=== PATIENT | male | born 1960 | race Caucasian/White ===

== ENCOUNTER 2023-08-13 12:46 | Outpatient (OUT) | payer MEDICARE, MEDICAID, SELFPAY ==
--- NOTE | 2023-08-13 12:59 | VEIN_ITS ---
Patient Name: MAJOR JACINTO MR#: [id number] : 1960 Exam Date: 08/13/2023 Ordering Doctor: DR. YANET ACKERMAN D.O. RADIOLOGY REPORT PROCEDURE: VC EXT VENOUS REFLUX FELIPE LMTD COMPARISON: None. INDICATIONS: Bilateral Leg Cramps R25.2 TECHNIQUE: Duplex imaging of the lower extremity to assess the deep and superficial venous system for the presence of deep or superficial venous incompetence and to document the location and severity of disease. The study includes evaluation of the great saphenous vein (GSV), anterior accessory saphenous vein (AASV) and small saphenous vein (SSV). Patient scanned in reverse Trendelenburg and standing. FINDINGS: RIGHT LOWER EXTREMITY: Saphenofemoral Junction Reflux: Yes 6.5mm 0.5 sec GSV: Diam (mm) Reflux/ Time (sec) Proximal Thigh 8.0 Yes 0.6 Mid Thigh 3.9 No Distal Thigh 4.6 Yes 0.4 Prox Calf 3.3 Yes 0.2 Mid Calf 2.6 Yes 0.1 Saphenopopliteal Junction Reflux: 4.2mm Yes 0.6 SSV: Proximal Calf 4.9 Yes 0.4 Mid Calf 3.7 Yes 0.2 AASV: Proximal Thigh 2.6 Yes 0.2 Mid Thigh 2.2 Yes 0.2 Distal Thigh Thrombi: No acute or chronic thrombus at this time. Compressibility: Normal. Flow: Minimal deep venous reflux. Preforator: Mid medial lower leg 2.1 mm without reflux. Prox medial lower leg 2.7 mm with 0.4s reflux. Tech Note: Incompetent varicose vein mid lateral lower leg measures 2.3 mm with 0.5s reflux. LEFT LOWER EXTREMITY: Saphenofemoral Junction Reflux: Yes 6.8 mm 0.3 sec GSV: Diam (mm) Reflux/Time (sec) Proximal Thigh 5.5 Yes 0.8 Mid Thigh 4.0 Yes 0.2 Distal Thigh 3.6 No Prox Calf 2.2 Yes 0.1 Mid Calf 2.2 Yes 0.2 Saphenopopliteal Junction Relux: 3.5 mm Yes 0.2 SSV: Proximal Calf 3.2 Yes 0.1 Mid Calf 2.1 No AASV: Not present Thrombi: No acute or chronic thrombus. Compressibility: Normal. Flow: Minimal deep venous reflux. Citrix Administrator: None. Tech Note: Incompetent varicose vein proximal medial lower leg measures 2.3 mm with 0.4s reflux. CONCLUSION: 1. Minimal venous insufficiency bilateral great saphenous veins with no dilatation or significant saphenofemoral or saphenopopliteal junction reflux 2. No significant varicose veins Dictated by: Darien Frias MD on 08/13/2023 at 14:08 Approved by: Darien Frias MD on 08/13/2023 at 14:10
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
== END 2023-08-13 12:47 | disposition home or self-care (01) ==
PROVIDERS: PCP Family Medicine; Visit Provider Family Medicine
DX: M79.605 Pain in left leg (principal); M79.604 Pain in right leg
CPT/HCPCS: 93970; G0463

== ENCOUNTER 2025-07-18 03:41 | Emergency (ER) | payer MEDICARE, MEDICAID, SELFPAY ==
--- OUTSIDE RECORDS SUMMARY | 2024-04-12 08:15 | XMS_ITS ---
Author Organization [facility] vices Address [address] [place], [place] [id number] Care Team Providers Care Dryer And Washer Mechanic Name Role Phone Yadira Jose Primary Care Provider [phone] Karie Bland [phone] REASON FOR VISIT 6 mo HTN Social History Sex Assigned At : Social History Observation Description Sex Assigned At Male Encounters Encounter Location Date Provider Diagnosis Main [address] [place], [place] [id number] 04/12/2024 Karie Doan Plan Of Treatment Next Appt Details Provider Name:Yadira Jose, 07/18/2025 01:30:00 PM, [address] [place], [place], [id number], Progress Notes * Sunil JACINTO LDOB:1960 (64 yo M)Acc No.[id number]:04/12/2024 Medical Note Patient: Sunil Garner Yuriy :?Karie Doan, DODOB:1960???Age:63 Y ???Sex:MaleDate:04/12/2024hone:[phone]:[address], [place], [place]Iij:Yadirabob Millanl Subjective: * Chief Complaints: * 6 mo HTN * Electronic signature of Karie Doan , DO on 07/18/2025 at 04:30 AM ESTSign off status: Pending * Provider: Nestor Doan, DO Date: 0 04/12/2024 Generated for Printing/Faxing/eTransmitting on:?07/18/2025 04:30 AM EST
--- OUTSIDE RECORDS SUMMARY | 2024-04-13 09:00 | XMS_ITS ---
Author Organization [facility] vices Address [address] [place], [place] [id number] Care Team Providers Care Wet Press Tender Name Role Phone Yadira Jose Primary Care Provider [phone] Katiuska Alvarez Unavailable [phone] REASON FOR VISIT HTN, DM Social History Sex Assigned At : Social History Observation Description Sex Assigned At Male Encounters Encounter Location Date Provider Diagnosis Main [address] [place], [place] [id number] 04/13/2024 Katiuska Lagunas Plan Of Treatment Next Appt Details Provider Name:Yadira Jose, 07/18/2025 01:30:00 PM, [address] [place], [place], [id number], Progress Notes * Sunil JACINTO LDOB:1960 (64 yo M)Acc No.[id number]:04/13/2024 Medical Note Patient: Yenny granados Sunil Yan :?Katiuska LagunasDOB:1960???Age:63 Y???Sex:Male Date:04/13/2024hone:[phone]:[address], [place], [place]Oea:Yadirabob Jose Subjective: * Chief Complaints: * H TN, DM Billing Information: * Procedure Codes: * Electronic signature of CATHY Boswell on 07/18/2025 at 04:30 AM ESTSign off status: Pending * Provider: Dee Lagunas Date: 0 04/13/2024 Generated for Printing/Faxing/eTransmitting on:?07/18/2025 04:30 AM EST
--- OUTSIDE RECORDS SUMMARY | 2024-04-13 09:30 | XMS_ITS ---
Author Organization [facility] vices Address [address] [place], [place] [id number] Care Team Providers Care Lead Nuclear Medicine Technologist Name Role Phone Yadira Jose Primary Care Provider [phone] Roddy De La Torre [phone] REASON FOR VISIT 6 month f/u HTN Social History Sex Assigned At : Social History Observation Description Sex Assigned At Male Encounters Encounter Location Date Provider Diagnosis Main [address] [place], [place] [id number] 04/13/2024 Roddy Kelley Plan Of Treatment Next Appt Details Provider Name:Yadira Jose, 07/18/2025 01:30:00 PM, [address] [place], [place], [id number], Progress Notes * Sunil JACINTO LDOB:1960 (64 yo M)Acc No.[id number]:04/13/2024 Medical Note Patient: Sunil Garner Yuriy :?JENNA Patel-CDOB:1960???Age:63 Y???Sex: MaleDate:4Phone:[phone]:[address], [place], [place]Ile:Yadira Jose Subjective: * Chief Complaints: * 6 month f/u HTN Billing Information: * Procedure Codes: * Electronic signature of JENNA Patel on 07/18/2025 at 04:30 AM ESTSign off status: Pending * Provider: Bautista Kelley PA-C Date: 0 04/13/2024 Generated for Printing/Faxing/eTransmitting on:?07/18/2025 04:30 AM EST
--- OUTSIDE RECORDS SUMMARY | 2024-06-11 03:45 | XMS_ITS ---
Author Organization [facility] vices Address [address] [place], [place] [phone] Care Team Providers Care Manhole Builder Name Role Phone DamonYadira Primary Care Provider Allergies Allergen (clinical drug ingredient) Drug/Non Drug Allergy documented on EMR Reaction Allergy Type Onset Date Status TalacenUnknownDrug AllergyActivePenicillinUnknownDrug AllergyActive REASON FOR VISIT f/u HTN & Back pain Medications Medication SIG (Take, Route, Frequency, Duration) Notes Start Date End Date Status Lisinopril 2.5 MG Tablet 1 tablet Orally Once a day; Duration: 90 days 08/18/2023Not-Taking/PRNBicalutamide 50 MG Tablet1 tablet Orally Once a day Not-Taking/PRNApple Cider Vinegar 600 MG Capsuleas directed Orally3 capsule once dailyNot-Taking/PRNTadalafil 10 MG Tablet1 tablet as needed Orally Once a day Not-Taking/PRNTurmeric 400 MG Capsuleas directed Orally2 chews once daily Not-Taking/PRNMens Multivitamin - Tabletas directed OrallyActiveAbiraterone Acetate 500 MG Tablet2 tablets Orally Once a dayActivemetFORMIN HCl 1000 MG Tablet1 tablet with a meal Oral two times a day; Duration: 90 days06/04/2021 ActiveEmpagliflozin 10 MG Tablet1 tablet Orally Once a day; Duration: 30 days 05/19/2024ctivepredniSONE 5 MG Tablet1 tablet Orally twice dailyno end date ActiveTylenol 325 MG Tablet1 tablet as needed Orally every 4 hrsActiveLidocaine 5 % Patch1 patch remove after 12 hours Externally Once a day; Duration: 30 days 10/23/2024Active Social History Sex Assigned At : Social History Observation Description Sex Assigned At Male Encounters Encounter Location Date Provider Diagnosis Main [address] [place], [place] [id number] 06/11/2024 Yadira Jose Plan Of Treatment Next Appt Details Provider Name:Yadira Jose, 07/18/2025 01:30:00 PM, [address] [facility] [place], [id number], History and Physical Notes * Examination CategorySub-CategoryDetailNotesCategory NotesCQM ExceptionsCurrently taking Aspirin:Aspirin Use:: No Progress Notes * Sunil JACINTO LDOB:1960 (64 yo M)Acc No.[id number]:06/11/2024 Medical Note Patient: Sunil Garner :?Yadira Jose, MDDOB:1960???Age:63 Y???Sex: MaleDate:06/11/2024hone:[phone]:[address], [place] Subjective: * Chief Complaints: * f /u HTN & Back pain * Medical History: Prostate Cancer Stage 4 bone cancer Bladder cancer DM HTN? * Surgical History: SURGICAL: Right knee arthroscopy, ProblemStatus: Active, 2007-06-17? prostate surgery ? Surgical History verified.? * Hospitalization/Major Diagno stic Procedure: [facility] 01[facility]? [facility]? Hospitalization Verified.? * Family History: F ather: unknown. M other: alive. P aternal Grand Father: unknown. P aternal Grand Mother: unknown. M aternal Grand Father: . M aternal Grand Mother: . B rother: alive. S ister: alive. 1 brother(s) , 2 sister(s) . . F amily History Verified.. * Medications: T akingLidocaine 5 % Patch 1 patch remove after 12 hours Externally Once a day Tylenol 325 MG Tablet 1 tablet as needed Orally every 4 hrs Abiraterone Acetate 500 MG Tablet 2 tablets Orally Once a day Mens Multivitamin - Tablet as directed Orally predniSONE 5 MG Tablet 1 tablet Orally twice daily , Notes to Pharmacist: no end dateEmpagliflozin 10 MG Tablet 1 tablet Orally Once a day metFORMIN HCl 1000 MG Tablet 1 tablet with a meal Oral two times a day Taking Lidocaine 5 % Patch 1 patch remove after 12 hours Externally Once a day Taking Tylenol 325 MG Tablet 1 tablet as needed Orally every 4 hrs Taking Abiraterone Acetate 500 MG Tablet 2 tablets Orally Once a day Taking Mens Multivitamin - Tablet as directed Orally Taking predniSONE 5 MG Tablet 1 tablet Orally twice daily , Notes to Pharmacist: no end dateTaking Empagliflozin 10 MG Tablet 1 tablet Orally Once a day Taking metFORMIN HCl 1000 MG Tablet 1 tablet with a meal Oral two times a day Not-Taking/PRNTurmeric 400 MG Capsule as directed Orally , Notes to Pharmacist: 2 chews once dailyTadalafil 10 MG Tablet 1 tablet as needed Orally Once a day Apple Cider Vinegar 600 MG Capsule as directed Orally , Notes to Pharmacist: 3 capsule once dailyBicalutamide 50 MG Tablet 1 tablet Orally Once a day Lisinopril 2.5 MG Tablet 1 tablet Orally Once a day Not-Taking/PRN Turmeric 400 MG Capsule as directed Orally , Notes to Pharmacist: 2 chews once dailyNot-Taking/PRN Tadalafil 10 MG Tablet 1 tablet as needed Orally Once a day Not-Taking/PRN Apple Cider Vinegar 600 MG Capsule as directed Orally , Notes to Pharmacist: 3 capsule once dailyNot-Taking/PRN Bicalutamide 50 MG Tablet 1 tablet Orally Once a day Not-Taking/PRN Lisinopril 2.5 MG Tablet 1 tablet Orally Once a day * Allergies: T alacen: AllergyPenicillin: AllergyyesAllergies Verified. Objective: * Examination: ???CQM Exceptions: ?Currently taking Aspirin:? Aspirin Use:?No??? Billing Information: * Procedure Codes: * Electronic signature of Yadira Jose MD on 07/18/2025 at 04:29 AM ESTSign off status: Pending * Provider: Gary Jose MD Date: 08/11/2023 Generated for Printing/Faxing/eTransmitting on:?07/18/2025 04:29 AM EST
--- OUTSIDE RECORDS SUMMARY | 2024-06-16 10:00 | XMS_ITS ---
Author Organization [facility] vices Address [address] [place], [place] [id number] Care Team Providers Care Head Silverman Name Role Phone DamonYadira covington Primary Care Provider [phone] Allergies Allergen (clinical drug ingredient) Drug/Non Drug Allergy documented on EMR Reaction Allergy Type Onset Date Status TalacenUnknownDrug AllergyActivePenicillinUnknownDrug AllergyActive REASON FOR VISIT 4wk f/u DM Medications Medication SIG (Take, Route, Frequency, Duration) Notes Start Date End Date Status Bicalutamide 50 MG Tablet 1 tablet Orally Once a day Not-Taking/PRNApple Cider Vinegar 600 MG Capsuleas directed Orally3 capsule once dailyNot-Taking/PRNTadalafil 10 MG Tablet1 tablet as needed Orally Once a day Not-Taking/PRNTurmeric 400 MG Capsuleas directed Orally2 chews once daily Not-Taking/PRNLisinopril 2.5 MG Tablet1 tablet Orally Once a day; Duration: 90 days08/18/2023Not-Taking/PRNEmpagliflozin 10 MG Tablet1 tablet Orally Once a day; Duration: 30 days05/19/2024ctivepredniSONE 5 MG Tablet1 tablet Orally twice dailyno end dateActivemetFORMIN HCl 1000 MG Tablet1 tablet with a meal Oral two times a day; Duration: 90 days06/04/2021ctiveMens Multivitamin - Tabletas directed OrallyActiveAbiraterone Acetate 500 MG Tablet2 tablets Orally Once a dayActiveTylenol 325 MG Tablet1 tablet as needed Orally every 4 hrsActive Lidocaine 5 % Patch1 patch remove after 12 hours Externally Once a day; Duration: 30 days05/19/2024ctive Social History Sex Assigned At : Social History Observation Description Sex Assigned At Male Encounters Encounter Location Date Provider Diagnosis Main [address] [place], [place] [id number] 06/16/2024 Yadira Jose Plan Of Treatment Next Appt Details Provider Name:Yadira Jose, 07/18/2025 01:30:00 PM, [address] [facility] [place], [phone], History and Physical Notes * Examination CategorySub-CategoryDetailNotesCategory NotesCQM ExceptionsCurrently taking Aspirin:Aspirin Use:: No Progress Notes * Sunil JACINTO LDOB:1960 (64 yo M)Acc No.[id number]:06/16/2024 Medical Note Patient: Sunil Garner :?Yadira Jose, MDDOB:1960???Age:63 Y???Sex: MaleDate:06/16/2024hone:[phone]:[address], [place] Subjective: * Chief Complaints: * 4 wk f/u DM * Medical History: Prostate Cancer Stage 4 bone cancer Bladder cancer DM HTN? * Surgical History: SURGICAL: Right knee arthroscopy, ProblemStatus: Active, 2007-06-17? prostate surgery ? Surgical History verified.? * Hospitalization/Major Diagno stic Procedure: [facility]? [facility]? see above ? Hospitalization Verified.? * Family History: F ather: [...] Pending * Provider: Gary Jose MD Date: 08/16/2023 Generated for Printing/Faxing/eTransmitting on:?07/18/2025 04:29 AM EST
--- OUTSIDE RECORDS SUMMARY | 2025-06-28 22:26 | XMS_ITS | Encounter Summary ---
Author Organization [facility] tem Address [id number] [address] [place] [address] Care Team Providers Care Assistant Coach Name Role Phone Yadira Jose MD Primary Care Provider [phone] Reason for Referral * Consultation (Routine) - Pending ReviewSpecialtyDiagnoses / ProceduresReferred By ContactReferred To ContactWound Care Diagnoses Wound of left groin, initial encounter Amy Lentz APRN-GALI [address] [place] [address] Phone: tel: fax: [facility] [address] [place] [address] Phone: tel: fax: Referral IDStatusReasonStart DateExpiration DateVisits RequestedVisits [id number] Review Specialty Services Required / * Misc (Routine) - AuthorizedSpecialtyDiagnoses / ProceduresReferred By Contact Referred To Contact Procedures Wound care (specify) Amy Lentz APRN-CNP [address] [place] [address] Phone: tel: fax: Referral IDStatusReasonStart DateExpiration DateVisits RequestedVisits [id number]/4/202512/4/202611 * Misc (Routine) - AuthorizedSpecialtyDiagnoses / ProceduresReferred By Contact Referred To Contact Procedures Remove dressing (specify when) Amy Lentz APRN-GALI [address] [place] [address] Phone: tel: fax: Referral IDStatusReasonStart DateExpiration DateVisits RequestedVisits [id number]/4/202512/4/202611 Reason for Visit * Auth/CertSpecialtyDiagnoses / ProceduresReferred By ContactReferred To Contact Diagnoses 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) Cherelle Cervantes APRN-GALI [address] [place] [address] Phone: tel: fax: Referral IDStatusReasonStart DateExpiration DateVisits RequestedVisits [id number] Encounter Details DateTypeDepartmentCare Team (Latest Contact Info)Qzeuqdofxpl31/02/2025 10:26 PM EST - 07/06/2025 6:22 PM ESTHospital Encounter [facility] Acute [address] [place] [id number] Corbin Singleton MD [address] [place] [id number] Jerel Allen MD [address] [place] [address] Wound of left groin, initial encounter (Primary Dx); 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) Discharge Disposition: Home Health Social History Tobacco UseTypesPacks/DayYears UsedDateSmoking Tobacco: FormerCigarsSmokeless Tobacco: Never Comments:Quit 6 years ago 20 17 Alcohol UseStandard Drinks/WeekCommentsNo0 (1 standard drink = 0.6 oz pure alcohol)Social Connection and Isolation PanelAnswerDate RecordedIn a typical week, how many times do you talk on the phone with family, friends, or neighbors?More than three times a week06/16/2024How often do you get together with friends or relatives?More than three times a week06/16/2024How often do you attend sikh or religion services?More than 4 times per year06/16/2024o you belong to any clubs or organizations such as sikh groups, unions, fraternal or athletic groups, or school groups?Yes06/16/2024How often do you attend meetings of the clubs or organizations you belong to?More than 4 times per year06/16/2024 Are you , , , , never , or living with a partner?Mexckkt5506/16/2024Overall Financial Resource Strain (CARDIA)AnswerDate RecordedHow hard is it for you to pay for the very basics like food, housing, medical care, and heating?Not hard at all06/16/2024HQ-2AnswerDate RecordedTotal Mjnej74208/30/2024[facility] [place] [facility] - Occupational Stress QuestionnaireAnswerDate RecordedDo you feel stress - tense, restless, nervous, or anxious, or unable to sleep at night because yourmind is troubled all the time - these days?To some ooiake3206/16/2024Exercise Vital SignAnswerDate Recorded On average, how many days per week do you engage in moderate to strenuous exercise (like a brisk walk)?0 days06/16/2024On average, how many minutes do you engage in exercise at this level?0 min06/16/2024UDIT-CAnswerDate RecordedQ1: How often do you have a drink containing alcohol?Never06/29/2025Q2: How many drinks containing alcohol do you have on a typical day when you are drinking? Patient does not drink06/29/2025Q3: How often do you have six or more drinks on one occasion?Never06/29/2025PRAPARE - TransportationAnswerDate RecordedIn the past 12 months, has lack of transportation kept you from medical appointments or from getting medications?No06/29/2025In the past 12 months, has lack of transportation kept you from meetings, work, or from getting things needed for daily living?No06/29/2025HC UtilitiesAnswerDate RecordedIn the past 12 months has the [employer], gas, oil, or water [employer] threatened to shut off services in your home?No06/29/2025Housing InstabilityAnswerDate RecordedAre you worried or concerned that in the next two months you may not have stable housing that you own, rent or stay in as a part of a household?No06/29/2025hildcareAnswerDate RecordedDo problems getting child protection specialist 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 work or study?No06/16/2024EmploymentAnswerDate RecordedDo you need help finding a local career center and/or a training program?No06/16/2024Hunger ScreeningAnswerDate RecordedWithin the past 12 months we worried whether our food would run out before we got money to buy more.Never True06/29/2025Within the past 12 months the food we bought just didn't last and we didn't have money to get more.Never True06/29/2025Purpose - LifeAnswerDate RecordedI have a purpose and direction in my life.Strongly Agree06/16/2024Sex and Gender InformationValueDate RecordedSex Assigned at BirthNot on fileLegal PqqQvqk4203/02/2015 11:37 AM EDTGender Identity Not on fileSexual OrientationNot on filedocumented as of this encounter Last Filed Vital Signs Vital SignReadingTime TakenCommentsBlood Ejtrnfjr064/7107/06/2025 3:00 PM EST Axgyt239507/06/2025 3:00 PM NFYNsorykrlsrv25.7 ??C (98.1 ??F)07/06/2025 3:00 PM ESTRespiratory Klhd061309/06/2024 3:00 PM ESTOxygen Dpxhebhbyh03%07/06/2025 3:00 PM ESTInhaled Oxygen Concentration--Ljivbj39.5 kg (203 lb 14.8 oz)07/06/2025 3:40 AM BCRTzjkjx020.8 cm (5' 10 )06/28/2025 10:31 PM ESTBody Mass Index29.26 06/28/2025 10:31 PM ESTdocumented in this encounter Functional Status * GaitQuestionAnswerDate of AssessmentAuthorAssistive DeviceRolling walker 07/04/2025 9:00 AM Denise Schroeder A, OT/L * HEENTQuestionAnswerDate of AssessmentAuthorHEENT (WDL)X109/06/2024 8:00 AM Estrella Woo CNATeethMissing teeth07/06/2025 8:00 AM Estrella Nevarez CNA * IP Hunger/Food Insecurity ScreeningQuestionAnswerDate of AssessmentAuthor Hunger Screening Complete?Yes06/29/2025 8:33 AM Baylee Valadez RNPt. Eligible for Food / KezllleFf04/03/2025 8:33 AM Baylee Valadez RNIf Eligible: Received Food BoxNot Offered to Tkshkxn1906/29/2025 8:33 AM Baylee Valadez RN * Food InsecurityQuestionAnswerDate of AssessmentAuthorWithin the past 12 months the food we bought just didn't last and we didn't have money to get more.Never True06/29/2025 10:03 AM Nolvia Escalona RNWithin the past 12 months we worried whether our food would run out before we got money to buy more.Never True06/29/2025 10:03 AM Nolvia Escalona RN * ActivityQuestionAnswerDate of AssessmentAuthorActivity PerformedResting in bed 07/06/2025 8:00 AM Estrella Nevarez CNAActivity ResponseTolerated well 07/06/2025 8:00 AM Estrella Nevarez CNARange of MotionActive;All extremities 07/06/2025 8:00 AM Estrella Nevarez CNAToileting AssistanceAmbulate to tcsufpcj62/10/2025 8:00 AM Estrella Nevarez CNATransport Method Wheelchair;Vaktxnsgn64/10/2025 8:00 AM Estrella Nevarez CNABed PositionSelf gfuwskhno52/10/2025 8:00 AM Estrella Nevarez CNA * Deterioration IndexQuestionAnswerDate of AssessmentAuthorDeterioration Index (30-60 mod; 60+ high)26.39109/06/2024 6:15 PM Renato Connolly * Post Discharge Follow Up QuestionsQuestionAnswerDate of AssessmentAuthor Reviewed and Updated if needed.Uyducajx91/10/2025 5:41 PM Estrella Nevarez CNA * Housing InstabilityQuestionAnswerDate of AssessmentAuthorAre you worried or concerned that in the next two months you may not have stable housing that you own, rent or stay in as a part of a household?No06/29/2025 10:03 AM Nolvia Ceballos RN * Pneumonia Vaccine Screen ages 19 to 64QuestionAnswerDate of AssessmentAuthor Are any of the following pneumococcal vaccine contraindications present? Current chemotherapy or radiation treatment or less than 2 weeks prior to inpatient wzlnuwcwsifhfic60/03/2025 10:05 AM Nolvia Escalona RN Pneumococcal Vaccine Decision:STOP - No Pneumococcal vaccine is indicated 06/29/2025 10:05 AM Nolvia Escalona RN * PACU InterventionsQuestionAnswerDate of AssessmentAuthorComfort/Environmental InterventionsWarming dfdzsno7007/03/2025 1:45 PM Jean-Pierre Bonds RN * Richrad Coma ScaleQuestionAnswerDate of AssessmentAuthorEye Lsqganq322/10/2025 8:00 AM Estrella Nevarez CNABest Motor Yvithbvt764/10/2025 8:00 AM Estrella Nevarez CNABest Verbal Pgidiwmt264/10/2025 8:00 AM Estrella Nevarez CNA * Vital SignsQuestionAnswerDate of VwtalhyeirPhqsmlZP133/7107/06/2025 3:00 PM Mara Dior CNATemp98.112 3:00 PM Mara Dior, CNATemp kzbBsnl6607/06/2025 3:00 PM Mara Dior CNAPulse8207/06/2025 3:00 PM Mara Mcguire, NHSYbjh7888/10/2025 3:00 PM Mara Dior MCULoK351 07/06/2025 3:00 PM Mara Dior CNAO2 Flow Rate (L/min) 3:56 AM Ernestine Guillory CNAO2 DeviceNone (Room air)07/06/2025 3:00 PM Mara Dior CNAHeart Rate SourcePulse Ox07/06/2025 3:00 PM Mara Dior CNA BP LocationRight arm07/06/2025 3:00 PM Mara Dior CNABP Method Iwxxqmzyy90/10/2025 3:00 PM Mara Dior CNAMAP (mmHg)8807/06/2025 3:00 PM Mara Dior CNAIdarlene this an Orthostatic BP?No07/06/2025 3:00 PM Mara Mcguire CNAOrthostatic VbtcispxOdov45/10/2025 3:00 PM Mara Dior CNAPatient JdxsxiidEgqbles77/10/2025 3:00 PM Mara Dior CNA * Oxygen TherapyQuestionAnswerDate of AssessmentAuthorPulse Oximetry Type Zpcveadnov49/07/2025 1:23 PM Jessica Marcano, WARHEAD MAINTENANCE SPECIALIST-BATCHING OPERATOR * Height and WeightQuestionAnswerDate of SsedoadupwUgkhnpSudbub3296/02/2025 10:31 PM Isaac Kim RNWeight3262.8107/06/2025 3:40 AM Ernestine Guillory CNABEMynor (kcal)02550108/29/2024 10:31 PM Isaac Kim RNHeight MfqvnrHygfjx20/02/2025 10:31 PM Isaac Kim RNBSA (Calculated - sq m) 2.0906/28/2025 10:31 PM Isaac Kim RNBMI (Calculated)27.9108/29/2024 10:31 PM Isaac Kim RNWeight in (lb) to have BMI = 17441.9108/29/2024 10:31 PM Isaac Kim RN * Localized Breath SoundsQuestionAnswerDate of AssessmentAuthorR Upper Posterior Clear07/02/2025 10:15 AM ESTOdibe, A'CericaR Mid MpbwgfsvAsxpl85/06/2025 10:15 AM ESTOdibe, A'CericaR Mid RlcybnxsiTjkgo31/06/2025 10:15 AM ESTOdibe, A'CericaR VwrujexMlijj31/06/2025 10:15 AM ESTOdibe, A'CericaR Lower Anterior Clear07/02/2025 10:15 AM ESTOdibe, A'CericaR Basilar (R Lower Posterior Base) Clear07/02/2025 10:15 AM ESTOdibe, A'CericaL Upper AnteriorDiminished 07/02/2025 10:15 AM ESTOdibe, A'CericaL Upper KbnvguykiPcnsyfidfs81/06/2025 10:15 AM ESTOdibe, A'CericaL FnzbngaIohmbuamxe08/06/2025 10:15 AM ESTOdibe, A'CericaL Lower QyovulfxGwgaf77/06/2025 10:15 AM ESTOdibe, A'CericaL Basilar (L Lower Posterior Base)Clear07/02/2025 10:15 AM ESTOdibe, A'Cerica * CardiacQuestionAnswerDate of AssessmentAuthorCardiac (WDL)X109/03/2024 1:45 PM Jean-Pierre Bonds RN * Pacemaker/ICDQuestionAnswerDate of AssessmentAuthorCardiac RhythmNormal sinus ykmxmc7007/06/2025 8:00 AM Estrella Nevarez CNATelemetry/Cardiac MonitorYes 07/06/2025 8:00 AM Estrella Nevarez CNA * GastrointestinalQuestionAnswerDate of AssessmentAuthorPassing FlatusYes 07/03/2025 7:30 PM Nataly Aguilar RNRUQ Bowel EbwdlgGzrivh34/10/2025 8:00 AM Estrella Nevarez, CNARLQ Bowel RgqnueSzklni42/10/2025 8:00 AM Estrella Nevarez, CNALUQ Bowel UvemtvPwkzul29/10/2025 8:00 AM Estrella Nevarez, CNALLQ Bowel KhkujlVjqtmd80/10/2025 8:00 AM Estrella Nevarez, BELEMAGastrointestinal (WDL)WDL109/06/2024 8:00 AM Estrella Nevarez CNAGI WihtscljLnfb68/10/2025 8:00 AM Estrella Nevarez CNA * EdemaQuestionAnswerDate of AssessmentAuthorRLE Edema+ 8:00 AM Estrella Woo CNALLE Edema+ 8:00 AM Estrella Nevarez CNA * RUE Peripheral Vascular AssessmentQuestionAnswerDate of AssessmentAuthorR Radial Pulse+ 8:00 AM Estrella Nevarez CNA * LUE Peripheral Vascular AssessmentQuestionAnswerDate of AssessmentAuthorL Radial Pulse+ 8:00 AM Estrella Nevarez CNA * RLE Peripheral Vascular AssessmentQuestionAnswerDate of AssessmentAuthorR Posterior Tibial Pulse+ 8:00 AM Estrella Nevarez CNAR Dorsalis Pedis/Pedal Pulse+ 8:00 PM Alen Calix RN * LLE Peripheral Vascular AssessmentQuestionAnswerDate of AssessmentAuthorL Posterior Tibial Pulse+ 8:00 AM Estrella Nevarez CNAL Dorsalis Pedis/Pedal Pulse+ 8:00 AM Estrella Nevarez CNA * Musculoskeletal DetailsQuestionAnswerDate of AssessmentAuthorLower BackLimited oqdjxopc78/07/2025 5:46 PM Arely Dietz, DARY * MusculoskeletalQuestionAnswerDate of AssessmentAuthorRUEFull movement 07/06/2025 8:00 AM Estrella Nevarez CNARLELimited movement;Weakness 07/06/2025 8:00 AM Estrella Nevarez CNALUEFull fvuwbcki40/10/2025 8:00 AM Estrella Nevarez CNALLELimited movement;Nuepzzrp79/10/2025 8:00 AM Estrella Nevarez CNAMusculoskeletal (WDL)X109/06/2024 8:00 AM Estrella Nevarez CNA * Anus/RectumQuestionAnswerDate of AssessmentAuthorAnus/Rectum (WDL)WDL 07/06/2025 8:00 AM Estrella Nevarez CNA * PsychosocialQuestionAnswerDate of AssessmentAuthorPatient Behaviors/Mood Calm;Bwegvdxmwlj83/10/2025 8:00 AM Estrella Nevarez CNAFamily/Visitor BehaviorsCalm;Cooperative;Phduqgdord33/10/2025 8:00 AM Estrella Nevarez CNA Needs JezmuwbldGavvwykm98/10/2025 8:00 AM Estrella Nevarez CNAPsychosocial (WDL)WDL109/06/2024 8:00 AM Estrella Nevarez CNAPerson/Family Visitation Significant other07/06/2025 8:00 AM Estrella Nevarez CNAAbility to Express FeelingsAble to vzeirrq3107/06/2025 8:00 AM Estrella Nevarez CNAAbility to Express NeedsAble to qmrrqan4907/06/2025 8:00 AM Estrella Nevarez CNAAbility to Express ThoughtsAble to wxdcumm0607/06/2025 8:00 AM Estrella Nevarez CNA Time of VisitationRooming In07/06/2025 8:00 AM Estrella Nevarez CNAAbility to Understand JxoymyBnoqacefmup57/10/2025 8:00 AM Estrella Nevarez CNA * IntakeQuestionAnswerDate of AssessmentAuthorPercent Meals Eaten (%)100 07/06/2025 5:00 PM Estrella Nevarez CNA * Ximena Fall RiskQuestionAnswerDate of AssessmentAuthorHistory of Falling0 07/06/2025 8:00 AM Estrella Nevarez CNASecondary Brvvevohk6599/10/2025 8:00 AM Estrella Nevarez CNAAmbulatory Wpuj029109/06/2024 8:00 AM Estrella Nevarez CNAIntravenous Therapy/Heparin/Saline Upow935209/06/2024 8:00 AM Estrella Woo, BELEMAGait/Yzelrpipkpes7720/10/2025 8:00 AM Estrella Nevarez, BELEMAMental Yzgprz216/10/2025 8:00 AM Estrella Nevarez CNAScore6007/06/2025 8:00 AM Estrella Nevarez CNA * Tee ScaleQuestionAnswerDate of AssessmentAuthorSensory Perceptions4 07/06/2025 8:00 AM Estrella Nevarez CNAMoisture 8:00 AM Estrella Nevarez, YTZLsxihdmq893/10/2025 8:00 AM Estrella Nevarez CNAMobility3 07/06/2025 8:00 AM Estrella Nevarez CNANutrition 8:00 AM Estrella Woo CNAFriction and Wvrud584 8:00 AM Estrella Nevarez CNA * Pain Intervention(s)AnswerDate of AssessmentAuthorMedication (See MAR) 07/05/2025 11:24 PM Alen Calix RN * Level of ConsciousnessAnswerDate of GmpyumhchwVejxhaObppa44/10/2025 4:00 AM Alen Calix RN * Tee Scale ScoreAnswerDate of QijfjshfruOyneml2716/10/2025 8:00 AM Estrella Nevarez CNA * RespiratoryQuestionAnswerDate of AssessmentAuthorBilateral Breath Sounds Clear;Ufigmmedsq40/10/2025 8:00 AM Estrella Nevarez CNAR Breath SoundsClear 07/06/2025 8:00 AM Estrella Nevarez CNAL Breath BwimjxCcweigijxf63/10/2025 8:00 AM Estrella Nevarez CNARespiratory OgxfrdfVfizogi39/10/2025 8:00 AM Estrella Woo CNAChest AssessmentChest expansion gkyjfyppasm39/10/2025 8:00 AM Estrella Nevarez CNACoughNone109/06/2024 8:00 AM Estrella Nevarez CNA Respiratory (WDL)X109/06/2024 8:00 AM Estrella Nevarez CNACyanosisNone 07/06/2025 8:00 AM Estrella Nevarez CNA * HygieneQuestionAnswerDate of AssessmentAuthorCHG (Chlorhexidine Gluconate) PihjhrwYtwqgazkw74/10/2025 3:57 AM Ernestine Guillory CNA * Height and WeightQuestionAnswerDate of AssessmentAuthorWeight MethodStanding scale07/05/2025 3:00 AM Ernestine Guillory CNA * Patient InformationQuestionAnswerDate of AssessmentAuthorPrimary CaregiverSelf 06/29/2025 8:33 AM Baylee Valadez RNAccompanied by/Relationshipspouse Laina 06/29/2025 8:33 AM Baylee Valadez RNSupport SystemSpouse/Significant Other 06/29/2025 8:33 AM Baylee Valadez RNInikrys Pre-Hospitalization Assessment Completed?Mrwnqlthj83/03/2025 8:33 AM Baylee Valadez RN * Activities of Daily LivingQuestionAnswerDate of AssessmentAuthorFunctional StatusModerate rssjzwfoyf33/03/2025 8:32 AM Baylee Valadez RNAmbulation Moderate tctthyvbbg10/03/2025 8:32 AM Baylee Valadez RNBehaviorOriented 06/29/2025 8:32 AM Byalee Valadez RNDressingNeeds pnnebwovgz87/03/2025 8:32 AM Baylee Valadez RNKHKyuvtmkqZfcroildiez01/03/2025 8:32 AM Baylee Valadez RNFMIBxkfpqdOufpawgbqye98/03/2025 8:32 AM Baylee Valadez RNBathingNeeds sovakgdxms08/03/2025 8:32 AM Baylee Valadez RNToiletingNeeds assistance 06/29/2025 8:32 AM Baylee Valadez RN * Services RequestedQuestionAnswerDate of AssessmentAuthorDoes the patient need discharge transportation arranged?No06/29/2025 8:33 AM Baylee Valadez RN Discharge DispositionHome with home health kotzqtyv18/03/2025 8:33 AM Baylee Lorenzo RNFacility/Service HkcbHpuesks30/03/2025 8:33 AM Baylee Valadez RNFacility/Service Fax rhonsr522-488-576244/03/2025 8:33 AM Baylee Valadez RNPatient expects to be discharged to:home w/HC06/29/2025 8:33 AM Baylee Lorenzo RNDC Planning Complete Discharge BrrttsgsmbVvj13/03/2025 8:33 AM Baylee Valadez RNPatient DeclinedActive with Nwudqpyi63/03/2025 8:33 AM Baylee Valadez RNFacility/Service Phone Bjhgil155-045-095790/03/2025 8:33 AM Baylee Valadez RNDoes the patient wish to have family/friend/caregiver involved in their discharge planning?No, the patient does not wish to have family/friend/caregiver involved in their discharge exvnhxzi65/03/2025 8:33 AM Baylee Valadez RNList ProvidedPatient /03/2025 8:33 AM Baylee Valadez RNPatient choice offeredPatient ndbjspzu28/03/2025 8:33 AM Baylee Valadez RN * Advance Directives (For Healthcare)QuestionAnswerDate of AssessmentAuthorPre- existing Do Not Resuscitate DNR OiuwmjmnhGn78/03/2025 10:06 AM Noliva Escalona RN * Discharge PlanningQuestionAnswerDate of AssessmentAuthorSupport Systems Spouse/significant other;Family xidsvmw4306/29/2025 10:09 AM Nolvia Escalona RN * Nutrition ScreenQuestionAnswerDate of AssessmentAuthorRecent Unplanned Weight Loss 10 lbs. or NdqyVg2406/29/2025 10:06 AM Nolvia Escalona RNIntake Less Than 50% of Normal Over Last 2 QwqsjDp6806/29/2025 10:06 AM Nolvia Escalona RNPressure Ulcer or Non-Healing WoundUnable to Ewhxvh7906/29/2025 10:06 AM Nolvia Escalona RNTPN or Tube Feed Immediately Prior to AdmissionNo 06/29/2025 10:06 AM Nolvia Escalona, YARY or Lactating and on a Non-OB UnitN/A108/30/2024 10:06 AM Nolvia Escalona RN * Values/BeliefsQuestionAnswerDate of AssessmentAuthorCultural Requests During Hospitalizationpatient yydirm1106/29/2025 10:08 AM Nolvia Escalona RN Spiritual Requests During Hospitalizationpatient dubtpw6406/29/2025 10:08 AM Nolvia Ceballos RN * GenitourinaryQuestionAnswerDate of AssessmentAuthorGenitourinary (WDL)WDL 07/06/2025 8:00 AM Estrella Nevarez CNA * NeurologicalQuestionAnswerDate of AssessmentAuthorOrientation LevelOriented X4 07/06/2025 4:00 PM Estrella Nevarez CNACognitionFollows commands;Appropriate /10/2025 4:00 PM Estrella Nevarez CNASpeechClear109/06/2024 4:00 PM Estrella Nevarez CNALUE Motor ResponseResponds to /10/2025 8:00 AM Estrella Nevarez CNALUE SensationFull njhagqebn96/10/2025 8:00 AM Estrella Woo CNALLE Motor ResponseResponds to bqklzlya73/10/2025 8:00 AM Estrella Nevarez CNALLE SensationNumbness;Tingling;Abzotgge28/10/2025 8:00 AM Estrella Nevarez CNARUE Motor ResponseResponds to yhwdfbii77/10/2025 8:00 AM Estrella Nevarez CNARUE SensationFull bivnqhjfy80/10/2025 8:00 AM Estrella Woo CNARLE Motor ResponseResponds to /10/2025 8:00 AM Estrella Nevarez CNARLE SensationNumbness;Tingling;Rmeiqgbm16/10/2025 8:00 AM Estrella Nevarez CNANeuro (WDL)X109/06/2024 8:00 AM Estrella Nevarez CNA SwallowAble to swallow solids and liquids without rclrzluvtu77/10/2025 4:00 PM Estrella Nevarez CNARLE Motor StrengthCan overcome yoesinnjkv36/10/2025 8:00 AM Estrella Nevarez CNALLE Motor StrengthCan overcome jnfyctapxp22/10/2025 8:00 AM Estrella Nevarez CNALevel of ZznwehxvwtorkHddyx92/10/2025 8:00 AM Estrella Nevarez CNARUE Motor StrengthOvercomes gdsqmdj8707/06/2025 8:00 AM Estrella Nevarez CNALUE Motor StrengthOvercomes kjdyumn3207/06/2025 8:00 AM Estrella Nevarez CNABalanceGait bmgpqkos87/10/2025 8:00 AM Estrella Nevarez CNAPupil XqrqwcdmyoTu56/10/2025 8:00 AM Estrella Nevarez CNAR Foot LwjwtvbpjwieLwlasnrt62/10/2025 8:00 AM Estrella Nevarez CNAL Foot GtqoftasjqdgMxnkxdmu07/10/2025 8:00 AM Estrella Nevarez CNAR Foot Plantar QlrdsrtGjulmqtz07/10/2025 8:00 AM Estrella Nevarez CNAL Foot Plantar Flexion Qnglzjnh62/10/2025 8:00 AM Estrella Nevarez CNATongue DeviationNone 07/06/2025 8:00 AM Estrella Nevarez CNANeuro RrhduvrpSbry56/10/2025 8:00 AM Estrella Nevarez CNARelieved byRelaxation techniques (Comment)07/06/2025 8:00 AM Estrella Nevarez CNAMotor Function/Sensation Assessment Sensation;Dorsiflexion;Plantar flexion;Motor response;Motor vvmaieft98/10/2025 8:00 AM Estrella Nevarez CNAFacial NgcustabCbphdkxhfly09/10/2025 8:00 AM Estrella Woo CNA * Abuse Indicator ScreeningQuestionAnswerDate of AssessmentAuthorSafe in HomeYes 06/29/2025 10:08 AM Nolvia Escalona RNDo you feel safe in your relationship(s)?Yes06/29/2025 10:08 AM Nolvia Escalona RNAre you in immediate danger?No06/29/2025 10:08 AM Nolvia Escalona RN * Richard Coma Scale ScoreAnswerDate of CbgwmqvcsqIxgaid4523/10/2025 8:00 AM Estrella Woo CNA * Prior FunctionQuestionAnswerDate of AssessmentAuthorLives WithSpouse;Son 07/04/2025 9:00 AM Denise Schroeder, OT/LReceives Help FromFamily;Home prfpii1007/04/2025 9:00 AM Denise Schroeder, OT/L * ADL / IADLQuestionAnswerDate of AssessmentAuthorBathing/Showering Assistance Min hrcbdf4207/04/2025 9:00 AM Denise Schroeder, OT/LOtheruse of RW for mobility, assist to reach to foot level for ADL tasks, pt reports incontinence at times - unaware of wet brief, total to change with pt /08/2025 9:00 AM Denise Schroeder, OT/LToilet/Commode AssistanceTotal assist 07/04/2025 9:00 AM ESTFerDenise rosario A, OT/LUE Dressing AssistanceSetup 07/04/2025 9:00 AM ESTFerEdward rosarioia A, OT/LLE Dressing AssistanceMod assist 07/04/2025 9:00 AM ESTFerEdward rosarioia A, OT/LEating AssistanceIndependent 07/04/2025 9:00 AM ESTFerEdward rosarioia A, OT/LGrooming AssistanceSetup 07/04/2025 9:00 AM ESTFertig, Denise A, OT/L * PlanQuestionAnswerDate of AssessmentAuthorPatient Response to Treatment Tolerated evaluation without adverse gqfaulqh99/08/2025 9:00 AM Denise Schroeder A, OT/L * Safe EnvironmentQuestionAnswerDate of AssessmentAuthorHourly RoundingYes 07/06/2025 8:00 AM Estrella Nevarez CNAArm Bands OnID;Allergies;Fall 07/06/2025 8:00 AM Estrella Nevarez CNACamaren Sesay Within RaypfMfb11/10/2025 8:00 AM Estrella Nevarez CNAOverbed Table Within TrzvmHtm73/10/2025 8:00 AM Estrella Nevarez CNABed In Lowest DhbiipxwSmh09/10/2025 8:00 AM Estrella Nevarez CNABed Wheels ImtsgqLor10/10/2025 8:00 AM Estrella Nevarez CNASikang Rails/Bed Safety 8:00 AM Estrella Nevarez CNANonSkid Footwear Patient in bed;Off07/06/2025 8:00 AM Estrella Nevarez CNABed/Chair Alarm On No (Comment)07/06/2025 8:00 AM Estrella Nevarez CNA * Hygiene and AssistanceQuestionAnswerDate of AssessmentAuthorHygieneLinen dysmjtg2307/05/2025 7:13 PM Jeanne Young CNA * PrecautionsQuestionAnswerDate of PmckizavrkLqbqaaBlvtnfkuaozHxqd61/10/2025 8:00 AM Estrella Nevarez CNA * Continuous Passive MotionQuestionAnswerDate of OybzilwupmFqafnwEJKWe39/04/2025 8:00 PM Isaac Kim RN * Safety Equipment at BedsideQuestionAnswerDate of AssessmentAuthorSafety Equipment at BedsideOxygen setup07/06/2025 8:00 AM Estrella Nevarez CNA * Patient AssessmentQuestionAnswerDate of AssessmentAuthorMood/AffectAppropriate for lqfdqcmhzjavx75/08/2025 9:00 AM Denise Schroeder, OT/LTherapy Problem ListDecreased ADL status;Decreased balance;Decreased endurance;Decreased high- level ADLs;Decreased mobility;Decreased safe judgement during ADL;Decreased self-care trans;Decreased UE ptcebofr48/08/2025 9:00 AM Denise Schroeder, OT/LRehab UmkuujrhzQwea48/08/2025 9:00 AM Denise Schroeder, OT/L * Psychosocial ConsultsQuestionAnswerDate of AssessmentAuthorSpiritual Care Consult MvlhgiTn64/03/2025 10:08 AM Nolvia Escalona RNSocial Services Consult HtbbhaUg92/03/2025 10:08 AM Nolvia Escalona RN * Therapy ConsultsQuestionAnswerDate of AssessmentAuthorPT Evaluation Needed1 06/29/2025 10:06 AM Nolvia Escalona RNOT Evaluation Usvdtu598 10:06 AM Nolvia Escalona RNSLP Evaluation Yzmzkv061/03/2025 10:06 AM Nolvia Ceballos RN * Assistive DevicesQuestionAnswerDate of AssessmentAuthorAssistive Devices Cane;Walker;Wheelchair;Zfoolcb0506/29/2025 8:32 AM Baylee Valadez RNHome EquipmentCane;Walker;Wheelchair;Bedside commode;Hospital bed06/29/2025 8:32 AM Baylee Valadez RN * Provider CommunicationQuestionAnswerDate of AssessmentAuthorProvider RoleOther (Comment)07/03/2025 6:20 PM Arely Dietz RNProvider NameDr. John 07/03/2025 6:20 PM Arely Dietz RNMethod of HyrkqhjtnmtjyIyze22/07/2025 6:20 PM Arely Dietz RNResponseSee ulqmwk5807/03/2025 6:20 PM Arely Dietz RN * Harm Risk AssessmentQuestionAnswerDate of AssessmentAuthorAre you having thoughts of homicide or causing harm to others?No06/29/2025 10:10 AM Nolvia Ceballos RN * Blood HistoryQuestionAnswerDate of AssessmentAuthorHave you had a blood transfusion?Yes06/29/2025 10:03 AM Nolvia Escalona RNHave you ever had a blood transfusion reaction?No06/29/2025 10:03 AM Nolvia Escalona RNWould you accept a blood transfusion in a life-threatening situation?Yes06/29/2025 10:03 AM Nolvia Escalona RN * Medium/High Fall Risk Interventions (score = 25 and higher)AnswerDate of AssessmentAuthorAdaptive devices within reach;Adequate lighting/nightlight;Area clear of hazards;Assess personal needs before sleep;Assist with ambulation;Bed alarm;Bed/low position;Bed or chair locked;Call light within reach07/06/2025 8:00 AM Estrella Nevarez CNA * VTE Nursing InterventionsQuestionAnswerDate of AssessmentAuthorVTE Prophylaxis VdikqvWfimtjgakr48/10/2025 8:00 AM Estrella Nevarez CNATypmynor of [facility] ProphylaxisIntermittent pneumatic cuffs (IPC/EPC)06/29/2025 10:43 AM Jazmin Styles RNIntermittent Pneumatic Cuff (IPC/EPC)Off06/30/2025 8:00 PM Isaac Kim RN * HeadacheQuestionAnswerDate of AssessmentAuthorComplaint of HeadacheNo 07/05/2025 8:00 PM Alen Calix RN * Patient Belongings ReturnedQuestionAnswerDate of AssessmentAuthorPatient belongings returned?Yes07/06/2025 5:41 PM Estrella Nevarez CNABelongings returned from security/ safe?None to lfmess3407/06/2025 5:41 PM Estrella Nevarez CNAPatient medications returnedNone to zwiiqs1107/06/2025 5:41 PM Estrella Woo CNA * Family/Wig Comber Notified of AdmissionQuestionAnswerDate of Assessment AuthorName of Person Notified/or to be Notified of Admissionwife at bedside 06/29/2025 10:05 AM Nolvia Escalona RN * Patient Valuables to Safe/Secure LocationQuestionAnswerDate of Assessment AuthorPatient Valuables to Safe/Secure TctbqrllIz11/03/2025 10:06 AM Nolvia Ceballos RN * Medical Advance DirectiveQuestionAnswerDate of AssessmentAuthorDo you have a Medical Advance Directive?No06/29/2025 10:06 AM Nolvia Escalona RN Medical Advance Directive InformationPatient would not like information 06/29/2025 10:06 AM Nolvia Escalona RN * Behavioral Health Advance DirectiveQuestionAnswerDate of AssessmentAuthorDo you have a Behavioral Health Advance Directive?Not lggervwjra70/03/2025 10:06 AM Nolvia Escalona RN * Readmission RiskQuestionAnswerDate of AssessmentAuthorRisk of Unplanned Readmission (30+ danger)23. 6:22 PM Mohsen, Clinc * Adult Sepsis RiskQuestionAnswerDate of AssessmentAuthorSIRS Criteria0 07/06/2025 6:02 PM Mohsen ClincRiwesley of Sepsis v.20. 6:02 PM Mohsen, Clinc * Skin Breakdown PreventionQuestionAnswerDate of AssessmentAuthorRepositioned Turns self07/06/2025 8:00 AM Estrella Nevarez CNAPreventative Dressing Type Foam/Ywzfhxny11/05/2025 9:03 AM ESTAllen, Kamala, RNDressing Location Coccyx/Pphbrk9107/01/2025 9:03 AM Kamala Costa RNDressing StatusApplied 07/01/2025 9:03 AM Kamala Costa RN * VisitQuestionAnswerDate of AssessmentAuthorOT Type of VisitEvaluation 07/04/2025 9:00 AM Denise Schroeder, OT/LReason For Medical Deferral Activity rekyghaucam11/07/2025 7:19 AM Erika Lindsey, PTPT Type of Visit Medical dmqtnpre99/07/2025 7:19 AM Erika Lindsey, PTRN CommunicationYes 07/04/2025 9:00 AM Denise Schroeder, OT/LMedical Record ReviewedYes 07/04/2025 9:00 AM Denise Schroeder, OT/L * Influenza Vaccine Screen - April Through SeptemberQuestionAnswerDate of AssessmentAuthorInfluenza Vaccine Contraindications/RefusedPatient or agent declines/refuses xkcqqll0206/29/2025 10:05 AM Nolvia Escalona RNHave you had an influenza vaccine this season?No06/29/2025 10:05 AM Nolvia Escalona RN * RN: Observer/Environment EvaluationQuestionAnswerDate of AssessmentAuthor ObserverNot /10/2025 8:00 AM Estrella Nevarez CNA * AUDIT-C ScoreAnswerDate of XfmfbbiypvAdvpjz757/03/2025 10:03 AM Nolvia Escalona RN * Intimate Partner ViolenceQuestionAnswerDate of AssessmentAuthorWithin the last year, have you been humiliated or emotionally abused in other ways by your partner or ex-partner?No06/29/2025 10:03 AM Nolvia Escalona RNWithin the last year, have you been afraid of your partner or ex-partner?No06/29/2025 10:03 AM Nolvia Escalona RNWithin the last year, have you been raped or forced to have any kind of sexual activity by your partner or ex-partner?No 06/29/2025 10:03 AM Nolvia Escalona RNWithin the last year, have you been kicked, hit, slapped, or otherwise physically hurt by your partner or ex-partner?No06/29/2025 10:03 AM Nolvia Escalona RN * Alcohol UseQuestionAnswerDate of AssessmentAuthorQ1: How often do you have a drink containing alcohol?Never06/29/2025 10:03 AM Nolvia Escalona RNQ2: How many drinks containing alcohol do you have on a typical day when you are drinking?Patient does not drink06/29/2025 10:03 AM Nolvia Escalona RNQ3: How often do you have six or more drinks on one occasion?Never06/29/2025 10:03 AM Nolvia Escalona RN * Pain AssessmentQuestionAnswerDate of AssessmentAuthorPain Location Back;Yhjozxve01/08/2025 7:28 PM Alen Calix RNPain Orientation Right;Mid07/04/2025 7:28 PM Alen Calix RNPain Radiating Towardsn/a 07/04/2025 7:28 PM Alen Calix RNPain WzmkdzmctfsRlgbri34/08/2025 7:28 PM Alen Calix RNPain DurationConstant/ywhakgahgw28/08/2025 7:28 PM Alen Calix RNPatient's Stated Acceptable Pain LevelNo pain 07/04/2025 7:28 PM Alen Calix RNResponse to InterventionsPain hfvokibqx50/10/2025 5:04 AM Alen Calix RNSelf Entered Pain Score10 07/01/2025 9:47 PM Alen Calix RNPain Assessment0-10109/06/2024 5:04 AM Alen Calix RNPain Grmos86009/06/2024 5:04 AM Alen Calix RNFACES Pain Rating Muoen49709/03/2024 8:58 AM Arely Dietz RN * NutritionQuestionAnswerDate of AssessmentAuthorCurrent Diet TypeRegular 07/06/2025 8:00 AM Estrella Nevarez CNAAppetiteGood07/06/2025 8:00 AM Estrella Woo CNARoom ServiceAppropriate for room lrayqsl4807/06/2025 8:00 AM Estrella Nevarez CNANPO for:Gsqfxkrnj02/07/2025 8:00 AM Arely Dietz RN * Respiratory InterventionsQuestionAnswerDate of AssessmentAuthorRespiratory InterventionsCough and deep ffghpma13/10/2025 8:00 AM Estrella Nevarez CNA * Cough and Deep BreatheQuestionAnswerDate of AssessmentAuthorCough and Deep QqrmdijGpp32/10/2025 8:00 AM Estrella Nevarez CNA * Patient Belongings at Bedside / StretcherQuestionAnswerDate of Assessment AuthorClothingPants;Shirt;Footwear;Jacket/Coat;Underpants;Socks108/30/2024 10:06 AM Nolvia Escalona RNBelongings at BedsideClothing;Electronic hkgyisg0506/29/2025 10:06 AM Nolvia Escalona RNPatient ElectronicsCell phone06/29/2025 10:06 AM Nolvia Escalona RN * Patient Belongings Sent HomeQuestionAnswerDate of AssessmentAuthorAll Belongings Sent SufvRl9206/29/2025 10:06 AM Nolvia Escalona RNBelongings Sent HixcOelp62/03/2025 10:06 AM Nolvia Escalona RN * IntegumentaryQuestionAnswerDate of AssessmentAuthorSkin IntegrityOther (Comment);Ybiixajk22/09/2025 8:00 PM Alen Calix RNSkin ColorPale 07/05/2025 8:00 PM Alen Calix RNSkin TempWarm;Dry07/05/2025 8:00 PM Alen Calix RNCosignI Reviewed & Agree With The Skin and Wound Thuiwpmafc19/02/2025 10:42 PM ESTBaldwin, Rita, RNExcoriation LocationGroin 07/05/2025 8:00 PM Alen Calix RNExcoriation OrientationLeft 07/05/2025 8:00 PM Alen Calix, RNSwelling TkbmhgzhZhwc22/09/2025 8:00 PM Alen Calix RNSwelling GjyvszwisdhAoxbdpzms90/09/2025 8:00 PM Alen Calix RNIntegumentary (WDL)X109/06/2024 8:00 AM Estrella Nevarez CNA * Patient MedicationsQuestionAnswerDate of AssessmentAuthorMedications brought by patient?No06/29/2025 10:06 AM Nolvia Escalona RN * Follow Up Phone CallQuestionAnswerDate of AssessmentAuthorDischarge Phone Call StatusAppropriate for phone call07/06/2025 5:41 PM Estrella Nevarez CNA * Confusion Assessment Method (CAM)QuestionAnswerDate of AssessmentAuthorAcute JxjjbIy8007/05/2025 8:00 PM Alen Calix RN * Feature 3: Altered Level of ConsciousnessAnswerDate of AssessmentAuthor Ohxzgagq57/09/2025 8:00 PM Alen Calix RN * Sedation ScalesQuestionAnswerDate of AssessmentAuthorRichmond Agitation Sedation Scale (RASS) 8:00 PM Alen Calix RN * Fall Risk ScaleQuestionAnswerDate of AssessmentAuthorFall Risk ScaleMorse Fall Risk Scale07/06/2025 8:00 AM Estrella Nevarez CNA * Urine Output/AssessmentQuestionAnswerDate of RnclrikyfzHnflopJulfl180 07/06/2025 5:00 PM Estrella Nevarez CNAUrine ColorYellow/straw07/06/2025 5:00 PM Estrella Nevarez CNAUrine HlyphqkmrfCfgun87/10/2025 10:00 AM Estrella Woo CNAUrine ZflfZilelqnbpr93/10/2025 10:00 AM Estrella Nevarez CNAUrinary GqgcwfajeqgkGdd08/06/2025 8:30 AM Michael Jarvis * Stool Output/AssessmentQuestionAnswerDate of AssessmentAuthorLast Cqkz97651 07/06/2025 4:00 PM Mara Dior CNAStool EnfacJprfz99/10/2025 4:00 PM Mara Dior CNAStool PolnoqWkyldu00/10/2025 4:00 PM Mara Dior CNA * Alcohol/Subtance Abuse AssessmentQuestionAnswerDate of AssessmentAuthor Alcohol/Substance AssessmentNo - Patient Sxcazm4206/29/2025 8:32 AM Baylee Valadez RN * Patient/Caregiver GoalsQuestionAnswerDate of AssessmentAuthorHome with Home Care (Check ALL that Apply)Other06/29/2025 8:33 AM Baylee Valadez RN Patient/Caregiver GoalsHome with Home Care06/29/2025 8:33 AM Baylee Valadez RN * Community Provider ReferralQuestionAnswerDate of AssessmentAuthorCommunity Provider CubhmacoRyph52/03/2025 8:33 AM Baylee Valadez RN * Readmission EvaluationQuestionAnswerDate of AssessmentAuthorIs this admission a 30-day eqwynracfhpEg60/03/2025 8:33 AM Baylee Valadez RN * [place] Suicide BehaviorQuestionAnswerDate of AssessmentAuthor6. Have you ever done anything, started to do anything, or prepared to do anything to end your life?No06/29/2025 10:10 AM Nolvia Escalona RN * Suicidal Ideation (Last Month)QuestionAnswerDate of AssessmentAuthor1. In the last month have you wished you were or wished you could go to sleep and not wake up?No06/29/2025 10:10 AM Nolvia Escalona RN2. In the last month have you actually had any thoughts of killing yourself?No06/29/2025 10:10 AM Nolvia Escalona RNAble to assess?Yes06/29/2025 10:10 AM Nolvia Escalona RN * ADL AssessmentQuestionAnswerDate of AssessmentAuthorLevel of Hygiene AssistancePatient fclxqgbuwox51/10/2025 8:00 AM Estrella Nevarez CNALevel of Feeding AssistanceAble to feed self07/06/2025 8:00 AM Estrella Nevarez CNA * Vitals TimerQuestionAnswerDate of AssessmentAuthorRestart Vitals TimerYes 07/06/2025 3:00 PM Mara Dior CNA * Over the last 2 weeks, how often have you been bothered by any of the following problems?QuestionAnswerDate of AssessmentAuthorTrouble falling or staying asleep, or sleeping too jome875 10:03 AM Nolvia Escalona RNFeeling tired or having little amtvek446 10:03 AM Nolvia Escalona, YARYoor appetite or nlfggnhmau988/03/2025 10:03 AM Nolvia Escalona RNFeeling bad about yourself - or that you are a failure or have let yourself or your family tjph513 10:03 AM Nolvia Escalona RN Trouble concentrating on things, such as reading the newspaper or watching vmhelzwisy201/03/2025 10:03 AM Nolvia Escalona RNMoving or speaking so slowly that other people could have noticed. Or the opposite - being so fidget y or restless that you have been moving around a lot more than usual1 06/29/2025 10:03 AM Nolvia Escalona RNThoughts that you would be better off , or of hurting yourself in some xrv009 10:03 AM Nolvia Escalona RNIf you checked off any problems, how difficult have these problems made it for you to do your work,take care of things at home, or get along with other people?Somewhat yleonmhou38/03/2025 10:03 AM Nolvia Escalona RN Little interest or pleasure in doing ecijle454 10:03 AM ESTCallahan, Nolvia, RNFeeling down, depressed, or /03/2025 10:03 AM Nolvia Ceballos RNTotal Wgezc37508/30/2024 10:03 AM Nolvia Escalona RN * CardiovascularQuestionAnswerDate of AssessmentAuthorCardiovascular (WDL)WDL 07/06/2025 8:00 AM Estrella Nevarez CNACardiac LzlhtefzzfMnnyiic83/10/2025 8:00 AM Estrella Nevarez CNABedside RpzkkqwqvtSjrmjpavm31/10/2025 8:00 AM Estrella Nevarez, BELEMAMonitoring ZbrpfpwwowvkzIptcblcrro27/10/2025 8:00 AM Estrella Woo CNAMonitoring AlarmsAudible;Alarms Set and Fempdic4007/06/2025 8:00 AM Estrella Nevarez CNACapillary RefillLess than/equal to 3 seconds (All extremities)07/06/2025 8:00 AM Estrella Nevarez CNAPulsesR dorsalis pedis/pedal;L dorsalis pedis/pedal;R radial;L radial;R posterior tibial;L posterior fozmph0807/06/2025 8:00 AM Estrella Nevarez CNAHearmike SoundsS1, S2 07/06/2025 8:00 AM Estrella Nevarez CNAEdemaLeft lower extremity;Right lower wiisyrvcf16/10/2025 8:00 AM Estrella Nevarez CNAJugular Venous Distention (JVD)None07/06/2025 8:00 AM Estrella Nevarez CNACardiac SymptomsNone 07/06/2025 8:00 AM Estrella Nevarez CNA * Discharge PlanningQuestionAnswerDate of AssessmentAuthorLiving Arrangements Spouse/significant other;Private Ksptspbfb62/03/2025 8:33 AM Baylee Valadez RNAssistanguillermo NeededADL'06/29/2025 8:33 AM Baylee Valadez RNType of ResidencePrivate residence;House06/29/2025 8:33 AM Baylee Valadez RNHome Care XjikuglsLue64/03/2025 8:33 AM Baylee Valadez RNType of Home Care ServicesNurse visit06/29/2025 8:33 AM Baylee Valadez RNCommunity Agencies Currently UtilizedEstablished Home care06/29/2025 8:33 AM Baylee Valadez RN * TB ScreeningQuestionAnswerDate of AssessmentAuthorPatient has prolonged cough? No06/29/2025 10:05 AM Nolvia Escalona RNPatient has bloody cough?No 06/29/2025 10:05 AM Nolvia Escalona RNPatient has fever?No06/29/2025 10:05 AM Nolvia Escalona RNPatient has night sweats?No06/29/2025 10:05 AM Nolvia Escalona RNPatient has weight loss?No06/29/2025 10:05 AM Nolvia Ceballos RNPatient has positive PPD?No06/29/2025 10:05 AM Nolvia Ceballos RN * Critical ResultsQuestionAnswerDate of AssessmentAuthorProvider Kat Gudino Ediplnm1107/01/2025 5:45 AM sIaac Kim RNCritical Results Comment Critical MRI zvzzun7207/01/2025 5:45 AM Isaac Kim RNMethod of IgtamfsjnfaiyNkek84/05/2025 5:45 AM Isaac Kim RN * Reason for CommunicationQuestionAnswerDate of AssessmentAuthorReason for YzrrinadqkzdhAwuvvxi73/09/2025 6:00 PM Estrella Nevarez CNA * Change in Patient ConditionQuestionAnswerDate of AssessmentAuthorChange in Patient Condition Commentsone episode of incontinence while sleeping. neuro exam unchaged, see orders for neuro checks.07/03/2025 6:20 PM Arely Dietz RN * [place] Suicide Risk LevelAnswerDate of AssessmentAuthorNot at Suicide Risk 06/29/2025 10:10 AM Nolvia Escalona RN * ADL/Functional/CognitiveQuestionAnswerDate of AssessmentAuthorPatient's Vision Adequate to Safely Complete Daily RmcrfmtxgqTyh75/03/2025 10:06 AM Nolvia Ceballos RNPatient's Judgement Adequate to Safely Complete Daily YndwcypqquOpn42/03/2025 10:06 AM Nolvia Escalona RNPatient's Memory Adequate to Safely Complete Daily TiumgqcjqaDze00/03/2025 10:06 AM Nolvia Ceballos RNPatient Able to Express Needs/MvecfkqAca23/03/2025 10:06 AM Nolvia Escalona RNIn/Out BedNeeds skrvydosjs67/03/2025 10:06 AM Nolvia Ceballos RNWalks in HomeNeeds ipwqsspzll12/03/2025 10:06 AM Nolvia Ceballos RNWeakness of TifkFhbu55/03/2025 10:06 AM Nolvia Escalona RNWeakness of Arms/XocofWqkg56/03/2025 10:06 AM Nolvia Escalona RNHearing - Right UljTjasfpybpu39/03/2025 10:06 AM Nolvia Escalona RN Hearing - Left FjjWbwloxdegx12/03/2025 10:06 AM Nolvia Escalona RNWhich is your dominant hand?Right06/29/2025 10:06 AM Nolvia Escalona RNAre you deaf or do you have serious difficulty hearing?No - 10:06 AM Nolvia Ceballos RNAre you blind or do you have serious difficulty seeing, even when wearing glasses?No - 10:06 AM Nolvia Escalona RN Because of a physical, mental, or emotional condition, do you have serious difficulty concentrating, remembering, or making decisions? (5 years old or older)No - 10:06 AM Nolvia Escalona RNDo you have serious difficulty walking or climbing stairs? (5 years old or older)Yes - 10:06 AM Nolvia Escalona RNDo you have difficulty dressing or bathing? (5 years old or older)Yes - 10:06 AM Nolvia Escalona RN Because of a physical, mental, or emotional condition, do you have difficulty doing errands alone such as visiting a doctor???s office or shopping? (15 years old or older)No - 10:06 AM Nolvia Escalona RNVision MlxsnwvLc22/03/2025 10:06 AM Nolvia Escalona RNSpeech DeficitNo 06/29/2025 10:06 AM Nolvia Escalona RN * Observed BehaviorAnswerDate of LcidnkmexgNsxfttRrsoyc80/09/2025 12:[address] RN * StressorsQuestionAnswerDate of AssessmentAuthorType of stressorHealth issues 06/29/2025 8:33 AM Baylee Valadez RNExplain issuesprostate cancer 06/29/2025 8:33 AM Baylee Valadez RN * Income InformationQuestionAnswerDate of AssessmentAuthorIncome Information Qwdhfqmcdg47/03/2025 8:33 AM Baylee Valadez RN * HandoffQuestionAnswerDate of AssessmentAuthorHandoff Report:Given to Next Shift RN07/05/2025 6:00 PM Estrella Nevarez CNAPerson Handoff Given To / Received FromANGYL RN07/05/2025 6:00 PM Estrella Nevarez CNAHandoff Comments:SBAR109/01/2024 6:55 PM Kamala Costa RN * Discharge Recommendations for Safe Patient TransitionQuestionAnswerDate of AssessmentAuthorOT Therapy JijqswhgsrhyjjbJdeg27/08/2025 9:00 AM Denise Schroeder, OT/LOT Discharge Disposition WfvmocnpymrhquZhtu92/08/2025 9:00 AM Denise Schroeder, OT/LOT Home RecommendationsIntermittent caregiver support for:07/04/2025 9:00 AM Denise Schroeder A, OT/L * ActivityQuestionAnswerDate of AssessmentAuthorActivity PerformedResting in bed 07/06/2025 8:00 AM Estrella Nevarez, BELEMAActivity ResponseTolerated well 07/06/2025 8:00 AM Estrella Nevarez, BELEMARange of MotionActive;All extremities 07/06/2025 8:00 AM Estrella Nevarez, BELEMAToileting AssistanceAmbulate to bdeytmap96/10/2025 8:00 AM Estrella Nevarez, BELEMATransport Method Wheelchair;Kqjuaifbq81/10/2025 8:00 AM Estrella Nevarez CNABed PositionSelf ivnaxvbvi23/10/2025 8:00 AM Estrella Nevarez CNA * Vital SignsQuestionAnswerDate of QxikoxriuzWppdmkSX936/7107/06/2025 3:00 PM Mara Dior CNATemp98. 3:00 PM Mara Dior CNATemp voqKtfk1607/06/2025 3:00 PM Mara Dior CNAPulse8207/06/2025 3:00 PM Mara Mcguire CNAResp16109/06/2024 3:00 PM Mara Dior CNASpO294 07/06/2025 3:00 PM Mara Dior CNAHeart Rate SourcePulse Ox07/06/2025 3:00 PM Mara Dior CNABP LocationRight arm07/06/2025 3:00 PM Mara Dior CNABP DfwnhmVscxobjnk49/10/2025 3:00 PM Mara Dior CNAMAP (mmHg)8807/06/2025 3:00 PM Mara Dior CNAIdarlene this an Orthostatic BP?No 07/06/2025 3:00 PM Mara Dior CNAOrthostatic DrobhjqhPkxk57/10/2025 3:00 PM Mara Dior CNAPatient QbxxvedwNemtvoh35/10/2025 3:00 PM Mara Mcguire CNA * Height and WeightQuestionAnswerDate of RhqyhimaejEjttncRvywpx9726/02/2025 10:31 PM Isaac Kim RNWeight3262.8107/06/2025 3:40 AM Ernestine Guillory CNABEE (kcal)83297308/29/2024 10:31 PM Isaac Kim RNHeight AdarlxGaaqtm22/02/2025 10:31 PM Isaac Kim RNBSA (Calculated - sq m) 2.0906/28/2025 10:31 PM Isaac Kim RNBMI (Calculated)27.9108/29/2024 10:31 PM Isaac Kim RNWeight in (lb) to have BMI = 79654.9108/29/2024 10:31 PM Isaac Kim RN * Height and WeightQuestionAnswerDate of AssessmentAuthorWeight MethodStanding scale07/05/2025 3:00 AM Ernestine Guillory CNA * Hearing / Speech / VisionQuestionAnswerDate of AssessmentAuthorHearingWFL 07/04/2025 9:00 AM Denise Schroeder, OT/LSpeechDelayed responses 07/04/2025 9:00 AM Denise Schroeder, OT/L * Activities of Daily LivingQuestionAnswerDate of AssessmentAuthorFunctional StatusModerate zgwpkhrffe17/03/2025 8:32 AM Baylee Valadez, RNAmbulation Moderate rpjivennhw53/03/2025 8:32 AM Baylee Valadez RNBehaviorOriented 06/29/2025 8:32 AM Baylee Valadez RNDressingNeeds xqjhlyvyvf02/03/2025 8:32 AM Baylee Valadez RNKHOymmlyptOqvjzhnmpng27/03/2025 8:32 AM Baylee Valadez, ANGkqinpbPzxzlsbhgla78/03/2025 8:32 AM Baylee Valadez RNBathingNeeds hszcxdtbpe95/03/2025 8:32 AM Baylee Valadez RNToiletingNeeds assistance 06/29/2025 8:32 AM Baylee Valadez RN * ADL / IADLQuestionAnswerDate of AssessmentAuthorBathing/Showering Assistance Min jjsyid9307/04/2025 9:00 AM YUNIELFerDenise rosario A, OT/LOtheruse of RW for mobility, assist to reach to foot level for ADL tasks, pt reports incontinence at times - unaware of wet brief, total to change with pt mxxwpnxy82/08/2025 9:00 AM Denise Schroeder A, OT/LToilet/Commode AssistanceTotal assist 07/04/2025 9:00 AM ESTFerEdward rosarioia A, OT/LUE Dressing AssistanceSetup 07/04/2025 9:00 AM ESTFerKatie rosarioricia A, OT/LLE Dressing AssistanceMod assist 07/04/2025 9:00 AM Edward Schroederia A, OT/LEating AssistanceIndependent 07/04/2025 9:00 AM ESTFerKatie rosarioricia A, OT/LGrooming AssistanceSetup 07/04/2025 9:00 AM Edward Schroederia A, OT/L * Activity ToleranceQuestionAnswerDate of AssessmentAuthorOthertolerated activity well07/04/2025 9:00 AM Edward Schroederia A, OT/LEnduranceTolerates <30 minutes activity WITHOUT vital sign uxynoai7007/04/2025 9:00 AM Denise Schroeder A, OT/L * Safe EnvironmentQuestionAnswerDate of AssessmentAuthorCall Sesay Within Reach Yes07/06/2025 8:00 AM Estrella Nevarez CNABed In Lowest PositionYes 07/06/2025 8:00 AM Estrella Nevarez CNABed Wheels CscpoaHmh27/10/2025 8:00 AM Estrella Nevarez CNA * Therapy ConsultsQuestionAnswerDate of AssessmentAuthorPT Evaluation Needed1 06/29/2025 10:06 AM Nolvia Escalona RNOT Evaluation Efakkf454 10:06 AM Nolvia Escalona RNSLP Evaluation Etgblv200/03/2025 10:06 AM Nolvia Ceballos RN * Assistive DevicesQuestionAnswerDate of AssessmentAuthorAssistive Devices Cane;Walker;Wheelchair;Rnnrvot5906/29/2025 8:32 AM Baylee Valadez RNHome EquipmentCane;Walker;Wheelchair;Bedside commode;Hospital bed06/29/2025 8:32 AM Baylee Valadez RN * Skin Breakdown PreventionQuestionAnswerDate of AssessmentAuthorRepositioned Turns self07/06/2025 8:00 AM Estrella Nevarez CNA * VisitQuestionAnswerDate of AssessmentAuthorOT Type of VisitEvaluation 07/04/2025 9:00 AM Denise Schroeder, OT/LReason For Medical Deferral Activity weuuoykbiex61/07/2025 7:19 AM Erika Lindsey PTPT Type of Visit Medical /07/2025 7:19 AM Erika Lindsey, PTRN CommunicationYes 07/04/2025 9:00 AM Denise Schroeder, OT/LMedical Record ReviewedYes 07/04/2025 9:00 AM Denise Schroeder, OT/L * ADL/Functional/CognitiveQuestionAnswerDate of AssessmentAuthorPatient's Vision Adequate to Safely Complete Daily IdeooukfghTwb75/03/2025 10:06 AM Nolvia Ceballos RNPatient's Judgement Adequate to Safely Complete Daily OzcmplcblaHgv53/03/2025 10:06 AM Nolvia Escalona RNPatient's Memory Adequate to Safely Complete Daily IbthhekpejErd46/03/2025 10:06 AM Nolvia Ceballos RNPatient Able to Express Needs/GgxicblWug60/03/2025 10:06 AM Nolvia Escalona RNIn/Out BedNeeds hcotkyiwrc91/03/2025 10:06 AM Nolvia Ceballos RNWalks in HomeNeeds qpyuvlutto18/03/2025 10:06 AM Nolvia Ceballos RNWeakness of AkfvLpxg32/03/2025 10:06 AM Nolvia Escalona RNWeakness of Arms/LrbejPshv77/03/2025 10:06 AM Nolvia Escalona RNHearing - Right AfgBqslhjygzt66/03/2025 10:06 AM Nolvia Escalona RN Hearing - Left JznAjzxbyqxei63/03/2025 10:06 AM Nolvia Escalona RNWhich is your dominant hand?Right06/29/2025 10:06 AM Nolvia Escalona RNAre you deaf or do you have serious difficulty hearing?No - 10:06 AM Nolvia Ceballos RNAre you blind or do you have serious difficulty seeing, even when wearing glasses?No - 10:06 AM Nolvia Escalona RN Because of a physical, mental, or emotional condition, do you have serious difficulty concentrating, remembering, or making decisions? (5 years old or older)No - 10:06 AM Nolvia Escalona RNDo you have serious difficulty walking or climbing stairs? (5 years old or older)Yes - 10:06 AM Nolvia Escalona RNDo you have difficulty dressing or bathing? (5 years old or older)Yes - 10:06 AM Nolvia Escalona RN Because of a physical, mental, or emotional condition, do you have difficulty doing errands alone such as visiting a doctor???s office or shopping? (15 years old or older)No - 10:06 AM Nolvia Escalona RNVision HsfwicnGp50/03/2025 10:06 AM Nolvia Escalona RNSpeech DeficitNo 06/29/2025 10:06 AM Nolvia Escalona RN documented as of this encounter Mental Status * HEENTQuestionAnswerEnt DateAuthorHEENT (WDL)X109/06/2024 8:00 AM Estrella Nevarez CNATeethMissing teeth07/06/2025 8:00 AM Estrella Nevarez CNA * ActivityQuestionAnswerEntry DateAuthorTransport MethodWheelchair;Stretcher 07/06/2025 8:00 AM Estrella Nevarez CNA * Richard Coma ScaleQuestionAnswerEntry DateAuthorEye Ajscbpy461/10/2025 8:00 AM Estrella Nevarez, BELEMABest Motor Mmvhbbmj175/10/2025 8:00 AM Estrella Nevarez, BELEMABest Verbal Cfniwync102/10/2025 8:00 AM Estrella Nevarez CNA * Vital SignsQuestionAnswerEntry KdpjDtquokTP347/7107/06/2025 3:00 PM Mara Dior CNATemp98. 3:00 PM Mara Dior CNATemp srcOral 07/06/2025 3:00 PM Mara Dior CNAPulse8207/06/2025 3:00 PM Mara Dior CNAResp16109/06/2024 3:00 PM Mara Dior CNASpO29407/06/2025 3:00 PM Mara Dior CNAO2 Flow Rate (L/min) 3:56 AM Ernestine Casanova CNAO2 DeviceNone (Room air)07/06/2025 3:00 PM Mara Dior CNAHeart Rate SourcePulse Ox07/06/2025 3:00 PM Mara Dior CNA BP LocationRight arm07/06/2025 3:00 PM Mara Dior CNABP Method Krijeyezk30/10/2025 3:00 PM Mara Dior CNAMAP (mmHg)8807/06/2025 3:00 PM Mara Dior CNAIs this an Orthostatic BP?No07/06/2025 3:00 PM EST Mara Almaguer, BELEMAOrthostatic FtzgtfskUyux90/10/2025 3:00 PM Mara Dior CNAPatient KklfwkzfKfutyvs13/10/2025 3:00 PM Mara Doir CNA * Oxygen TherapyQuestionAnswerEntry DateAuthorPulse Oximetry TypeContinuous 07/03/2025 1:23 PM Jessica Marcano APRN-KB * Localized Breath SoundsQuestionAnswerEntry DateAuthorR Upper PosteriorClear 07/02/2025 10:15 AM ESTOdibe, A'CericaR Mid MtqqvldvLisxv24/06/2025 10:15 AM ESTOdibe, A'CericaR Mid PtzhfofxuPeaib55/06/2025 10:15 AM ESTOdibe, A'CericaR VesykpaUwxkg61/06/2025 10:15 AM ESTOdibe, A'CericaR Lower AnteriorClear 07/02/2025 10:15 AM ESTOdibe, A'CericaR Basilar (R Lower Posterior Base)Clear 07/02/2025 10:15 AM ESTOdibe, A'CericaL Upper EajkjcvcUtufwpqyxs72/06/2025 10:15 AM ESTOdibe, A'CericaL Upper CyzzoaotvIagwhwiguf25/06/2025 10:15 AM EST Odibe, A'CericaL YvuebynYwwiogtdxe89/06/2025 10:15 AM ESTOdibe, A'CericaL Lower CkgkyoqfKrecw55/06/2025 10:15 AM ESTOdibe, A'CericaL Basilar (L Lower Posterior Base)Clear07/02/2025 10:15 AM ESTOdibe, A'Cerica * CardiacQuestionAnswerEntry DateAuthorCardiac (WDL)X109/03/2024 1:45 PM EST Jean-Pierre Ho RN * Pacemaker/ICDQuestionAnswerEntry DateAuthorCardiac RhythmNormal sinus rhythm 07/06/2025 8:00 AM Estrella Nevarez CNATelemetry/Cardiac MonitorYes 07/06/2025 8:00 AM Estrella Nevarez CNA * GastrointestinalQuestionAnswerEntry DateAuthorPassing LndfvkKsx41/07/2025 7:30 PM YUNIELMarceloroxana Nataly, RNRUQ Bowel OqtunwTsrscz86/10/2025 8:00 AM Estrella Nevarez, BELEMARLQ Bowel MzdcgxAfojcc96/10/2025 8:00 AM Estrella Nevarez, BELEMALUQ Bowel TfgrlnHlmmew32/10/2025 8:00 AM Estrella Nevarez, BELEMALLQ Bowel Sounds Hbdbmj5307/06/2025 8:00 AM Estrella Nevarez CNAGastrointestinal (WDL)WDL 07/06/2025 8:00 AM Estrella Nevarez CNAGI NmrbdmzcNuzq37/10/2025 8:00 AM Estrella Woo CNA * EdemaQuestionAnswerEntry DateAuthorRLE Edema+ 8:00 AM Estrella Nevarez CNALLE Edema+ 8:00 AM Estrella Nevarez CNA * RUE Peripheral Vascular AssessmentQuestionAnswerEntry DateAuthorR Radial Pulse + 8:00 AM Estrella Nevarez CNA * LUE Peripheral Vascular AssessmentQuestionAnswerEntry DateAuthorL Radial Pulse + 8:00 AM Estrella Nevarez CNA * RLE Peripheral Vascular AssessmentQuestionAnswerEntry DateAuthorR Posterior Tibial Pulse+ 8:00 AM Estrella Nevarez CNAR Dorsalis Pedis/Pedal Pulse+ 8:00 PM Alen Calix RN * LLE Peripheral Vascular AssessmentQuestionAnswerEntry DateAuthorL Posterior Tibial Pulse+ 8:00 AM Estrella Nevarez CNAL Dorsalis Pedis/Pedal Pulse+ 8:00 AM Estrella Nevarez CNA * Musculoskeletal DetailsQuestionAnswerEntry DateAuthorLower BackLimited buzusvdw81/07/2025 5:46 PM Arely Dietz RN * MusculoskeletalQuestionAnswerEntry DateAuthorRUEFull rdbacmko10/10/2025 8:00 AM Estrella Nevarez CNARLELimited movement;Woleduxl29/10/2025 8:00 AM Estrella Woo CNALUEFull /10/2025 8:00 AM Estrella Nevarez CNA LLELimited movement;Jzjmgnos35/10/2025 8:00 AM Estrella Nevarez CNA Musculoskeletal (WDL)X109/06/2024 8:00 AM Estrella Nevarez CNA * Anus/RectumQuestionAnswerEntry DateAuthorAnus/Rectum (WDL)WDL109/06/2024 8:00 AM Estrella Nevarez CNA * PsychosocialQuestionAnswerEntry DateAuthorPatient Behaviors/Mood Calm;Wloyepmosqs24/10/2025 8:00 AM Estrella Nevarez CNAFamily/Visitor BehaviorsCalm;Cooperative;Vkwkmbadkv49/10/2025 8:00 AM Estrella Nevarez CNA Needs YzpetmnmoTblskpsv83/10/2025 8:00 AM Estrella Nevarze CNAPsychosocial (WDL)WDL109/06/2024 8:00 AM Estrella Nevarez CNAPerson/Family Visitation Significant other07/06/2025 8:00 AM Estrella Nevarez CNAAbility to Express FeelingsAble to uonnwsh7007/06/2025 8:00 AM Estrella Nevarez CNAAbility to Express NeedsAble to owjvuuh9107/06/2025 8:00 AM Estrella Nevarez CNAAbility to Express ThoughtsAble to gsezikn9307/06/2025 8:00 AM Estrella Nevarez CNA Time of VisitationRooming In07/06/2025 8:00 AM Estrella Nevarez CNAAbility to Understand DvujnzFugwlvrrtll47/10/2025 8:00 AM Estrella Nevarez CNA * Tee ScaleQuestionAnswerEntry DateAuthorSensory Xgmlhfemqov890/10/2025 8:00 AM Estrella Nevarez, KMXRaavtvnk032/10/2025 8:00 AM Estrella Nevarez CNA Ypoiywhy384/10/2025 8:00 AM Estrella Nevarez, TKOOwatyhdj389/10/2025 8:00 AM Estrella Nevarez, GCVXvplfzsqn017/10/2025 8:00 AM Estrella Nevarez CNA Friction and Kmvwx92509/06/2024 8:00 AM Estrella Nevarez CNA * Pain Intervention(s)AnswerEntry DateAuthorMedication (See MAR)07/05/2025 11:24 PM Alen Calix RN * Level of ConsciousnessAnswerEntry PkehHkxdaoHzadg89/10/2025 4:[address] RN * Tee Scale ScoreAnswerEntry CrfrMwtddr4756/10/2025 8:00 AM Estrella Nevarez CNA * RespiratoryQuestionAnswerEntry DateAuthorBilateral Breath Sounds Clear;Fepeqlvpvm56/10/2025 8:00 AM Estrella Nevarez CNAR Breath SoundsClear 07/06/2025 8:00 AM Estrella Nevarez CNAL Breath HklyynGuhprhrjlf10/10/2025 8:00 AM Estrella Nevarez CNARespiratory CosxcyxKxvpkml78/10/2025 8:00 AM Estrella Woo CNAChest AssessmentChest expansion xehiadrryms05/10/2025 8:00 AM Estrella Nevarez CNACoughNone109/06/2024 8:00 AM Estrella Nevarez CNA Respiratory (WDL)X109/06/2024 8:00 AM Estrella Nevarez CNACyanosisNone 07/06/2025 8:00 AM Estrella Nevarez CNA * GenitourinaryQuestionAnswerEntry DateAuthorGenitourinary (WDL)WDL109/06/2024 8:00 AM Estrella Nevarez CNA * NeurologicalQuestionAnswerEntry DateAuthorOrientation LevelOriented X4 07/06/2025 4:00 PM Estrella Nevarez CNACognitionFollows commands;Appropriate /10/2025 4:00 PM Estrella Nevarez CNASpeechClear109/06/2024 4:00 PM Estrella Nevarez CNALUE Motor ResponseResponds to ksjnzqyy25/10/2025 8:00 AM Estrella Nevarez CNALUE SensationFull scyloeqvg04/10/2025 8:00 AM Estrella Woo CNALLE Motor ResponseResponds to ffkofrga17/10/2025 8:00 AM Estrella Nevarez CNALLE SensationNumbness;Tingling;Higzztef99/10/2025 8:00 AM Estrella Nevarez CNARUE Motor ResponseResponds to sbgiixrh97/10/2025 8:00 AM Estrella Nevarez CNARUE SensationFull znkoxpeyu34/10/2025 8:00 AM Estrella Woo CNARCHHAYA Motor ResponseResponds to ymsjohtf39/10/2025 8:00 AM Estrella Nevarez CNARLE SensationNumbness;Tingling;Mbukeukm06/10/2025 8:00 AM Estrella Nevarez CNANeuro (WDL)X109/06/2024 8:00 AM Estrella Nevarez CNA SwallowAble to swallow solids and liquids without alarcgcdog30/10/2025 4:00 PM Estrella Nevarez CNARLE Motor StrengthCan overcome fwodnotwcw57/10/2025 8:00 AM Estrella Nevaerz CNALLE Motor StrengthCan overcome resistance 07/06/2025 8:00 AM Estrella Nevarez CNALevel of AmemzpdkohmlpQvifq49/10/2025 8:00 AM Estrella Nevarez CNARUE Motor StrengthOvercomes qqlliua4607/06/2025 8:00 AM Estrella Nevarez CNALUE Motor StrengthOvercomes tpcyclk2507/06/2025 8:00 AM Shawn Nevareza, BELEMABalanceGait /10/2025 8:00 AM Estrella Nevarez, BELEMAPupil JzdtoxdjasLf58/10/2025 8:00 AM Shawn Nevareza, CNAR Foot CtowrpwzbdrzCouwvgez99/10/2025 8:00 AM Shawn Nevareza, CNAL Foot XctxtltiteiuBebuevdj66/10/2025 8:00 AM Shawn Nevareza, CNAR Foot Plantar KgbkrssUpdqwayf86/10/2025 8:00 AM ESTOnurwdayna, Estrella, CNAL Foot Plantar Flexion Otulzlzc80/10/2025 8:00 AM Estrella Nevarez, CNATongue DeviationNone 07/06/2025 8:00 AM Shawn Nevareza, CNANeuro NtfaaaeiLhtu97/10/2025 8:00 AM Estrella Nevarez CNARelieved byRelaxation techniques (Comment)07/06/2025 8:00 AM Estrella Nevarez CNAMotor Function/Sensation Assessment Sensation;Dorsiflexion;Plantar flexion;Motor response;Motor weovihpw56/10/2025 8:00 AM Estrella Nevarez CNAFacial NnpxnansAguykaiznvy79/10/2025 8:00 AM Estrella Woo CNA * Richard Coma Scale ScoreAnswerEntry ThttYbrdtr5843/10/2025 8:00 AM Estrella Nevarez CNA * Provider CommunicationQuestionAnswerEntry DateAuthorProvider RoleOther (Comment)07/03/2025 6:20 PM Arely Dietz RNProvider NameDr. John 07/03/2025 6:20 PM Arely Dietz RNMethod of UzqdqqynuezjrWumb09/07/2025 6:20 PM Arely Dietz RNResponseSee rjggyu6107/03/2025 6:20 PM Arely Dietz RN * HeadacheQuestionAnswerEntry DateAuthorComplaint of LmccbspxKg47/09/2025 8:00 PM Alen Calix RN * RN: Observer/Environment EvaluationQuestionAnswerEntry DateAuthorObserverNot tgfvyrwow64/10/2025 8:00 AM Estrella Nevarez CNA * Pain AssessmentQuestionAnswerEntry DateAuthorPain LocationBack;Buttocks 07/04/2025 7:28 PM ESTEugene Diggsyl, RNPain OrientationRight;Mid 07/04/2025 7:28 PM ESTQuisenEugene warneryl, RNPain Radiating Towardsn/a 07/04/2025 7:28 PM ESTQuisenberry, Eugeneyl, RNPain DxsoddfmjndNcrrfc13/08/2025 7:28 PM ESTQuisenberry, Eugeneyl, RNPain DurationConstant/nrmpctcawb40/08/2025 7:28 PM ESTAlen Diggs, RNPatient's Stated Acceptable Pain LevelNo pain 07/04/2025 7:28 PM Alen Calix RNResponse to InterventionsPain asrcwlpad60/10/2025 5:04 AM Alen Calix RNSelf Entered Pain Score10 07/01/2025 9:47 PM ESTEugene Diggsyl, RNPain Assessment0-10109/06/2024 5:04 AM Alen Calix RNPain Jbrkh07509/06/2024 5:04 AM Alen Calix, RNFACES Pain Rating Ddbrj39109/03/2024 8:58 AM Arely Dietz RN * Respiratory InterventionsQuestionAnswerEntry DateAuthorRespiratory InterventionsCough and deep ywcdwcq82/10/2025 8:00 AM Estrella Nevarez CNA * Cough and Deep BreatheQuestionAnswerEntry DateAuthorCough and Deep BreatheYes 07/06/2025 8:00 AM Estrella Nevarez CNA * IntegumentaryQuestionAnswerEntry DateAuthorSkin IntegrityOther (Comment);Wfucptdn19/09/2025 8:00 PM Alen Calix RNSkin ColorPale 07/05/2025 8:00 PM Alen Calix RNSkin TempWarm;Dry07/05/2025 8:00 PM Alen Calix, DARYCosignI Reviewed & Agree With The Skin and Wound Ekqofxcvvz26/02/2025 10:42 PM Rita Espinal, RNExcoriation LocationGroin 07/05/2025 8:00 PM Alen Calix, RNExcoriation OrientationLeft 07/05/2025 8:00 PM Alen Calix, RNSwelling BeavuwrwYjmy01/09/2025 8:00 PM Alen Calix, RNSwelling OhaochimadfMwabemhuh98/09/2025 8:00 PM Alen Calix, RNIntegumentary (WDL)X109/06/2024 8:00 AM Estrella Nevarez CNA * Confusion Assessment Method (CAM)QuestionAnswerEntry DateAuthorAcute OnsetNo 07/05/2025 8:00 PM Alen Calix RN * Feature 3: Altered Level of ConsciousnessAnswerEntry DateAuthorNegative 07/05/2025 8:00 PM Alen Calix RN * Sedation ScalesQuestionAnswerEntry DateAuthorRichmond Agitation Sedation Scale (RASS) 8:00 PM Alen Calix RN * Urine Output/AssessmentQuestionAnswerEntry YfrdViareuXkssv36166/10/2025 5:00 PM Estrella Nevarez CNAUrine ColorYellow/straw07/06/2025 5:00 PM Estrella Nevarez CNAUrine SkgpmiddxkHbuna83/10/2025 10:00 AM Estrella Nevarez CNA Urine JvgzIqbnzqmlta67/10/2025 10:00 AM Estrella Nevarez CNAUrinary ZosboebrecheBkf48/06/2025 8:30 AM Michael Jarvis * Stool Output/AssessmentQuestionAnswerEntry DateAuthorLast Okkf25230 07/06/2025 4:00 PM Mara Dior CNAStool QoqpuKzneb91/10/2025 4:00 PM Mara Dior CNAStool IalcemSvdwrj20/10/2025 4:00 PM Mara Dior CNA * Modified AldreteQuestionAnswerEntry DkuoHxmcrfCmnpvdmg895/07/2025 1:45 PM Jean-Pierre Dubon, CBMucktofhgqk864/07/2025 1:45 PM Cammie Jean-Pierre, RN Qncwitqvqdb098/07/2025 1:45 PM Cammie Jean-Pierre, NASoxnqtxxjlnsp833/07/2025 1:45 PM Jean-Pierre Bonds, RNOxygen Rimdgokqvl484/07/2025 1:45 PM YUNIELVicJean-Pierre RNModified Paulo Ehnqu8023/07/2025 1:45 PM Jean-Pierre Bonds RN * CardiovascularQuestionAnswerEntry DateAuthorCardiac RegularityRegular 07/06/2025 8:00 AM Estrella Nevarez CNABedside KanuxvyyjzSzxlwompc82/10/2025 8:00 AM Estrella Nevarez CNAMonitoring YybvynkxmmtssGxfllnbons07/10/2025 8:00 AM Estrella Nevarez CNAMonitoring AlarmsAudible;Alarms Set and Checked 07/06/2025 8:00 AM Estrella Nevarez CNACapillary RefillLess than/equal to 3 seconds (All extremities)07/06/2025 8:00 AM Estrella Nevarez CNAPulsesR dorsalis pedis/pedal;L dorsalis pedis/pedal;R radial;L radial;R posterior tibial;L posterior tqqdrb3907/06/2025 8:00 AM Estrella Nevarez CNAHearmike Sounds S1, S207/06/2025 8:00 AM Estrella Nevarez CNAEdemaLeft lower extremity;Right lower qarorhbeq38/10/2025 8:00 AM Estrella Nevarez CNAJugular Venous Distention (JVD)None07/06/2025 8:00 AM Estrella Nevarez CNACardiac Symptoms None07/06/2025 8:00 AM Estrella Nevarez CNA * Observed BehaviorAnswerEntry AsptMnfhbbKqrgmy36/09/2025 12:[address] RN * StressorsQuestionAnswerEntry DateAuthorType of stressorHealth qtnurg1106/29/2025 8:33 AM Baylee Valadez RNExplain issuesprostate godmhe3806/29/2025 8:33 AM Baylee Valadez RN * Discharge Recommendations for Safe Patient TransitionQuestionAnswerEntry Date AuthorOT Therapy IogswjnnaqnnnguJqxo72/08/2025 9:00 AM ESTFertig, Denise A, OT/LOT Discharge Disposition EnvcjzzgtqzlzfVjmo45/08/2025 9:00 AM ESTFertig, Denise A, OT/LOT Home RecommendationsIntermittent caregiver support for: 07/04/2025 9:00 AM Denise Schroeder A, OT/L documented in this encounter Discharge Summaries * Jerel Allen MD - 07/06/2025 4:00 PM EST Images from the original note were not included. [facility] [address] [place] [id number] Hospital Medicine Discharge Summary Patient: Sunil Best Date of : 1960 Room: A635/ Encounter date: 07/06/2025 Hospital Day: 9 DATE OF ADMISSION: 06/28/2025 DATE OF DISCHARGE:07/06/2025 DISCHARGE DIAGNOSES Principal Problem: Prostate cancer metastatic to bone ([facility]) Active Problems: Type 2 diabetes mellitus without complication, without long-term current use of insulin ([facility]) Essential hypertension Spinal cord compression due to neoplasm ([facility]) Wound of left groin [facility] Neuro[facility] Oncology Wound care PCP: YADIRA JOSE MD PROCEDURES T12 laminectomy HOSPITAL COURSE SUMMARY Sunil Best is a 64-year-old male with metastatic prostate cancer, extensive osseous metastases, and a history of spinal cord compression who underwent T12 laminectomy and spinal stabilization in early June 2025, resulting in improved pain and ambulation without new neurological deficits. He experienced mild anemia, persistent hyperglycemia, mild hyponatremia, and lower extremity edema, withstable renal function and ongoing management of diabetes, hypertension, BPH, and urinary retention.He developed a left groin wound with drainage, managed with silver alginate dressings, later described as a small, actively bleeding ulcer with 100% granulation tissue and no infection, treated with OTC antibiotic ointment and dry dressing, was also sent on bactrim. Spinal cord compression due to neoplasm Prostate cancer with mets to bone, numerous osseous mets Neurosurgery ok for dc Oncology signed off 07/03-laminectomy for excision of intraspinal neoplasm, thoracic: T12 07/06-Drain removed Left groin wound Wound Care following Continues to have drainage Currently on silver alginate Previously on Rocephin while inpatient Will DC on PO Bactrim x5 day Sepsis suspected, no-not clinically evident at this time. Discharge Day Progress Note 07/06/2025 No overnight events and remains hemodynamically stable. Review of Systems Constitutional: Negative for chills and fever. HENT: Negative for ear pain and sore throat. Eyes: Negative for pain and visual disturbance. Respiratory: Negative for cough and shortness of breath. Cardiovascular: Positive for leg swelling (chronic). Negative for chest pain and palpitations. Gastrointestinal: Negative for abdominal pain and vomiting. Genitourinary: Positive for frequency. Negative for hematuria. Musculoskeletal: Positive for arthralgias, back pain and gait problem. Skin: Positive for wound. Negative for color change and rash. Neurological: Positive for weakness. Negative for seizures and syncope. All other systems reviewed and are negative. BP 125/71 Pulse 82 Temp 36.7 ??C (98.1 ??F) (Oral) Resp 16 Ht 177.8 cm (5' 10 ) Wt 92.5 kg (203 lb 14.8 oz) SpO2 94% BMI 29.26 kg/m?? No intake or output data in the 24 hours ending 07/14/25 0823 Physical Exam Constitutional: General: He is not in acute distress. Appearance: Normal appearance. He is well-developed. HENT: Head: Normocephalic. Right Ear: External ear normal. Left Ear: External ear normal. Nose: Nose normal. Eyes: Conjunctiva/sclera: Conjunctivae normal. Pupils: Pupils are equal, round, and reactive to light. Cardiovascular: Rate and Rhythm: Normal rate and regular rhythm. Heart sounds: Normal heart sounds. No murmur heard. Pulmonary: Effort: Pulmonary effort is normal. Breath sounds: Normal breath sounds. No wheezing. Abdominal: General: Bowel sounds are normal. Palpations: Abdomen is soft. There is no mass. Tenderness: There is no abdominal tenderness. Musculoskeletal: General: No tenderness. Normal range of motion. Cervical back: Normal range of motion. Right lower leg: Edema present. Left lower leg: Edema present. Lymphadenopathy: Cervical: No cervical adenopathy. Skin: General: Skin is warm and dry. Findings: Wound present. No rash. Comments: Left groin opening Neurological: Mental Status: He is alert and oriented to person, place, and time. Cranial Nerves: No cranial nerve deficit. Motor: Weakness present. Coordination: Coordination normal. Psychiatric: Behavior: Behavior normal. Code Status: Prior Labs No results found for this or any previous visit (from the past 48 hours). Radiology Fluoroscopy guidance spine puncture operative Result Date: 07/03/2025 Narrative: FL FLUORO GUIDANCE SPINAL PUNCTURE OPERATIVE: 07/03/2025 12:51 PM Clinical: Back pain. Laminectomy. Reference air kerma: 1.05 mGY. IMPRESSION: * Fluoroscopic guidance provided to clinical service for spinal level localization for surgery. * See separate clinical report for procedural details. Finalized by Denys Holt MD on 07/03/2025 1:04 PM MR pelvis without contrast Result Date: 07/02/2025 Narrative: MR PELVIS WO CONT HISTORY: bone mets. Osseous metastatic disease, progressive back pain.TECHNIQUE: Multiplanar [including lieutenant ballistics] multisequence MR of the pelvis was performed prior withoutintravenous contrast. COMPARISON: None. IMPRESSION: Delay in interpretation for technical reasons. Extensive osseous metastatic disease, subtle asymmetric edema within the right sacral ala with suggestion of pathologic fracture/impending pathologic fracture [series 10 image #13, annotated]. No acute transcortical fracture. Areas of muscular edema, notable asymmetric involvement left greater than right gluteus medius and gluteus elfego, asymmetric edema involving left adductor musculature. Subst antial extraosseous soft tissue extension about left greater than right pubic bones [some of which may account for asymmetric left adductor muscular edema due to origin disruption]. Bilateral intertrochanteric and subtrochanteric femurs are involved. Small bilateral hip effusions. TURP.. Grossly unremarkable. Renal soft tissues, scrotum. Finalized by Reynaldo Flores MD on 07/02/2025 3:17 PM MR lumbar spine without contrast Result Date: 07/02/2025 Narrative: LUMBAR SPINE MRI WITHOUT CONTRAST History: Back pain, progressive. Metastatic disease assessment. Comparison: 01/17/2025. Technique: Multiplanar multisequence MR imaging of the lumbar spinewas performed without contrast. Findings: Delay in interpretation due to technical reasons. Preserved lumbar vertebral body heights. No substantial listhesis. Extensive osseous metastatic disease, overall extent of osseous involvement is grossly similar to prior. However, there is progressive extraosseous soft tissue dorsal to L5 vertebral body as well as effacing sacral cistern [notable progressive anterior epidural tumor at the S1 and S2 levels [0.8 cm in thickness, in December 2024 this measured approximately 0.3 cm in thickness. Similarly there is progressive extraosseous soft tissue about the right L1 pedicle with progressive effacement of the right L1-2 neural foramina [series 8 image #5]. Subtle nondisplaced pathologic fracture/impending pathologic fracture right sacral ala [series 6 image #10-11], asymmetric subareolar edema right sacral ala [as reported on separate pelvic MRI]. Multilevel degenerative changes which are not significantly changed since prior. Sequelae prior posterior decompression at the L1 level with evolving changes, irregular T2 hyperintense collection throughout this region is similar to prior, possible pseudomeningocele versus seroma. Impression: 1. 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 Moderate to severe thecal sac stenosis at the S1-S2 level. 2. Subtle pathologic nondisplaced pathologic fracture versus impending pathologic fracture right sacral ala. Finalized by Reynaldo Flores MD on 07/02/2025 3:13 PM MR thoracic spine without contrast Result Date: 07/01/2025 Narrative: MR THORACIC SPINE WO CONT HISTORY: pain/mets. TECHNIQUE: Multiplanar multisequence MR ofthe thoracic spine was performed prior to and following the uncomplicated administration of ProHance intravenous contrast. COMPARISON: 01/17/2025 thoracic spine MRI, 06/28/[address] FINDINGS: Diffuse osseous metastatic disease with numerous sclerotic lesions, given extensive involvement, comparison with prior us challenging. No interval pathologic fracture or substantial thoracic vertebral body height loss seen. Progressive posterior epidural tumor at the T9 level, 1.1 x 0.7 cm, previously 2 to 3 mm in thickness. Additional right lateral epidural tumor at the T8 level [series 21 image #3-4], ESCC grade. Partially visualized epidural tumor at the T12-L1 level, status post posteriordecompression, despite this there is ESCC grade 3 tumor at the T12-L1 disc space [series 21 image #20], subtle suggestion of cord signal change, annotated. Informed thecal sac narrowing related to epidural lipomatosis. Small left pleural effusion. No significant findings. Spinal soft tissues elsewhere. IMPRESSION: 1. Diffuse osseous metastatic disease, given extensive involvement comparison with prior is somewhat challenging, no interval pathologic fracture seen. Partially visualized apparent disease progression at the L1 level, severe thecal sac stenosis at T12-L1 with ESCC grade 3 tumor. Rec ommend lumbar spine MRI. 2. Additional progressive posterior epidural tumor at the T9 level, mild to moderate thecal sac stenosis at this level. 3. Superimposed uniform thecal sac stenosis throughoutthe thoracic spine related to epidural lipomatosis. THIS REPORT CONTAINS A SIGNIFICANT RESULT AND/OR RECOMMENDATION, WHICH REQUIRES THE ATTENTION OF THE LICENSED CAREGIVER RESPONSIBLE FOR THIS PATIENT. THEREFORE, I SPECIFICALLY DESIGNATED THIS REPORT TO BE TELEPHONED BY THE RADIOLOGY DEPARTMENT. FINDINGS WERE INSTRUCTED TO BE CALLED TO THE CLINICAL SERVICE ON 07/01/2025 5:09 AM Finalized by Reynaldo Flores MD on 07/01/2025 5:[address] lumbar spine without contrast Result Date: 06/28/2025 Narrative: CLINICAL INFORMATION: Questionable bony Mets with cord compression TECHNIQUE: CT LUMBAR SPINE WO CONT CT images of the lumbar spine were obtained. Images reformatted in the sagittal and coronal planes. Widespread osseous metastasis is noted. Although mixed sclerotic and lytic, this is predominantly sclerotic. Endplates intact without acute compression. There is diffuse facet arthropathy. Disc bulge is present at multiple levels likely most significant at L4-5. Soft tissue encroachment noted at the T12-L1 level to the right of midline which likely produces severe canal stenosis. Incidental gallstone appreciated. No obvious acute fracture. Rib osseous sclerosis also noted. IMPRESSION: Widespread osseous metastasis, predominantly sclerotic. Although central canal and neural foramina not well evaluated with this exam. There is abnormal soft tissue within the right T12-L1 level likely producing severe canal stenosis and right neural foraminal encroachment. All CT scans at this facility use dose modulation, iterative reconstruction, and/or weight based dosing when appropriate to reduce radiation dose to as low as reasonably achievable. Finalized by Girish Bhatt MD on 06/28/2025 6:54 PM IR exchange nephrostomy tube and nephrostogram left Result Date: 06/20/2025 Narrative: CLINICAL INDICATION: Routine exchange of left-sided nephrostomy tube. Left ureteral obstruction. COMPARISON: 05/14/2025 TECHNIQUE: Procedure performed by Interventional Radiologist Trenton Eugene Fluoroscopic time: 1.7 minutes Reference Air Kerma: 17.9mGy Number of fluoroscopic images: 6 Medication: 15 mL Omnipaque 300. 500 mg Cipro EBL: None CONSENT: The reason for the procedure was discussed with the patient. The procedure, expectations, risks, benefits, options and alternatives were discussed. All of the patient?s questions were answered. The patient understands that the results cannot be guaranteed. The procedure is indicated and the risks are acceptable. Consent was obtained. PROCEDURE: 1. Fluoroscopic guided exchange of left-sided nephrostomy tube. 2. Fluoroscopic guided antegrade nephrostogram. Details of procedure: Patient placed in the prone position on the fluoroscopy table. The existing left nephrostomy tube was prepped and draped in usual sterile fashion. 1%lidocaine without epinephrine was used as a local anesthetic. A hand-injection of contrast through the existing tube was performed for nephrostogram. The hub of the catheter was cut and an 035 Amplatz wire was advanced through the existing catheter into the left renal collecting system. The existing catheter was removed. A new 10.2 Peruvian Reyes-Holder drain was advanced over the wire into position. The inner dilator and wire were removed and the pigtail was formed and locked. 2-0 Prolene suture was used to secure the drain. The drain was connected to gravity bag drainage. A sterile just wasapplied. The patient tolerated the procedure well and there are no immediate complications. FINDINGS: 1. Existing left nephrostomy tube had been retracted into a peripheral lower pole calyx. 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 2. Successful fluoroscopic guided exchange of left-sided nephrostomy tube. A new 10.2 Peruvian Reyes-Holder pigtail drain was placed. The pigtail was formed and locked within the left renal pelvis. Drain connected to gravity bag drainage. IMPRESSION: Successful fluoroscopic guided exchange of left-sided percutaneous nephrostomy tube. Finalized by Avelino Paz MD on 06/20/2025 11:45 PM DISCHARGE INSTRUCTION Disposition: Home with homecare Condition: Stable Activity: activity as tolerated Diet: No diet orders on file Follow up: YADIRA JOSE MD within 7-14 days. Wound care, NS, oncology 1-2 weeks Referrals and Follow-ups to Schedule [facility] [place], [place] Left groin wound Remove dressing (specify when) Wound care (specify) cleanse wound and juwan wound skin with mild soap and water, rinse, pat dry. : After cleansing, apply silver alginate to wound, cover with foam dressing, change every other day Location: left groin Labs/Imaging/Pathology: Discharge Medications: Medication List START taking these medications Instructions Last Dose Given Next Dose Due pregabalin 25 mg capsule Commonly known as: LYRICA Take 1 capsule (25 mg total) by mouth in the morning and 1 capsule (25 mg total) before bedtime. Doall this for 30 days. CONTINUE taking these medications Instructions Last Dose Given Next Dose Due magnesium hydroxide 400 mg/5 mL suspension Commonly known as: magnesium hydroxide Take 5 mL by mouth daily as needed (as needed for constipation). magnesium oxide 400 mg tablet Commonly known as: MAGOX Take 1 tablet (400 mg total) by mouth in the morning and 1 tablet (400 mg total) before bedtime. metFORMIN 1000 MG (OSM) 24 hr tablet Commonly known as: FORTAMET Take 1 tablet (1,000 mg total) by mouth in the morning and 1 tablet (1,000 mg total) in the evening. Take with meals. Indications: type 2 diabetes mellitus. morphine 15 mg 12 hr tablet Commonly known as: MS CONTIN Take 1 tablet (15 mg total) by mouth in the morning and 1 tablet (15 mg total) before bedtime. Max Daily Amount: 30 mg. oxyCODONE-acetaminophen 10-325 mg per tablet Commonly known as: PERCOCET Take 1 tablet by mouth every 4 (four) hours as needed for pain. Max Daily Amount: 6 tablets polyethylene glycol 17 gram/dose powder Commonly known as: GLYCOLAX Take 17 g by mouth in the morning and 17 g before bedtime. sennosides-docusate sodium 8.6-50 mg Commonly known as: SENNA WITH DOCUSATE SODIUM Take 2 tablets by mouth in the morning and 2 tablets before bedtime. tamsulosin 0.4 mg capsule Commonly known as: FLOMAX Take 1 capsule (0.4 mg total) by mouth nightly. STOP taking these medications JARDIANCE 25 mg tablet tablet Generic drug: empagliflozin oxyCODONE 20 mg 12 hr tablet Commonly known as: OxyCONTIN prochlorperazine 10 mg tablet Commonly known as: COMPAZINE ASK your doctor about these medications Instructions Last Dose Given Next Dose Due sulfamethoxazole-trimethoprim 800-160 mg per tablet Commonly known as: BACTRIM DS Ask about: Should I take this medication? Take 1 tablet by mouth in the morning and 1 tablet before bedtime. Do all this for 5 days. Where to Get Your Medications These medications were sent to [facility] [id number] [facility] [address] [facility] [address] [place] [id number] pregabalin 25 mg capsule sulfamethoxazole-trimethoprim 800-160 mg per tablet >30 minutes were spent on discharging this patient. ALYSSIA Olivares 07/14/2025 8:23 AM Camilaedicdejuan Agosto [facility] Internal Medicine 7AM-7PM & 7PM-7AM: EpicChat or page through On-Call Finder. ALYSSIA Olivares 07/13/25 5575 Physician Attestation I, Jerel Allen MD, personally performed a face to face diagnostic evaluation on this patient. I have reviewed the note authored by the advance practice provider including history, review of systems,physical examination,medical decision making and agree with the assessment and plan as written. I have seen and evaluated the patient, I have repeated the israel portions of the physical exam and concur with the DELLA findings. I have reviewed all laboratory findings and imaging reports/films. I agree with the plan as noted. documented in this encounter Discharge Instructions * Discharge Instructions* Joanna Razo PA-C - 07/06/2025 3:17 PM EST Neurosurgery Discharge Instructions Special Medication Instructions: No Aspirin, Anti-Inflammatories, Anti-Platelet agents or other blood thinning medications for 7 days from date of surgery No alcohol Pain Medication You will likely be prescribed narcotic pain medication to help with your pain after your surgery. Narcotics are addictive drugs and their use will be restricted. These will be prescribed for a short term period. Do not drive or operate other potentially dangerous machinery, power tools, or household implements, while taking narcotic medication. Please be aware all medication refill requests must be called to our office during the week. No medications will be refilled after hours or on the weekends. Narcotic medications for pain and other controlled substances require a physician authorization and signature which can take 2-3 days to obtain. Do not wait until you are out of your medication to request a refill. Continue stool softeners while taking narcotic pain medication. Add laxatives as needed *If you are prescribed narcotics at discharge, you will also likely be prescribed a medication called Narcan too, to be used in case of accidental narcotic overdose. To combat the Opioid epidemic, Itis a requirement and best practice too prescribe Narcan when prescribing narcotics. It is recommended to fill this medication; however you may choose to not fill this prescription if desired and you accept the risks. Do not take the Narcan unless there is concern for overdose. Activities: No lifting greater than 5-10 lbs for 14 days No driving for 7 days or while taking pain medication May shower, no tub baths or swimming for 14 days from date of surgery Avoid bending, twisting and strenuous activity Take short frequent walks during the day Stairs as tolerated, take your time Notify Doctor if you notice: Increased pain Redness, swelling, bleeding or drainage from incision Temperature 101 degrees or above Numbness, tingling or decreased strength different than before your surgery or new since your surgery. In case of emergency, call 911 immediately! If 911 is not available, call your local emergency medical system for help Wound Care: Change dressing daily for 2 days following surgery, then leave open to air Do not apply creams or ointments to your incision Shower daily with old dressing in place to protect incision Change dressing after your shower It is recommended to apply an ice pack to your incision to help with pain. Do this 15-20 minutes at a time, 5-6 times daily. Avoid using any heat to the incision site Call [facility] Neurosurgery with any questions, . documented in this encounter Medications at Time of Discharge MedicationSigDispense QuantityRefillsLast FilledStart DateEnd Date magnesium hydroxide 400 mg/5 mL suspension Take 5 mL by mouth daily as needed (as needed for constipation). 473 mL magnesium oxide (MAGOX) 400 mg tablet Take 1 tablet (400 mg total) by mouth in the morning and 1 tablet (400 mg total) before bedtime. 60 tablet 05/18/2025 metFORMIN (FORTAMET) 1000 MG (OSM) 24 hr tablet Indications:type 2 diabetes mellitusTake 1 tablet (1,000 mg total) by mouth in the morning and 1 tablet (1,000 mg total) in the evening. Take with meals. Indications: type 2 diabetes mellitus. morphine (MS CONTIN) 15 mg 12 hr tablet Take 1 tablet (15 mg total) by mouth in the morning and 1 tablet (15 mg total) before bedtime. Max Daily Amount: 30 mg. oxyCODONE-acetaminophen (PERCOCET) 10-325 mg per tablet Indications:Pain of metastatic malignancy,Pain from bone metastases (CMS-HCC), Cancer associated painTake 1 tablet by mouth every 4 (four) hours as needed for pain. Max Daily Amount: 6 tablets 180 tablet 06/27/2025 polyethylene glycol (GLYCOLAX) 17 gram/dose powder Take 17 g by mouth in the morning and 17 g before bedtime. 1700 g pregabalin (LYRICA) 25 mg capsule Indications: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)Take 1 capsule (25 mg total) by mouth in the morning and 1 capsule (25 mg total) before bedtime. Do all this for 30 days. 60 capsule 501/03/2026 sennosides-docusate sodium (SENNA WITH DOCUSATE SODIUM) 8.6-50 mg Take 2 tablets by mouth in the morning and 2 tablets before bedtime. 360 tablet tamsulosin (FLOMAX) 0.4 mg capsule Take 1 capsule (0.4 mg total) by mouth nightly. 90 capsule sulfamethoxazole-trimethoprim (BACTRIM DS) 800-160 mg per tablet Take 1 tablet by mouth in the morning and 1 tablet before bedtime. Do all this for 5 days. 10 tablet 512/documented as of this encounter Progress Notes * Joanna Razo PA-C - 07/06/2025 6:22 AM EST Images from the original note were not included. [facility] [address] [place] [address], [address] [place] [address] * NEUROSURGERY DAILY PROGRESS NOTE DATE:07/06/2025 PATIENT'S NAME: Sunil Best PATIENT'S PATIENT'S : 1960 PROCEDURE POD #3 (1) laminectomy for excision of intraspinal neoplasm, extradural, thoracic: T12 EVENTS LAST 24 HOURS / SUBJECTIVE No acute events overnight. Reports some muscular pain, however pain is controlled with current regimen. Pain well controlled with oral pain medications PHYSICAL EXAM Temp: [36.5 ??C (97.7 ??F)-36.8 ??C (98.3 ??F)] 36.8 ??C (98.2 ??F) Pulse: [72-90] 90 Resp: [16] 16 BP: (98-113)/(42-65) 113/59 SpO2: [94 %-99 %] 98 % O2 Device: None (Room air) O2 Flow Rate (L/min): [0 L/min] 0 L/min Drain output: 60ml yesterday, 0 ml overnight- drain removed without difficulty No acute distress Awake and Alert Respirations even and unlabored Abdomen soft and nontender Regular heart rate and rhythm PERRL BUE/BLE strength and sensation intact Incision: Dressing CDI LABORATORY DATA Results from last 7 days Lab Units 07/05/254 07/05/25 1715 07/05/25 1132 07/05/25 1128 07/05/25 0728 07/05/25 0537 07/04/25 0745 07/04/25 0537 07/03/25 0845 07/03/25 0318 07/02/25 0820 07/02/25 0358 07/01/25 0916 07/01/25 0541 SODIUM mmol/L -- -- -- -- -- 137 -- 138 -- 134 -- 135 -- 134 POTASSIUM mmol/L -- -- -- -- -- 4.2 -- 4.4 -- 3.9 -- 4.6 -- 4.4 CREATININE mg/dL -- -- -- -- -- 0.80 -- 0.86 -- 0.83 -- 1.11 -- 1.02 BEDSIDE GLUCOSE mg/dL 248* 160* 206* -- 223* -- < > -- < > -- < > -- < > -- GLUCOSE mg/dL -- -- -- -- -- 160* -- 207* -- 128* -- 138* -- 127* CALCIUM mg/dL -- -- -- -- -- 8.9 -- 9.6 -- 9.2 -- 9.3 -- 9.1 WBC 10^9/L -- -- -- -- -- 9.2 -- 9.2 -- 7.3 -- 9.0 -- 8.9 HEMATOCRIT % -- -- -- 25.9* -- 23.8* -- 28.0* -- 24.7* -- 25.0* -- 25.8* HEMOGLOBIN g/dL -- -- -- 8.7* -- 7.8* -- 9.3* -- 8.2* -- 8.3* -- 8.6* PLATELETS 10^9/L -- -- -- -- -- 289 -- 379 -- 266 -- 264 -- 282 < > = values in this interval not displayed. IMAGING No new spinal imaging ASSESSMENT 64 y.o. male s/p T12 laminectomy Prostate cancer with mets to the spine PLAN - Surgical drain removed- discussed with Dr. Spain - SCD's and heparin for DVT prophylaxis - Encourage mobility - Encourage IS - Pain control - Continue current regimen, Palliative care on board and managing - Continue bowel regimen - PT/OT recommending discharge to home - Medical management per Primary medical team - DC Planning - stable from a NS standpoint. Instructions discussed with patient and follow up in place. NS to sign off. Please call if further questions arise. Joanna Razo PA-C Neurosurgery [facility] WeOwe Chat preferred Patient Touch 07/06/25 6:23 AM To find out which DELLA is on for the day please go to ON-Call Finder in WeOwe or ScanNano and use log in Accruent and search for PTH Neurosurgery Joanna Razo PA-C 07/06/25 1540 * Jerel Allen MD - 07/05/2025 12:00 PM EST Images from the original note were not included. [facility] INTERNAL MEDICINE [facility] - GEN 6 ACUTE [address] [id number] Hospital Medicine Progress Note Patient: Sunil Best Date of : 1960 Room: [place] [address] PCP: YADIRA JOSE MD Admission date: 06/28/2025 10:26 PM Encounter date: 07/05/25 Hospital Day: 8 SUBJECTIVE Sitting up in recliner Had episode of incontinence yesterday at bedside stated he was very lethargic and in a deep sleep He has not had any issues with his nephrostomy tubes, no pain, he has been flushing them, feels as though he has been urinating more than normal and having decreased output in his nephrostomy tube Urine culture remains pending Review of Systems Constitutional: Negative for chills and fever. HENT: Negative for ear pain and sore throat. Eyes: Negative for pain and visual disturbance. Respiratory: Negative for cough and shortness of breath. Cardiovascular: Positive for leg swelling. Negative for chest pain and palpitations. Gastrointestinal: Negative for abdominal pain and vomiting. Genitourinary: Positive for frequency. Negative for hematuria. Musculoskeletal: Positive for arthralgias, back pain and gait problem. Skin: Positive for wound. Negative for color change and rash. Neurological: Positive for weakness. Negative for seizures and syncope. All other systems reviewed and are negative. OBJECTIVE BP 108/55 Pulse 72 Temp 36.5 ??C (97.7 ??F) (Oral) Resp 16 Ht 177.8 cm (5' 10 ) Wt 88.8 kg (195 lb 12.3 oz) SpO2 99% BMI 28.09 kg/m?? Temp: [36.5 ??C (97.7 ??F)-36.8 ??C (98.3 ??F)] 36.5 ??C (97.7 ??F) Pulse: [72-78] 72 Resp: [16] 16 BP: (106-133)/(55-70) 108/55 SpO2: [94 %-99 %] 99 % O2 Device: None (Room air) O2 Flow Rate (L/min): [0 L/min] 0 L/min Intake/Output Summary (Last 24 hours) at 07/05/20251951 Last data filed at 07/05/2025 1416 Gross per 24 hour Intake 480 ml Output 1210 ml Net -730 ml Physical Exam Constitutional: General: He is not in acute distress. Appearance: Normal appearance. He is well-developed. HENT: Head: Normocephalic. Right Ear: External ear normal. Left Ear: External ear normal. Nose: Nose normal. Eyes: Conjunctiva/sclera: Conjunctivae normal. Pupils: Pupils are equal, round, and reactive to light. Cardiovascular: Rate and Rhythm: Normal rate and regular rhythm. Heart sounds: Normal heart sounds. No murmur heard. Pulmonary: Effort: Pulmonary effort is normal. Breath sounds: Normal breath sounds. No wheezing. Abdominal: General: Bowel sounds are normal. Palpations: Abdomen is soft. There is no mass. Tenderness: There is no abdominal tenderness. Musculoskeletal: General: Tenderness present. Normal range of motion. Cervical back: Normal range of motion. Right lower leg: Edema present. Left lower leg: Edema present. Lymphadenopathy: Cervical: No cervical adenopathy. Skin: General: Skin is warm and dry. Findings: No rash. Neurological: Mental Status: He is alert and oriented to person, place, and time. Cranial Nerves: No cranial nerve deficit. Motor: Weakness present. Coordination: Coordination normal. Psychiatric: Behavior: Behavior normal. Medications Scheduled: acetaminophen, 650 mg, oral, Q6H IANI cefTRIAXone (ROCEPHIN) IV, 1,000 mg, intravenous, Q24H heparin (porcine), 5,000 Units, subcutaneous, Q8H IAIN insulin lispro, 2-10 Units, subcutaneous, With meals and nightly magnesium oxide, 400 mg, oral, BID oxyCODONE, 30 mg, oral, Q12H polyethylene glycol, 17 g, oral, BID pregabalin, 25 mg, oral, BID sennosides-docusate sodium, 2 tablet, oral, BID sodium chloride, 3 mL, intravenous, Q12H IAIN tamsulosin, 0.4 mg, oral, Nightly Infusions: dextrose 5 % in water, 100 mL/hr As Needed: alum-mag hydroxide-simeth dextrose dextrose 5 % in water dextrose 50 % in water (D50W) diazePAM gadoteridoL glucagon (human recombinant) HYDROmorphone hydrOXYzine magnesium sulfate magnesium sulfate midodrine ondansetron oxyCODONE potassium chloride OR potassium chloride OR potassium chloride IV (Adult) prochlorperazine sennosides-docusate sodium sodium chloride sodium chloride Allergies: Pentazocine-acetaminophen and Penicillins Code Status: Full Code Labs Recent Results (from the past 24 hours) Bedside Glucose *Place/Obtain serum glucose if >500 per glucometer. Collection Time: 07/04/25 9:14 PM Result Value Ref Range Bedside Glucose (POC) 186 (H) 65 - 99 mg/dL Urinalysis Collection Time: 07/05/25 4:10 AM Specimen: Urine Result Value Ref Range COLOR Colorless (A) Yellow TURBIDITY Clear Clear SPECIFIC GRAVITY 1.010 1.003 - 1.035 NITRITE Negative Negative PH,URINE 6.5 5.0 - 8.5 LEUKOCYTE ESTERASE Large (A) Negative PROTEIN Trace (A) Negative KETONES (URINE) Negative Negative UROBILINOGEN <1.1 eu/dL <1.1 eu/dL BILIRUBIN (URINE) Negative Negative BLOOD/HGB Trace (A) Negative MUCOUS Present (A) None R.B.CELLS 2 0 - 5 W.B.CELLS 33 (H) 0 - 5 GLUCOSE (URINE) >1000 mg/dL (A) Negative Er Extra Urine Collection Time: 07/05/25 4:10 AM Specimen: Urine Result Value Ref Range Extra Tube Auto Resulted Comprehensive metabolic panel Collection Time: 07/05/25 5:37 AM Result Value Ref Range SODIUM 137 134 - 146 mmol/L POTASSIUM 4.2 3.5 - 5.0 mmol/L CHLORIDE 98 98 - 109 mmol/L CARBON DIOXIDE 29 22 - 32 mmol/L ANION GAP 10 5 - 15 mmol/L BLOOD UREA NITROGEN 25 5 - 27 mg/dL CREATININE 0.80 0.60 - 1.30 mg/dL GLUCOSE 160 (H) 65 - 99 mg/dL CALCIUM 8.9 8.5 - 10.5 mg/dL TOTAL PROTEIN 6.2 6.0 - 8.0 g/dL ALBUMIN 3.1 (L) 3.2 - 5.3 g/dL ALKALINE PHOSPHATASE 245 (H) 39 - 130 U/L AST 37 <=41 U/L ALT 8 <=40 U/L BILIRUBIN,TOTAL 0.2 (L) 0.3 - 1.2 mg/dL EGFR Non-Race Dependent >90 >=60 ml/min/1.73sq.m Magnesium Collection Time: 07/05/25 5:37 AM Result Value Ref Range MAGNESIUM 2.0 1.8 - 2.6 mg/dL CBC auto differential Collection Time: 07/05/25 5:37 AM Result Value Ref Range WBC 9.2 4 - 11 10^9/L RBC Count 2.47 (L) 4.1 - 5.7 10^12/L Hemoglobin 7.8 (L) 13 - 17 g/dL Hematocrit 23.8 (L) 39 - 50 % MCV 96 80 - 100 fL MCH 31.4 27 - 34 pg MCHC 32.6 32 - 36 g/dL RDW 18.6 (H) 11.5 - 15 % Platelet Count 289 150 - 450 10^9/L MPV 6.9 (L) 7 - 12 fL Neutrophils % 79.6 % Lymphocytes % 13.0 % Monocytes % 5.8 % Eosinophils % 0.5 % Basophils % 1.1 % Neutrophils Absolute (A) 7.3 (H) 1.5 - 6.6 10^9/L Lymphocytes Absolute 1.2 1.0 - 3.5 10^9/L Monocytes Absolute 0.5 0.0 - 0.9 10^9/L Eosinophils Absolute 0.1 0.0 - 0.4 10^9/L Basophils Absolute 0.1 0.0 - 0.2 10^9/L Polychromasia 1+ Dacryocytes 1+ Differential Type AUTOMATED DIFFERENTIAL Bedside Glucose *Place/Obtain serum glucose if >500 per glucometer. Collection Time: 07/05/25 7:28 AM Result Value Ref Range Bedside Glucose (POC) 223 (H) 65 - 99 mg/dL Hemoglobin and hematocrit, blood Collection Time: 07/05/25 11:28 AM Result Value Ref Range Hemoglobin 8.7 (L) 13 - 17 g/dL Hematocrit 25.9 (L) 39 - 50 % Bedside Glucose *Place/Obtain serum glucose if >500 per glucometer. Collection Time: 07/05/25 11:32 AM Result Value Ref Range Bedside Glucose (POC) 206 (H) 65 - 99 mg/dL Bedside Glucose *Place/Obtain serum glucose if >500 per glucometer. Collection Time: 07/05/25 5:15 PM Result Value Ref Range Bedside Glucose (POC) 160 (H) 65 - 99 mg/dL Radiology No results found. HOSPITAL PROBLEM LIST Principal Problem: Prostate cancer metastatic to bone ([facility]-HCC) Active Problems: Type 2 diabetes mellitus without complication, without long-term current use of insulin ([facility]) Essential hypertension Spinal cord compression due to neoplasm ([facility]) Wound of left groin ASSESSMENT & PLAN Spinal cord compression due to neoplasm Prostate cancer with mets to bone, numerous osseous mets Neurosurgery following Oncology signed off 07/03-laminectomy for excision of intraspinal neoplasm, thoracic: T12 Drain remains Type 2 diabetes with hemoglobin A1c 5.5 ISS Normally on Jardiance, metformin-held Benign prostatic hyperplasia with urinary retention Hydronephrosis with renal and ureteral calculus obstruction Nephrostomy tube exchanged 06/20/2025 Follows with urology C/u burning with urination UA with leukocytes, Rocephin started culture pending Recent course of Levaquin Remains on Flomax Left groin wound Wound Care following Continues to have drainage Currently on silver alginate On Rocephin for concern of UTI, may also benefit this wound also Will likely DC on PO atb VTE chemoprophylaxis: heparin DC planning: Home, when cleared by NS - ALYSSIA Olivares 07/05/25 7:52 PM [facility] 7AM-7PM & 7PM-7AM: EpicChat or page through On-Call Finder. ALYSSIA Olivares 07/05/251956 Physician Attestation I, Jerel Allen MD, personally performed a face to face diagnostic evaluation on this patient. I have reviewed the note authored by the advance practice provider including history, review of systems,physical examination,medical decision making and agree with the assessment and plan as written. I have seen and evaluated the patient, I have repeated the israel portions of the physical exam and concur with the DELLA findings. I have reviewed all laboratory findings and imaging reports/films. I agree with the plan as noted. Sunil Best, a 64-year-old male, was diagnosed with metastatic prostate cancer in 2022, with progression to widespread bone metastases and spinal cord compression, including severe canal stenosis and epidural tumor at T9 and T12-L1 [5], [4]. He underwent T12 laminectomy and spinal stabilization inearly June 2025, resulting in improved pain and no new neurological deficits; ambulation was achieved postoperatively [4], [1]. His comorbidities included type 2 DM (A1c 5.5%), HTN, anemia, BPH with urinary retention, hydronephrosis, and a left groin wound [5], [3]. Labs showed persistent anemia, mild hyponatremia, and hyperglycemia; renal function remained stable [1], [2]. He received multimodal pain management, insulin, tamsulosin, heparin, and antibiotics for UTI and wound infection [5],[3], [2]. Discharge planning was ongoing, with stable vital signs and no acute distress [1], [3]. * ALYSSIA Lobo - 07/05/2025 10:26 AM EST Images from the original note were not included. Wound Care Service Line - Progress Note Date of Admission: 06/28/2025 10:26 PM Patient: Sunil Best a 64 y.o. male Subjective: Follow up on wound(s) located on the left groin. The wound(s) were last assessed by wound care team on 06/30. Significant findings or changes in regards to wounds/wound care since last assessment -no. Current daily wound care includes: Alginate and foam dressing. Diabetic Blood Sugar: Lab Results Component Value Date HGBA1C 5.5 06/29/2025 HGBA1C 8.2 (H) 06/16/2024 Review of Systems Constitutional: Negative for fever. Respiratory: Negative for shortness of breath. Cardiovascular: Negative for chest pain. Gastrointestinal: Negative for abdominal pain. Genitourinary: Negative for difficulty urinating. Musculoskeletal: Positive for arthralgias, back pain and gait problem. Skin: Positive for wound. Neurological: Positive for weakness. Psychiatric/Behavioral: Negative for confusion. Patient Active Problem List Diagnosis Complicated UTI (urinary tract infection) Acute urinary retention Primary hydronephrosis Gross hematuria Prostate cancer metastatic to bone ([facility]) Bladder stone Hydronephrosis with renal and ureteral calculous obstruction Ureteral stone Bone lesion Urolithiasis Erectile dysfunction due to diseases classified elsewhere Benign prostatic hyperplasia with urinary retention Urologic disorders Pain of metastatic malignancy Intractable back pain Type 2 diabetes mellitus without complication, without long-term current use of insulin ([facility]) Essential hypertension Weakness Acute cystitis without hematuria Former smoker Spinal cord compression due to neoplasm ([facility]) Chemotherapy-induced thrombocytopenia Urinary tract infection with hematuria, site unspecified Hypomagnesemia Dysuria Wound of left groin Objective/Wound Focused Physical Assessment: Vitals: 07/05/25 1140 BP: 108/55 Pulse: 72 Resp: 16 Temp: 36.5 ??C (97.7 ??F) SpO2: 99% BMI: Estimated body mass index is 28.09 kg/m?? as calculated from the following: Height as of this encounter: 177.8 cm (5' 10 ). Weight as of this encounter: 88.8 kg (195 lb 12.3 oz). Pain: Physical Exam General: sitting up in chair, lying in his bed, Alert, NAD HEENT: EOM and conjunctiva wnl Lungs: pulmonary effort non labored . CV: Regular rate and rythym Abdomen: soft : brief on Extremities: CRAIG x4 spontaneously, warm to touch, SILT, motor function grossly intact. Skin: intact other than wounds mentioned below. Vascular Exam Vascular Assessment: R Posterior Tibial Pulse: Weak R Dorsalis Pedis/Pedal Pulse: Moderate L Posterior Tibial Pulse: Weak L Dorsalis Pedis/Pedal Pulse: Moderate Patient was offered a medical rn plastic surgery, and all sensitive body parts/areas of the examination wereperformed with Amy Lentz CNP present. Wounds cleansed, assessed and redressed during today's encounter. Patient tolerated well with out discomfort. Wound Re assessment: Location: left groin Type of Wound/Aetiology: acute non pressure wound, Present on admission. Measurement: 1.8cm x 1.2cm x 0.1cm Undermining: none Tunneling: none Severity: fat-layer exposed Drainage/Exudate/Odor: scant serous/yellow, no odor Wound bed: pale pink/granulation, small amount of slough easily cleaned off Wound Edges: attached Periwound: intact Healing Status: Wound measuring smaller with measurable improvement Recent imaging: Fluoroscopy guidance spine puncture operative Result Date: 07/03/2025 FL FLUORO GUIDANCE SPINAL PUNCTURE OPERATIVE: 07/03/2025 12:51 PM Clinical: Back pain. Laminectomy. Reference air kerma: 1.05 mGY. IMPRESSION: * Fluoroscopic guidance provided to clinical service for spinal level localization for surgery. * See separate clinical report for procedural details. Finalized by Denys Holt MD on 07/03/2025 1:04 PM MR pelvis without contrast Result Date: 07/02/2025 MR PELVIS WO CONT HISTORY: bone mets. Osseous metastatic disease, progressive back pain. TECHNIQUE:Multiplanar [including lieutenant ballistics] multisequence MR of the pelvis was performed prior without intravenous contrast. COMPARISON: None. IMPRESSION: Delay in interpretation for technical reasons. Extensive osseous metastatic disease, subtle asymmetric edema within the right sacral ala with suggestion of pathologic fracture/impending pathologic fracture [series 10 image #13, annotated]. No acute transcortical fracture. Areas of muscular edema, notable asymmetric involvement left greater than right gluteus medius and gluteus elfego, asymmetric edema involving left adductor musculature. Substantial extraosseous soft tissue extension about left greater than right pubic bones [some of which may accountfor asymmetric left adductor muscular edema due to origin disruption]. Bilateral intertrochanteric and subtrochanteric femurs are involved. Small bilateral hip effusions. TURP.. Grossly unremarkable. Renal soft tissues, scrotum. Finalized by Reynaldo Flores MD on 07/02/2025 3:17 PM MR lumbar spine without contrast Result Date: 07/02/2025 LUMBAR SPINE MRI WITHOUT CONTRAST History: Back pain, progressive. Metastatic disease assessment. Comparison: 01/17/2025. Technique: Multiplanar multisequence MR imaging of the lumbar spine was performed without contrast. Findings: Delay in interpretation due to technical reasons. Preserved lumbar vertebral body heights. No substantial listhesis. Extensive osseous metastatic disease, overall extent of osseous involvement is grossly similar to prior. However, there is progressive extraosseous soft tissue dorsal to L5 vertebral body as well as effacing sacral cistern [notable progressive anterior epidural tumor at the S1 and S2 levels [0.8 cm in thickness, in December 2024 this measured approximately 0.3 cm in thickness. Similarly there is progressive extraosseous soft tissue about the right L1 pedicle with progressive effacement of the right L1-2 neural foramina [series 8 image #5]. Subtle nondisplaced pathologic fracture/impending pathologic fracture right sacral ala [series 6 image #[id number]], asymmetric subareolar edema right sacral ala [as reported on separate pelvic MRI]. Multilevel degenerative changes which are not significantly changed since prior. Sequelae prior posterior decompression at the L1 level with evolving changes, irregular T2 hyperintense collection throughout this region is similar to prior, possible pseudomeningocele versus seroma. Impression: 1. 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 Moderate to severe thecal sac stenosis at the S1-S2 level. 2. Subtle pathologic nondisplaced pathologic fracture versus impending pathologic fracture right sacral ala. Finalized by Reynaldo Flores MD on 07/02/2025 3:13 PM Laboratory Results Results from last 7 days Lab Units 07/05/25 1128 07/05/2537 07/04/25 0537 07/03/258 07/02/258 07/01/25 0541 WBC 10^9/L -- 9.2 9.2 7.3 9.0 8.9 HEMOGLOBIN g/dL 8.7* 7.8* 9.3* 8.2* 8.3* 8.6* HEMATOCRIT % 25.9* 23.8* 28.0* 24.7* 25.0* 25.8* PLATELETS 10^9/L -- 289 379 266 264 282 Results from last 7 days Lab Units 07/05/25 1132 07/05/25 0728 07/05/2537 07/04/25 2114 07/04/25 1720 07/04/2545 07/04/2537 07/03/2545 07/03/2531707/02/2520 07/02/2535707/01/2516 07/01/25 0541 POTASSIUM mmol/L -- -- 4.2 -- -- -- 4.4 -- 3.9 -- 4.6 -- 4.4 CO2 mmol/L -- -- 29 -- -- -- 29 -- 32 -- 31 -- 32 BUN mg/dL -- -- 25 -- -- -- 23 -- 17 -- 22 -- 21 CREATININE mg/dL -- -- 0.80 -- -- -- 0.86 -- 0.83 -- 1.11 -- 1.02 BEDSIDE GLUCOSE mg/dL 206* 223* -- 186* 187* < > -- < > -- < > -- < > -- GLUCOSE mg/dL -- -- 160* -- -- -- 207* -- 128* -- 138* -- 127* < > = values in this interval not displayed. Lab Results Component Value Date ALBUMIN 3.1 (L) 07/05/2025 Pathology/Cytology Results Procedure Component Value Units Date/Time Surgical Pathology [[id number]] Collected: 07/03/25 1240 Specimen: Tissue from Back Updated: 07/04/25 07 Microbiology Results Procedure Component Value Units Date/Time Urine Culture Urine, Clean Catch Midstream [[id number]] Collected: 12/09/25 0410 Specimen: Urine, Clean Catch Midstream Updated: 07/05/25426 The following portions of the patient's history were reviewed and updated as appropriate: allergies, current medications, past family history, past medical history, past social history, past surgicalhistory, problem list, and medication reconciliation was completed including current medication andpost discharge medication. Medications: acetaminophen, 650 mg, oral, Q6H IAIN cefTRIAXone (ROCEPHIN) IV, 1,000 mg, intravenous, Q24H heparin (porcine), 5,000 Units, subcutaneous, Q8H IAIN insulin lispro, 2-10 Units, subcutaneous, With meals and nightly magnesium oxide, 400 mg, oral, BID oxyCODONE, 30 mg, oral, Q12H polyethylene glycol, 17 g, oral, BID pregabalin, 25 mg, oral, BID sennosides-docusate sodium, 2 tablet, oral, BID sodium chloride, 3 mL, intravenous, Q12H IAIN tamsulosin, 0.4 mg, oral, Nightly dextrose 5 % in water, 100 mL/hr ASSESSMENT/PLAN/EDUCATION: Principal Problem: Prostate cancer metastatic to bone ([facility]) Active Problems: Type 2 diabetes mellitus without complication, without long-term current use of insulin ([facility]) Essential hypertension Spinal cord compression due to neoplasm ([facility]) Wound of left groin The wound(s) were cleansed, measured and redressed during today's wound reassessment. Wound care orders are in place for bedside nurses to complete daily skin assessment and routine wound care/dressing changes as ordered. Patient/family and staff present at time of reassessment were instructed in wound care provided to wounds present as well as any updates or changes in wound care plan/orders as noted below. Wound Plan: - Dressing: Continue current wound care and offloading orders, without any changes to orders as noted below: - Left groin wound: Cleanse. After cleansing apply silver alginate (cut to fit) to open wound bed, cover with small silicone bordered foam dressing. Repeat every other day on even days and prn. - Offloading/Skin care/Edema management: Continue offloading with preventative orders in place. - continue specialty pressure redistribution bed - turn and reposition minimally every 2 hours - pad and protect bony prominences - moisturize dry skin, do not massage vigorously - elevate bilateral lower extremity/ies and float heel(s) on pillows or offloading boots Studies/Testing: as above Medical Management: per primary service Follow up: Provider: Wound care provider team will continue to monitor closely for wound healing and to avoid any complications or infection in relation to wounds during this admission. Total time spent was 25 minutes: Preparing to see the patient (e.g., review of tests) Obtaining and/or reviewing separately obtained history Performing a medically appropriate examination and/or evaluation Counseling and educating the patient/family/caregiver Ordering medications, tests, or procedures Referring and communicating with other health multi care technician (not separately reported) Documenting clinical information in the electronic or other health record Independently interpreting results (not separately reported) and communicating results to the patient/family/caregiver Care coordination (not separately reported) ALYSSIA Lobo 07/05/25 12:20 PM [facility] [place] Wound Care Service Line M-F 8a-3p Secure Chat preferred for fastest response time Needs outside these hours please contact the attending physician, Thank you! ALYSSIA Lobo 07/05/25 1227 * ALYSSIA Cuadra - 07/05/2025 6:21 AM EST Images from the original note were not included. [facility] [address] [place] [address], [place] [address] * NEUROSURGERY DAILY PROGRESS NOTE DATE:07/05/2025 PATIENT'S NAME: Sunil Best PATIENT'S PATIENT'S : 1960 PROCEDURE POD #2 (1) laminectomy for excision of intraspinal neoplasm, extradural, thoracic: T12 EVENTS LAST 24 HOURS / SUBJECTIVE No acute events overnight Pain well controlled with oral pain medications [facility] had episode of enuresis last night PHYSICAL EXAM Temp: [36.3 ??C (97.4 ??F)-36.6 ??C (97.9 ??F)] 36.6 ??C (97.9 ??F) Pulse: [75-81] 78 Resp: [16-17] 16 BP: (94-135)/(68-78) 133/70 SpO2: [97 %-100 %] 99 % O2 Device: None (Room air) O2 Flow Rate (L/min): [0 L/min] 0 L/min Drain output: 30 x 12 hours, 110 ml x 24 hours No acute distress Awake and Alert Respirations even and unlabored Abdomen soft and nontender Regular heart rate and rhythm PERRL Neurological Exam Mental Status Awake, alert and oriented to person, place and time. Speech is normal. Language is fluent with no aphasia. Attention and concentration are normal. Cranial Nerves CN II: Visual acuity is normal. Visual marshall full to confrontation. CN III, IV, : Extraocular movements intact bilaterally. Normal lids and orbits bilaterally. Pupils equal round and reactive to light bilaterally. CN V: Facial sensation is normal. CN VII: Full and symmetric facial movement. CN VIII: Hearing is normal. CN IX, X: Palate elevates symmetrically. Normal gag reflex. CN XI: Shoulder shrug strength is normal. CN XII: Tongue midline without atrophy or fasciculations. Motor Normal muscle bulk throughout. No fasciculations present. Normal muscle tone. Strength is 5/5 throughout all four extremities. Sensory Light touch is normal in upper and lower extremities. Incision: Dressing [facility]I LABORATORY DATA Results from last 7 days Lab Units 07/04/25 2114 07/04/25 1720 07/04/25 1153 07/04/25 0745 07/04/25 0537 07/03/25 0845 07/03/25 0318 07/02/25 0820 07/02/25 0358 07/01/25 0916 07/01/25 0541 06/30/25 0837 06/30/25 0551 SODIUM mmol/L -- -- -- -- 138 -- 134 -- 135 -- 134 -- 137 POTASSIUM mmol/L -- -- -- -- 4.4 -- 3.9 -- 4.6 -- 4.4 -- 4.2 CREATININE mg/dL -- -- -- -- 0.86 -- 0.83 -- 1.11 -- 1.02 -- 0.66 BEDSIDE GLUCOSE mg/dL 186* 187* 321* 227* -- < > -- < > -- < > -- < > -- GLUCOSE mg/dL -- -- -- -- 207* -- 128* -- 138* -- 127* -- 122* CALCIUM mg/dL -- -- -- -- 9.6 -- 9.2 -- 9.3 -- 9.1 -- 8.7 WBC 10^9/L -- -- -- -- 9.2 -- 7.3 -- 9.0 -- 8.9 -- 8.0 HEMATOCRIT % -- -- -- -- 28.0* -- 24.7* -- 25.0* -- 25.8* -- 26.1* HEMOGLOBIN g/dL -- -- -- -- 9.3* -- 8.2* -- 8.3* -- 8.6* -- 8.7* PLATELETS 10^9/L -- -- -- -- 379 -- 266 -- 264 -- 282 -- 289 < > = values in this interval not displayed. IMAGING No new spinal imaging ASSESSMENT 64 y.o. male s/p T12 laminectomy Prostate cancer with mets to the spine PLAN - Keep surgical drain.off suction. Continue to document output Q6 hours. - SCD's and heparin for DVT prophylaxis - Encourage mobility - Encourage IS - Pain control - Continue current regimen. Plan to utilize PO and limit IV narcotics, Palliative care on board - Continue bowel regimen - PT/OT recommend discharge to home - Medical management per Primary medical team - Palliative Care managing pain - DC Planning - pending decreased drain output ALYSSIA Cuadra Neurosurgery [facility] We[employer] Chat preferred 07/05/25 6:21 AM To find out which DELLA is on for the day please go to ON-Call Finder in WeOwe or ScanNano and use log in Accruent and search for P[facility] Neurosurgery ALYSSIA Cuadra 07/05/25 1135 * Jerel Allen MD - 07/04/2025 12:00 PM EST Images from the original note were not included. [facility] - GEN 6 ACUTE 2 N [facility] [id number] Hospital Medicine Progress Note Patient: Sunil Best Date of : 1960 Room: [facility]/ PCP: YADIRA JOSE MD Admission date: 06/28/2025 10:26 PM Encounter date: 07/04/25 Hospital Day: 7 SUBJECTIVE Comfortable C/o burning with urination, does get frequent urinary tract infection, UA, culture ordered Review of Systems Constitutional: Negative for chills and fever. HENT: Negative for ear pain and sore throat. Eyes: Negative for pain and visual disturbance. Respiratory: Negative for cough and shortness of breath. Cardiovascular: Positive for leg swelling. Negative for chest pain and palpitations. Gastrointestinal: Negative for abdominal pain and vomiting. Genitourinary: Positive for dysuria. Negative for hematuria. Musculoskeletal: Positive for arthralgias, back pain and gait problem. Skin: Negative for color change and rash. Neurological: Positive for weakness. Negative for seizures and syncope. All other systems reviewed and are negative. OBJECTIVE BP 135/68 Pulse 75 Temp 36.6 ??C (97.9 ??F) (Oral) Resp 16 Ht 177.8 cm (5' 10 ) Wt 88.8 kg (195 lb 12.3 oz) SpO2 100% BMI 28.09 kg/m?? Temp: [36.3 ??C (97.4 ??F)-36.8 ??C (98.3 ??F)] 36.6 ??C (97.9 ??F) Pulse: [65-81] 75 Resp: [16-20] 16 BP: (94-135)/(56-78) 135/68 SpO2: [97 %-100 %] 100 % O2 Device: None (Room air) O2 Flow Rate (L/min): [0 L/min] 0 L/min Intake/Output Summary (Last 24 hours) at 07/04/20252035 Last data filed at 07/04/20251935 Gross per 24 hour Intake 380 ml Output 1575 ml Net -1195 ml Physical Exam Constitutional: General: He is not in acute distress. Appearance: Normal appearance. He is well-developed. HENT: Head: Normocephalic. Right Ear: External ear normal. Left Ear: External ear normal. Nose: Nose normal. Eyes: Conjunctiva/sclera: Conjunctivae normal. Pupils: Pupils are equal, round, and reactive to light. Cardiovascular: Rate and Rhythm: Normal rate and regular rhythm. Heart sounds: Normal heart sounds. No murmur heard. Pulmonary: Effort: Pulmonary effort is normal. Breath sounds: Normal breath sounds. No wheezing. Abdominal: General: Bowel sounds are normal. Palpations: Abdomen is soft. There is no mass. Tenderness: There is no abdominal tenderness. Musculoskeletal: General: Tenderness present. Normal range of motion. Cervical back: Normal range of motion. Right lower leg: Edema present. Left lower leg: Edema present. Lymphadenopathy: Cervical: No cervical adenopathy. Skin: General: Skin is warm and dry. Findings: No rash. Neurological: Mental Status: He is alert and oriented to person, place, and time. Cranial Nerves: No cranial nerve deficit. Motor: Weakness present. Coordination: Coordination normal. Psychiatric: Behavior: Behavior normal. Medications Scheduled: acetaminophen, 650 mg, oral, Q6H IAIN heparin (porcine), 5,000 Units, subcutaneous, Q8H IAIN insulin lispro, 2-10 Units, subcutaneous, With meals and nightly magnesium oxide, 400 mg, oral, BID oxyCODONE, 30 mg, oral, Q12H polyethylene glycol, 17 g, oral, BID pregabalin, 25 mg, oral, BID sennosides-docusate sodium, 2 tablet, oral, BID sodium chloride, 3 mL, intravenous, Q12H IAIN tamsulosin, 0.4 mg, oral, Nightly Infusions: dextrose 5 % in water, 100 mL/hr As Needed: alum-mag hydroxide-simeth dextrose dextrose 5 % in water dextrose 50 % in water (D50W) diazePAM gadoteridoL glucagon (human recombinant) HYDROmorphone hydrOXYzine magnesium sulfate magnesium sulfate midodrine ondansetron oxyCODONE potassium chloride OR potassium chloride OR potassium chloride IV (Adult) prochlorperazine sennosides-docusate sodium sodium chloride sodium chloride Allergies: Pentazocine-acetaminophen and Penicillins Code Status: Full Code Labs Recent Results (from the past 24 hours) Bedside Glucose *Place/Obtain serum glucose if >500 per glucometer. Collection Time: 07/03/25 9:06 PM Result Value Ref Range Bedside Glucose (POC) 249 (H) 65 - 99 mg/dL Comprehensive metabolic panel Collection Time: 07/04/25 5:37 AM Result Value Ref Range SODIUM 138 134 - 146 mmol/L POTASSIUM 4.4 3.5 - 5.0 mmol/L CHLORIDE 97 (L) 98 - 109 mmol/L CARBON DIOXIDE 29 22 - 32 mmol/L ANION GAP 12 5 - 15 mmol/L BLOOD UREA NITROGEN 23 5 - 27 mg/dL CREATININE 0.86 0.60 - 1.30 mg/dL GLUCOSE 207 (H) 65 - 99 mg/dL CALCIUM 9.6 8.5 - 10.5 mg/dL TOTAL PROTEIN 7.5 6.0 - 8.0 g/dL ALBUMIN 3.5 3.2 - 5.3 g/dL ALKALINE PHOSPHATASE 236 (H) 39 - 130 U/L AST 22 <=41 U/L ALT 13 <=40 U/L BILIRUBIN,TOTAL 0.4 0.3 - 1.2 mg/dL EGFR Non-Race Dependent >90 >=60 ml/min/1.73sq.m Magnesium Collection Time: 07/04/25 5:37 AM Result Value Ref Range MAGNESIUM 2.1 1.8 - 2.6 mg/dL CBC auto differential Collection Time: 07/04/25 5:37 AM Result Value Ref Range WBC 9.2 4 - 11 10^9/L RBC Count 2.91 (L) 4.1 - 5.7 10^12/L Hemoglobin 9.3 (L) 13 - 17 g/dL Hematocrit 28.0 (L) 39 - 50 % MCV 96 80 - 100 fL MCH 31.8 27 - 34 pg MCHC 33.0 32 - 36 g/dL RDW 18.5 (H) 11.5 - 15 % Platelet Count 379 150 - 450 10^9/L MPV 6.6 (L) 7 - 12 fL Neutrophils % 91.2 % Lymphocytes % 6.4 % Monocytes % 1.8 % Eosinophils % 0.0 % Basophils % 0.6 % Neutrophils Absolute (A) 8.4 (H) 1.5 - 6.6 10^9/L Lymphocytes Absolute 0.6 (L) 1.0 - 3.5 10^9/L Monocytes Absolute 0.2 0.0 - 0.9 10^9/L Eosinophils Absolute 0.0 0.0 - 0.4 10^9/L Basophils Absolute 0.1 0.0 - 0.2 10^9/L Differential Type AUTOMATED DIFFERENTIAL Bedside Glucose *Place/Obtain serum glucose if >500 per glucometer. Collection Time: 07/04/25 7:45 AM Result Value Ref Range Bedside Glucose (POC) 227 (H) 65 - 99 mg/dL Bedside Glucose *Place/Obtain serum glucose if >500 per glucometer. Collection Time: 07/04/25 11:53 AM Result Value Ref Range Bedside Glucose (POC) 321 (H) 65 - 99 mg/dL Bedside Glucose *Place/Obtain serum glucose if >500 per glucometer. Collection Time: 07/04/25 5:20 PM Result Value Ref Range Bedside Glucose (POC) 187 (H) 65 - 99 mg/dL Radiology No results found. HOSPITAL PROBLEM LIST Principal Problem: Prostate cancer metastatic to bone ([facility]) Active Problems: Type 2 diabetes mellitus without complication, without long-term current use of insulin ([facility]) Essential hypertension Spinal cord compression due to neoplasm ([facility]) Wound of left groin ASSESSMENT & PLAN Spinal cord compression due to neoplasm Prostate cancer with mets to bone, numerous osseous mets Neurosurgery following Oncology signed off 07/03-laminectomy for excision of intraspinal neoplasm, thoracic: T12 Drain remains Type 2 diabetes with hemoglobin A1c 5.5 ISS Normally on Jardiance, metformin Benign prostatic hyperplasia with urinary retention Hydronephrosis with renal and ureteral calculus obstruction Nephrostomy tube exchanged 06/20/2025 Follows with urology C/u burning with urination Check UA/culture Recent course of Levaquin Remains on Flomax VTE chemoprophylaxis: heparin DC planning: Home, when cleared by NS - ALYSSIA Olivares 07/04/25 8:38 PM [facility] 7AM-7PM & 7PM-7AM: EpicChat or page through On-Call Finder. ALYSSIA Olivares 07/04/252044 Physician Attestation I, Jerel Allen MD, personally performed a face to face diagnostic evaluation on this patient. I have reviewed the note authored by the advance practice provider including history, review of systems,physical examination,medical decision making and agree with the assessment and plan as written. I have seen and evaluated the patient, I have repeated the israel portions of the physical exam and concur with the DELLA findings. I have reviewed all laboratory findings and imaging reports/films. I agree with the plan as noted. Sunil Best is a 64-year-old male with metastatic prostate cancer, initially diagnosed in 2022, with progression despite Zytiga and Docetaxel, and recent PSA increase in June 2025 [3]. He had widespread osseous metastases, spinal cord compression, and intractable back pain, with imaging showing severe canal stenosis and epidural tumor progression at T9 and T12-L1 [3], [4], [5], [2], [1]. Comorbidities included type 2 DM (A1c 5.5%), HTN, anemia, and a left groin wound [3], [4], [2]. He underwent T12 laminectomy and spinal stabilization in early June 2025, with improved pain and no newneurological deficits post-op [2], [1]. Labs showed stable anemia, mild hyponatremia, and persistent hyperglycemia [3], [4], [5], [2], [1]. He remained on multimodal pain control, insulin, tamsulosin, and DVT prophylaxis, with discharge planning underway [2], [1]. * ALYSSIA Ireland - 07/04/2025 8:30 AM EST Images from the original note were not included. [facility] [address] [place] [address], [address] [place] [address] * NEUROSURGERY DAILY PROGRESS NOTE DATE:07/04/2025 PATIENT'S NAME: Sunil Best PATIENT'S PATIENT'S : 1960 PROCEDURE Procedures Performed: POD#1: (1) laminectomy for excision of intraspinal neoplasm, extradural, thoracic: T12 Estimated Blood Loss: 5 ml EVENTS LAST 24 HOURS / SUBJECTIVE No acute events overnight, pt has ambulated in the foster post op. He states the post op surgical pain is tolerable. No change to pre op BLE numbness/tingling PHYSICAL EXAM Temp: [36 ??C (96.8 ??F)-36.8 ??C (98.3 ??F)] 36.6 ??C (97.8 ??F) Pulse: [65-112] 81 Resp: [13-21] 17 BP: (94-151)/(53-91) 94/78 SpO2: [98 %-100 %] 98 % O2 Device: None (Room air) O2 Flow Rate (L/min): [0 L/min-6 L/min] 0 L/min Physical Exam Constitutional: General: He is not in acute distress. Appearance: Normal appearance. He is not ill-appearing. HENT: Head: Normocephalic. Eyes: Extraocular Movements: Extraocular movements intact. Pupils: Pupils are equal, round, and reactive to light. Cardiovascular: Rate and Rhythm: Normal rate. Pulses: Normal pulses. Pulmonary: Effort: Pulmonary effort is normal. No respiratory distress. Abdominal: Palpations: Abdomen is soft. Tenderness: There is no abdominal tenderness. Musculoskeletal: Cervical back: Normal range of motion. Neurological: Mental Status: He is alert and oriented to person, place, and time. Sensory: No sensory deficit. Motor: No weakness. Comments: BLE strength 4+/5- mild generalized weakness No clonus Psychiatric: Mood and Affect: Mood normal. Aquacel dressing CDI; No drainage noted Surgical drain: 30 mL in 12 hours/80 mL in 24 hours; Bloody LABORATORY DATA Results from last 7 days Lab Units 07/04/25 0745 07/04/25 0537 07/03/25 2106 07/03/25 1714 07/03/25 0845 07/03/25 0318 07/02/25 0820 07/02/25 0358 07/01/25 0916 07/01/25 0541 06/30/25 0837 06/30/25 0551 SODIUM mmol/L -- 138 -- -- -- 134 -- 135 -- 134 -- 137 POTASSIUM mmol/L -- 4.4 -- -- -- 3.9 -- 4.6 -- 4.4 -- 4.2 CREATININE mg/dL -- 0.86 -- -- -- 0.83 -- 1.11 -- 1.02 -- 0.66 BEDSIDE GLUCOSE mg/dL 227* -- 249* 318* 126* -- < > -- < > -- < > -- GLUCOSE mg/dL -- 207* -- -- -- 128* -- 138* -- 127* -- 122* CALCIUM mg/dL -- 9.6 -- -- -- 9.2 -- 9.3 -- 9.1 -- 8.7 WBC 10^9/L -- 9.2 -- -- -- 7.3 -- 9.0 -- 8.9 -- 8.0 HEMATOCRIT % -- 28.0* -- -- -- 24.7* -- 25.0* -- 25.8* -- 26.1* HEMOGLOBIN g/dL -- 9.3* -- -- -- 8.2* -- 8.3* -- 8.6* -- 8.7* PLATELETS 10^9/L -- 379 -- -- -- 266 -- 264 -- 282 -- 289 < > = values in this interval not displayed. IMAGING MR THORACIC SPINE WO CONT HISTORY: pain/mets. TECHNIQUE: Multiplanar multisequence MR of the thoracic spine was performed prior to and following the uncomplicated administration of ProHance intravenous contrast. COMPARISON: 01/17/2025 thoracic spine MRI, 06/28/[address] FINDINGS: Diffuse osseous metastatic disease with numerous sclerotic lesions, given extensive involvement, comparison with prior us challenging. No interval pathologic fracture or substantial thoracic vertebral body height loss seen. Progressive posterior epidural tumor at the T9 level, 1.1 x 0.7 cm, previously 2 to 3 mm in thickness. Additional right lateral epidural tumor at the T8 level [series 21 image #3-4], ESCC grade. Partially visualized epidural tumor at the T12-L1 level, status post posterior decompression, despite this there is ESCC grade 3 tumor at the T12-L1 disc space [series 21 image #20], subtle suggestion of cord signal change, annotated. Informed thecal sac narrowing related to epidural lipomatosis. Small left pleural effusion. No significant findings. Spinal soft tissues elsewhere. IMPRESSION: 1. Diffuse osseous metastatic disease, given extensive involvement comparison with prior is somewhat challenging, no interval pathologic fracture seen. Partially visualized apparent disease progression at the L1 level, severe thecal sac stenosis at T12-L1 with ESCC grade 3 tumor. Recommend lumbar spine MRI. 2. Additional progressive posterior epidural tumor at the T9 level, mild to moderate thecal sac stenosis at this level. 3. Superimposed uniform thecal sac stenosis throughout the thoracic spine related to epidural lipomatosis. ASSESSMENT & PLAN Back pain with concern for additional spinal metastases s/p L1 decompression Surgical drain: Maintain and document output Ok for chemical DVT ppx today (sub-q heparin ordered) Activity as tolerated Multimodal pain regimen; Palliative following. Long acting medications on board Neuro Checks q4 hours Hx of metastatic prostate cancer Medical Decision Making: Moderate This patient was discussed with attending surgeon Dr. Spain and he is in agreement with the assessment and plan. Adelina Juarez [facility] Contact via patient touch 07/04/25 9:29 AM To find out which DELLA is on for the day please go to ScanNano and use log in Accruent and search for [facility] Neurosurgery (DELLA and Phone Number is listed) ALYSSIA Ireland 07/04/25 0944 * Corbin Singleton MD - 07/03/2025 4:00 PM EST Images from the original note were not included. [facility] INTERNAL [facility]IC[facility] - GEN 6 ACUTE [address] [id number] Hospital Medicine Progress Note Patient: Sunil Best Date of : 1960 Room: [place] [address] PCP: YADIRA JOSE MD Admission date: 06/28/2025 10:26 PM Encounter date: 07/03/25 Hospital Day: 6 SUBJECTIVE Resting on the side of the bed. Pt laying on side, states that pain is a 3/10. Pt states the pain is better post Lami, and pain is well controlled at this time. Review of Systems Constitutional: Negative for chills, fatigue and fever. HENT: Negative for congestion, rhinorrhea, sinus pressure, sinus pain, sneezing and trouble swallowing. Eyes: Negative for discharge and itching. Respiratory: Negative for cough, chest tightness, shortness of breath and wheezing. Cardiovascular: Negative for chest pain, palpitations and leg swelling. Gastrointestinal: Negative for abdominal distention, abdominal pain, constipation, diarrhea, nauseaand vomiting. Endocrine: Negative for cold intolerance and heat intolerance. Genitourinary: Negative for dysuria, flank pain, frequency, hematuria and urgency. Musculoskeletal: Positive for arthralgias, gait problem and myalgias. Skin: Negative for rash and wound. Allergic/Immunologic: Negative for environmental allergies and food allergies. Neurological: Negative for dizziness, weakness, light-headedness and headaches. Hematological: Negative for adenopathy. Does not bruise/bleed easily. Psychiatric/Behavioral: Negative for behavioral problems, dysphoric mood, sleep disturbance and suicidal ideas. The patient is not nervous/anxious. OBJECTIVE BP 140/53 Pulse 103 Temp 36.2 ??C (97.2 ??F) (Skin) Resp 21 Ht 177.8 cm (5' 10 ) Wt 94.9 kg (209 lb 3.5 oz) SpO2 98% BMI 30.02 kg/m?? Temp: [36 ??C (96.8 ??F)-36.8 ??C (98.3 ??F)] 36.2 ??C (97.2 ??F) Pulse: [88-112] 103 Resp: [13-21] 21 BP: (91-151)/(50-91) 140/53 SpO2: [98 %-100 %] 98 % O2 Device: None (Room air) O2 Flow Rate (L/min): [0 L/min-6 L/min] 6 L/min Intake/Output Summary (Last 24 hours) at 07/03/2025 1620 Last data filed at 07/03/2025 1323 Gross per 24 hour Intake 1355 ml Output 210 ml Net 1145 ml Physical Exam Constitutional: General: He is not in acute distress. Appearance: He is well-developed. Cardiovascular: Rate and Rhythm: Normal rate and regular rhythm. Heart sounds: Normal heart sounds. No murmur heard. Pulmonary: Effort: Pulmonary effort is normal. Breath sounds: Normal breath sounds. No wheezing. Abdominal: General: Bowel sounds are normal. Palpations: Abdomen is soft. There is no mass. Tenderness: There is no abdominal tenderness. Comments: L flank nephrostomy Musculoskeletal: General: Normal range of motion. Right lower leg: Edema present. Left lower leg: Edema present. Comments: Lumbar incision dressed, with drain Skin: General: Skin is warm and dry. Coloration: Skin is pale. Findings: No rash. Neurological: Mental Status: He is alert. Cranial Nerves: No cranial nerve deficit. Coordination: Coordination normal. Psychiatric: Behavior: Behavior normal. Medications Scheduled: acetaminophen, 650 mg, oral, Q6H IAIN insulin lispro, 2-10 Units, subcutaneous, With meals and nightly magnesium oxide, 400 mg, oral, BID oxyCODONE, 30 mg, oral, Q12H polyethylene glycol, 17 g, oral, BID pregabalin, 25 mg, oral, BID sennosides-docusate sodium, 2 tablet, oral, BID sodium chloride, 3 mL, intravenous, Q12H IAIN tamsulosin, 0.4 mg, oral, Nightly Infusions: dextrose 5 % in water, 100 mL/hr As Needed: alum-mag hydroxide-simeth dextrose dextrose 5 % in water dextrose 50 % in water (D50W) diazePAM gadoteridoL glucagon (human recombinant) HYDROmorphone hydrOXYzine magnesium sulfate magnesium sulfate midodrine ondansetron oxyCODONE potassium chloride OR potassium chloride OR potassium chloride IV (Adult) prochlorperazine sennosides-docusate sodium sodium chloride sodium chloride Allergies: Pentazocine-acetaminophen and Penicillins Code Status: Full Code Labs Recent Results (from the past 24 hours) Bedside Glucose *Place/Obtain serum glucose if >500 per glucometer. Collection Time: 07/02/25 9:34 PM Result Value Ref Range Bedside Glucose (POC) 156 (H) 65 - 99 mg/dL Comprehensive metabolic panel Collection Time: 07/03/25 3:18 AM Result Value Ref Range SODIUM 134 134 - 146 mmol/L POTASSIUM 3.9 3.5 - 5.0 mmol/L CHLORIDE 94 (L) 98 - 109 mmol/L CARBON DIOXIDE 32 22 - 32 mmol/L ANION GAP 8 5 - 15 mmol/L BLOOD UREA NITROGEN 17 5 - 27 mg/dL CREATININE 0.83 0.60 - 1.30 mg/dL GLUCOSE 128 (H) 65 - 99 mg/dL CALCIUM 9.2 8.5 - 10.5 mg/dL TOTAL PROTEIN 6.4 6.0 - 8.0 g/dL ALBUMIN 3.1 (L) 3.2 - 5.3 g/dL ALKALINE PHOSPHATASE 218 (H) 39 - 130 U/L AST 30 <=41 U/L ALT 14 <=40 U/L BILIRUBIN,TOTAL 0.4 0.3 - 1.2 mg/dL EGFR Non-Race Dependent >90 >=60 ml/min/1.73sq.m Magnesium Collection Time: 07/03/25 3:18 AM Result Value Ref Range MAGNESIUM 2.0 1.8 - 2.6 mg/dL CBC auto differential Collection Time: 07/03/25 3:18 AM Result Value Ref Range WBC 7.3 4 - 11 10^9/L RBC Count 2.58 (L) 4.1 - 5.7 10^12/L Hemoglobin 8.2 (L) 13 - 17 g/dL Hematocrit 24.7 (L) 39 - 50 % MCV 96 80 - 100 fL MCH 31.9 27 - 34 pg MCHC 33.2 32 - 36 g/dL RDW 18.7 (H) 11.5 - 15 % Platelet Count 266 150 - 450 10^9/L MPV 6.8 (L) 7 - 12 fL Neutrophils % 75 % Lymphocytes % 10 % Monocytes % 13 % Eosinophils % 1 % Atypical Lymphs % 1 % Neutrophils Absolute (M) 5.5 1.5 - 6.6 10^9/L Lymphocytes Absolute 0.8 (L) 1.0 - 3.5 10^9/L Monocytes Absolute 0.9 0.0 - 0.9 10^9/L Eosinophils Absolute 0.1 0.0 - 0.4 10^9/L Polychromasia 1+ Differential Type MANUAL DIFFERENTIAL Bedside Glucose *Place/Obtain serum glucose if >500 per glucometer. Collection Time: 07/03/25 8:45 AM Result Value Ref Range Bedside Glucose (POC) 126 (H) 65 - 99 mg/dL Radiology Fluoroscopy guidance spine puncture operative Result Date: 07/03/2025 FL FLUORO GUIDANCE SPINAL PUNCTURE OPERATIVE: 07/03/2025 12:51 PM Clinical: Back pain. Laminectomy. Reference air kerma: 1.05 mGY. IMPRESSION: * Fluoroscopic guidance provided to clinical service for spinal level localization for surgery. * See separate clinical report for procedural details. Finalized by Denys Holt MD on 07/03/2025 1:04 PM HOSPITAL PROBLEM LIST Principal Problem: 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) Active Problems: Type 2 diabetes mellitus without complication, without long-term current use of insulin (CMS-HCC) Essential hypertension 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) Wound of left groin ASSESSMENT & PLAN Spinal cord compression due to neoplasm Prostate cancer with mets to bone, numerous osseous mets, actively undergoing chemotherapy Neurosurgery and oncology following. Went for lumbar MRI revealing disease progression at L1, severe thecal sac stenosis at T12-L1 with tumor, progression of epidural tumor at T9 with mild/mod thecalsac stenosis. MRI pelvis: extensive osseous metastatic disease, asymmetric edema within the right sacral. T12 Lami completed with BRUNO drain placement earlier today. Surgical pathology sent to the lab. Hypertension BP stable. Diabetes mellitus type 2, A1c 5.5% Adequate glucose, continue ISS PRN. Anemia of chronic disease Labs all near his baseline range. Will continue to monitor. VTE chemoprophylaxis: heparin held. DC planning: Home, possibly tomorrow depending on drain output and PT/OT eval. Tiarra Crowe 07/03/2025 4:20 PM [facility] Internal Medicine 7AM-7PM & 7PM-7AM: EpicChat or page through On-Call Finder. Aranza Wang, [employer] 07/03/25 9175 I have reviewed the above note authored by the Advance Practice Provider (DELLA) including history, review of systems, physical examination, medical decision making and agree with the assessment & plan. I have personally performed a face to face diagnostic evaluation on this patient. I have reviewed all laboratory findings and imaging reports/films. I have independently evaluated the patient and repeated israel portions of the physical exam. I agree with the DELLA plan as above, unless otherwise noted. Corbin Singleton MD * ALYSSIA Beebe - 07/02/2025 4:57 PM EST Images from the original note were not included. [facility] [address] [place] [address], [address] [place] [address] * NEUROSURGERY DAILY PROGRESS NOTE DATE:07/02/2025 PATIENT'S NAME: Sunil Best PATIENT'S PATIENT'S : 1960 PROCEDURE None this admission EVENTS LAST 24 HOURS / SUBJECTIVE Patient sitting up in bed eating lunch- pain medications helping modestly He denies any numbness/tingling in his extremities, saddle paresthesias, or loss of bowel or bladder control PHYSICAL EXAM Temp: [36.5 ??C (97.7 ??F)-36.8 ??C (98.3 ??F)] 36.5 ??C (97.7 ??F) Pulse: [91-120] 91 Resp: [12-22] 22 BP: (96-133)/(55-71) 106/64 SpO2: [93 %-98 %] 96 % O2 Device: None (Room air) O2 Flow Rate (L/min): [0 L/min] 0 L/min Physical Exam Constitutional: General: He is not in acute distress. Appearance: Normal appearance. He is not ill-appearing. HENT: Head: Normocephalic. Eyes: Extraocular Movements: Extraocular movements intact. Pupils: Pupils are equal, round, and reactive to light. Cardiovascular: Rate and Rhythm: Normal rate. Pulses: Normal pulses. Pulmonary: Effort: Pulmonary effort is normal. No respiratory distress. Abdominal: Palpations: Abdomen is soft. Tenderness: There is no abdominal tenderness. Musculoskeletal: Cervical back: Normal range of motion. Neurological: Mental Status: He is alert and oriented to person, place, and time. Sensory: No sensory deficit. Motor: No weakness. Comments: BLE strength 4+/5- mild generalized weakness No clonus Psychiatric: Mood and Affect: Mood normal. LABORATORY DATA Results from last 7 days Lab Units 07/02/25 1544 07/02/25 1114 07/02/25 0820 07/02/25 0358 07/01/25 2118 07/01/25 0916 07/01/25 0541 06/30/25 0837 06/30/25 0551 06/29/25 0813 06/29/25 0541 06/28/25 2339 06/27/25 1407 SODIUM mmol/L -- -- -- 135 -- -- 134 -- 137 -- 136 -- 132* POTASSIUM mmol/L -- -- -- 4.6 -- -- 4.4 -- 4.2 -- 4.7 -- 3.4* CREATININE mg/dL -- -- -- 1.11 -- -- 1.02 -- 0.66 -- 0.70 -- 0.90 BEDSIDE GLUCOSE mg/dL 147* 213* 138* -- 235* < > -- < > -- < > -- < > -- GLUCOSE mg/dL -- -- -- 138* -- -- 127* -- 122* -- 183* -- 203* CALCIUM mg/dL -- -- -- 9.3 -- -- 9.1 -- 8.7 -- 8.9 -- 8.8 WBC 10^9/L -- -- -- 9.0 -- -- 8.9 -- 8.0 -- 9.1 -- 10.5 HEMATOCRIT % -- -- -- 25.0* -- -- 25.8* -- 26.1* -- 27.6* -- 27.8* HEMOGLOBIN g/dL -- -- -- 8.3* -- -- 8.6* -- 8.7* -- 9.3* -- 9.5* PLATELETS 10^9/L -- -- -- 264 -- -- 282 -- 289 -- 281 -- 300 < > = values in this interval not displayed. IMAGING MR THORACIC SPINE WO CONT HISTORY: pain/mets. TECHNIQUE: Multiplanar multisequence MR of the thoracic spine was performed prior to and following the uncomplicated administration of ProHance intravenous contrast. COMPARISON: 01/17/2025 thoracic spine MRI, 06/28/[address] FINDINGS: Diffuse osseous metastatic disease with numerous sclerotic lesions, given extensive involvement, comparison with prior us challenging. No interval pathologic fracture or substantial thoracic vertebral body height loss seen. Progressive posterior epidural tumor at the T9 level, 1.1 x 0.7 cm, previously 2 to 3 mm in thickness. Additional right lateral epidural tumor at the T8 level [series 21 image #3-4], ESCC grade. Partially visualized epidural tumor at the T12-L1 level, status post posterior decompression, despite this there is ESCC grade 3 tumor at the T12-L1 disc space [series 21 image #20], subtle suggestion of cord signal change, annotated. Informed thecal sac narrowing related to epidural lipomatosis. Small left pleural effusion. No significant findings. Spinal soft tissues elsewhere. IMPRESSION: 1. Diffuse osseous metastatic disease, given extensive involvement comparison with prior is somewhat challenging, no interval pathologic fracture seen. Partially visualized apparent disease progression at the L1 level, severe thecal sac stenosis at T12-L1 with ESCC grade 3 tumor. Recommend lumbar spine MRI. 2. Additional progressive posterior epidural tumor at the T9 level, mild to moderate thecal sac stenosis at this level. 3. Superimposed uniform thecal sac stenosis throughout the thoracic spine related to epidural lipomatosis. ASSESSMENT & PLAN Back pain with concern for additional spinal metastases s/p L1 decompression 05/2024 Hx of metastatic prostate cancer MRI thoracic spine independently reviewed with Dr. Spain. Plan for T12 laminectomy tomorrow with Dr. Spain. Consent is signed and on the chart. He was only able to complete his lumbar MRI without contrast today. This should be sufficient. NPO midnight SCD's for DVT ppx. Hold chemical ppx. No blood thinners . Medical Decision Making: Moderate This patient was discussed with attending surgeon Dr. Spain and he is in agreement with the assessment and plan. ADDENDUM: Patient will go for T12 laminectomy on Friday with Dr. Spain. Will obtain consent tomorrow. MUST GET AT MINIMUM LUMBAR MRI COMPLETED [facility] Please contact via goTennaChat first then can utilize Patient touch/VoceraEdge if needed 07/02/25 4:57 PM To find out which DELLA is on for the day please go to ScanNano and use log in Accruent and search for [facility] Neurosurgery (DELLA and Phone Number is listed) ALYSSIA Beebe 07/02/25 1707 * Corbin Singleton MD - 07/02/2025 10:30 AM EST Images from the original note were not included. [facility] INTERNAL MEDICINE [facility] - GEN 6 ACUTE [address] [id number] [facility] Medicine Progress Note Patient: Sunil Best Date of : 1960 Room: [place] [address] PCP: YADIRA JOSE MD Admission date: 06/28/2025 10:26 PM Encounter date: 07/02/25 Hospital Day: 5 SUBJECTIVE Resting on the side of the bed. Still having significant pain. Needs to undergo lumbar MRI and pelvis this afternoon. Planning for T12 laminectomy tomorrow. Review of Systems Constitutional: Negative for chills, fatigue and fever. HENT: Negative for congestion, rhinorrhea, sinus pressure, sinus pain, sneezing and trouble swallowing. Eyes: Negative for discharge and itching. Respiratory: Negative for cough, chest tightness, shortness of breath and wheezing. Cardiovascular: Negative for chest pain, palpitations and leg swelling. Gastrointestinal: Negative for abdominal distention, abdominal pain, constipation, diarrhea, nauseaand vomiting. Endocrine: Negative for cold intolerance and heat intolerance. Genitourinary: Negative for dysuria, flank pain, frequency, hematuria and urgency. Musculoskeletal: Positive for arthralgias, gait problem and myalgias. Skin: Negative for rash and wound. Allergic/Immunologic: Negative for environmental allergies and food allergies. Neurological: Negative for dizziness, weakness, light-headedness and headaches. Hematological: Negative for adenopathy. Does not bruise/bleed easily. Psychiatric/Behavioral: Negative for behavioral problems, dysphoric mood, sleep disturbance and suicidal ideas. The patient is not nervous/anxious. OBJECTIVE BP 133/71 Pulse 105 Temp 36.8 ??C (98.2 ??F) (Oral) Resp 12 Ht 177.8 cm (5' 10 ) Wt 88.7 kg (195 lb 8.8 oz) SpO2 98% BMI 28.06 kg/m?? Temp: [36.8 ??C (98.2 ??F)-36.9 ??C (98.4 ??F)] 36.8 ??C (98.2 ??F) Pulse: [77-120] 105 Resp: [12-19] 12 BP: (80-133)/(50-71) 133/71 SpO2: [80 %-100 %] 98 % O2 Device: None (Room air) O2 Flow Rate (L/min): [0 L/min-2 L/min] 0 L/min Intake/Output Summary (Last 24 hours) at 07/02/2025 0838 Last data filed at 07/02/2025 0403 Gross per 24 hour Intake -- Output 450 ml Net -450 ml Physical Exam Constitutional: General: He is not in acute distress. Appearance: He is well-developed. Cardiovascular: Rate and Rhythm: Normal rate and regular rhythm. Heart sounds: Normal heart sounds. No murmur heard. Pulmonary: Effort: Pulmonary effort is normal. Breath sounds: Normal breath sounds. No wheezing. Abdominal: General: Bowel sounds are normal. Palpations: Abdomen is soft. There is no mass. Tenderness: There is no abdominal tenderness. Comments: L flank nephrostomy Musculoskeletal: General: Normal range of motion. Right lower leg: Edema present. Left lower leg: Edema present. Skin: General: Skin is warm and dry. Coloration: Skin is pale. Findings: No rash. Neurological: Mental Status: He is alert. Cranial Nerves: No cranial nerve deficit. Coordination: Coordination normal. Psychiatric: Behavior: Behavior normal. Medications Scheduled: acetaminophen, 650 mg, oral, Q6H IAIN heparin (porcine), 5,000 Units, subcutaneous, Q8H IAIN insulin lispro, 2-10 Units, subcutaneous, With meals and nightly magnesium oxide, 400 mg, oral, BID oxyCODONE, 30 mg, oral, Q12H polyethylene glycol, 17 g, oral, BID pregabalin, 25 mg, oral, BID sennosides-docusate sodium, 2 tablet, oral, BID sodium chloride, 3 mL, intravenous, Q12H IAIN tamsulosin, 0.4 mg, oral, Nightly Infusions: dextrose 5 % in water, 100 mL/hr As Needed: alum-mag hydroxide-simeth dextrose dextrose 5 % in water dextrose 50 % in water (D50W) glucagon (human recombinant) HYDROmorphone hydrOXYzine magnesium sulfate magnesium sulfate midodrine ondansetron oxyCODONE potassium chloride OR potassium chloride OR potassium chloride IV (Adult) prochlorperazine sennosides-docusate sodium sodium chloride Allergies: Pentazocine-acetaminophen and Penicillins Code Status: Full Code Labs Recent Results (from the past 24 hours) Bedside Glucose *Place/Obtain serum glucose if >500 per glucometer. Collection Time: 07/01/25 9:16 AM Result Value Ref Range Bedside Glucose (POC) 118 (H) 65 - 99 mg/dL Bedside Glucose *Place/Obtain serum glucose if >500 per glucometer. Collection Time: 07/01/25 11:48 AM Result Value Ref Range Bedside Glucose (POC) 158 (H) 65 - 99 mg/dL Magnesium Collection Time: 07/01/25 3:56 PM Result Value Ref Range MAGNESIUM 2.3 1.8 - 2.6 mg/dL Bedside Glucose *Place/Obtain serum glucose if >500 per glucometer. Collection Time: 07/01/25 5:15 PM Result Value Ref Range Bedside Glucose (POC) 177 (H) 65 - 99 mg/dL Bedside Glucose *Place/Obtain serum glucose if >500 per glucometer. Collection Time: 07/01/25 9:18 PM Result Value Ref Range Bedside Glucose (POC) 235 (H) 65 - 99 mg/dL Comprehensive metabolic panel Collection Time: 07/02/25 3:58 AM Result Value Ref Range SODIUM 135 134 - 146 mmol/L POTASSIUM 4.6 3.5 - 5.0 mmol/L CHLORIDE 97 (L) 98 - 109 mmol/L CARBON DIOXIDE 31 22 - 32 mmol/L ANION GAP 7 5 - 15 mmol/L BLOOD UREA NITROGEN 22 5 - 27 mg/dL CREATININE 1.11 0.60 - 1.30 mg/dL GLUCOSE 138 (H) 65 - 99 mg/dL CALCIUM 9.3 8.5 - 10.5 mg/dL TOTAL PROTEIN 6.4 6.0 - 8.0 g/dL ALBUMIN 3.2 3.2 - 5.3 g/dL ALKALINE PHOSPHATASE 229 (H) 39 - 130 U/L AST 33 <=41 U/L ALT 12 <=40 U/L BILIRUBIN,TOTAL 0.4 0.3 - 1.2 mg/dL EGFR Non-Race Dependent 75 >=60 ml/min/1.73sq.m Magnesium Collection Time: 07/02/25 3:58 AM Result Value Ref Range MAGNESIUM 2.3 1.8 - 2.6 mg/dL CBC auto differential Collection Time: 07/02/25 3:58 AM Result Value Ref Range WBC 9.0 4 - 11 10^9/L RBC Count 2.61 (L) 4.1 - 5.7 10^12/L Hemoglobin 8.3 (L) 13 - 17 g/dL Hematocrit 25.0 (L) 39 - 50 % MCV 96 80 - 100 fL MCH 32.0 27 - 34 pg MCHC 33.3 32 - 36 g/dL RDW 18.8 (H) 11.5 - 15 % Platelet Count 264 150 - 450 10^9/L MPV 6.8 (L) 7 - 12 fL Myelocyte % 1 % Bands % 2 % Neutrophils % 80 % Lymphocytes % 12 % Monocytes % 3 % Eosinophils % 2 % nRBC 1 Neutrophils Absolute (M) 7.3 (H) 1.5 - 6.6 10^9/L Lymphocytes Absolute 1.1 1.0 - 3.5 10^9/L Monocytes Absolute 0.3 0.0 - 0.9 10^9/L Eosinophils Absolute 0.2 0.0 - 0.4 10^9/L Polychromasia 1+ Differential Type MANUAL DIFFERENTIAL Bedside Glucose *Place/Obtain serum glucose if >500 per glucometer. Collection Time: 07/02/25 8:20 AM Result Value Ref Range Bedside Glucose (POC) 138 (H) 65 - 99 mg/dL Radiology No results found. HOSPITAL PROBLEM LIST Principal Problem: Prostate cancer metastatic to bone ([facility]) Active Problems: Type 2 diabetes mellitus without complication, without long-term current use of insulin ([facility]) Essential hypertension 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) Wound of left groin ASSESSMENT & PLAN Spinal cord compression due to neoplasm Prostate cancer with mets to bone, numerous osseous mets, actively undergoing chemotherapy Neurosurgery and oncology following. Went for lumbar MRI revealing disease progression at L1, severe thecal sac stenosis at T12-L1 with tumor, progression of epidural tumor at T9 with mild/mod thecalsac stenosis. MRI lumbar and pelvis unable to be completed due to pain. Repeating attempt today with use of Valium and Dilaudid, planning for T12 laminectomy tomorrow. Hypertension BP has been soft, but stable. Diabetes mellitus type 2, A1c 5.5% Adequate glucose, continue ISS PRN. Anemia of chronic disease Labs all near his baseline range. Will continue to monitor. VTE chemoprophylaxis: heparin SQ., will time last dose for this evening DC planning: Home, timing TBD. ALYSSIA BORWN 07/02/2025 8:38 AM [facility] 7AM-7PM & 7PM-7AM: EpicChat or page through On-Call Finder. ALYSSIA Brown 07/02/25 7229 I have reviewed the above note authored by the Advance Practice Provider (DELLA) including history, review of systems, physical examination, medical decision making and agree with the assessment & plan. I have personally performed a face to face diagnostic evaluation on this patient. I have reviewed all laboratory findings and imaging reports/films. I have independently evaluated the patient and repeated israel portions of the physical exam. I agree with the DELLA plan as above, unless otherwise noted. Corbin Singleton MD * Chase Borrego MD - 07/02/2025 8:41 AM EST Images from the original note were not included. [facility] Shreyas Barajas M.D. Casandra Serrano M.D. Darien Barcenas M.D. Chase Borrego M.D. Patricia Avery, WARHEAD MAINTENANCE SPECIALIST-GALI Rachna Jayant, WARHEAD MAINTENANCE SPECIALIST-MANAGER PACKAGE Rita Kelley, WARHEAD MAINTENANCE SPECIALIST-MANAGER PACKAGE Darlene Mcgowan, WARHEAD MAINTENANCE SPECIALIST-MANAGER PACKAGE Kenney Jasmine M.D. Bigg Hair M.D. Og Erwin M.D. Cheryl Car M.D. Betty Soliz, WARHEAD MAINTENANCE SPECIALIST-MANAGER PACKAGE Su Cedenoall, WARHEAD MAINTENANCE SPECIALIST-MANAGER PACKAGE Jeanne Vickie, WARHEAD MAINTENANCE SPECIALIST-MANAGER PACKAGE Viky Alonzo, WARHEAD MAINTENANCE SPECIALIST-[facility] PROGRESS NOTE 07/02/25 Subjective: Interval History: Sunil Best was seen, resting in bed. His is at the bedside. They discussed plan for surgery tomorrow with the neurosurgery team, T12 laminectomy. He is also awaiting additional lumbar MRI. We discussed that he would follow up with Dr. Jasmine in [place] after discharge. They verbalized understanding. Recent history: taken from consult 06/29/25 The patient is a 64 y.o. male who is known to our service and follows for his history of metastaticprostate cancer with widespread osseous lesions, diagnosed 2022, has progressed on Zytiga and Docetaxel. Most recently, disease progression 12/2024 throughout thoracic and lumbar spine with epidural invasion. Patient was started on combined carboplatin and Jevtana with plan to then follow with Jevta na alone. The patient is s/p C5 06/01. The patient presented with cc of back pain, sent from our office for MR spine and for neurosurgicalevaluation. Pt reports he was supposed to have an MRI Friday (06/24), but could not have it becausehe was not able to lay on his back with his legs straight due to the pain in his hips. CT lumbar 06/28 noting widespread osseous metastasis, predominantly sclerotic, abnormal soft tissue within the right T12-L1 level likely producing severe canal stenosis and right neural foraminal encroachment. On examination, the patient continues to report mid/ lower back pain, bilateral hip pain that has been ongoing since beginning of April. He denies gait abnormalities. Discussed that we would recommend completing MRI spine with premedications in order to evaluate disease status. The patient is agreeable to this. Oncology History 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) 02/04/2023 Initial Diagnosis 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) 07/05/2024 - 08/19/2024 Radiation Radiation Treatments Active No active radiation treatments to show. Historical Plans TL Spine 3Fld Most recent treatment: Dose planned: 300 (fraction 10 on 07/22/2024) Total: Dose planned: 3,000 (10 fractions) Elapsed Days: 14 Reference Points Rx TL Spines Most recent treatment: Dose given: 300 (on 07/22/2024) Total: Dose given: 3,000 Elapsed Days: 14 Objective Physical Examination: Vitals: BP 133/71 Pulse 105 Temp 36.8 ??C (98.2 ??F) (Oral) Resp 12 Ht 177.8 cm (5' 10 ) Wt 88.7 kg (195 lb 8.8 oz) SpO2 98% BMI 28.06 kg/m?? Physical Exam Constitutional: General: He is not in acute distress. Appearance: Normal appearance. He is normal weight. He is not ill-appearing. HENT: Head: Normocephalic and atraumatic. Nose: Nose normal. Mouth/Throat: Mouth: Mucous membranes are moist. Eyes: Pupils: Pupils are equal, round, and reactive to light. Cardiovascular: Rate and Rhythm: Normal rate and regular rhythm. Pulses: Normal pulses. Heart sounds: Normal heart sounds. No murmur heard. No friction rub. No gallop. Pulmonary: Effort: Pulmonary effort is normal. No respiratory distress. Breath sounds: Normal breath sounds. Abdominal: General: Abdomen is flat. Bowel sounds are normal. There is no distension. Palpations: Abdomen is soft. There is no mass. Tenderness: There is no abdominal tenderness. Musculoskeletal: General: No swelling. Normal range of motion. Cervical back: Normal range of motion and neck supple. Skin: General: Skin is warm and dry. Capillary Refill: Capillary refill takes less than 2 seconds. Coloration: Skin is not jaundiced. Findings: No rash. Neurological: General: No focal deficit present. Mental Status: He is alert and oriented to person, place, and time. Motor: No weakness. Psychiatric: Mood and Affect: Mood normal. Behavior: Behavior normal. Thought Content: Thought content normal. Judgment: Judgment normal. Lines, Drains, Airways: PIV, nephrostomy tubes, left Recent Labs Recent Results (from the past 24 hours) Bedside Glucose *Place/Obtain serum glucose if >500 per glucometer. Collection Time: 07/01/25 9:16 AM Result Value Ref Range Bedside Glucose (POC) 118 (H) 65 - 99 mg/dL Bedside Glucose *Place/Obtain serum glucose if >500 per glucometer. Collection Time: 07/01/25 11:48 AM Result Value Ref Range Bedside Glucose (POC) 158 (H) 65 - 99 mg/dL Magnesium Collection Time: 07/01/25 3:56 PM Result Value Ref Range MAGNESIUM 2.3 1.8 - 2.6 mg/dL Bedside Glucose *Place/Obtain serum glucose if >500 per glucometer. Collection Time: 07/01/25 5:15 PM Result Value Ref Range Bedside Glucose (POC) 177 (H) 65 - 99 mg/dL Bedside Glucose *Place/Obtain serum glucose if >500 per glucometer. Collection Time: 07/01/25 9:18 PM Result Value Ref Range Bedside Glucose (POC) 235 (H) 65 - 99 mg/dL Comprehensive metabolic panel Collection Time: 07/02/25 3:58 AM Result Value Ref Range SODIUM 135 134 - 146 mmol/L POTASSIUM 4.6 3.5 - 5.0 mmol/L CHLORIDE 97 (L) 98 - 109 mmol/L CARBON DIOXIDE 31 22 - 32 mmol/L ANION GAP 7 5 - 15 mmol/L BLOOD UREA NITROGEN 22 5 - 27 mg/dL CREATININE 1.11 0.60 - 1.30 mg/dL GLUCOSE 138 (H) 65 - 99 mg/dL CALCIUM 9.3 8.5 - 10.5 mg/dL TOTAL PROTEIN 6.4 6.0 - 8.0 g/dL ALBUMIN 3.2 3.2 - 5.3 g/dL ALKALINE PHOSPHATASE 229 (H) 39 - 130 U/L AST 33 <=41 U/L ALT 12 <=40 U/L BILIRUBIN,TOTAL 0.4 0.3 - 1.2 mg/dL EGFR Non-Race Dependent 75 >=60 ml/min/1.73sq.m Magnesium Collection Time: 07/02/25 3:58 AM Result Value Ref Range MAGNESIUM 2.3 1.8 - 2.6 mg/dL CBC auto differential Collection Time: 07/02/25 3:58 AM Result Value Ref Range WBC 9.0 4 - 11 10^9/L RBC Count 2.61 (L) 4.1 - 5.7 10^12/L Hemoglobin 8.3 (L) 13 - 17 g/dL Hematocrit 25.0 (L) 39 - 50 % MCV 96 80 - 100 fL MCH 32.0 27 - 34 pg MCHC 33.3 32 - 36 g/dL RDW 18.8 (H) 11.5 - 15 % Platelet Count 264 150 - 450 10^9/L MPV 6.8 (L) 7 - 12 fL Myelocyte % 1 % Bands % 2 % Neutrophils % 80 % Lymphocytes % 12 % Monocytes % 3 % Eosinophils % 2 % nRBC 1 Neutrophils Absolute (M) 7.3 (H) 1.5 - 6.6 10^9/L Lymphocytes Absolute 1.1 1.0 - 3.5 10^9/L Monocytes Absolute 0.3 0.0 - 0.9 10^9/L Eosinophils Absolute 0.2 0.0 - 0.4 10^9/L Polychromasia 1+ Differential Type MANUAL DIFFERENTIAL Bedside Glucose *Place/Obtain serum glucose if >500 per glucometer. Collection Time: 07/02/25 8:20 AM Result Value Ref Range Bedside Glucose (POC) 138 (H) 65 - 99 mg/dL Inpatient scheduled medications: Current Facility-Administered Medications: acetaminophen (TYLENOL) tablet 650 mg, 650 mg, oral, Q6H IAIN, Uyen Richmond MD, 650 mg at 07/02/25 0423 alum-mag hydroxide-simeth (MAALOX) 200-200-20 mg/5 mL suspension 30 mL, 30 mL, oral, PCHSP, Cherelle Cervantes APRN-GALI dextrose (GLUTOSE) 40 % gel 15 g, 15 g, oral, PRNCherelle APRN-GALI dextrose 5 % (D5W) infusion, 100 mL/hr, intravenous, Continuous PRNCherelle APRN-GALI dextrose 50 % in water (D50W) 50% solution 25 mL, 25 mL, intravenous, PRNCherelle APRN-MANAGER PACKAGE glucagon HCL injection 1 mg, 1 mg, intramuscular, PRNCherelle APRN-MANAGER PACKAGE heparin (porcine) injection 5,000 Units, 5,000 Units, subcutaneous, Q8H [facility], Aranza Wang APRN-MANAGER PACKAGE, 5,000 Units at 07/02/25 0423 HYDROmorphone (PF) (DILAUDID) injection 1 mg, 1 mg, intravenous, Q3H PRN, Uyen Richmond MD, 1 mg at 07/01/25 215 hydrOXYzine (ATARAX) tablet 50 mg, 50 mg, oral, TID PRN, Jared Stone APRN- MANAGER PACKAGE, 50 mg at 07/01/250020 insulin lispro (HumaLOG) injection 2-10 Units, 2-10 Units, subcutaneous, With meals and nightly, Aranza Wang APRN-MANAGER PACKAGE, 4 Units at 07/01/25 2219 magnesium oxide (MAGOX) tablet 400 mg, 400 mg, oral, BID, FARZAD Olivares CNP, 400 mg at 07/01/25 2353 magnesium sulfate IVPB 2000 mg/50 mL in iso-osmotic water (40 mg/mL premix), 2,000 mg, intravenous,PRN, Cherelle Cervantes APRN-GALI, Stopped at 07/01/25 1114 magnesium sulfate IVPB 4000 mg/100 mL in iso-osmotic water (40 mg/mL premix), 4,000 mg, intravenous, PRN, ALYSSIA Olivares midodrine (PROAMATINE) tablet 5 mg, 5 mg, oral, TID PRN, ALYSSIA Olivares ondansetron (PF) (ZOFRAN) injection 4 mg, 4 mg, intravenous, Q4H PRN, ALYSSIA Olivares oxyCODONE (OxyCONTIN) 12 hr tablet 30 mg, 30 mg, oral, Q12H, Uyen Richmond MD, 30 mg at 07/01/25 235 oxyCODONE (ROXICODONE) immediate release tablet 20 mg, 20 mg, oral, Q3H PRN, Uyen Richmond MD, 20mg at 07/02/25 0423 polyethylene glycol (GLYCOLAX) packet 17 g, 17 g, oral, BID, ALYSSIA Olivares, 17 g at 07/01/25 235 potassium chloride (K-TAB,KLOR-CON) CR tablet 30-50 mEq, 30-50 mEq, oral, PRN OR potassium chloride (KAYCIEL) 20 mEq/15 mL solution 30-50 mEq, 30-50 mEq, oral, PRN OR potassium chloride IVPB 10 mEq/100 mL in water (0.1 mEq/mL premix), 10 mEq, intravenous, PRN, Cherelle Cervantes, WARHEAD MAINTENANCE SPECIALIST-MANAGER PACKAGE pregabalin (LYRICA) capsule 25 mg, 25 mg, oral, BID, Uyen Richmond MD, 25 mg at 07/01/252352 prochlorperazine (COMPAZINE) tablet 10 mg, 10 mg, oral, Q6H PRN, Cherelle Helen, WARHEAD MAINTENANCE SPECIALIST-MANAGER PACKAGE sennosides-docusate sodium (SENOKOT-S) 8.6-50 mg 1 tablet, 1 tablet, oral, Q12H PRN, Cherelle Helen,WARHEAD MAINTENANCE SPECIALIST-MANAGER PACKAGE sennosides-docusate sodium (SENOKOT-S) 8.6-50 mg 2 tablet, 2 tablet, oral, BID, Cherelledejuan Cervantes, WARHEAD MAINTENANCE SPECIALIST-MANAGER PACKAGE, 2 tablet at 07/01/252352 sodium chloride 0.9 % flush 3 mL, 3 mL, intravenous, PRN, Cherelle Mercadoden, WARHEAD MAINTENANCE SPECIALIST-MANAGER PACKAGE sodium chloride 0.9 % flush 3 mL, 3 mL, intravenous, Q12H IAIN, Cherelle Helen, WARHEAD MAINTENANCE SPECIALIST-MANAGER PACKAGE, 3 mL at 07/01/252129 tamsulosin (FLOMAX) 24 hr capsule 0.4 mg, 0.4 mg, oral, Nightly, Cherelle Cervantes, WARHEAD MAINTENANCE SPECIALIST-MANAGER PACKAGE, 0.4 mg at109/01/242352 Diagnosis Problem list: Patient Active Problem List Diagnosis Complicated UTI (urinary tract infection) Acute urinary retention Primary hydronephrosis Gross hematuria 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) Bladder stone Hydronephrosis with renal and ureteral calculous obstruction Ureteral stone Bone lesion Urolithiasis Erectile dysfunction due to diseases classified elsewhere Benign prostatic hyperplasia with urinary retention Urologic disorders Pain of metastatic malignancy Intractable back pain Type 2 diabetes mellitus without complication, without long-term current use of insulin (CMS-HCC) Essential hypertension Weakness Acute cystitis without hematuria Former smoker 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) Chemotherapy-induced thrombocytopenia Urinary tract infection with hematuria, site unspecified Hypomagnesemia Dysuria Wound of left groin Assessment/Plan Impression: # Metastatic prostate cancer with widespread osseous lesions with epidural invasion, diagnosed 2022, has progressed on Zytiga and Docetaxel - Dr. Mitali - PSA on diagnosis 50. PSA 03/2025 after 2 rounds of tx 7.62. PSA 06/2025 up to 12. - Most recently, disease progression 12/2024 throughout thoracic and lumbar spine with epidural invasion. - Patient was started on combined carboplatin and Jevtana with plan to then follow with Jevtana alone. The patient is s/p C5 06/01. # Back pain, known extensive bony metastasis in spine and pelvis - Status post laminectomy 05/2024 - S/p 10 fractions RT 06/2024 - CT lumbar 06/28 noting widespread osseous metastasis, predominantly sclerotic, abnormal soft tissue within the right T12-L1 level likely producing severe canal stenosis and right neural foraminal encroachment. - MR lumbar/ thoracic pending - MR right and left hip pending Plan: - The patient presented with cc of back pain and bilateral hip pain, sent from our office for MR spine and neurosurgical evaluation. - The patient with known metastatic prostate cancer with widespread osseous lesions. After 2 cyclesof chemotherapy, PSA dropped to 7.62 03/2025. Unfortunately, most recent PSA 06/2025 12.49, suspicious for disease progression. -hold treatment as an inpatient - Neurosurgery reviewed MRI thoracic spine, there is a plan for T12 laminectomy tomorrow, patient needs to repeat MRI lumbar spine which could not be completed secondary to pain. Primary team is assisting as well as palliative care with pain control. Defer to Neurosurgery for further surgical plans - Palliative medicine following - Oncology will sign off at this time, we will arrange outpatient follow up with Dr. Jasmine in [place]. Please call if there are additional questions or concerns during his admission Code Status: Full Code Further medical management of comorbid conditions per primary team and consulting services, appreciate assistance The patient was seen and examined and all plans and orders were agreed upon with the physician on service today, Dr. Elmo Avery APRN [facility] [address] [place] [address] Day time contact: goTenna Chat is my preferred mode of contact. For after hours (evening, weekends, holidays) Hematology Oncology needs, please call the meteorologist liaison service [phone]. Please ask for the MD meteorologist liaison. July 02, 2025, 8:41 AM Please note that portions of this note were generated using voice recognition Serveron dictation software. Although every effort was made to ensure the accuracy of this automated wound care center consultant, some errors in wound care center consultant may have occurred. ALYSSIA Short 07/02/25 1429 ALYSSIA Short 07/02/25 1911 I, Chase Borrego MD, personally performed the face to face diagnostic evaluation on this patient. Myfindings are as follows: 64 y.o. male Metastatic prostate cancer. CT scan reported as Widespread osseous metastasis, predominantly sclerotic. Although central canal and neural foramina not well evaluated with this exam. There is abnormal soft tissue within the right T12-L1 level likely producing severe canal stenosis and right neural foraminal encroachment. Neurosurgery on board. Plan of laminectomy tomorrow. MRI lumbar pending Normocytic anemia. PSA relatively increased. No plan of chemo while inpatient. Supportive management Palliative care on board for pain management. Discussed with patient and family and RN. Further management per primary team and other consultants. Thank you. Chase Borrego MD FACP Hematology/Oncology. Please note that portions of this note were generated using voice recognition Serveron dictation software. Although every effort was made to ensure the accuracy of this automated wound care center consultant, some errors in wound care center consultant may have occurred. * Mara Cain MD - 07/01/2025 5:32 PM EST Images from the original note were not included. Palliative Care Progress Note: Advance Directives: @ADVDIR@ Patient is a 64 y.o. male seen in follow up today for assessment of pain. SUBJECTIVE: Reports pain poorly controlled. Was unable to lay flat for MRI OBJECTIVE FINDINGS: Vitals: 07/01/25 1716 BP: 96/66 Pulse: 120 Resp: 15 Temp: SpO2: 94% Physical exam: Lying comfortable at time of my visit but also lightly sedated from prn medications.Responds appropriately. Oxygenation 99% Scheduled Medications: acetaminophen, 650 mg, oral, Q6H IAIN heparin (porcine), 5,000 Units, subcutaneous, Q8H IAIN insulin lispro, 2-10 Units, subcutaneous, With meals and nightly magnesium oxide, 400 mg, oral, BID oxyCODONE, 30 mg, oral, Q12H polyethylene glycol, 17 g, oral, BID pregabalin, 25 mg, oral, BID sennosides-docusate sodium, 2 tablet, oral, BID sodium chloride, 3 mL, intravenous, Q12H IAIN tamsulosin, 0.4 mg, oral, Nightly Infusion Medications: dextrose 5 % in water, 100 mL/hr PRN Medications: alum-mag hydroxide-simeth dextrose dextrose 5 % in water dextrose 50 % in water (D50W) glucagon (human recombinant) HYDROmorphone hydrOXYzine magnesium sulfate magnesium sulfate midodrine ondansetron oxyCODONE potassium chloride OR potassium chloride OR potassium chloride IV (Adult) prochlorperazine sennosides-docusate sodium sodium chloride ASSESSMENT/PLAN Metastatic prostate cancer Neoplasm-related pain. Poorly controlled today Encounter for palliative care. No medication recommended today. Note possible surgical interventionover the weekend. Please do not hesitate to call us with any questions. sugar grinder practitioner: [phone] * Zurdo Rivas, NEGRITA-MANAGER PACKAGE - 07/01/2025 12:33 PM EST Images from the original note were not included. [facility] [address] [place] [address], [address] [place] [address] * NEUROSURGERY DAILY PROGRESS NOTE DATE:07/01/2025 PATIENT'S NAME: Sunil Best PATIENT'S PATIENT'S : 1960 PROCEDURE None this admission EVENTS LAST 24 HOURS / SUBJECTIVE Patient sitting up in bed eating lunch- pain medications helping modestly He was unable to complete his lumbar and sacral MRIs yesterday 2/2 pain- will need to attempt to scan again with PRN pain medications on board prior to He denies any numbness/tingling in his extremities, saddle paresthesias, or loss of bowel or bladder control PHYSICAL EXAM Temp: [36.8 ??C (98.2 ??F)-36.9 ??C (98.4 ??F)] 36.9 ??C (98.4 ??F) Pulse: [77-135] 100 Resp: [16-19] 19 BP: (80-121)/(50-61) 105/59 SpO2: [80 %-100 %] 96 % O2 Device: None (Room air) O2 Flow Rate (L/min): [0 L/min-2 L/min] 2 L/min Physical Exam Constitutional: General: He is not in acute distress. Appearance: Normal appearance. He is not ill-appearing. HENT: Head: Normocephalic. Eyes: Extraocular Movements: Extraocular movements intact. Pupils: Pupils are equal, round, and reactive to light. Cardiovascular: Rate and Rhythm: Normal rate. Pulses: Normal pulses. Pulmonary: Effort: Pulmonary effort is normal. No respiratory distress. Abdominal: Palpations: Abdomen is soft. Tenderness: There is no abdominal tenderness. Musculoskeletal: Cervical back: Normal range of motion. Neurological: Mental Status: He is alert and oriented to person, place, and time. Sensory: No sensory deficit. Motor: No weakness. Comments: BLE strength 4+/5- mild generalized weakness No clonus Psychiatric: Mood and Affect: Mood normal. LABORATORY DATA Results from last 7 days Lab Units 07/01/25 1148 07/01/25 0916 07/01/25 0541 06/30/25 2103 06/30/25 1622 06/30/25 0837 06/30/25 0551 06/29/25 0813 06/29/25 0541 06/28/25 2339 06/27/25 1407 SODIUM mmol/L -- -- 134 -- -- -- 137 -- 136 -- 132* POTASSIUM mmol/L -- -- 4.4 -- -- -- 4.2 -- 4.7 -- 3.4* CREATININE mg/dL -- -- 1.02 -- -- -- 0.66 -- 0.70 -- 0.90 BEDSIDE GLUCOSE mg/dL 158* 118* -- 195* 144* < > -- < > -- < > -- GLUCOSE mg/dL -- -- 127* -- -- -- 122* -- 183* -- 203* CALCIUM mg/dL -- -- 9.1 -- -- -- 8.7 -- 8.9 -- 8.8 WBC 10^9/L -- -- 8.9 -- -- -- 8.0 -- 9.1 -- 10.5 HEMATOCRIT % -- -- 25.8* -- -- -- 26.1* -- 27.6* -- 27.8* HEMOGLOBIN g/dL -- -- 8.6* -- -- -- 8.7* -- 9.3* -- 9.5* PLATELETS 10^9/L -- -- 282 -- -- -- 289 -- 281 -- 300 < > = values in this interval not displayed. IMAGING MR THORACIC SPINE WO CONT HISTORY: pain/mets. TECHNIQUE: Multiplanar multisequence MR of the thoracic spine was performed prior to and following the uncomplicated administration of ProHance intravenous contrast. COMPARISON: 01/17/2025 thoracic spine MRI, 06/28/[address] FINDINGS: Diffuse osseous metastatic disease with numerous sclerotic lesions, given extensive involvement, comparison with prior us challenging. No interval pathologic fracture or substantial thoracic vertebral body height loss seen. Progressive posterior epidural tumor at the T9 level, 1.1 x 0.7 cm, previously 2 to 3 mm in thickness. Additional right lateral epidural tumor at the T8 level [series 21 image #3-4], ESCC grade. Partially visualized epidural tumor at the T12-L1 level, status post posterior decompression, despite this there is ESCC grade 3 tumor at the T12-L1 disc space [series 21 image #20], subtle suggestion of cord signal change, annotated. Informed thecal sac narrowing related to epidural lipomatosis. Small left pleural effusion. No significant findings. Spinal soft tissues elsewhere. IMPRESSION: 1. Diffuse osseous metastatic disease, given extensive involvement comparison with prior is somewhat challenging, no interval pathologic fracture seen. Partially visualized apparent disease progression at the L1 level, severe thecal sac stenosis at T12-L1 with ESCC grade 3 tumor. Recommend lumbar spine MRI. 2. Additional progressive posterior epidural tumor at the T9 level, mild to moderate thecal sac stenosis at this level. 3. Superimposed uniform thecal sac stenosis throughout the thoracic spine related to epidural lipomatosis. ASSESSMENT & PLAN Back pain with concern for additional spinal metastases s/p L1 decompression 05/2024 Hx of metastatic prostate cancer MRI thoracic spine independently reviewed with Dr. Spain. Patient may benefit from a T12 laminectomy- could be done this , final timing TBD. Patient is agreeable to surgical intervention. He was unable to complete his lumbar and sacral MRIs yesterday 2/2 pain- will need to attempt to scan again with PRN pain medications on board. Discussed with patient and primary RN. Okay for diet and activity from a NS standpoint SCD's for DVT ppx. Okay for chemical ppx. No blood thinners . Medical Decision Making: Moderate This patient was discussed with attending surgeon Dr. Spain and he is in agreement with the assessment and plan. ADDENDUM: Patient will go for T12 laminectomy on Friday with Dr. Spain. Will obtain consent tomorrow. MUST GET AT MINIMUM LUMBAR MRI COMPLETED PRIOR TO FRIDAY DEMETRA Pope- [facility] Please contact via [employer] first then can utilize Patient touch/VoceraEdge if needed 07/01/25 12:48 PM To find out which DELLA is on for the day please go to [employer] and use log in [employer] and search for [facility] (DELLA and Phone Number is listed) ALYSSIA Beebe 07/01/25 1250 ALYSSIA Beebe 07/01/25 1537 * Corbin Singleton MD - 07/01/2025 8:04 AM EST Images from the original note were not included. [facility] INTERNAL MEDICINE [facility] - GEN 6 ACUTE [address] [id number] [facility] Medicine Progress Note Patient: Sunil Best Date of : 1960 Room: [facility]/ PCP: YADIRA JOSE MD Admission date: 06/28/2025 10:26 PM Encounter date: 07/01/25 Hospital Day: 4 SUBJECTIVE Attempted MRI, unable to complete due to pain. No new concerns aside from pain today. Review of Systems Constitutional: Negative for chills, fatigue and fever. HENT: Negative for congestion, rhinorrhea, sinus pressure, sinus pain, sneezing and trouble swallowing. Eyes: Negative for discharge and itching. Respiratory: Negative for cough, chest tightness, shortness of breath and wheezing. Cardiovascular: Negative for chest pain, palpitations and leg swelling. Gastrointestinal: Negative for abdominal distention, abdominal pain, constipation, diarrhea, nauseaand vomiting. Endocrine: Negative for cold intolerance and heat intolerance. Genitourinary: Negative for dysuria, flank pain, frequency, hematuria and urgency. Musculoskeletal: Positive for arthralgias, gait problem and myalgias. Skin: Negative for rash and wound. Allergic/Immunologic: Negative for environmental allergies and food allergies. Neurological: Negative for dizziness, weakness, light-headedness and headaches. Hematological: Negative for adenopathy. Does not bruise/bleed easily. Psychiatric/Behavioral: Negative for behavioral problems, dysphoric mood, sleep disturbance and suicidal ideas. The patient is not nervous/anxious. OBJECTIVE BP 121/61 Pulse 111 Temp 36.8 ??C (98.2 ??F) (Oral) Resp 16 Ht 177.8 cm (5' 10 ) Wt 88 kg(194 lb 0.1 oz) SpO2 96% BMI 27.84 kg/m?? Temp: [36.8 ??C (98.2 ??F)] 36.8 ??C (98.2 ??F) Pulse: [111] 111 Resp: [16] 16 BP: (121-126)/(61-82) 121/61 SpO2: [96 %] 96 % O2 Device: None (Room air) O2 Flow Rate (L/min): [0 L/min] 0 L/min Intake/Output Summary (Last 24 hours) at 07/01/2025 0804 Last data filed at 07/01/2025 0000 Gross per 24 hour Intake -- Output 950 ml Net -950 ml Physical Exam Constitutional: General: He is not in acute distress. Appearance: He is well-developed. Cardiovascular: Rate and Rhythm: Normal rate and regular rhythm. Heart sounds: Normal heart sounds. No murmur heard. Pulmonary: Effort: Pulmonary effort is normal. Breath sounds: Normal breath sounds. No wheezing. Abdominal: General: Bowel sounds are normal. Palpations: Abdomen is soft. There is no mass. Tenderness: There is no abdominal tenderness. Comments: L flank nephrostomy Musculoskeletal: General: Normal range of motion. Right lower leg: Edema present. Left lower leg: Edema present. Skin: General: Skin is warm and dry. Coloration: Skin is pale. Findings: No rash. Neurological: Mental Status: He is alert. Cranial Nerves: No cranial nerve deficit. Coordination: Coordination normal. Psychiatric: Behavior: Behavior normal. Medications Scheduled: acetaminophen, 650 mg, oral, Q6H IAIN heparin (porcine), 5,000 Units, subcutaneous, Q8H IAIN insulin lispro, 2-10 Units, subcutaneous, With meals and nightly magnesium oxide, 400 mg, oral, BID oxyCODONE, 30 mg, oral, Q12H polyethylene glycol, 17 g, oral, BID pregabalin, 25 mg, oral, BID sennosides-docusate sodium, 2 tablet, oral, BID sodium chloride, 3 mL, intravenous, Q12H IAIN tamsulosin, 0.4 mg, oral, Nightly Infusions: dextrose 5 % in water, 100 mL/hr As Needed: alum-mag hydroxide-simeth dextrose dextrose 5 % in water dextrose 50 % in water (D50W) glucagon (human recombinant) HYDROmorphone hydrOXYzine magnesium sulfate magnesium sulfate midodrine ondansetron oxyCODONE potassium chloride OR potassium chloride OR potassium chloride IV (Adult) prochlorperazine sennosides-docusate sodium sodium chloride Allergies: Pentazocine-acetaminophen and Penicillins Code Status: Full Code Labs Recent Results (from the past 24 hours) Bedside Glucose *Place/Obtain serum glucose if >500 per glucometer. Collection Time: 06/30/25 8:37 AM Result Value Ref Range Bedside Glucose (POC) 122 (H) 65 - 99 mg/dL Bedside Glucose *Place/Obtain serum glucose if >500 per glucometer. Collection Time: 06/30/25 11:30 AM Result Value Ref Range Bedside Glucose (POC) 146 (H) 65 - 99 mg/dL Bedside Glucose *Place/Obtain serum glucose if >500 per glucometer. Collection Time: 06/30/25 4:22 PM Result Value Ref Range Bedside Glucose (POC) 144 (H) 65 - 99 mg/dL Bedside Glucose *Place/Obtain serum glucose if >500 per glucometer. Collection Time: 06/30/25 9:03 PM Result Value Ref Range Bedside Glucose (POC) 195 (H) 65 - 99 mg/dL Comprehensive metabolic panel Collection Time: 07/01/25 5:41 AM Result Value Ref Range SODIUM 134 134 - 146 mmol/L POTASSIUM 4.4 3.5 - 5.0 mmol/L CHLORIDE 95 (L) 98 - 109 mmol/L CARBON DIOXIDE 32 22 - 32 mmol/L ANION GAP 7 5 - 15 mmol/L BLOOD UREA NITROGEN 21 5 - 27 mg/dL CREATININE 1.02 0.60 - 1.30 mg/dL GLUCOSE 127 (H) 65 - 99 mg/dL CALCIUM 9.1 8.5 - 10.5 mg/dL TOTAL PROTEIN 6.2 6.0 - 8.0 g/dL ALBUMIN 3.2 3.2 - 5.3 g/dL ALKALINE PHOSPHATASE 172 (H) 39 - 130 U/L AST 25 <=41 U/L ALT 15 <=40 U/L BILIRUBIN,TOTAL 0.4 0.3 - 1.2 mg/dL EGFR Non-Race Dependent 83 >=60 ml/min/1.73sq.m Magnesium Collection Time: 07/01/25 5:41 AM Result Value Ref Range MAGNESIUM 1.9 1.8 - 2.6 mg/dL CBC auto differential Collection Time: 07/01/25 5:41 AM Result Value Ref Range WBC 8.9 4 - 11 10^9/L RBC Count 2.68 (L) 4.1 - 5.7 10^12/L Hemoglobin 8.6 (L) 13 - 17 g/dL Hematocrit 25.8 (L) 39 - 50 % MCV 96 80 - 100 fL MCH 32.0 27 - 34 pg MCHC 33.4 32 - 36 g/dL RDW 18.7 (H) 11.5 - 15 % Platelet Count 282 150 - 450 10^9/L MPV 6.4 (L) 7 - 12 fL Bands % 2 % Neutrophils % 68 % Lymphocytes % 16 % Monocytes % 11 % Eosinophils % 3 % Neutrophils Absolute (M) 6.2 1.5 - 6.6 10^9/L Lymphocytes Absolute 1.4 1.0 - 3.5 10^9/L Monocytes Absolute 1.0 (H) 0.0 - 0.9 10^9/L Eosinophils Absolute 0.3 0.0 - 0.4 10^9/L RBC Fragments 1+ Dacryocytes 1+ Differential Type MANUAL DIFFERENTIAL Radiology MR thoracic spine without contrast Result Date: 07/01/2025 MR THORACIC SPINE WO CONT HISTORY: pain/mets. TECHNIQUE: Multiplanar multisequence MR of the thoracic spine was performed prior to and following the uncomplicated administration of ProHance intravenous contrast. COMPARISON: 01/17/2025 thoracic spine MRI, 06/28/[address] FINDINGS: Diffuse o sseous metastatic disease with numerous sclerotic lesions, given extensive involvement, comparison with prior us challenging. No interval pathologic fracture or substantial thoracic vertebral body height loss seen. Progressive posterior epidural tumor at the T9 level, 1.1 x 0.7 cm, previously 2 to 3 mm in thickness. Additional right lateral epidural tumor at the T8 level [series 21 image #3-4], ESCC grade. Partially visualized epidural tumor at the T12-L1 level, status post posterior decompression, despite this there is ESCC grade 3 tumor at the T12-L1 disc space [series 21 image #20], subtlesuggestion of cord signal change, annotated. Informed thecal sac narrowing related to epidural lipomatosis. Small left pleural effusion. No significant findings. Spinal soft tissues elsewhere. IMPRESSION: 1. Diffuse osseous metastatic disease, given extensive involvement comparison with prior is somewhat challenging, no interval pathologic fracture seen. Partially visualized apparent disease progression at the L1 level, severe thecal sac stenosis at T12-L1 with ESCC grade 3 tumor. Recommend lumbar spine MRI. 2. Additional progressive posterior epidural tumor at the T9 level, mild to moderate thecal sac stenosis at this level. 3. Superimposed uniform thecal sac stenosis throughout the thoracic spine related to epidural lipomatosis. THIS REPORT CONTAINS A SIGNIFICANT RESULT AND/OR RECOMMENDATION, WHICH REQUIRES THE ATTENTION OF THE LICENSED CAREGIVER RESPONSIBLE FOR THIS PATIENT. THEREFORE, I SPECIFICALLY DESIGNATED THIS REPORT TO BE TELEPHONED BY THE RADIOLOGY DEPARTMENT. FINDINGS WEREINSTRUCTED TO BE CALLED TO THE CLINICAL SERVICE ON 07/01/2025 5:09 AM Finalizedby Reynaldo Flores MD on 07/01/2025 5:09 AM HOSPITAL PROBLEM LIST Principal Problem: 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) Active Problems: Type 2 diabetes mellitus without complication, without long-term current use of insulin (CMS-HCC) Essential hypertension 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) Wound of left groin ASSESSMENT & PLAN Spinal cord compression due to neoplasm Prostate cancer with mets to bone, numerous osseous mets, actively undergoing chemotherapy Neurosurgery and oncology following. Went for lumbar MRI revealing disease progression at L1, severe thecal sac stenosis at T12-L1 with tumor, progression of epidural tumor at T9 with mild/mod thecalsac stenosis. MRI lumbar and pelvis unable to be completed due to pain. Await repeat MRI attempt, await NS plans. Palliative assisting with pain control. Hypertension BP has been soft, but stable. Diabetes mellitus type 2, A1c 5.5% Adequate glucose, continue ISS PRN. Anemia of chronic disease Labs all near his baseline range. Will continue to monitor. VTE chemoprophylaxis: heparin SQ. DC planning: Home, timing TBD. ALYSSIA BROWN 07/01/2025 8:04 AM [facility] Internal Medicine 7AM-7PM & 7PM-7AM: EpicChat or page through On-Call Finder. ALYSSIA Brown 07/01/25 1617 I have reviewed the above note authored by the Advance Practice Provider (DELLA) including history, review of systems, physical examination, medical decision making and agree with the assessment & plan. I have personally performed a face to face diagnostic evaluation on this patient. I have reviewed all laboratory findings and imaging reports/films. I have independently evaluated the patient and repeated israel portions of the physical exam. I agree with the DELLA plan as above, unless otherwise noted. Corbin Singleton MD * Mara Cain MD - 06/30/2025 3:47 PM EST Images from the original note were not included. Palliative Care Progress Note: Advance Directives: @ADVDIR@ Patient is a 64 y.o. male seen in follow up today for assessment of pain/ SUBJECTIVE: Pain improved today. Presently rates pian 4/10. Does not have any abdominal discomfort and last stool was 2 days ago. OBJECTIVE FINDINGS: Vitals: 06/30/25 1144 BP: 126/82 Pulse: Resp: Temp: SpO2: Physical exam: Lying in bed. Appears comfortable. No grimacing. Alert, conversant. Scheduled Medications: acetaminophen, 650 mg, oral, Q6H IAIN heparin (porcine), 5,000 Units, subcutaneous, Q8H IAIN insulin lispro, 2-10 Units, subcutaneous, With meals and nightly magnesium oxide, 400 mg, oral, BID oxyCODONE, 30 mg, oral, Q12H polyethylene glycol, 17 g, oral, BID pregabalin, 25 mg, oral, BID sennosides-docusate sodium, 2 tablet, oral, BID sodium chloride, 3 mL, intravenous, Q12H IAIN tamsulosin, 0.4 mg, oral, Nightly Infusion Medications: dextrose 5 % in water, 100 mL/hr PRN Medications: alum-mag hydroxide-simeth dextrose dextrose 5 % in water dextrose 50 % in water (D50W) glucagon (human recombinant) HYDROmorphone hydrOXYzine magnesium sulfate magnesium sulfate midodrine ondansetron oxyCODONE potassium chloride OR potassium chloride OR potassium chloride IV (Adult) prochlorperazine sennosides-docusate sodium sodium chloride ASSESSMENT/PLAN Metastatic prostate cancer Neoplasm-related pain. Improved Encounter for palliative care. GOC discussed yesterday. Full code aligns with his wishes. is surrogate. No medication changes needed today. Will evaluate tomorrow and adjust meds as needed. Please do not hesitate to call us with any questions. sugar grinder practitioner: [phone] * Corbin Singleton MD - 06/30/2025 8:21 AM EST Images from the original note were not included. [facility] INTERNAL MEDICINE [facility] - GEN 6 ACUTE [address] [facility] [id number] Hospital Medicine Progress Note Patient: Sunil Best Date of : 1960 Room: [place] [address] PCP: YADIRA JOSE MD Admission date: 06/28/2025 10:26 PM Encounter date: 06/30/25 Hospital Day: 3 SUBJECTIVE Resting in recliner, pain is present but tolerable at this time. at bedside. No new concerns today aside from pain. Requesting that his carb control diet be changed to regular. Review of Systems Constitutional: Negative for chills, fatigue and fever. HENT: Negative for congestion, rhinorrhea, sinus pressure, sinus pain, sneezing and trouble swallowing. Eyes: Negative for discharge and itching. Respiratory: Negative for cough, chest tightness, shortness of breath and wheezing. Cardiovascular: Negative for chest pain, palpitations and leg swelling. Gastrointestinal: Negative for abdominal distention, abdominal pain, constipation, diarrhea, nauseaand vomiting. Endocrine: Negative for cold intolerance and heat intolerance. Genitourinary: Negative for dysuria, flank pain, frequency, hematuria and urgency. Musculoskeletal: Positive for arthralgias, gait problem and myalgias. Skin: Negative for rash and wound. Allergic/Immunologic: Negative for environmental allergies and food allergies. Neurological: Negative for dizziness, weakness, light-headedness and headaches. Hematological: Negative for adenopathy. Does not bruise/bleed easily. Psychiatric/Behavioral: Negative for behavioral problems, dysphoric mood, sleep disturbance and suicidal ideas. The patient is not nervous/anxious. OBJECTIVE BP 90/58 Pulse 69 Temp 36.7 ??C (98 ??F) (Oral) Resp 16 Ht 177.8 cm (5' 10 ) Wt 88 kg (194 lb 0.1 oz) SpO2 95% BMI 27.84 kg/m?? Temp: [36.1 ??C (97 ??F)-36.7 ??C (98 ??F)] 36.7 ??C (98 ??F) Pulse: [67-78] 69 Resp: [16] 16 BP: (90-101)/(51-60) 90/58 SpO2: [95 %-99 %] 95 % O2 Device: None (Room air) O2 Flow Rate (L/min): [0 L/min] 0 L/min Intake/Output Summary (Last 24 hours) at 06/30/2025 0822 Last data filed at 06/30/2025 0600 Gross per 24 hour Intake -- Output 1350 ml Net -1350 ml Physical Exam Constitutional: General: He is not in acute distress. Appearance: He is well-developed. Cardiovascular: Rate and Rhythm: Normal rate and regular rhythm. Heart sounds: Normal heart sounds. No murmur heard. Pulmonary: Effort: Pulmonary effort is normal. Breath sounds: Normal breath sounds. No wheezing. Abdominal: General: Bowel sounds are normal. Palpations: Abdomen is soft. There is no mass. Tenderness: There is no abdominal tenderness. Comments: L flank nephrostomy Musculoskeletal: General: Normal range of motion. Right lower leg: Edema present. Left lower leg: Edema present. Skin: General: Skin is warm and dry. Coloration: Skin is pale. Findings: No rash. Neurological: Mental Status: He is alert. Cranial Nerves: No cranial nerve deficit. Coordination: Coordination normal. Psychiatric: Behavior: Behavior normal. Medications Scheduled: acetaminophen, 650 mg, oral, Q6H IAIN heparin (porcine), 5,000 Units, subcutaneous, Q8H IAIN insulin lispro, 2-10 Units, subcutaneous, With meals and nightly magnesium oxide, 400 mg, oral, BID oxyCODONE, 30 mg, oral, Q12H polyethylene glycol, 17 g, oral, BID pregabalin, 25 mg, oral, BID sennosides-docusate sodium, 2 tablet, oral, BID sodium chloride, 3 mL, intravenous, Q12H IAIN tamsulosin, 0.4 mg, oral, Nightly Infusions: dextrose 5 % in water, 100 mL/hr As Needed: alum-mag hydroxide-simeth dextrose dextrose 5 % in water dextrose 50 % in water (D50W) glucagon (human recombinant) HYDROmorphone hydrOXYzine magnesium sulfate magnesium sulfate midodrine ondansetron oxyCODONE potassium chloride OR potassium chloride OR potassium chloride IV (Adult) prochlorperazine sennosides-docusate sodium sodium chloride Allergies: Pentazocine-acetaminophen and Penicillins Code Status: Full Code Labs Recent Results (from the past 24 hours) Bedside Glucose *Place/Obtain serum glucose if >500 per glucometer. Collection Time: 06/29/25 11:19 AM Result Value Ref Range Bedside Glucose (POC) 177 (H) 65 - 99 mg/dL Bedside Glucose *Place/Obtain serum glucose if >500 per glucometer. Collection Time: 06/29/25 4:25 PM Result Value Ref Range Bedside Glucose (POC) 176 (H) 65 - 99 mg/dL Bedside Glucose *Place/Obtain serum glucose if >500 per glucometer. Collection Time: 06/29/25 8:54 PM Result Value Ref Range Bedside Glucose (POC) 147 (H) 65 - 99 mg/dL Comprehensive metabolic panel Collection Time: 06/30/25 5:51 AM Result Value Ref Range SODIUM 137 134 - 146 mmol/L POTASSIUM 4.2 3.5 - 5.0 mmol/L CHLORIDE 97 (L) 98 - 109 mmol/L CARBON DIOXIDE 29 22 - 32 mmol/L ANION GAP 11 5 - 15 mmol/L BLOOD UREA NITROGEN 24 5 - 27 mg/dL CREATININE 0.66 0.60 - 1.30 mg/dL GLUCOSE 122 (H) 65 - 99 mg/dL CALCIUM 8.7 8.5 - 10.5 mg/dL TOTAL PROTEIN 6.5 6.0 - 8.0 g/dL ALBUMIN 3.3 3.2 - 5.3 g/dL ALKALINE PHOSPHATASE 167 (H) 39 - 130 U/L AST 28 <=41 U/L ALT 20 <=40 U/L BILIRUBIN,TOTAL 0.3 0.3 - 1.2 mg/dL EGFR Non-Race Dependent >90 >=60 ml/min/1.73sq.m Magnesium Collection Time: 06/30/25 5:51 AM Result Value Ref Range MAGNESIUM 1.9 1.8 - 2.6 mg/dL CBC auto differential Collection Time: 06/30/25 5:51 AM Result Value Ref Range WBC 8.0 4 - 11 10^9/L RBC Count 2.73 (L) 4.1 - 5.7 10^12/L Hemoglobin 8.7 (L) 13 - 17 g/dL Hematocrit 26.1 (L) 39 - 50 % MCV 96 80 - 100 fL MCH 31.8 27 - 34 pg MCHC 33.3 32 - 36 g/dL RDW 18.6 (H) 11.5 - 15 % Platelet Count 289 150 - 450 10^9/L MPV 7.0 7 - 12 fL Neutrophils % 74 % Lymphocytes % 22 % Monocytes % 4 % Neutrophils Absolute (M) 5.9 1.5 - 6.6 10^9/L Lymphocytes Absolute 1.8 1.0 - 3.5 10^9/L Monocytes Absolute 0.3 0.0 - 0.9 10^9/L Polychromasia 1+ Differential Type MANUAL DIFFERENTIAL Radiology No results found. HOSPITAL PROBLEM LIST Principal Problem: 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) Active Problems: Type 2 diabetes mellitus without complication, without long-term current use of insulin ([facility]-HCC) Essential hypertension Spinal cord compression due to neoplasm ([facility]-HCC) ASSESSMENT & PLAN Spinal cord compression due to neoplasm Prostate cancer with mets to bone, numerous osseous mets, actively undergoing chemotherapy Neurosurgery and oncology following. Awaiting plan pending MRI results, has not yet gone for scans.Palliative medicine following for further pain management, meds adjusted. Hypertension BP has been soft, but stable, likely due to pain control medications. Diabetes mellitus type 2, A1c 5.5% Adequate glucose, continue ISS PRN. Anemia of chronic disease Labs all near his baseline range. Will continue to monitor. VTE chemoprophylaxis: heparin SQ. DC planning: Home, timing TBD. ALYSSIA BROWN 06/30/2025 8:22 AM [facility] Internal Medicine 7AM-7PM & 7PM-7AM: EpicChat or page through On-Call Finder. ALYSSIA Brown 06/30/25 2483 I have reviewed the above note authored by the Advance Practice Provider (DELLA) including history, review of systems, physical examination, medical decision making and agree with the assessment & plan. I have personally performed a face to face diagnostic evaluation on this patient. I have reviewed all laboratory findings and imaging reports/films. I have independently evaluated the patient and repeated israel portions of the physical exam. I agree with the DELLA plan as above, unless otherwise noted. Corbin Singleton MD documented in this encounter H&P Notes * Corbin Singleton MD - 06/29/2025 2:00 PM EST Images from the original note were not included. [facility] INTERNAL MEDICINE [facility] GEN ACUTE [address] [id number] [facility] Medicine History & Physical Patient: Sunil Best Date of : 1960 Room: [place] [address] PCP: YADIRA JOSE MD Admission date: 06/28/2025 10:26 PM Encounter date: 06/29/25 Hospital Day: 2 SUBJECTIVE Sunil Best is a 64 y.o. male who has a [facility] prostate cancer mets to the spine, diabetes mellitus type 2, GERD, umbilical hernia. The patient was sent to [place] ED by Dr. Jasmine (oncologist) on 06/28 due to severe, escalating pain in his hips and buttocks. Pt had a prior L1 decompression tumor excision with dr. Castañeda. CT lumbar in the ER revealed osseous metastases and abnormal soft tissue within the right T12-L1 likely producing severe canal stenosis. The ER connected with neurosurgery who recommended transfer to [facility] for further neurosurgical evaluation. Pt was examined. He reports mid to lower back pain radiating to his hip. He states that he was supposed to receive Chemotherapy yesterday but due to his pain, oncology recommended he go to the ED [facility] spine. Patient states he was supposed to have an MRI done on 06/24 but was unable to lay on hisback with his legs straight due to his pain in his hips. He states the pain medication will help torelieve pain temporarily but he is most comfortable lying on his left side. Allergies: Pentazocine-acetaminophen and Penicillins Prior to Admission medications Medication Sig Start Date End Date Taking? Authorizing Provider JARDIANCE 25 mg tablet tablet Take 1 tablet (25 mg total) by mouth in the morning. 04/25/25 Yes Not In System Ref Prov magnesium oxide (MAGOX) 400 mg tablet Take 1 tablet (400 mg total) by mouth in the morning and 1 tablet (400 mg total) before bedtime. 05/18/25 Yes ALYSSIA Olivares metFORMIN (FORTAMET) 1000 MG (OSM) 24 hr tablet Take 1 tablet (1,000 mg total) by mouth in the morning and 1 tablet (1,000 mg total) in the evening. Take with meals. Indications: type 2 diabetes mellitus. Yes Not In System Ref Prov morphine (MS CONTIN) 15 mg 12 hr tablet Take 1 tablet (15 mg total) by mouth in the morning and 1 tablet (15 mg total) before bedtime. Max Daily Amount: 30 mg. Yes Not In System Ref Prov oxyCODONE-acetaminophen (PERCOCET) 10-325 mg per tablet Take 1 tablet by mouth every 4 (four) hoursas needed for pain. Max Daily Amount: 6 tablets 06/27/25 Yes ALYSSIA Phan polyethylene glycol (GLYCOLAX) 17 gram/dose powder Take 17 g by mouth in the morning and 17 g before bedtime. 06/27/25 Yes ALYSSIA Phan sennosides-docusate sodium (SENNA WITH DOCUSATE SODIUM) 8.6-50 mg Take 2 tablets by mouth in the morning and 2 tablets before bedtime. 06/27/25 Yes ALYSSIA Phan tamsulosin (FLOMAX) 0.4 mg capsule Take 1 capsule (0.4 mg total) by mouth nightly. 06/07/25 Yes Aristides Frost Jr., MD magnesium hydroxide 400 mg/5 mL suspension Take 5 mL by mouth daily as needed (as needed for constipation). 06/27/25 ALYSSIA Phan oxyCODONE (OxyCONTIN) 20 mg 12 hr tablet Take 1 tablet (20 mg total) by mouth every 12 (twelve) hours. Max Daily Amount: 40 mg Patient not taking: Reported on 06/29/2025 06/27/25 Su A Brian, [employer]IST[employer]MANAGER [employer] prochlorperazine (COMPAZINE) 10 mg tablet Take 1 tablet by mouth every 6 hours as needed for mild nausea or vomiting. Patient not taking: Reported on 06/29/2025 02/09/25 Kenney Jasmine MD Past Medical History: Patient has a past medical history of Arthritis, Benign prostatic hyperplasia, Benign prostatic hyperplasia with urinary retention (04/2023), Cancer ([facility]), Cholelithiasis, Dental disease, Diabetes mellitus type 2, controlled ([facility]), Difficult intravenous access, GERD (gastroesophageal refluxdisease), Hydronephrosis with renal and ureteral calculous obstruction (02/12/2023), Intractable back pain (06/17/2024), Left inguinal hernia, Peptic ulceration, Ulcer, Umbilical hernia, and Urinary tract infection. Past Surgical History: Patient has a past surgical history that includes Leg Surgery (Left Circumferential, 1987); Cystoscopy (N/A, 03/26/2023); Cystoscopy (N/A, 03/26/2023); Nephrostogram (Left, 03/26/2023); Transurethralresection of prostate (N/A, 06/04/2023); Transurethral resection of prostate (N/A, 06/04/2023); and Lumbar laminectomy (N/A, 06/17/2024). Family History: Patient's family history includes Heart disease in his mother; Hydrocephalus in his sister. Social History: Patient reports that he has quit smoking. His smoking use included cigars. He has never used smokeless tobacco. He reports that he does not drink alcohol and does not use drugs. Review of Systems Constitutional: Negative for activity change, appetite change, chills, fatigue, fever and unexpected weight change. HENT: Negative for congestion, sore throat, trouble swallowing and voice change. Eyes: Negative for visual disturbance. Respiratory: Negative for cough, shortness of breath and wheezing. Cardiovascular: Negative for chest pain, palpitations and + leg swelling. Gastrointestinal: Negative for abdominal pain, constipation, diarrhea, nausea and vomiting. Genitourinary: Negative for difficulty urinating, dysuria, enuresis, frequency and hematuria. Musculoskeletal: + for arthralgia (Right Hip and lower back) , negative joint swelling and myalgias. Skin: Negative for color change, rash and wound. Neurological: Negative for dizziness, speech difficulty, weakness, numbness and headaches. Hematological: Does not bruise/bleed easily. . OBJECTIVE BP 101/60 Pulse 73 Temp 36.6 ??C (97.8 ??F) (Axillary) Resp 16 Ht 177.8 cm (5' 10 ) Wt 88.1 kg (194 lb 3.6 oz) SpO2 98% BMI 27.87 kg/m?? Temp: [36.1 ??C (97 ??F)-36.7 ??C (98.1 ??F)] 36.6 ??C (97.8 ??F) Pulse: [67-94] 73 Resp: [14-18] 16 BP: (96-110)/(51-77) 101/60 SpO2: [96 %-100 %] 98 % O2 Device: None (Room air) O2 Flow Rate (L/min): [0 L/min] 0 L/min Intake/Output Summary (Last 24 hours) at 06/29/2025 1738 Last data filed at 06/29/2025 1628 Gross per 24 hour Intake -- Output 1325 ml Net -1325 ml Physical Exam Constitutional: General: Not in acute distress. Appearance: Normal appearance and is well-developed. HENT: Head: Normocephalic and atraumatic. Cardiovascular: Rate and Rhythm: Normal rate and regular rhythm. Pulses: Radial pulses are 2+ on the right side and 2+ on the left side. Heart sounds: Normal heart sounds, S1 normal and S2 normal. No murmur heard. No friction rub. No gallop. Pulmonary: Effort: Pulmonary effort is normal. Breath sounds: Normal breath sounds. No decreased breath sounds, wheezing, rhonchi or rales. Abdominal: General: Bowel sounds are normal. Palpations: Abdomen is soft. Tenderness: There is no abdominal tenderness. Musculoskeletal: Right lower leg: Trace Edema Left lower leg: Trace Edema . Skin: General: Skin is warm and dry,pallor Neurological: General: No focal deficit present. Mental Status: Alert and oriented to person, place, and time. Medications Scheduled: acetaminophen, 650 mg, oral, Q6H IAIN insulin lispro, 2-10 Units, subcutaneous, TID with meals insulin lispro, 2-8 Units, subcutaneous, Nightly magnesium oxide, 400 mg, oral, BID oxyCODONE, 30 mg, oral, Q12H polyethylene glycol, 17 g, oral, BID pregabalin, 25 mg, oral, BID sennosides-docusate sodium, 2 tablet, oral, BID sodium chloride, 3 mL, intravenous, Q12H IAIN tamsulosin, 0.4 mg, oral, Nightly Infusions: dextrose 5 % in water, 100 mL/hr As Needed: alum-mag hydroxide-simeth dextrose dextrose 5 % in water dextrose 50 % in water (D50W) glucagon (human recombinant) HYDROmorphone magnesium sulfate magnesium sulfate midodrine ondansetron oxyCODONE potassium chloride OR potassium chloride OR potassium chloride IV (Adult) prochlorperazine sennosides-docusate sodium sodium chloride Allergies: Pentazocine-acetaminophen and Penicillins Labs Recent Results (from the past 24 hours) Bedside Glucose *Place/Obtain serum glucose if >500 per glucometer. Collection Time: 06/28/25 11:39 PM Result Value Ref Range Bedside Glucose (POC) 247 (H) 65 - 99 mg/dL Comprehensive metabolic panel Collection Time: 06/29/25 5:41 AM Result Value Ref Range SODIUM 136 134 - 146 mmol/L POTASSIUM 4.7 3.5 - 5.0 mmol/L CHLORIDE 96 (L) 98 - 109 mmol/L CARBON DIOXIDE 28 22 - 32 mmol/L ANION GAP 12 5 - 15 mmol/L BLOOD UREA NITROGEN 21 5 - 27 mg/dL CREATININE 0.70 0.60 - 1.30 mg/dL GLUCOSE 183 (H) 65 - 99 mg/dL CALCIUM 8.9 8.5 - 10.5 mg/dL TOTAL PROTEIN 6.9 6.0 - 8.0 g/dL ALBUMIN 3.5 3.2 - 5.3 g/dL ALKALINE PHOSPHATASE 187 (H) 39 - 130 U/L AST 28 <=41 U/L ALT 23 <=40 U/L BILIRUBIN,TOTAL 0.3 0.3 - 1.2 mg/dL EGFR Non-Race Dependent >90 >=60 ml/min/1.73sq.m Magnesium Collection Time: 06/29/25 5:41 AM Result Value Ref Range MAGNESIUM 1.8 1.8 - 2.6 mg/dL CBC auto differential Collection Time: 06/29/25 5:41 AM Result Value Ref Range WBC 9.1 4 - 11 10^9/L RBC Count 2.87 (L) 4.1 - 5.7 10^12/L Hemoglobin 9.3 (L) 13 - 17 g/dL Hematocrit 27.6 (L) 39 - 50 % MCV 96 80 - 100 fL MCH 32.4 27 - 34 pg MCHC 33.8 32 - 36 g/dL RDW 18.4 (H) 11.5 - 15 % Platelet Count 281 150 - 450 10^9/L MPV 6.8 (L) 7 - 12 fL Neutrophils % 86 % Lymphocytes % 10 % Monocytes % 4 % Neutrophils Absolute (M) 7.8 (H) 1.5 - 6.6 10^9/L Lymphocytes Absolute 0.9 (L) 1.0 - 3.5 10^9/L Monocytes Absolute 0.4 0.0 - 0.9 10^9/L Polychromasia 1+ Differential Type MANUAL DIFFERENTIAL Bedside Glucose *Place/Obtain serum glucose if >500 per glucometer. Collection Time: 06/29/25 8:13 AM Result Value Ref Range Bedside Glucose (POC) 226 (H) 65 - 99 mg/dL Bedside Glucose *Place/Obtain serum glucose if >500 per glucometer. Collection Time: 06/29/25 11:19 AM Result Value Ref Range Bedside Glucose (POC) 177 (H) 65 - 99 mg/dL Bedside Glucose *Place/Obtain serum glucose if >500 per glucometer. Collection Time: 06/29/25 4:25 PM Result Value Ref Range Bedside Glucose (POC) 176 (H) 65 - 99 mg/dL Radiology CT lumbar spine without contrast Result Date: 06/28/2025 Narrative: CLINICAL INFORMATION: Questionable bony Mets with cord compression TECHNIQUE: CT LUMBAR SPINE WO CONT CT images of the lumbar spine were obtained. Images reformatted in the sagittal and coronal planes. Widespread osseous metastasis is noted. Although mixed sclerotic and lytic, this is predominantly sclerotic. Endplates intact without acute compression. There is diffuse facet arthropathy. Disc bulge is present at multiple levels likely most significant at L4-5. Soft tissue encroachment noted at the T12-L1 level to the right of midline which likely produces severe canal stenosis. Incidental gallstone appreciated. No obvious acute fracture. Rib osseous sclerosis also noted. IMPRESSION: Widespread osseous metastasis, predominantly sclerotic. Although central canal and neural foramina not well evaluated with this exam. There is abnormal soft tissue within the right T12-L1 level likely producing severe canal stenosis and right neural foraminal encroachment. All CT scans at this facility use dose modulation, iterative reconstruction, and/or weight based dosing when appropriate to reduce radiation dose to as low as reasonably achievable. Finalized by Girish Bhatt MD on 06/28/2025 6:54 PM IR exchange nephrostomy tube and nephrostogram left Result Date: 06/20/2025 Narrative: CLINICAL INDICATION: Routine exchange of left-sided nephrostomy tube. Left ureteral obstruction. COMPARISON: 05/14/2025 TECHNIQUE: Procedure performed by Interventional Radiologist Trenton Eugene Fluoroscopic time: 1.7 minutes Reference Air Kerma: 17.9mGy Number of fluoroscopic images: 6 Medication: 15 mL Omnipaque 300. 500 mg Cipro EBL: None CONSENT: The reason for the procedure was discussed with the patient. The procedure, expectations, risks, benefits, options and alternatives were discussed. All of the patient?s questions were answered. The patient understands that the results cannot be guaranteed. The procedure is indicated and the risks are acceptable. Consent was obtained. PROCEDURE: 1. Fluoroscopic guided exchange of left-sided nephrostomy tube. 2. Fluoroscopic guided antegrade nephrostogram. Details of procedure: Patient placed in the prone position on the fluoroscopy table. The existing left nephrostomy tube was prepped and draped in usual sterile fashion. 1%lidocaine without epinephrine was used as a local anesthetic. A hand-injection of contrast through the existing tube was performed for nephrostogram. The hub of the catheter was cut and an 035 Amplatz wire was advanced through the existing catheter into the left renal collecting system. The existing catheter was removed. A new 10.2 [place]uv[place] Reyes-Holder drain was advanced over the wire into position. The inner dilator and wire were removed and the pigtail was formed and locked. 2-0 Prolene suture was used to secure the drain. The drain was connected to gravity bag drainage. A sterile just wasapplied. The patient tolerated the procedure well and there are no immediate complications. FINDINGS: 1. Existing left nephrostomy tube had been retracted into a peripheral lower pole calyx. 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 2. Successful fluoroscopic guided exchange of left-sided nephrostomy tube. A new 10.2 [place] Reyes-Holder pigtail drain was placed. The pigtail was formed and locked within the left renal pelvis. Drain connected to gravity bag drainage. IMPRESSION: Successful fluoroscopic guided exchange of left-sided percutaneous nephrostomy tube. Finalized by Avelino Paz MD on 06/20/2025 11:45 PM HOSPITAL PROBLEM LIST Principal Problem: 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) Active Problems: Acute urinary retention Type 2 diabetes mellitus without complication, without long-term current use of insulin (CMS-HCC) Essential hypertension 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) ASSESSMENT & PLAN Spinal cord compression due to neoplasm Prostate cancer with mets to bone, numerous osseous mets, actively undergoing chemotherapy Neurosurgery and oncology following. Awaiting plan pending MRI Thoracic/ lumbar/ sacrum results. Palliative medicine following for further pain management. Hypertension Normotensive/soft Bps. Diabetes mellitus type 2, most recent A1c 8.2% Glucose has been adequate, maintained with ISS PRN. Recheck A1c. Anemia of chronic disease Labs all near his baseline range. Will continue to monitor. Sepsis suspected, no-not clinically evident at this time. Chart reviewed. Admission orders placed. Home medications reconciled. VTE chemoprophylaxis: heparin sub q GI prophylaxis: not indicated. PT/OT to evaluate and treat. DC planning: TBD per clinical course . Medically Ready for Discharge: Anticipated in 2-4 Days Tiarra Crowe 06/29/2025 5:38 PM [facility] Internal Medicine 7AM-7PM & 7PM-7AM: EpicChat or page through On[employer]. Aranza Wang, [employer]IST[employer] 06/29/25 190 I have reviewed the above note authored by the Advance Practice Provider (DELLA) including history, review of systems, physical examination, medical decision making and agree with the assessment & plan. I have personally performed a face to face diagnostic evaluation on this patient. I have reviewed all laboratory findings and imaging reports/films. I have independently evaluated the patient and repeated israel portions of the physical exam. I agree with the DELLA plan as above, unless otherwise noted. Corbin Singleton MD documented in this encounter Consult Notes * ALYSSIA Salgado - 06/30/2025 9:41 AM ESTAssociated Order(s): CONSULT WOUND CARE SERVICES Images from the original note were not included. Wound Care Service Line - Consult Note Patient: Sunil Best Date of Admission: 06/28/2025 10:26 PM Reason for Consult: left groin wound PCP: YADIRA JOSE MD Admission Chief Complaint: severe escalating pain in his hips and buttocks. History of Present Illness: Sunil Best is a 64 y.o. male who presented with severe escalating pain in his hips and buttocks. He has a history of prostate cancer with mets to the hips and spine and is s/p L1 decompression and tumor excision. Plans were to initiate chemotherapy yesterday but due tothe pain he was instructed to go to the ED for further evaluation. Lumbar CT scan was completed andhe was evaluated by Neurosurgery on admission. Past Medical History in relation to wound and wound healing includes cancer, diabetes. Wound Care consulted for acute left groin wound. The patient states he had a cyst in that area thatburst. He was cleaning the wound with alcohol prior to admission and was unable to dress the wound due to the location. He states that last night when he was showering he noticed that the wound was bleeding. He denies pain to the wound site. Tobacco Use: Medium Risk (06/29/2025) Patient History Smoking Tobacco Use: Former Smokeless Tobacco Use: Never Passive Exposure: Not on file PMH: Past Medical History: Diagnosis Date Arthritis Benign prostatic hyperplasia Benign prostatic hyperplasia with urinary retention 04/2023 Cancer ([facility]) prostate, uterer , bladder, bone Cholelithiasis Dental disease no teeth Diabetes mellitus type 2, controlled ([facility]) Difficult intravenous access GERD (gastroesophageal reflux disease) Hydronephrosis with renal and ureteral calculous obstruction 02/12/2023 Intractable back pain 06/17/2024 Left inguinal hernia Peptic ulceration 2002 Ulcer Umbilical hernia Urinary tract infection PSH: Past Surgical History: Procedure Laterality Date CYSTOSCOPY N/A 03/26/2023 Performed by Aristides Frost Jr., MD at [facility] CYSTOSCOPY BIPOLAR TRANSURETHRAL RESECTION PROSTATE N/A 06/04/2023 Performed by Aristides Frost Jr., MD at [facility] CYSTOSCOPY LITHOCLAST N/A 03/26/2023 Performed by Aristides Frost Jr., MD at [facility] LAMINECTOMY LUMBAR SINGLE LEVEL L1 N/A 06/17/2024 Performed by David Castañeda MD at [facility] CYSTOSCOPY RESECTION PROSTATE N/A 06/04/2023 Performed by Aristides Frost Jr., MD at [facility] LEG SURGERY Left Circumferential 1987 2nd surgery in 1996 NEPHROSTOGRAM ANTEGRADE Left 03/26/2023 Performed by Aristides Frost Jr., MD at [facility] Allergies: Allergies Allergen Reactions Pentazocine-Acetaminophen Other Reaction(s): Visual Hallucinations Penicillins Rash Home Meds: Medications Prior to Admission Medication Sig Dispense Refill Last Dose/Taking JARDIANCE 25 mg tablet tablet Take 1 tablet (25 mg total) by mouth in the morning. 06/28/2025 magnesium oxide (MAGOX) 400 mg tablet Take 1 tablet (400 mg total) by mouth in the morning and 1 tablet (400 mg total) before bedtime. 60 tablet 0 06/28/2025 metFORMIN (FORTAMET) 1000 MG (OSM) 24 hr tablet Take 1 tablet (1,000 mg total) by mouth in the morning and 1 tablet (1,000 mg total) in the evening. Take with meals. Indications: type 2 diabetes mellitus. 06/28/2025 morphine (MS CONTIN) 15 mg 12 hr tablet Take 1 tablet (15 mg total) by mouth in the morning and 1 tablet (15 mg total) before bedtime. Max Daily Amount: 30 mg. 06/28/2025 oxyCODONE-acetaminophen (PERCOCET) 10-325 mg per tablet Take 1 tablet by mouth every 4 (four) hoursas needed for pain. Max Daily Amount: 6 tablets 180 tablet 0 06/28/2025 polyethylene glycol (GLYCOLAX) 17 gram/dose powder Take 17 g by mouth in the morning and 17 g before bedtime. 1700 g 6 06/28/2025 sennosides-docusate sodium (SENNA WITH DOCUSATE SODIUM) 8.6-50 mg Take 2 tablets by mouth in the morning and 2 tablets before bedtime. 360 tablet 3 06/28/2025 tamsulosin (FLOMAX) 0.4 mg capsule Take 1 capsule (0.4 mg total) by mouth nightly. 90 capsule 3 06/27/2025 magnesium hydroxide 400 mg/5 mL suspension Take 5 mL by mouth daily as needed (as needed for constipation). 473 mL 3 oxyCODONE (OxyCONTIN) 20 mg 12 hr tablet Take 1 tablet (20 mg total) by mouth every 12 (twelve) hours. Max Daily Amount: 40 mg (Patient not taking: Reported on 06/29/2025) 60 tablet 0 Unknown prochlorperazine (COMPAZINE) 10 mg tablet Take 1 tablet by mouth every 6 hours as needed for mild nausea or vomiting. (Patient not taking: Reported on 06/29/2025) 60 tablet 2 Unknown Social History: Social History Socioeconomic History Marital status: Spouse name: Not on file Number of children: Not on file Years of education: Not on file Highest education level: Not on file Occupational History Not on file Tobacco Use Smoking status: Former Types: Cigars Smokeless tobacco: Never Tobacco comments: Quit 6 years ago 2017 Vaping Use Vaping status: Never Used Substance and Sexual Activity Alcohol use: No Drug use: Never Sexual activity: Not Currently Other Topics Concern Not on file Social History Narrative Lives with . Social Drivers of Health Financial Resource Strain: Low Risk (06/16/2024) Overall Financial Resource Strain (CARDIA) Difficulty of Paying Living Expenses: Not hard at all Food Insecurity: No Food Insecurity (06/29/2025) Hunger Screening Food Insecurity - Worry: Never True Food Insecurity - Inability: Never True Recent Concern: Food Insecurity - Food Insecurity Present (05/16/2025) Hunger Screening Food Insecurity - Worry: Sometimes True Food Insecurity - Inability: Sometimes True Transportation Needs: No Transportation Needs (06/29/2025) PRAPARE - Transportation Lack of Transportation (Medical): No Lack of Transportation (Non-Medical): No Physical Activity: Inactive (06/16/2024) Exercise Vital Sign Days of Exercise per Week: 0 days Minutes of Exercise per Session: 0 min Stress: Stress Concern Present (06/16/2024) [place] [employer] - Occupational Stress Questionnaire Feeling of Stress : To some extent Social Connections: Socially Integrated (06/16/2024) Social Connection and Isolation Panel Frequency of Communication with Friends and Family: More than three times a week Frequency of Social Gatherings with Friends and Family: More than three times a week Attends Baptism Services: More than 4 times per year Active Member of Clubs or Organizations: Yes Attends Club or Organization Meetings: More than 4 times per year Marital Status: Interpersonal Safety: Not At Risk (06/29/2025) Humiliation, Afraid, Rape, and Kick questionnaire Fear of Current or Ex-Partner: No Emotionally Abused: No Physically Abused: No Sexually Abused: No Housing Instability: Low Risk (06/29/2025) Housing Instability Housing Instability: No Family History: Family History Problem Relation Age of Onset Heart disease Mother Hydrocephalus Sister Anesthesia problems Neg Hx Bleeding Disorder Neg Hx Clotting disorder Neg Hx Prostate cancer Neg Hx Colon cancer Neg Hx Diabetes Neg Hx Stroke Neg Hx I have personally reviewed past medical history including surgeries, social history, and family history. I have also reviewed allergies and home medications. They are documented in this note to theirdetail, and if there are none noted, they will further indicate no pertinent history. Review of Systems Review of Systems Constitutional: Negative for chills and fever. Respiratory: Negative for shortness of breath. Cardiovascular: Negative for chest pain. Gastrointestinal: Negative for abdominal pain. Genitourinary: Negative for difficulty urinating. Musculoskeletal: Positive for arthralgias, back pain and gait problem. Skin: Positive for wound. Neurological: Positive for weakness. Psychiatric/Behavioral: Negative for confusion. Physical Exam Vital Signs: BP 90/58 Pulse 69 Temp 36.7 ??C (98 ??F) (Oral) Resp 16 Ht 177.8 cm (5' 10 ) Wt 88 kg (194 lb 0.1 oz) SpO2 95% BMI 27.84 kg/m?? Physical Exam Constitutional: General: He is not in acute distress. HENT: Head: Normocephalic and atraumatic. Pulmonary: Effort: Pulmonary effort is normal. Abdominal: Palpations: Abdomen is soft. Musculoskeletal: General: Tenderness (back and hips) present. Skin: General: Skin is warm and dry. Neurological: Mental Status: He is alert and oriented to person, place, and time. Psychiatric: Behavior: Behavior normal. Patient agreed to physical examination/assessment. Wound Assessment: Location: left and groin Type of Wound/Aetiology: acute non pressure wound Present on admission. Measurement: 2.5cmx1.2cmx0.2cm Undermining: none Tunneling: none Severity: fat-layer exposed Drainage/Exudate/Odor: scant serosanguineous no odor Wound bed: granulation Wound Edges: attached Periwound: intact New wound encounter. Labs Reviewed: Results from last 7 days Lab Units 06/30/25 0551 06/29/25 0541 06/27/25 1407 WBC 10^9/L 8.0 9.1 10.5 HEMOGLOBIN g/dL 8.7* 9.3* 9.5* HEMATOCRIT % 26.1* 27.6* 27.8* PLATELETS 10^9/L 289 281 300 Results from last 7 days Lab Units 06/30/25 0837 06/30/25 0551 06/29/25 2054 06/29/25 1625 06/29/25 1119 06/29/25 0813 06/29/25 0541 06/28/25 2339 06/27/25 1407 POTASSIUM mmol/L -- 4.2 -- -- -- -- 4.7 -- 3.4* CO2 mmol/L -- 29 -- -- -- -- 28 -- 23 BUN mg/dL -- 24 -- -- -- -- 21 -- 15 CREATININE mg/dL -- 0.66 -- -- -- -- 0.70 -- 0.90 BEDSIDE GLUCOSE mg/dL 122* -- 147* 176* 177* < > -- < > -- GLUCOSE mg/dL -- 122* -- -- -- -- 183* -- 203* < > = values in this interval not displayed. Pathology/Cytology Results No results found for the last 168 hours. Microbiology Results No results found for the last 168 hours. Studies/Imaging Reviewed: CT lumbar spine without contrast Result Date: 06/28/2025 CLINICAL INFORMATION: Questionable bony Mets with cord compression TECHNIQUE: CT LUMBAR SPINE WO CONT CT images of the lumbar spine were obtained. Images reformatted in the sagittal and coronal planes. Widespread osseous metastasis is noted. Although mixed sclerotic and lytic, this is predominantlysclerotic. Endplates intact without acute compression. There is diffuse facet arthropathy. Disc bulge is present at multiple levels likely most significant at L4-5. Soft tissue encroachment noted at the T12-L1 level to the right of midline which likely produces severe canal stenosis. Incidental gallstone appreciated. No obvious acute fracture. Rib osseous sclerosis also noted. IMPRESSION: Widespread osseous metastasis, predominantly sclerotic. Although central canal and neural foramina not wellevaluated with this exam. There is abnormal soft tissue within the right T12-L1 level likely producing severe canal stenosis and right neural foraminal encroachment. All CT scans at this facility usedose modulation, iterative reconstruction, and/or weight based dosing when appropriate to reduce radiation dose to as low as reasonably achievable. Finalized by Girish Bhatt MD on 06/28/2025 6:54 PM No results found for this or any previous visit from the past 1080 days. No results found for this or any previous visit from the past 1080 days. Assessment: Principal Problem: Prostate cancer metastatic to bone ([facility]) Active Problems: Type 2 diabetes mellitus without complication, without long-term current use of insulin (CMS-HCC) Essential hypertension 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) Wound of left groin Wound Plan Wounds were cleansed, measured, and dressed with appropriate dressings at time of visit Dressing: cleanse wound and juwan wound skin with mild soap and water, rinse, pat dry. : After cleansing, apply silver alginate to wound, cover with foam dressing, change every other day Offloading/Skin Care/Edema Management: - continue specialty pressure redistribution bed - turn and reposition minimally every 2 hours - pad and protect bony prominences - moisturize dry skin, do not massage vigorously - elevate bilateral lower extremity/ies and float heel(s) on pillows or offloading boots Antibiotics: n/a Studies/Testing: as above Medical Management: per primary service Wound care will continue to follow while inpatient. Follow up: Referral placed for the outpatient wound care clinic at [place] within 1-2 weeks of discharge. Total time spent was 35-44 minutes: Preparing to see the patient (e.g., review of tests) Obtaining and/or reviewing separately obtained history Performing a medically appropriate examination and/or evaluation Counseling and educating the patient/family/caregiver Ordering medications, tests, or procedures Referring and communicating with other health multi care technician (not separately reported) Documenting clinical information in the electronic or other health record Independently interpreting results (not separately reported) and communicating results to the patient/family/caregiver Care coordination (not separately reported) Thank you for allowing us to participate in the care of this patient. Please feel free to call us with any questions or concerns. ALYSSIA SALGADO 06/30/25 [facility] Pager #[phone] Fri-Fri 8a-4:00p [phone] ALYSSIA Salgado 06/30/25 [id number] * Uyen Richmond MD - 06/29/2025 3:18 PM ESTAssociated Order(s): IP CONSULT TO PALLIATIVE MEDICINE Images from the original note were not included. SINCE PALLIATIVE CARE CONSULTATION Date of Service: 06/29/2025 Patient Name: Sunil Best : 1960 Reason for Consultation: Pain CC: Prostate cancer metastatic to bone Subjective SUBJECTIVE HPI: 64 y.o. male with prostate cancer metastatic to bone currently on chemo presented to the ED for pain in lower back and hips, sent by oncologist for concern for cord compression. Transferred for [place] for evaluation for neurosurgery. Latest chemo treatment held due to planned MRI being cancelled. Patient was unable to complete MRI 06/24 due to extreme pain while trying to lay flat, despite home MS Contin and Percocet 5-325 which caused constipation. 06/27 Oncology [employer] INSPECTOR substituted with Oxycontin ER BID and Percocet 10-325 every 4 hours prn along with bowel regimen. Patient was amenable to out patient palliative care clinic but notes that he is currently unable to attend due to inability to sit in car for long periods of time. Past Medical History: Diagnosis Date Arthritis Benign prostatic hyperplasia Benign prostatic hyperplasia with urinary retention 04/2023 Cancer ([facility]) prostate, uterer , bladder, bone Cholelithiasis Dental disease no teeth Diabetes mellitus type 2, controlled ([facility]) Difficult intravenous access GERD (gastroesophageal reflux disease) Hydronephrosis with renal and ureteral calculous obstruction 02/12/2023 Intractable back pain 06/17/2024 Left inguinal hernia Peptic ulceration 2002 Ulcer Umbilical hernia Urinary tract infection Past Surgical History: Procedure Laterality Date CYSTOSCOPY N/A 03/26/2023 Performed by Aristides Frost Jr., MD at [facility] CYSTOSCOPY BIPOLAR TRANSURETHRAL RESECTION PROSTATE N/A 06/04/2023 Performed by Aristides Frost Jr., MD at [facility] CYSTOSCOPY LITHOCLAST N/A 03/26/2023 Performed by Aristides Frost Jr., MD at [facility] LAMINECTOMY LUMBAR SINGLE LEVEL L1 N/A 06/17/2024 Performed by David Castañeda MD at [facility] CYSTOSCOPY RESECTION PROSTATE N/A 06/04/2023 Performed by Aristides Frost Jr., MD at [facility] LEG SURGERY Left Circumferential 1987 2nd surgery in 1996 NEPHROSTOGRAM ANTEGRADE Left 03/26/2023 Performed by Aristides Frost Jr., MD at [facility] Allergies: Pentazocine-acetaminophen and Penicillins Family History Problem Relation Age of Onset Heart disease Mother Hydrocephalus Sister Anesthesia problems Neg Hx Bleeding Disorder Neg Hx Clotting disorder Neg Hx Prostate cancer Neg Hx Colon cancer Neg Hx Diabetes Neg Hx Stroke Neg Hx Social History Tobacco Use Smoking status: Former Types: Cigars Smokeless tobacco: Never Tobacco comments: Quit 6 years ago 2017 Vaping Use Vaping status: Never Used Substance Use Topics Alcohol use: No Drug use: Never Objective OBJECTIVE BP 101/51 Pulse 67 Temp 36.1 ??C (97 ??F) (Axillary) Resp 16 Ht 177.8 cm (5' 10 ) Wt 88.1kg (194 lb 3.6 oz) SpO2 99% BMI 27.87 kg/m?? Intake/Output Summary (Last 24 hours) at 06/29/2025 1518 Last data filed at 06/29/2025 1225 Gross per 24 hour Intake -- Output 1075 ml Net -1075 ml EXAM: Sitting in bed, angled due to pain. Unable to turn body towards door, moving arms and head. Tearful. present in room. PALLIATIVE CARE DISCUSSION Patient stated that his pain has been around a 4/10, however notes that pain rises towards the end of his 4 hour intervals of medication. He notes that pain can rise to a 9-10/10 when he turns, and is sitting in a turned, crouched position. He is tearful when describing episodes of pain. He was informed of the medication changes and Dilaudid order, and to no longer wait until nursing staff arrives with his pain medication, instead to ask for pain medications every 3 hours or when pain begins again. He explained that his earlier constipation had resolved and he had a bowel movement of normal consistency yesterday. Patient denied recent nausea, vomiting or GI distress. ASSESSMENT Metastatic prostate cancer with bone involvement Encounter for Palliative Care Code Status: Full Next of Kin: Laina Best () ACP forms: None Prognosis: Understanding of illness: Good Values and Goals: Manage pain to evaluate for next steps Pain assessment: 4/10 shooting to 9-10/10 after movement Non-Pain symptom Assessment: Denies constipation, nausea, vomiting Last bowel movement: 06/28, normal consistency PLAN 1. Increase oxycodone to 30 mg every 12 hours 2. Discontinue percocet 10-325 mg 3. Start Roxicodone 20 mg every 3 hours prn 4. Start Lyrica 25 mg twice daily 5. Increase Dilaudid to 1 mg IV every 3 hours PRN Thank you for the opportunity to participate in the care of this patient. The palliative care team will continue to follow. Please contact us if we can be of additional assistance [phone]. In preparation for, or response to, today's visit I Reviewed today's CBC/BMP, Reviewed recent progress notes, Reviewed consult notes, and Discussed and coordinated care with nursing Attestation: I, UYEN RICHMOND MD, was physically present with the participating medical student. I personally verified the medical student's documentation in the medical record and performed a physical exam andmedical decision making for the patient. I made appropriate changes or clarifications to the note. [id number] * Chase Borrego MD - 06/29/2025 8:10 AM ESTAssociated Order(s): CONSULT MEDICAL ONCOLOGY - HEMATOLOGY & ONCOLOGY [facility] Shreyas Barajas M.D. Casandra Serrano M.D. Darien Barcenas M.D. Chase Borrego M.D. Patricia Avery, [employer] MAINTENANCE SPECIALIST-[facility] Rachna Saba, WARHEAD MAINTENANCE SPECIALIST-[employer] Darlene Mcgowan, WARHEAD MAINTENANCE SPECIALIST-[employer] Viky Alonzo, [employer]ARHEAD MAINTENANCE SPECIALIST-[employer] Kenney Jasmine M.D. Bigg Hair M.D. Og Erwin M.D. Cheryl Car M.D. Betty Soliz, [employer]ARHEAD MAINTENANCE SPECIALIST-[employer] Su Torres, WARHEAD MAINTENANCE SPECIALIST-[employer] Jeanne Johnston, [employer]ARHEAD MAINTENANCE SPECIALIST-[employer] Rita Kelley, WARHEAD MAINTENANCE SPECIALIST-[facility] Reason for consult: metastatic disease History of present illness: The patient is a 64 y.o. male who is known to our service and follows for his history of metastaticprostate cancer with widespread osseous lesions, diagnosed 2022, has progressed on Zytiga and Docetaxel. Most recently, disease progression 12/2024 throughout thoracic and lumbar spine with epidural invasion. Patient was started on combined carboplatin and Jevtana with plan to then follow with Jevta na alone. The patient is s/p C5 06/01. The patient presented with cc of back pain, sent from our office for MR spine and for neurosurgicalevaluation. Pt reports he was supposed to have an MRI Friday (06/24), but could not have it becausehe was not able to lay on his back with his legs straight due to the pain in his hips. CT lumbar 06/28 noting widespread osseous metastasis, predominantly sclerotic, abnormal soft tissue within the right T12-L1 level likely producing severe canal stenosis and right neural foraminal encroachment. On examination, the patient continues to report mid/ lower back pain, bilateral hip pain that has been ongoing since beginning of April. He denies gait abnormalities. Discussed that we would recommend completing MRI spine with premedications in order to evaluate disease status. The patient is agreeable to this. Oncology History 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) 02/04/2023 Initial Diagnosis 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) 07/05/2024 - 08/19/2024 Radiation Radiation Treatments Active No active radiation treatments to show. Historical Plans TL Spine 3Fld Most recent treatment: Dose planned: 300 (fraction 10 on 07/22/2024) Total: Dose planned: 3,000 (10 fractions) Elapsed Days: 14 Reference Points Rx TL Spines Most recent treatment: Dose given: 300 (on 07/22/2024) Total: Dose given: 3,000 Elapsed Days: 14 Review of Systems Constitutional: Negative for activity change, appetite change, chills, fatigue, fever and unexpected weight change. Respiratory: Negative for cough, chest tightness, shortness of breath and wheezing. Cardiovascular: Negative for chest pain, palpitations and leg swelling. Gastrointestinal: Negative for abdominal distention, abdominal pain, constipation, diarrhea, nauseaand vomiting. Musculoskeletal: Positive for back pain. Neurological: Negative for dizziness, weakness and light-headedness. Psychiatric/Behavioral: Negative for agitation, confusion and hallucinations. Objective Physical Exam: Vitals: BP 97/66 Pulse 80 Temp 36.7 ??C (98.1 ??F) (Oral) Resp 16 Ht 177.8 cm (5' 10 ) Wt88.1 kg (194 lb 3.6 oz) SpO2 97% BMI 27.87 kg/m?? Body mass index is 27.87 kg/m??. Physical Exam Vitals and nursing note reviewed. Constitutional: Appearance: Normal appearance. He is normal weight. HENT: Head: Normocephalic. Nose: Nose normal. Mouth/Throat: Mouth: Mucous membranes are moist. Eyes: Conjunctiva/sclera: Conjunctivae normal. Pupils: Pupils are equal, round, and reactive to light. Cardiovascular: Rate and Rhythm: Normal rate and regular rhythm. Pulmonary: Effort: Pulmonary effort is normal. Abdominal: Palpations: Abdomen is soft. Skin: General: Skin is warm and dry. Findings: No rash. Neurological: Mental Status: He is alert and oriented to person, place, and time. Psychiatric: Mood and Affect: Mood normal. Behavior: Behavior normal. Thought Content: Thought content normal. Judgment: Judgment normal. Lines, Drains, Airways: PIV ECO- Symptomatic; in bed >50% of the day Past Medical History: Diagnosis Date Arthritis Benign prostatic hyperplasia Benign prostatic hyperplasia with urinary retention 04/2023 Cancer ([facility]) prostate, uterer , bladder, bone Cholelithiasis Dental disease no teeth Diabetes mellitus type 2, controlled ([facility]) Difficult intravenous access GERD (gastroesophageal reflux disease) Hydronephrosis with renal and ureteral calculous obstruction 02/12/2023 Intractable back pain 06/17/2024 Left inguinal hernia Peptic ulceration 2002 Ulcer Umbilical hernia Urinary tract infection Past Surgical History: Procedure Laterality Date CYSTOSCOPY N/A 03/26/2023 Performed by Aristides Frost Jr., MD at [facility] CYSTOSCOPY BIPOLAR TRANSURETHRAL RESECTION PROSTATE N/A 06/04/2023 Performed by Aristides Frost Jr., MD at [facility] CYSTOSCOPY LITHOCLAST N/A 03/26/2023 Performed by Aristides Frost Jr., MD at [facility] LAMINECTOMY LUMBAR SINGLE LEVEL L1 N/A 06/17/2024 Performed by David Castañeda MD at [facility] CYSTOSCOPY RESECTION PROSTATE N/A 06/04/2023 Performed by Aristides Frost Jr., MD at [facility] LEG SURGERY Left Circumferential 1987 2nd surgery in 1996 NEPHROSTOGRAM ANTEGRADE Left 03/26/2023 Performed by Aristides Frost Jr., MD at [facility] Family History Problem Relation Age of Onset Heart disease Mother Hydrocephalus Sister Anesthesia problems Neg Hx Bleeding Disorder Neg Hx Clotting disorder Neg Hx Prostate cancer Neg Hx Colon cancer Neg Hx Diabetes Neg Hx Stroke Neg Hx Social History Socioeconomic History Marital status: Tobacco Use Smoking status: Former Types: Cigars Smokeless tobacco: Never Tobacco comments: Quit 6 years ago 2017 Vaping Use Vaping status: Never Used Substance and Sexual Activity Alcohol use: No Drug use: Never Sexual activity: Not Currently Social History Narrative Lives with . Social Drivers of Health Financial Resource Strain: Low Risk (06/16/2024) Overall Financial Resource Strain (CARDIA) Difficulty of Paying Living Expenses: Not hard at all Food Insecurity: No Food Insecurity (06/28/2025) Hunger Screening Food Insecurity - Worry: Never True Food Insecurity - Inability: Never True Recent Concern: Food Insecurity - Food Insecurity Present (05/16/2025) Hunger Screening Food Insecurity - Worry: Sometimes True Food Insecurity - Inability: Sometimes True Transportation Needs: No Transportation Needs (05/14/2025) PRAPARE - Transportation Lack of Transportation (Medical): No Lack of Transportation (Non-Medical): No Physical Activity: Inactive (06/16/2024) Exercise Vital Sign Days of Exercise per Week: 0 days Minutes of Exercise per Session: 0 min Stress: Stress Concern Present (06/16/2024) [place] [employer] - Occupational Stress Questionnaire Feeling of Stress : To some extent Social Connections: Socially Integrated (06/16/2024) Social Connection and Isolation Panel Frequency of Communication with Friends and Family: More than three times a week Frequency of Social Gatherings with Friends and Family: More than three times a week Attends Baptism Services: More than 4 times per year Active Member of Clubs or Organizations: Yes Attends Club or Organization Meetings: More than 4 times per year Marital Status: Interpersonal Safety: Not At Risk (05/14/2025) Humiliation, Afraid, Rape, and Kick questionnaire Fear of Current or Ex-Partner: No Emotionally Abused: No Physically Abused: No Sexually Abused: No Housing Instability: Low Risk (05/14/2025) Housing Instability Housing Instability: No Allergies Allergen Reactions Pentazocine-Acetaminophen Other Reaction(s): Visual Hallucinations Penicillins Rash Inpatient scheduled medication: insulin lispro, 2-10 Units, subcutaneous, TID with meals insulin lispro, 2-8 Units, subcutaneous, Nightly magnesium oxide, 400 mg, oral, BID oxyCODONE, 20 mg, oral, Q12H polyethylene glycol, 17 g, oral, BID sennosides-docusate sodium, 2 tablet, oral, BID sodium chloride, 3 mL, intravenous, Q12H IAIN tamsulosin, 0.4 mg, oral, Nightly Recent Labs Recent Results (from the past 72 hours) CBC auto differential Collection Time: 06/27/25 2:07 PM Result Value Ref Range WBC 10.5 4 - 11 10^9/L RBC Count 2.93 (L) 4.1 - 5.7 10^12/L Hemoglobin 9.5 (L) 13 - 17 g/dL Hematocrit 27.8 (L) 39 - 50 % MCV 95 80 - 100 fL MCH 32.5 27 - 34 pg MCHC 34.3 32 - 36 g/dL RDW 18.8 (H) 11.5 - 15 % Platelet Count 300 150 - 450 10^9/L MPV 6.2 (L) 7 - 12 fL Neutrophils % 86.9 % Lymphocytes % 4.7 % Monocytes % 7.8 % Eosinophils % 0.3 % Basophils % 0.3 % Neutrophils Absolute (A) 9.1 (H) 1.5 - 6.6 10^9/L Lymphocytes Absolute 0.5 (L) 1.0 - 3.5 10^9/L Monocytes Absolute 0.8 0.0 - 0.9 10^9/L Eosinophils Absolute 0.0 0.0 - 0.4 10^9/L Basophils Absolute 0.0 0.0 - 0.2 10^9/L Differential Type AUTOMATED DIFFERENTIAL Comprehensive metabolic panel Collection Time: 06/27/25 2:07 PM Result Value Ref Range SODIUM 132 (L) 134 - 146 mmol/L POTASSIUM 3.4 (L) 3.5 - 5.0 mmol/L CHLORIDE 95 (L) 98 - 109 mmol/L CARBON DIOXIDE 23 22 - 32 mmol/L ANION GAP 14 5 - 15 mmol/L BLOOD UREA NITROGEN 15 5 - 27 mg/dL CREATININE 0.90 0.70 - 1.20 mg/dL GLUCOSE 203 (H) 65 - 99 mg/dL CALCIUM 8.8 8.5 - 10.5 mg/dL TOTAL PROTEIN 6.8 6.0 - 8.0 g/dL ALBUMIN 3.1 (L) 3.2 - 5.3 g/dL ALKALINE PHOSPHATASE 225 (H) 39 - 130 U/L AST 44 (H) <=41 U/L ALT 34 <=40 U/L BILIRUBIN,TOTAL 1.0 0.3 - 1.2 mg/dL EGFR Non-Race Dependent >90 >=60 ml/min/1.73sq.m Prostatic spec ant Collection Time: 06/27/25 2:07 PM Result Value Ref Range PROSTATIC SPEC ANT 12.49 (H) 0.00 - 4.00 ng/mL Bedside Glucose *Place/Obtain serum glucose if >500 per glucometer. Collection Time: 06/28/25 11:39 PM Result Value Ref Range Bedside Glucose (POC) 247 (H) 65 - 99 mg/dL Comprehensive metabolic panel Collection Time: 06/29/25 5:41 AM Result Value Ref Range SODIUM 136 134 - 146 mmol/L POTASSIUM 4.7 3.5 - 5.0 mmol/L CHLORIDE 96 (L) 98 - 109 mmol/L CARBON DIOXIDE 28 22 - 32 mmol/L ANION GAP 12 5 - 15 mmol/L BLOOD UREA NITROGEN 21 5 - 27 mg/dL CREATININE 0.70 0.60 - 1.30 mg/dL GLUCOSE 183 (H) 65 - 99 mg/dL CALCIUM 8.9 8.5 - 10.5 mg/dL TOTAL PROTEIN 6.9 6.0 - 8.0 g/dL ALBUMIN 3.5 3.2 - 5.3 g/dL ALKALINE PHOSPHATASE 187 (H) 39 - 130 U/L AST 28 <=41 U/L ALT 23 <=40 U/L BILIRUBIN,TOTAL 0.3 0.3 - 1.2 mg/dL EGFR Non-Race Dependent >90 >=60 ml/min/1.73sq.m Magnesium Collection Time: 06/29/25 5:41 AM Result Value Ref Range MAGNESIUM 1.8 1.8 - 2.6 mg/dL CBC auto differential Collection Time: 06/29/25 5:41 AM Result Value Ref Range WBC 9.1 4 - 11 10^9/L RBC Count 2.87 (L) 4.1 - 5.7 10^12/L Hemoglobin 9.3 (L) 13 - 17 g/dL Hematocrit 27.6 (L) 39 - 50 % MCV 96 80 - 100 fL MCH 32.4 27 - 34 pg MCHC 33.8 32 - 36 g/dL RDW 18.4 (H) 11.5 - 15 % Platelet Count 281 150 - 450 10^9/L MPV 6.8 (L) 7 - 12 fL Neutrophils % 86 % Lymphocytes % 10 % Monocytes % 4 % Neutrophils Absolute (M) 7.8 (H) 1.5 - 6.6 10^9/L Lymphocytes Absolute 0.9 (L) 1.0 - 3.5 10^9/L Monocytes Absolute 0.4 0.0 - 0.9 10^9/L Polychromasia 1+ Differential Type MANUAL DIFFERENTIAL Recent Imaging: CT lumbar spine without contrast Result Date: 06/28/2025 Narrative: CLINICAL INFORMATION: Questionable bony Mets with cord compression TECHNIQUE: CT LUMBAR SPINE WO CONT CT images of the lumbar spine were obtained. Images reformatted in the sagittal and coronal planes. Widespread osseous metastasis is noted. Although mixed sclerotic and lytic, this is predominantly sclerotic. Endplates intact without acute compression. There is diffuse facet arthropathy. Disc bulge is present at multiple levels likely most significant at L4-5. Soft tissue encroachment noted at the T12-L1 level to the right of midline which likely produces severe canal stenosis. Incidental gallstone appreciated. No obvious acute fracture. Rib osseous sclerosis also noted. IMPRESSION: Widespread osseous metastasis, predominantly sclerotic. Although central canal and neural foramina not well evaluated with this exam. There is abnormal soft tissue within the right T12-L1 level likely producing severe canal stenosis and right neural foraminal encroachment. All CT scans at this facility use dose modulation, iterative reconstruction, and/or weight based dosing when appropriate to reduce radiation dose to as low as reasonably achievable. Finalized by Girish Bhatt MD on 06/28/2025 6:54 PM IR exchange nephrostomy tube and nephrostogram left Result Date: 06/20/2025 Narrative: CLINICAL INDICATION: Routine exchange of left-sided nephrostomy tube. Left ureteral obstruction. COMPARISON: 05/14/2025 TECHNIQUE: Procedure performed by Interventional Radiologist Trenton Eugene Fluoroscopic time: 1.7 minutes Reference Air Kerma: 17.9mGy Number of fluoroscopic images: 6 Medication: 15 mL Omnipaque 300. 500 mg Cipro EBL: None CONSENT: The reason for the procedure was discussed with the patient. The procedure, expectations, risks, benefits, options and alternatives were discussed. All of the patient?s questions were answered. The patient understands that the results cannot be guaranteed. The procedure is indicated and the risks are acceptable. Consent was obtained. PROCEDURE: 1. Fluoroscopic guided exchange of left-sided nephrostomy tube. 2. Fluoroscopic guided antegrade nephrostogram. Details of procedure: Patient placed in the prone position on the fluoroscopy table. The existing left nephrostomy tube was prepped and draped in usual sterile fashion. 1%lidocaine without epinephrine was used as a local anesthetic. A hand-injection of contrast through the existing tube was performed for nephrostogram. The hub of the catheter was cut and an 035 Amplatz wire was advanced through the existing catheter into the left renal collecting system. The existing catheter was removed. A new 10.2 [place] Reyes-Holder drain was advanced over the wire into position. The inner dilator and wire were removed and the pigtail was formed and locked. 2-0 Prolene suture was used to secure the drain. The drain was connected to gravity bag drainage. A sterile just wasapplied. The patient tolerated the procedure well and there are no immediate complications. FINDINGS: 1. Existing left nephrostomy tube had been retracted into a peripheral lower pole calyx. 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 2. Successful fluoroscopic guided exchange of left-sided nephrostomy tube. A new 10.2 [place] Reyes-Holder pigtail drain was placed. The pigtail was formed and locked within the left renal pelvis. Drain connected to gravity bag drainage. IMPRESSION: Successful fluoroscopic guided exchange of left-sided percutaneous nephrostomy tube. Finalized by Avelino Paz MD on 06/20/2025 11:45 PM Diagnosis Problem list: Patient Active Problem List Diagnosis Complicated UTI (urinary tract infection) Acute urinary retention Primary hydronephrosis Gross hematuria 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) Bladder stone Hydronephrosis with renal and ureteral calculous obstruction Ureteral stone Bone lesion Urolithiasis Erectile dysfunction due to diseases classified elsewhere Benign prostatic hyperplasia with urinary retention Urologic disorders Pain of metastatic malignancy Intractable back pain Type 2 diabetes mellitus without complication, without long-term current use of insulin (CMS-HCC) Essential hypertension Weakness Acute cystitis without hematuria Former smoker 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) Chemotherapy-induced thrombocytopenia Urinary tract infection with hematuria, site unspecified Hypomagnesemia Dysuria Assessment/Plan Impression: # Metastatic prostate cancer with widespread osseous lesions with epidural invasion, diagnosed 2022, has progressed on Zytiga and Docetaxel - Dr. Jasmine - PSA on diagnosis 50. PSA 03/2025 after 2 rounds of tx 7.62. PSA 06/2025 up to 12. - Most recently, disease progression 12/2024 throughout thoracic and lumbar spine with epidural invasion. - Patient was started on combined carboplatin and Jevtana with plan to then follow with Jevtana alone. The patient is s/p C5 06/01. # Back pain, known extensive bony metastasis in spine and pelvis - Status post laminectomy 05/2024 - S/p 10 fractions RT 06/2024 - CT lumbar 06/28 noting widespread osseous metastasis, predominantly sclerotic, abnormal soft tissue within the right T12-L1 level likely producing severe canal stenosis and right neural foraminal encroachment. - MR lumbar/ thoracic pending - MR right and left hip pending Plan: - The patient presented with cc of back pain and bilateral hip pain, sent from our office for MR spine and neurosurgical evaluation. - The patient with known metastatic prostate cancer with widespread osseous lesions. After 2 cyclesof chemotherapy, PSA dropped to 7.62 03/2025. Unfortunately, most recent PSA 06/2025 12.49, suspicious for disease progression. - Patient will likely require pre medications to complete MR spine/sacrum/hip to evaluate disease status. Neurosurgery consulted and following - Palliative medicine following - Oncology will continue to follow along. Transfusion Parameters: Hgb < 7 and Plts < 10,000, unless active bleeding transfuse Plts <20,000 Code Status: Full Code Further medical management of comorbid conditions per primary team and consulting services, appreciate assistance The patient was seen and examined and all plans and orders were discussed with the attending physician on service today, Dr. Borrego Thank you for the consultation. Viky Alonzo, WARHEAD MAINTENANCE SPECIALIST-[facility] [address] [place] [address] Day time contact: goTenna Chat is my preferred mode of contact. For after hours (evening, weekends, holidays) Hematology Oncology needs, please call the meteorologist liaison service [phone]. Please ask for the MD meteorologist liaison. June 29, 2025, 8:10 AM Please note that portions of this note were generated using voice recognition M*Modal dictation software. Although every effort was made to ensure the accuracy of this automated wound care center consultant, some errors in wound care center consultant may have occurred. Viky Alonzo, [facility] 06/29/25 1424 IChase MD, personally performed the face to face diagnostic evaluation on this patient. Myfindings are as follows: 64 y.o. male Metastatic prostate cancer. CT scan reported as Widespread osseous metastasis, predominantly sclerotic. Although central canal and neural foramina not well evaluated with this exam. There is abnormal soft tissue within the right T12-L1 level likely producing severe canal stenosis and right neural foraminal encroachment. Neurosurgery on board. MRI pending Normocytic anemia. PSA relatively increased. Hold chemo while inpatient. Supportive management Discussed with patient and family. Discussed with ER earlier. Further management per primary team and other consultants. Thank you. Chase Borrego MD FACP Hematology/Oncology. Please note that portions of this note were generated using voice recognition M*Modal dictation software. Although every effort was made to ensure the accuracy of this automated wound care center consultant, some errors in wound care center consultant may have occurred. * Joanna Razo PA-C - 06/29/2025 6:47 AM ESTAssociated Order(s): IP CONSULT TO NEUROSURGERY Images from the original note were not included. [facility] [address] [place] [address], [place] [address] * NEUROSURGERY CONSULT NOTE DATE:06/29/2025 PATIENT'S NAME: Sunil Best PATIENT'S PATIENT'S : 1960 NEUROSURGERY ATTENDING: Dr. Castañeda REASON FOR CONSULT Spinal Mets HISTORY OF PRESENT ILLNESS uSnil Best is a 64 y.o. White or male who presents due to back and buttock pain. Patient with history of metastatic prostate cancer s/p L1 decompression for tumor with Dr. Castañeda 06/17/24. Patient originally planned for chemotherapy yesterday, however was postponed as oncology desired MRI completed prior. Patient with continued significant back and buttock pain, mainly right buttock/hip. He reports he is unable to pay on his back with his legs straight given sever pain. Patient follows with Dr. Jasmine with oncology. He denies any numbness/tingling in his extremities, saddle paresthesias, or loss of bowel or bladder control. ALLERGIES Allergies Allergen Reactions Pentazocine-Acetaminophen Other Reaction(s): Visual Hallucinations Penicillins Rash MEDICATIONS Current Facility-Administered Medications: acetaminophen (TYLENOL) tablet 650 mg, 650 mg, oral, Q6H PRN, ALYSSIA Olivares alum-mag hydroxide-simeth (MAALOX) 200-200-20 mg/5 mL suspension 30 mL, 30 mL, oral, PCHSP, ALYSSIA Olivares dextrose (GLUTOSE) 40 % gel 15 g, 15 g, oral, PRN, Cherelle Cervantes APRN-GALI dextrose 5 % (D5W) infusion, 100 mL/hr, intravenous, Continuous PRN, Cherelle Cervantes APRN-GALI dextrose 50 % in water (D50W) 50% solution 25 mL, 25 mL, intravenous, PRN, Cherelle Cervantes APRN-MA[employer]GER [employer]AGE glucagon HCL injection 1 mg, 1 mg, intramuscular, PRN, Cherelle Cervantes APRN-GALI HYDROmorphone (PF) (DILAUDID) injection 0.5 mg, 0.5 mg, intravenous, Q4H PRN, Cherelle Cervantes APRN-GALI insulin lispro (HumaLOG) injection 2-10 Units, 2-10 Units, subcutaneous, TID with meals, Cherelle Cervantes APRN-GALI insulin lispro (HumaLOG) injection 2-8 Units, 2-8 Units, subcutaneous, Nightly, Cherelle Cervantes APRN-MA[employer], 2 Units at 06/28/25 2357 magnesium oxide (MAGOX) tablet 400 mg, 400 mg, oral, BID, Cherelle Cervantes APRN- MA[employer], 400 mg at 06/29/25 0000 magnesium sulfate IVPB 2000 mg/50 mL in iso-osmotic water (40 mg/mL premix), 2,000 mg, intravenous,PRN, Cherelle Cervantes APRN-GALI magnesium sulfate IVPB 4000 mg/100 mL in iso-osmotic water (40 mg/mL premix), 4,000 mg, intravenous, PRN, Cherelle Cervantes APRN-[employer] midodrine (PROAMATINE) tablet 5 mg, 5 mg, oral, TID PRN, Cherelle Cervantes APRN-[employer] ondansetron (PF) (ZOFRAN) injection 4 mg, 4 mg, intravenous, Q4H PRN, Cherelle Cervantes APRN-GALI oxyCODONE (OxyCONTIN) 12 hr tablet 20 mg, 20 mg, oral, Q12H, Cherelle Cervantes APRN-MA[employer]GER [employer], 20 mg at 06/29/25 0000 oxyCODONE-acetaminophen (PERCOCET) 10-325 mg per tablet 1 tablet, 1 tablet, oral, Q4H PRN, Cherelle Cervantes APRN-GALI, 1 tablet at 06/29/25 0400 polyethylene glycol (GLYCOLAX) packet 17 g, 17 g, oral, BID, Cherelle Helen, WARHEAD MAINTENANCE SPECIALIST-[employer], 17 g at 06/29/25 0001 potassium chloride (K-TAB,KLOR-CON) CR tablet 30-50 mEq, 30-50 mEq, oral, PRN OR potassium chloride (KAYCIEL) 20 mEq/15 mL solution 30-50 mEq, 30-50 mEq, oral, PRN OR potassium chloride IVPB 10 mEq/100 mL in water (0.1 mEq/mL premix), 10 mEq, intravenous, PRN, Cherelle Tenstrike, WARHEAD MAINTENANCE SPECIALIST-[employer] prochlorperazine (COMPAZINE) tablet 10 mg, 10 mg, oral, Q6H PRN, Cherelle Cervantes, WARHEAD MAINTENANCE SPECIALIST-[employer] sennosides-docusate sodium (SENOKOT-S) 8.6-50 mg 1 tablet, 1 tablet, oral, Q12H PRN, Cherelle Cervantes,WARHEAD MAINTENANCE SPECIALIST-MA[employer] sennosides-docusate sodium (SENOKOT-S) 8.6-50 mg 2 tablet, 2 tablet, oral, BID, Cherelle Cervantes, WARHEAD MAINTENANCE SPECIALIST-MA[employer], 2 tablet at 06/29/25 0000 sodium chloride 0.9 % flush 3 mL, 3 mL, intravenous, PRN, Cherelle Helen, WARHEAD MAINTENANCE SPECIALIST-[employer] sodium chloride 0.9 % flush 3 mL, 3 mL, intravenous, Q12H IAIN, Cherelle Helen, WARHEAD MAINTENANCE SPECIALIST-MA[employer], 3 mL at 06/29/25 0005 tamsulosin (FLOMAX) 24 hr capsule 0.4 mg, 0.4 mg, oral, Nightly, Cherelle Cervantes WARHEAD MAINTENANCE SPECIALIST-MA[employer], 0.4 mg at108/30/24 0000 PAST MEDICAL AND SURGICAL HISTORY Past Medical History: Diagnosis Date Arthritis Benign prostatic hyperplasia Benign prostatic hyperplasia with urinary retention 04/2023 Cancer ([facility]) prostate, uterer , bladder, bone Cholelithiasis Dental disease no teeth Diabetes mellitus type 2, controlled ([facility]) Difficult intravenous access GERD (gastroesophageal reflux disease) Hydronephrosis with renal and ureteral calculous obstruction 02/12/2023 Intractable back pain 06/17/2024 Left inguinal hernia Peptic ulceration 2001 Ulcer Umbilical hernia Urinary tract infection Past Surgical History: Procedure Laterality Date CYSTOSCOPY N/A 03/26/2023 Performed by Aristides Frost Jr., MD at [facility] CYSTOSCOPY BIPOLAR TRANSURETHRAL RESECTION PROSTATE N/A 06/04/2023 Performed by Aristides Frost Jr., MD at [facility] CYSTOSCOPY LITHOCLAST N/A 03/26/2023 Performed by Aristides Frost Jr., MD at [facility] LAMINECTOMY LUMBAR SINGLE LEVEL L1 N/A 06/17/2024 Performed by David Castañeda MD at [facility] CYSTOSCOPY RESECTION PROSTATE N/A 06/04/2023 Performed by Aristides Frost Jr., MD at [facility] LEG SURGERY Left Circumferential 1987 2nd surgery in 1996 NEPHROSTOGRAM ANTEGRADE Left 03/26/2023 Performed by Aristides Frost Jr., MD at [facility] FAMILY HISTORY Family History Problem Relation Age of Onset Heart disease Mother Hydrocephalus Sister Anesthesia problems Neg Hx Bleeding Disorder Neg Hx Clotting disorder Neg Hx Prostate cancer Neg Hx Colon cancer Neg Hx Diabetes Neg Hx Stroke Neg Hx SOCIAL HISTORY Tobacco: reports that he has quit smoking. His smoking use included cigars. He has never used smokeless tobacco. Alcohol: reports no history of alcohol use. Drugs: reports no history of drug use. REVIEW OF SYSTEMS A 14 point review of systems was negative other than that documented in the HPI. PHYSICAL EXAMINATION Temp: [36.6 ??C (97.8 ??F)-36.7 ??C (98.1 ??F)] 36.7 ??C (98.1 ??F) Pulse: [72-94] 80 Resp: [14-18] 16 BP: (97-111)/(57-77) 97/66 SpO2: [96 %-100 %] 97 % O2 Device: None (Room air) O2 Flow Rate (L/min): [0 L/min] 0 L/min Physical Exam Constitutional: General: He is not in acute distress. Appearance: Normal appearance. He is not ill-appearing. HENT: Head: Normocephalic. Eyes: Extraocular Movements: Extraocular movements intact. Pupils: Pupils are equal, round, and reactive to light. Cardiovascular: Rate and Rhythm: Normal rate. Pulses: Normal pulses. Pulmonary: Effort: Pulmonary effort is normal. No respiratory distress. Abdominal: Palpations: Abdomen is soft. Tenderness: There is no abdominal tenderness. Musculoskeletal: Cervical back: Normal range of motion. Neurological: Mental Status: He is alert and oriented to person, place, and time. Sensory: No sensory deficit. Motor: No weakness. Comments: BLE strength 4+/5- mild generalized weakness No clonus Psychiatric: Mood and Affect: Mood normal. LABORATORY DATA Results from last 7 days Lab Units 06/29/25 0541 06/28/25 2339 06/27/25 1407 SODIUM mmol/L 136 -- 132* POTASSIUM mmol/L 4.7 -- 3.4* CREATININE mg/dL 0.70 -- 0.90 BEDSIDE GLUCOSE mg/dL -- 247* -- GLUCOSE mg/dL 183* -- 203* CALCIUM mg/dL 8.9 -- 8.8 WBC 10^9/L 9.1 -- 10.5 HEMATOCRIT % 27.6* -- 27.8* HEMOGLOBIN g/dL 9.3* -- 9.5* PLATELETS 10^9/L 281 -- [address] lumbar spine without contrast Result Date: 06/28/2025 CLINICAL INFORMATION: Questionable bony Mets with cord compression TECHNIQUE: CT LUMBAR SPINE WO CONT CT images of the lumbar spine were obtained. Images reformatted in the sagittal and coronal planes. Widespread osseous metastasis is noted. Although mixed sclerotic and lytic, this is predominantlysclerotic. Endplates intact without acute compression. There is diffuse facet arthropathy. Disc bulge is present at multiple levels likely most significant at L4-5. Soft tissue encroachment noted at the T12-L1 level to the right of midline which likely produces severe canal stenosis. Incidental gallstone appreciated. No obvious acute fracture. Rib osseous sclerosis also noted. IMPRESSION: Widespread osseous metastasis, predominantly sclerotic. Although central canal and neural foramina not wellevaluated with this exam. There is abnormal soft tissue within the right T12-L1 level likely producing severe canal stenosis and right neural foraminal encroachment. All CT scans at this facility usedose modulation, iterative reconstruction, and/or weight based dosing when appropriate to reduce radiation dose to as low as reasonably achievable. Finalized by Girish Bhatt MD on 06/28/2025 6:54 PM ASSESSMENT 64 year male old male with history of metastatic prostate cancer s/p L1 decompression 05/2024 is admitted due to back pain and concern for disease progression. PLAN - CT imaging independently reviewed and reviewed by Dr. Castañeda . Patient with extensive bony metastasis in spine and pelvis. - MRI T and L spine pending. Added MRI sacrum - Chart, CBC, BMP, vitals reviewed. - Serial neuro checks - Okay for diet and activity from a NS standpoint - SCD's for DVT ppx. Okay for chemical ppx. No blood thinners . - PRN pain control per primary. . Recommend palliative evaluation if pain remains uncontrolled. - Oncology consulted by primary - Remainder of care per Primary team - Plan discussed with Primary team - Further plan to follow completion of MRI. Medical Decision Making: Moderate Patient evaluated by and plan discussed with Dr. Castañeda. He is in agreement with oseas Razo PA-C Neurosurgery [facility] WeOwe Chat preferred Patient Touch 06/29/25 6:47 AM To find out which DELLA is on for the day please go to ON-Call Finder in WeOwe or ScanNano and use log in Accruent and search for PTH Neurosurgery Joanna Razo PA-C 06/29/25 1206 documented in this encounter Miscellaneous Notes * Plan of Care - Estrella Hui CNA - 07/06/2025 6:21 PM EST Problem: Pain Goal: Patient goal is pain score less than 4, able to rest, and participant in treatment plan as appropriate Description: INTERVENTIONS: 1. Encourage patient or legal retail service representative to report early pain and ask for pain medicine when needed 2. Assess pain using appropriate pain scale and include the scale used when documenting 3. Administer analgesics based on type and severity of pain and evaluate response within appropriate time frame 4. Implement non-pharmacological measures as appropriate and evaluate response 5. Consider cultural and social influences on pain and pain management 6. Notify LIP if interventions ineffective or patient reports new pain 7. Monitor vital signs including pulse ox, end-tidal CO2 based on pain intervention 8. Reassess pain per policy 9. Teach patient or legal retail service representative interventions for comforting Outcome: Adequate for Discharge Note: Evaluation of progress towards goal: prn pain meds as needed Problem: Safety Goal: Patient will be injury free during hospitalization Description: INTERVENTIONS: 1. Assess patient's risk for falls and implement fall prevention plan of care per policy 2. Provide and maintain a safe environment 3. Proper use of double Identifiers 4. Medication administration using the 5 rights 5. Hand hygiene 6. Specimens are labeled at the bedside 7. Instruct patient/ patient retail service representative about use of safety devices 8. Include patient/ patient retail service representative in decisions related to safety Outcome: Adequate for Discharge Note: Evaluation of progress towards goal: hourly rounding, bed in lowest position. * Discharge Planning Note - Patricia Hernandez - 07/06/2025 4:04 PM EST DISCHARGE PLANNING NOTE CRF sent to [facility] P# ; F# * Discharge Planning Note - Melissa Ash RN - 07/06/2025 10:47 AM EST Ongoing Assessment for Discharge Needs Reviewed discharge milestones and patient needs related to discharge plan. Current estimated discharge date of Jul 07, 2025 has been reviewed by treatment team. Case discussed in daily transition rounds and chart reviewed by CN. Barriers to discharge include monitoring drain OP, IV antibiotics, pain control. Discharge Plan remains: home with [facility]. CN will continue to follow and is available should any further needs arise. Ongoing Assessment for Discharge Needs Flowsheet Row Most Recent Value Referral To Community Referrals / Resources Provided Denies needs Services Requested Patient expects to be discharged to: home w/HC Does the patient wish to have family/friend/caregiver involved in their discharge planning? No, thepatient does not wish to have family/friend/caregiver involved in their discharge planning Discharge Disposition Home with home health services Facility/Service Name [facility] Facility/Service Fax number [phone] Facility/Service Does the patient need discharge transportation arranged? No Patient choice offered Patient declined List Provided Patient declined Patient Declined Active with Provider DC Planning Complete Discharge Milestones Yes - Melissa Ash RN 07/06/25 10:50 AM * Plan of Care - Alen Diggs RN - 07/05/2025 10:27 PM EST Problem: Pain Goal: Patient goal is pain score less than 4, able to rest, and participant in treatment plan as appropriate Description: INTERVENTIONS: 1. Encourage patient or legal retail service representative to report early pain and ask for pain medicine when needed 2. Assess pain using appropriate pain scale and include the scale used when documenting 3. Administer analgesics based on type and severity of pain and evaluate response within appropriate time frame 4. Implement non-pharmacological measures as appropriate and evaluate response 5. Consider cultural and social influences on pain and pain management 6. Notify LIP if interventions ineffective or patient reports new pain 7. Monitor vital signs including pulse ox, end-tidal CO2 based on pain intervention 8. Reassess pain per policy 9. Teach patient or legal retail service representative interventions for comforting Outcome: Progressing Note: Evaluation of progress towards goal: Pt. Is able to rate pain on a scale of 1-10. PRN meds are available. Plan of care is ongoing. No further concerns as of present, pt. expresses no other needs at this time and has call light within reach if needed. Problem: Infection Goal: Absence of infection during hospitalization Description: INTERVENTIONS 1. Assess and monitor for signs and symptoms of infection. 2. Monitor lab/diagnostic results. 3. Monitor all insertion sites i.e., indwelling lines, tubes and drains. 4. Monitor endotracheal (as able) and nasal secretions for changes in amount and color. 5. Administer medications as ordered. 6. Instruct and encourage patient and family to use good hand hygiene technique. 7. Identify and instruct patient/patient retail service representative in use of appropriate isolation precautionsfor identified infection/symptoms. 8. Provide and discuss with patient/patient retail service representative on educational MDRO sheet. 9. Encourage and monitor nutritional status daily and consult cake inspector if indicated. 10. Implement neutropenic guidelines as needed. Outcome: Progressing Note: Evaluation of progress towards goal: Pt. Is afebrile and showing no signs of infection. Plan of care is ongoing. No further concerns as of present, pt. expresses no other needs at this time andhas call light within reach if needed. Problem: Knowledge Deficit Goal: Patient/patient retail service representative demonstrates understanding of disease process, treatment plan,medications, and discharge instructions Description: INTERVENTIONS 1. Complete learning assessment and assess knowledge base 2. Provide teaching at level of understanding 3. Provide teaching via preferred learning method(s) Outcome: Progressing Note: Evaluation of progress towards goal: Pt/retail service representative shows understanding of disease process, medication list, and discharge plan. Problem: Discharge Planning Goal: Discharge to post-acute care, other facility, or home with appropriate resources Description: Patient's goal is: INTERVENTIONS 1. Conduct assessment to determine patient/family and health care team treatment goals, and need for post-acute services based on payer coverage, community resources, and patient preferences, and barriers to discharge 2. Coordinate with Social work, Care Navigation, and Utilization Review to arrange appropriate level of services according to patient's needs based on patient preference and payer coverage in collaboration with the physician and health care team 3. Address psychosocial, clinical, and financial barriers to discharge as identified in assessment in conjunction with the patient/family and health care team 4. Consult appropriate ancillary services (i.e.. PT/OT/ST, etc) as needed 5. Communicate with and update the patient/family, physician, and health care team regarding progress on the discharge plan 6. Identify discharge learning needs (meds, wound care, etc). 7. Arrange for needed discharge transportation as appropriate Outcome: Progressing Note: Evaluation of progress towards goal: Pt. Verbalizes an understanding towards discharge goals,Plan of care is ongoing. No further concerns as of present, pt. expresses no other needs at this time and has call light within reach if needed. Problem: Glucose Imbalance Goal: Clinical indication of glucose balance is achieved Description: Patient's goal is: INTERVENTIONS 1. Monitor blood glucose levels as ordered 2. Administer medications as ordered 3. Notify physician of ineffective treatment plan Outcome: Progressing Note: Evaluation of progress towards goal: Pt. Sugar are checked three times with meals and nightlyat bedside, with insulin is ordered as needed. Problem: Potential for Compromised Skin Integrity Goal: Skin integrity is maintained or improved Description: Patient's goal is: INTERVENTIONS 1. Perform initial skin assessment on admission and as needed 2. Turn patient every 2 hours and PRN 3. Relieve pressure to bony prominences 4. Avoid shearing 5. Keep skin clean and dry 6. Alternate a full bath with partial baths for elderly 7. Apply lotion/moisturizer on skin 8. Monitor patient's hygiene practices 9. Float heels 10. Collaborate with interdisciplinary team and initiate plans and interventions as needed Outcome: Progressing Note: Evaluation of progress towards goal: Pt. Turns self Patient has barriers in place with cream being added to compromised areas. Pt. Educated on importance of getting out of bed, and moving. Problem: Moderate - High Risk Fall Score Description: Zhen Cole Score of =/> 25 or indicated by [facility] Assessment Goal: Patient should be free from fall Description: Interventions: 1. [place] to environment 2. Hourly rounds addressing the 4 P's (Pain, Positioning, Possessions, Potty) 3. Clear area of hazards (spills, clutter, electrical cords, unnecessary equipment) 4. Place equipment (bed & TV controls, call light, phone, urinal) within reach 5. Encourage patient to wear glasses and hearing aides as appropriate 6. Maintain bed in lowest position 7. Lock wheels on bed/wheelchair 8. Provide adequate lighting, including night light 9. Assess need for additional bedding, food/fluids, pain med's prior to sleep/routinely 10. Provide gripper slippers or personal non-skid footwear 11. Teach patient and patient retail service representative to maintain environment for safety and engage in all aspects of fall prevention program 12. Remind patient to call for help before getting out of bed 13. Initiate bed/chair/exit alarms supportive devices as appropriate, (chair wedge, no-skid floor mat, raised edge mattress, hip protectors) 14. Locate patient bed assignment for optimal visualization 15. Evaluate and identify Safe Patient Handling Equipment needs 16. Provide supervision when out of bed or chair 17. Utilize gait belt as needed to assist with ambulation 18. Place adaptive equipment (cane, walker) within reach 19. Request patient retail service representative bring adaptive equipment/mobility aids from home or obtain and provide as needed 20. Consult pharmacy regarding effects of med's affecting mobility, cognition, and alternatives 21. Obtain physician order for PT if risk factors associated with mobility are present 22. Obtain physician order for OT as appropriate 23. Utilize diversional activities 24. Educate patient and patient retail service representative how to maintain a safe environment during visitationtimes (notify nurse prior to leaving bedside) 25. Consider appropriateness of medical or non-medical device 26. Set up voiding schedule as appropriate (every 2 hours) Outcome: Progressing Note: Evaluation of progress towards goal: Side rails up X2, pt. Belongings and call light in reach, pts. Needs accessed during hourly rounds, Plan of care is ongoing. No further concerns as of present, pt. expresses no other needs at this time and has call light within reach if needed. * Plan of Care - Estrella Hui CNA - 07/05/2025 3:22 PM EST Problem: Pain Goal: Patient goal is pain score less than 4, able to rest, and participant in treatment plan as appropriate Description: INTERVENTIONS: 1. Encourage patient or legal retail service representative to report early pain and ask for pain medicine when needed 2. Assess pain using appropriate pain scale and include the scale used when documenting 3. Administer analgesics based on type and severity of pain and evaluate response within appropriate time frame 4. Implement non-pharmacological measures as appropriate and evaluate response 5. Consider cultural and social influences on pain and pain management 6. Notify LIP if interventions ineffective or patient reports new pain 7. Monitor vital signs including pulse ox, end-tidal CO2 based on pain intervention 8. Reassess pain per policy 9. Teach patient or legal retail service representative interventions for comforting Outcome: Progressing Note: Evaluation of progress towards goal: prn pain meds as needed to manage patient pain Problem: Safety Goal: Patient will be injury free during hospitalization Description: INTERVENTIONS: 1. Assess patient's risk for falls and implement fall prevention plan of care per policy 2. Provide and maintain a safe environment 3. Proper use of double Identifiers 4. Medication administration using the 5 rights 5. Hand hygiene 6. Specimens are labeled at the bedside 7. Instruct patient/ patient retail service representative about use of safety devices 8. Include patient/ patient retail service representative in decisions related to safety Outcome: Progressing Note: Evaluation of progress towards goal: bed in lowest position, call light in reach. * Discharge Planning Note - Baylee Ro RN - 07/05/2025 11:10 AM EST Ongoing Assessment for Discharge Needs Reviewed discharge milestones and patient needs related to discharge plan. Current estimated discharge date of Jul 06, 2025 has been reviewed by treatment team. Per RN during discharge rounds, barriers to discharge: pain control, IV antibiotics, drain Ongoing Assessment for Discharge Needs Flowsheet Row Most Recent Value Referral To Community Referrals / Resources Provided Denies needs Services Requested Patient expects to be discharged to: home w/HC Does the patient wish to have family/friend/caregiver involved in their discharge planning? No, thepatient does not wish to have family/friend/caregiver involved in their discharge planning Discharge Disposition Home with home health services Facility/Service Name [facility] Facility/Service Fax number [phone] Facility/Service Does the patient need discharge transportation arranged? No Patient choice offered Patient declined List Provided Patient declined Patient Declined Active with Provider DC Planning Complete Discharge Milestones Yes - BAYLEE RO RN 07/05/25 11:11 AM * Plan of Care - Alen Diggs RN - 07/04/2025 7:41 PM EST Problem: Pain Goal: Patient goal is pain score less than 4, able to rest, and participant in treatment plan as appropriate Description: INTERVENTIONS: 1. Encourage patient or legal retail service representative to report early pain and ask for pain medicine when needed 2. Assess pain using appropriate pain scale and include the scale used when documenting 3. Administer analgesics based on type and severity of pain and evaluate response within appropriate time frame 4. Implement non-pharmacological measures as appropriate and evaluate response 5. Consider cultural and social influences on pain and pain management 6. Notify LIP if interventions ineffective or patient reports new pain 7. Monitor vital signs including pulse ox, end-tidal CO2 based on pain intervention 8. Reassess pain per policy 9. Teach patient or legal retail service representative interventions for comforting Outcome: Progressing Note: Evaluation of progress towards goal: Pt. Is able to rate pain on a scale of 1-10. PRN meds are available. Plan of care is ongoing. No further concerns as of present, pt. expresses no other needs at this time and has call light within reach if needed. Problem: Safety Goal: Patient will be injury free during hospitalization Description: INTERVENTIONS: 1. Assess patient's risk for falls and implement fall prevention plan of care per policy 2. Provide and maintain a safe environment 3. Proper use of double Identifiers 4. Medication administration using the 5 rights 5. Hand hygiene 6. Specimens are labeled at the bedside 7. Instruct patient/ patient retail service representative about use of safety devices 8. Include patient/ patient retail service representative in decisions related to safety Outcome: Progressing Note: Evaluation of progress towards goal: Patient is in red with side rails up X2, personal belongings and call light within reach. Plan of care is ongoing. No further concerns as of present, pt. expresses no other needs at this time. Problem: Infection Goal: Absence of infection during hospitalization Description: INTERVENTIONS 1. Assess and monitor for signs and symptoms of infection. 2. Monitor lab/diagnostic results. 3. Monitor all insertion sites i.e., indwelling lines, tubes and drains. 4. Monitor endotracheal (as able) and nasal secretions for changes in amount and color. 5. Administer medications as ordered. 6. Instruct and encourage patient and family to use good hand hygiene technique. 7. Identify and instruct patient/patient retail service representative in use of appropriate isolation precautionsfor identified infection/symptoms. 8. Provide and discuss with patient/patient retail service representative on educational MDRO sheet. 9. Encourage and monitor nutritional status daily and consult cake inspector if indicated. 10. Implement neutropenic guidelines as needed. Outcome: Progressing Note: Evaluation of progress towards goal: Pt. Is afebrile and showing no signs of infection. Plan of care is ongoing. No further concerns as of present, pt. expresses no other needs at this time andhas call light within reach if needed. Problem: Knowledge Deficit Goal: Patient/patient retail service representative demonstrates understanding of disease process, treatment plan,medications, and discharge instructions Description: INTERVENTIONS 1. Complete learning assessment and assess knowledge base 2. Provide teaching at level of understanding 3. Provide teaching via preferred learning method(s) Outcome: Progressing Note: Evaluation of progress towards goal: Pt/retail service representative shows understanding of disease process, medication list, and discharge plan. Problem: Discharge Planning Goal: Discharge to post-acute care, other facility, or home with appropriate resources Description: Patient's goal is: INTERVENTIONS 1. Conduct assessment to determine patient/family and health care team treatment goals, and need for post-acute services based on payer coverage, community resources, and patient preferences, and barriers to discharge 2. Coordinate with Social work, Care Navigation, and Utilization Review to arrange appropriate level of services according to patient's needs based on patient preference and payer coverage in collaboration with the physician and health care team 3. Address psychosocial, clinical, and financial barriers to discharge as identified in assessment in conjunction with the patient/family and health care team 4. Consult appropriate ancillary services (i.e.. PT/OT/ST, etc) as needed 5. Communicate with and update the patient/family, physician, and health care team regarding progress on the discharge plan 6. Identify discharge learning needs (meds, wound care, etc). 7. Arrange for needed discharge transportation as appropriate Outcome: Progressing Note: Evaluation of progress towards goal: Pt. Verbalizes an understanding towards discharge goals,Plan of care is ongoing. No further concerns as of present, pt. expresses no other needs at this time and has call light within reach if needed. Problem: Glucose Imbalance Goal: Clinical indication of glucose balance is achieved Description: Patient's goal is: INTERVENTIONS 1. Monitor blood glucose levels as ordered 2. Administer medications as ordered 3. Notify physician of ineffective treatment plan Outcome: Progressing Note: Evaluation of progress towards goal: Pt. Sugar are checked three times with meals and nightlyat bedside, with insulin is ordered as needed. Problem: Potential for Compromised Skin Integrity Goal: Skin integrity is maintained or improved Description: Patient's goal is: INTERVENTIONS 1. Perform initial skin assessment on admission and as needed 2. Turn patient every 2 hours and PRN 3. Relieve pressure to bony prominences 4. Avoid shearing 5. Keep skin clean and dry 6. Alternate a full bath with partial baths for elderly 7. Apply lotion/moisturizer on skin 8. Monitor patient's hygiene practices 9. Float heels 10. Collaborate with interdisciplinary team and initiate plans and interventions as needed Outcome: Progressing Note: Evaluation of progress towards goal: Pt. Turns selfs. Patient has barriers in place with cream being added to compromised areas. Pt. Educated on importance of getting out of bed, and moving. Problem: Moderate - High Risk Fall Score Description: Zhen Cole Score of =/> 25 or indicated by [facility] Assessment Goal: Patient should be free from fall Description: Interventions: 1. [place] to environment 2. Hourly rounds addressing the 4 P's (Pain, Positioning, Possessions, Potty) 3. Clear area of hazards (spills, clutter, electrical cords, unnecessary equipment) 4. Place equipment (bed & TV controls, call light, phone, urinal) within reach 5. Encourage patient to wear glasses and hearing aides as appropriate 6. Maintain bed in lowest position 7. Lock wheels on bed/wheelchair 8. Provide adequate lighting, including night light 9. Assess need for additional bedding, food/fluids, pain med's prior to sleep/routinely 10. Provide gripper slippers or personal non-skid footwear 11. Teach patient and patient retail service representative to maintain environment for safety and engage in all aspects of fall prevention program 12. Remind patient to call for help before getting out of bed 13. Initiate bed/chair/exit alarms supportive devices as appropriate, (chair wedge, no-skid floor mat, raised edge mattress, hip protectors) 14. Locate patient bed assignment for optimal visualization 15. Evaluate and identify Safe Patient Handling Equipment needs 16. Provide supervision when out of bed or chair 17. Utilize gait belt as needed to assist with ambulation 18. Place adaptive equipment (cane, walker) within reach 19. Request patient retail service representative bring adaptive equipment/mobility aids from home or obtain and provide as needed 20. Consult pharmacy regarding effects of med's affecting mobility, cognition, and alternatives 21. Obtain physician order for PT if risk factors associated with mobility are present 22. Obtain physician order for OT as appropriate 23. Utilize diversional activities 24. Educate patient and patient retail service representative how to maintain a safe environment during visitationtimes (notify nurse prior to leaving bedside) 25. Consider appropriateness of medical or non-medical device 26. Set up voiding schedule as appropriate (every 2 hours) Outcome: Progressing Note: Evaluation of progress towards goal: Side rails up X2, pt. Belongings and call light in reach, pts. Needs accessed during hourly rounds, Plan of care is ongoing. No further concerns as of present, pt. expresses no other needs at this time and has call light within reach if needed. * Plan of Care - Estrella Hui CNA - 07/04/2025 4:50 PM EST Problem: Pain Goal: Patient goal is pain score less than 4, able to rest, and participant in treatment plan as appropriate Description: INTERVENTIONS: 1. Encourage patient or legal retail service representative to report early pain and ask for pain medicine when needed 2. Assess pain using appropriate pain scale and include the scale used when documenting 3. Administer analgesics based on type and severity of pain and evaluate response within appropriate time frame 4. Implement non-pharmacological measures as appropriate and evaluate response 5. Consider cultural and social influences on pain and pain management 6. Notify LIP if interventions ineffective or patient reports new pain 7. Monitor vital signs including pulse ox, end-tidal CO2 based on pain intervention 8. Reassess pain per policy 9. Teach patient or legal retail service representative interventions for comforting 07/04/20251648 by INDERJIT De La Rosa Outcome: Progressing Note: Evaluation of progress towards goal: prn pain meds as needed 07/04/20251646 by INDERJIT De La Rosa Outcome: Progressing Note: Evaluation of progress towards goal: prn pain meds as needed Problem: Safety Goal: Patient will be injury free during hospitalization Description: INTERVENTIONS: 1. Assess patient's risk for falls and implement fall prevention plan of care per policy 2. Provide and maintain a safe environment 3. Proper use of double Identifiers 4. Medication administration using the 5 rights 5. Hand hygiene 6. Specimens are labeled at the bedside 7. Instruct patient/ patient retail service representative about use of safety devices 8. Include patient/ patient retail service representative in decisions related to safety 07/04/20251648 by INDERJIT De La Rosa Outcome: Progressing Note: Evaluation of progress towards goal: hourly rounding, bed in lowest position, call light in reach. 07/04/20251646 by INDERJIT De La Rosa Outcome: Progressing Note: Evaluation of progress towards goal: hourly rounding, bed in lowest position, call light in reach. * Plan of Care - Estrella Hui CNA - 07/04/2025 4:47 PM EST Problem: Pain Goal: Patient goal is pain score less than 4, able to rest, and participant in treatment plan as appropriate Description: INTERVENTIONS: 1. Encourage patient or legal retail service representative to report early pain and ask for pain medicine when needed 2. Assess pain using appropriate pain scale and include the scale used when documenting 3. Administer analgesics based on type and severity of pain and evaluate response within appropriate time frame 4. Implement non-pharmacological measures as appropriate and evaluate response 5. Consider cultural and social influences on pain and pain management 6. Notify LIP if interventions ineffective or patient reports new pain 7. Monitor vital signs including pulse ox, end-tidal CO2 based on pain intervention 8. Reassess pain per policy 9. Teach patient or legal retail service representative interventions for comforting Outcome: Progressing Note: Evaluation of progress towards goal: prn pain meds as needed Problem: Safety Goal: Patient will be injury free during hospitalization Description: INTERVENTIONS: 1. Assess patient's risk for falls and implement fall prevention plan of care per policy 2. Provide and maintain a safe environment 3. Proper use of double Identifiers 4. Medication administration using the 5 rights 5. Hand hygiene 6. Specimens are labeled at the bedside 7. Instruct patient/ patient retail service representative about use of safety devices 8. Include patient/ patient retail service representative in decisions related to safety Outcome: Progressing Note: Evaluation of progress towards goal: hourly rounding, bed in lowest position, call light in reach. * Discharge Planning Note - Baylee Ro RN - 07/04/2025 11:28 AM EST Ongoing Assessment for Discharge Needs Reviewed discharge milestones and patient needs related to discharge plan. Current estimated discharge date of Jul 05, 2025 has been reviewed by treatment team. Per RN during discharge rounds, barriers to discharge: q4 hour neuro checks, pain control Ongoing Assessment for Discharge Needs Flowsheet Row Most Recent Value Referral To Community Referrals / Resources Provided Denies needs Services Requested Patient expects to be discharged to: home w/HC Does the patient wish to have family/friend/caregiver involved in their discharge planning? No, thepatient does not wish to have family/friend/caregiver involved in their discharge planning Discharge Disposition Home with home health services Facility/Service Name [facility] Facility/Service Fax number [phone] Facility/Service Does the patient need discharge transportation arranged? No Patient choice offered Patient declined List Provided Patient declined Patient Declined Active with Provider DC Planning Complete Discharge Milestones Yes - BAYLEE RO RN 07/04/25 11:28 AM * PT/OT/CARGO AND CONTAINER INSPECTOR - Denise Padgett OT/Yuriy - 07/04/2025 9:15 AM EST Occupational Therapy Evaluation Discharge Recommendations for Safe Patient Transition OT Discharge Disposition Recommendation: Home OT Home Recommendations: Intermittent caregiver support for: (for all areas of care as needed from family support) OT Therapy Recommendations: None Therapy Plan Need for skilled Occupational Therapy to address deficits in ADL independence and functional mobility due to a status decline resulting from admission on 06/28/25 from oncology office due to severe back pain. Pt has history of prostate cancer with bone mets. T lumbar spine: Widespread osseous metastasis, predominantly sclerotic, soft tissue within the right T12-L1 MRI thoracic without contrast: Diffuse osseous metastatic disease, partially visualized apparent disease progression at the L1 level, severe thecal sac stenosis at T12-L1 with ESCC grade 3 tumor, Additional progressive posterior epidural tumor at the T9 level, mild to moderate thecal sac stenosis at this level, Superimposed uniform thecal sac stenosis throughout the thoracic spine related to epidural lipomatosis MRI lumbar: progressive posterior epidural tumor dorsal to S1 and S2 vertebral bodies as well as atL5, progressive extraosseous soft tissue effacing T12-L1 and L1-L2 neural foramina. Moderate to severe thecal sac stenosis at the S1-S2 level MRI pelvis: Extensive osseous metastatic disease Pt underwent Laminectomy T12 and excision of intraspinal neoplasm on 07/03 - BRUNO drain in place Pt up walking in room and hallway with RW Pt lives at home with spouse and a son is staying with them to assist as needed. 6 Clicks: Daily Activity Putting on and taking off regular lower body clothing?: A lot Bathing (including washing, rinsing, drying)?: A little Toileting, which includes using toilet, bedpan or urinal?: A lot Putting on and taking off regular upper body clothing?: A little Taking care of personal grooming such as brushing teeth?: A little Eating meals?: None Scoring Daily Activity Raw Score: 17 [facility] G Code Modifier: CK Past Medical History: Diagnosis Date Arthritis Benign prostatic hyperplasia Benign prostatic hyperplasia with urinary retention 04/2023 Cancer ([facility]) prostate, uterer , bladder, bone Cholelithiasis Dental disease no teeth Diabetes mellitus type 2, controlled ([facility]) Difficult intravenous access GERD (gastroesophageal reflux disease) Hydronephrosis with renal and ureteral calculous obstruction 02/12/2023 Intractable back pain 06/17/2024 Left inguinal hernia Peptic ulceration 2002 Ulcer Umbilical hernia Urinary tract infection Past Surgical History: Procedure Laterality Date CYSTOSCOPY N/A 03/26/2023 Performed by Aristides Frost Jr., MD at [facility] CYSTOSCOPY BIPOLAR TRANSURETHRAL RESECTION PROSTATE N/A 06/04/2023 Performed by Aristides Frost Jr., MD at [facility] CYSTOSCOPY LITHOCLAST N/A 03/26/2023 Performed by Aristides Frost Jr., MD at [facility] LAMINECTOMY LUMBAR SINGLE LEVEL L1 N/A 06/17/2024 Performed by David Castañeda MD at [facility] L[facility] CYSTOSCOPY RESECTION PROSTATE N/A 06/04/2023 Performed by Aristides Frost Jr., MD at [facility] LEG SURGERY Left Circumferential 1987 2nd surgery in 1996 NEPHROSTOGRAM ANTEGRADE Left 03/26/2023 Performed by Aristides Frost Jr., MD at [facility] No chief complaint on file. OT Treatment/Interventions: ADL retraining, Functional transfer training, UE strengthening/ROM, Endurance training, Patient/family training, Balance, Bed mobility, Compensatory technique education, Functional activities OT Frequency: 4-5days/week OT Duration: LOS Assessment Patient Assessment Therapy Problem List: Decreased ADL status, Decreased balance, Decreased endurance, Decreased high-level ADLs, Decreased mobility, Decreased safe judgement during ADL, Decreased self-care trans, Decreased UE strength Patient Response to Treatment: Tolerated evaluation without adverse reaction Mood/Affect: Appropriate for circumstances Rehab Prognosis: Good Visit RN Communication: Yes Medical Record Reviewed: Yes OT Type of Visit: Evaluation Precautions Activity: early mobility pass Equipment: RW (defer gait belt due to bone mets in spine and ribs) Telemetry/Delinquency Prevention Officer: Yes Oxygen Used: room air Other: fall risk, spinal precautions, H/O nephro tube and BRUNO drain at surgical site, Lami T12 07/03/25 Pain Assessment Pain Assessment: 0-10 Pain Score: 6 Observed Behavior: Calm Pain Location: Back, Buttocks Pain Intervention(s): Repositioned, Ambulation/increased activity Response to Interventions: Pain unchanged (pain meds given prior to session) Pain 2 Observed Behavior: Calm Home Living Type of Home: Mobile home Home Layout: One level Stairs to Enter: ramp Bathroom Shower/Tub: Tub/shower unit (sponge bath due to difficulty stepping over tub side) Bathroom Toilet: Standard Bathroom Equipment: Shower chair, Grab bars in shower, Commode Home Equipment: Rolling walker, 4 Wheeled walker, Cane, Wheelchair-manual, Hospital bed Other : pt reports use of RW at all times, no falls recently Prior Function Lives With: Spouse, Son (a son has moved in to assist pt and spouse, spouse has history of CVA) Receives Help From: Family, Home health ([facility] RN) Level of Mobility: (spouse assist with ADL tasks as needed, use of RW at all times) Homemaking Assistance: (family completes) ADL / IADL Eating Assistance: Independent Grooming Assistance: Setup Bathing/Showering Assistance: Min assist Toilet/Commode Assistance: Total assist (brief soaked, changed brief in standing) UE Dressing Assistance: Setup LE Dressing Assistance: Mod assist Other: use of RW for mobility, assist to reach to foot level for ADL tasks, pt reports incontinenceat times - unaware of wet brief, total to change with pt standing Home Management - IADL Other: use of RW for mobility, assist to reach to foot level for ADL tasks, pt reports incontinenceat times - unaware of wet brief, total to change with pt standing Hearing / Speech / Vision Hearing: Within Functional Limits Speech: Delayed responses Cognition Overall Cognitive Status: (likely at baseline - cooperative and pleasant) Sensation Overall Sensation Status: Consistent with premorbid status (BLE) Bed Mobility Other: pt sitting at EOB at start and end of session Transfers Sit to Stand: Standby assist Stand to Sit: Standby assist Other: completed 4 STS with session, use of RW - good safety Gait Gait Assistance: Standby assist Assistive Device: Rolling walker Gait Distance: 100 feet x 2 with seated rest in sunroom Other: steady with RW Balance Sitting Balance: Static: Good Sitting Balance: Dynamic: Fair Standing Balance: Static: Fair Standing Balance: Dynamic: Fair Other: BUE support on RW RUE Assessment: Within Functional Limits LUE Assessment: Within Functional Limits Activity Tolerance Endurance: Tolerates <30 minutes activity WITHOUT vital sign changes Other: tolerated activity well Plan Occupational Therapy Care Plan Occupational Therapy Care Plan (Active) Template: OT - Occupational Therapy Problem: Activity Tolerance Dates: Start: 07/04/25 Disciplines: OT Goal: No limitations to activity tolerance Dates: Start: 12/08/25 Expected End: 07/25/25 Description: Goal Description: Disciplines: OT Problem: Bed Mobility Dates: Start: 07/04/25 Disciplines: OT Goal: Patient will perform bed mobility with Modified Brown Dates: Start: 07/04/25 Expected End: 07/25/25 Description: Goal Description: Disciplines: OT Problem: Functional Mobility Dates: Start: 07/04/25 Disciplines: OT Goal: Patient will perform functional mobility with Modified Brown Dates: Start: 07/04/25 Expected End: 07/25/25 Description: Goal Description: Disciplines: OT Problem: Other (Customize) Dates: Start: 07/04/25 Disciplines: OT Goal: Improve Dates: Start: 07/04/25 Expected End: 07/25/25 Description: Pt will complete all areas of ADL Tasks at Mod I with use of DME as needed and good safety awareness Disciplines: OT Problem: Sitting Balance Dates: Start: 07/04/25 Disciplines: OT Goal: Improve balance to normal Dates: Start: 07/04/25 Expected End: 07/25/25 Description: Static Dynamic Disciplines: OT Problem: Standing Balance Dates: Start: 07/04/25 Disciplines: OT Goal: Improve balance to normal Dates: Start: 07/04/25 Expected End: 07/25/25 Description: Static Dynamic Disciplines: OT Problem: Strength Dates: Start: 07/04/25 Disciplines: OT Goal: Improve strength Dates: Start: 07/04/25 Expected End: 07/25/25 Description: Pt will tolerate BUE HEP to progress stamina to care for self Disciplines: OT Problem: Transfers Dates: Start: 07/04/25 Disciplines: OT Goal: Patient will perform transfers with Modified Brown Dates: Start: 07/04/25 Expected End: 07/25/25 Description: Goal Description: Disciplines: OT Occupational Therapy Care Plan (Resolved) There are no resolved problems. 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 Encourage patient or legal retail service representative to report early pain and ask for pain medicine when needed 2. Assess pain using appropriate pain scale and include the scale used when documenting 3. Administer analgesics based on type and severity of pain and evaluate response within appropriate time frame 4. Implement non-pharmacological measures as appropriate and evaluate response 5. Consider cultural and social influences on pain and pain management 6. Notify LIP if interventions ineffective or patient reports new pain 7. Monitor vital signs including pulse ox, end-tidal CO2 based on pain intervention 8. Reassess pain per policy 9. Teach patient or legal retail service representative interventions for comforting Outcome: Progressing Note: Evaluation of progress towards goal: Pain is controlled with prn pain meds, resting comfortably Problem: Safety Goal: Patient will be injury free during hospitalization Description: INTERVENTIONS: 1. Assess patient's risk for falls and implement fall prevention plan of care per policy 2. Provide and maintain a safe environment 3. Proper use of double Identifiers 4. Medication administration using the 5 rights 5. Hand hygiene 6. Specimens are labeled at the bedside 7. Instruct patient/ patient retail service representative about use of safety devices 8. Include patient/ patient retail service representative in decisions related to safety Outcome: Progressing Note: Evaluation of progress towards goal: safety maintained, call light within reach, rounding done. Problem: Infection Goal: Absence of infection during hospitalization Description: INTERVENTIONS 1. Assess and monitor for signs and symptoms of infection. 2. Monitor lab/diagnostic results. 3. Monitor all insertion sites i.e., indwelling lines, tubes and drains. 4. Monitor endotracheal (as able) and nasal secretions for changes in amount and color. 5. Administer medications as ordered. 6. Instruct and encourage patient and family to use good hand hygiene technique. 7. Identify and instruct patient/patient retail service representative in use of appropriate isolation precautionsfor identified infection/symptoms. 8. Provide and discuss with patient/patient retail service representative on educational MDRO sheet. 9. Encourage and monitor nutritional status daily and consult cake inspector if indicated. 10. Implement neutropenic guidelines as needed. Outcome: Progressing Note: Evaluation of progress towards goal: No signs/symptoms of infection, afebrile, VSS, will continue to monitor Problem: Knowledge Deficit Goal: Patient/patient retail service representative demonstrates understanding of disease process, treatment plan,medications, and discharge instructions Description: INTERVENTIONS 1. Complete learning assessment and assess knowledge base 2. Provide teaching at level of understanding 3. Provide teaching via preferred learning method(s) Outcome: Progressing Note: Evaluation of progress towards goal: pt encouraged to ask questions, plan of care reviewed with pt, pt verbalized understnding Problem: Discharge Planning Goal: Discharge to post-acute care, other facility, or home with appropriate resources Description: Patient's goal is: INTERVENTIONS 1. Conduct assessment to determine patient/family and health care team treatment goals, and need for post-acute services based on payer coverage, community resources, and patient preferences, and barriers to discharge 2. Coordinate with Social work, Care Navigation, and Utilization Review to arrange appropriate level of services according to patient's needs based on patient preference and payer coverage in collaboration with the physician and health care team 3. Address psychosocial, clinical, and financial barriers to discharge as identified in assessment in conjunction with the patient/family and health care team 4. Consult appropriate ancillary services (i.e.. PT/OT/ST, etc) as needed 5. Communicate with and update the patient/family, physician, and health care team regarding progress on the discharge plan 6. Identify discharge learning needs (meds, wound care, etc). 7. Arrange for needed discharge transportation as appropriate Outcome: Progressing Note: Evaluation of progress towards goal: pt plans to discharge home Problem: Glucose Imbalance Goal: Clinical indication of glucose balance is achieved Description: Patient's goal is: INTERVENTIONS 1. Monitor blood glucose levels as ordered 2. Administer medications as ordered 3. Notify physician of ineffective treatment plan Outcome: Progressing Note: Evaluation of progress towards goal: Labs monitored daily, replacements given as needed. Goal: Patient's discharge needs are met Description: Patient's goal is: INTERVENTIONS 1. Assess patient for self-management skills 2. Encourage participation in diabetes management 3. Identify potential discharge barriers on admission and throughout hospital stay 4. Involve patient/S.O. in discharge planning process 5. Communicate referral to diabetic educator as appropriate 6. Communicate referral to cake inspector as appropriate 7. Collaborate with case management/pediatric social worker for discharge needs Outcome: Progressing Note: Evaluation of progress towards goal: pt plans to discharge home Problem: Potential for Compromised Skin Integrity Goal: Skin integrity is maintained or improved Description: Patient's goal is: INTERVENTIONS 1. Perform initial skin assessment on admission and as needed 2. Turn patient every 2 hours and PRN 3. Relieve pressure to bony prominences 4. Avoid shearing 5. Keep skin clean and dry 6. Alternate a full bath with partial baths for elderly 7. Apply lotion/moisturizer on skin 8. Monitor patient's hygiene practices 9. Float heels 10. Collaborate with interdisciplinary team and initiate plans and interventions as needed Outcome: Progressing Note: Evaluation of progress towards goal: No new skin breakdown,will continue to monitor Goal: Patient's nutritional intake is adequate Description: Patient's goal is: INTERVENTIONS 1. Assess and monitor food intake and supplements, patient food preferences, nausea, vomiting, labs, oral cavity (gums, teeth, tongue, mucosa), proper denture fit, and cultural beliefs 2. Monitor for signs of hypoglycemia and hyperglycemia 3. Collaborate with interdisciplinary team and initiate plan and interventions as ordered 4. Monitor patient's weight 5. Assist patient with meals/food selection 6. Assist patient with eating 7. Allow adequate time for meals 8. Provide pleasant environment during mealtime 9. Increase social contact during mealtimes 10. Plan activities to conserve energy 11. Encourage/perform oral hygiene as appropriate 12. Encourage patient to take dietary supplement as ordered 13. Collaborate with clinical cake inspector 14. Include patient/ patient's retail service representative in decisions related to nutrition Outcome: Progressing Note: Evaluation of progress towards goal: Pt tolerating regular diet, intake wnl. Problem: Urinary Incontinence Goal: Perineal skin integrity is maintained or improved Description: INTERVENTIONS 1. Assess genitourinary system, perineal skin, labs (urinalysis), and history of incontinence to include past management, aggravating, and alleviating factors 2. Keep skin clean and dry 3. Apply skin protectant 4. Develop skin care regimen 5. Provide privacy when changing patients incontinence device to maintain their dignity 6. Consider placing an indwelling catheter 7. Collaborate with interdisciplinary team and initiate plans and interventions as needed Outcome: Progressing Note: Evaluation of progress towards goal: No new skin breakdown,will continue to monitor Problem: Moderate - High Risk Fall Score Description: Zhen Cole Score of =/> 25 or indicated by [facility] Assessment Goal: Patient should be free from fall Description: Interventions: 1. [place] to environment 2. Hourly rounds addressing the 4 P's (Pain, Positioning, Possessions, Potty) 3. Clear area of hazards (spills, clutter, electrical cords, unnecessary equipment) 4. Place equipment (bed & TV controls, call light, phone, urinal) within reach 5. Encourage patient to wear glasses and hearing aides as appropriate 6. Maintain bed in lowest position 7. Lock wheels on bed/wheelchair 8. Provide adequate lighting, including night light 9. Assess need for additional bedding, food/fluids, pain med's prior to sleep/routinely 10. Provide gripper slippers or personal non-skid footwear 11. Teach patient and patient retail service representative to maintain environment for safety and engage in all aspects of fall prevention program 12. Remind patient to call for help before getting out of bed 13. Initiate bed/chair/exit alarms supportive devices as appropriate, (chair wedge, no-skid floor mat, raised edge mattress, hip protectors) 14. Locate patient bed assignment for optimal visualization 15. Evaluate and identify Safe Patient Handling Equipment needs 16. Provide supervision when out of bed or chair 17. Utilize gait belt as needed to assist with ambulation 18. Place adaptive equipment (cane, walker) within reach 19. Request patient retail service representative bring adaptive equipment/mobility aids from home or obtain and provide as needed 20. Consult pharmacy regarding effects of med's affecting mobility, cognition, and alternatives 21. Obtain physician order for PT if risk factors associated with mobility are present 22. Obtain physician order for OT as appropriate 23. Utilize diversional activities 24. Educate patient and patient retail service representative how to maintain a safe environment during visitationtimes (notify nurse prior to leaving bedside) 25. Consider appropriateness of medical or non-medical device 26. 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 MRI demonstrated diffuse osseous metastasis and epidural spread at T12 (ESCC grade 3) with significant spinal cord compression. When I saw the patient he could not lay flat and was visibly distress and in tears. Thoracic laminectomy was offered as way to prevent spinal cord injury and bladder dysfunction. Risks were reviewed. He elected to proceed and signed the consent. Detailed Description of Operative Note: After induction of general anesthesia, the patient was positioned prone on the table. His back was prepped and draped in sterile fashion. A safety pause was completed and answered. He received antibiotic prophylaxis. Intraoperative fluoroscope was utilized to identify the correct junction and a midline incision was marked on his back. Sharp incision was made with a scalpel. Subperiosteal dissection was completed with Bovie and Boggs elevators. Serous epidural fluid that was evident on the MRI was evacuated with suction. Retractor was placed. The spinous process of T12 was removed. Bilateral laminectomy was then completed at T12 with a high-speed drill and Kerrison punches. Once the ligamentum was removed, hemorrhagic epidural tumor that was plastered on dura was evident. Small, blunt tip nerve hooks were used to separate the tumor from the underlying dura. Tumor in the lateral recesses was also evacuated with gentle manipulation using probes. I then confirmed with a [place] that there was no residual thecal sac compression. There was no evidence of dural breach or leak. Epidural venous bleeding was controlled with Gelfoam soaked in thrombin. Hemostasis was confirmed. A drain was placed in the epidural space and tunneled. The cavity was irrigated with antibiotic infused saline. The incision was then closed in standard layered fashion and dressed. Specimens were sent to pathologyfor analysis. The patient was awakened, extubated, and transported to the recovery room with stablevital signs. Complications: None apparent. * Brief Op Note - Milton Spain MD - 07/03/2025 11:49 AM EST Brief Post-op Note NAME: Sunil Best : 1960 PROCEDURE DATE: 07/03/2025 Surgeon: Surgeons and Role: * Milton Spain MD - Primary Assistants: None Staff: Dental Instructor Primary: Tawanna Steele RN Rig Mechanic: Ann Banks Dental Instructor Relief: Jaqueline Guzman RN Scrub Relief: Erendira Bangura CST Scrub Person: ST Jesús Pre-op Diagnosis: METASTATIC MALINGNANCY Procedure Details: Procedure(s): LAMINECTOMY THORACIC SINGLE LEVEL T12 - Wound Class: Clean Anesthesia Type: General * No Diagnosis Codes entered * Complications: none Additions (Drains, Specimens, Implants): Drains: Closed/Suction Drain 07/03/25 1 Midline Back Bulb (Active) Site Assessment Sutured 07/03/25 1320 Drain Securement Sutured 07/03/25 1320 Dressing Type Open to air (none) 07/03/25 1320 Output (mL) 10 mL 07/03/25 1320 Nephrostomy 06/20/25 Left (Active) Treatment Irrigation 06/30/25 0800 Site Assessment Clean;Intact;Dry 07/03/25 1320 Dressing Type Dry dressing 07/03/25 1320 Dressing Status Clean;Dry;Intact 07/03/25 1320 Dressing Intervention Initial dressing 07/03/25 0800 Collection Container Standard drainage bag/container 07/03/25 0800 Securement Method Sutured 07/03/25 0800 Urine Color Yellow/straw 07/03/25 0800 Urine Appearance Clear 07/03/25 0800 Output (mL) 0 mL 06/30/25 1327 Specimens: ID Type Source Tests Collected by Time A : epidural tumor Tissue Back SURGICAL PATHOLOGY Milton Spain MD 07/03/2025 1240 Estimated Blood Loss: * No values recorded between 07/03/2025 11:49 AM and 07/03/2025 1:15 PM * OB Surgical Procedure Blood Loss: Anesthesia EBL: * No values recorded between 07/03/2025 11:49 AM and 07/03/2025 1:15 PM * OB QBL: * No values recorded between 07/03/2025 11:49 AM and 07/03/2025 1:15 PM * Condition: stable Findings: epidural metastasis with spinal cord compression Evidence of infection was not visualized at time of surgery. * Plan of Care - Arely Spann RN - 07/03/2025 8:14 AM EST Problem: Pain Goal: Patient goal is pain score less than 4, able to rest, and participant in treatment plan as appropriate Description: INTERVENTIONS: 1. Encourage patient or legal retail service representative to report early pain and ask for pain medicine when needed 2. Assess pain using appropriate pain scale and include the scale used when documenting 3. Administer analgesics based on type and severity of pain and evaluate response within appropriate time frame 4. Implement non-pharmacological measures as appropriate and evaluate response 5. Consider cultural and social influences on pain and pain management 6. Notify LIP if interventions ineffective or patient reports new pain 7. Monitor vital signs including pulse ox, end-tidal CO2 based on pain intervention 8. Reassess pain per policy 9. Teach patient or legal retail service representative interventions for comforting Outcome: Progressing Note: Evaluation of progress towards goal: Pt encouraged to report pain early. VS monitored. PRN pain meds given per order. Problem: Safety Goal: Patient will be injury free during hospitalization Description: INTERVENTIONS: 1. Assess patient's risk for falls and implement fall prevention plan of care per policy 2. Provide and maintain a safe environment 3. Proper use of double Identifiers 4. Medication administration using the 5 rights 5. Hand hygiene 6. Specimens are labeled at the bedside 7. Instruct patient/ patient retail service representative about use of safety devices 8. Include patient/ patient retail service representative in decisions related to safety Outcome: Progressing Note: Evaluation of progress towards goal: Fall signs posted. Hourly rounding performed. Standard precautions performed. * PT/OT/CARGO AND CONTAINER INSPECTOR - Erika Macias PT - 07/03/2025 7:19 AM EST Physical Therapy PT Type of Visit: Medical deferral Reason For Medical Deferral: Activity limitations Plans for [place] today. Will hold and check on post op as able. * PT/OT/CARGO AND CONTAINER INSPECTOR - Denise Padgett OT/L - 07/03/2025 7:02 AM EST Occupational Therapy OT Type of Visit: (P) Medical deferral Reason For Medical Deferral: (P) Activity limitations (plan for [facility] today per EMR) * Plan of Care - Alen Diggs RN - 07/02/2025 8:28 PM EST Problem: Pain Goal: Patient goal is pain score less than 4, able to rest, and participant in treatment plan as appropriate Description: INTERVENTIONS: 1. Encourage patient or legal retail service representative to report early pain and ask for pain medicine when needed 2. Assess pain using appropriate pain scale and include the scale used when documenting 3. Administer analgesics based on type and severity of pain and evaluate response within appropriate time frame 4. Implement non-pharmacological measures as appropriate and evaluate response 5. Consider cultural and social influences on pain and pain management 6. Notify LIP if interventions ineffective or patient reports new pain 7. Monitor vital signs including pulse ox, end-tidal CO2 based on pain intervention 8. Reassess pain per policy 9. Teach patient or legal retail service representative interventions for comforting Outcome: Progressing Note: Evaluation of progress towards goal: Pt. Is able to rate pain on a scale of 1-10. PRN meds are available. Plan of care is ongoing. No further concerns as of present, pt. expresses no other needs at this time and has call light within reach if needed. Problem: Safety Goal: Patient will be injury free during hospitalization Description: INTERVENTIONS: 1. Assess patient's risk for falls and implement fall prevention plan of care per policy 2. Provide and maintain a safe environment 3. Proper use of double Identifiers 4. Medication administration using the 5 rights 5. Hand hygiene 6. Specimens are labeled at the bedside 7. Instruct patient/ patient retail service representative about use of safety devices 8. Include patient/ patient retail service representative in decisions related to safety Outcome: Progressing Note: Evaluation of progress towards goal: Patient is in red with side rails up X2, personal belongings and call light within reach. Plan of care is ongoing. No further concerns as of present, pt. expresses no other needs at this time. Problem: Infection Goal: Absence of infection during hospitalization Description: INTERVENTIONS 1. Assess and monitor for signs and symptoms of infection. 2. Monitor lab/diagnostic results. 3. Monitor all insertion sites i.e., indwelling lines, tubes and drains. 4. Monitor endotracheal (as able) and nasal secretions for changes in amount and color. 5. Administer medications as ordered. 6. Instruct and encourage patient and family to use good hand hygiene technique. 7. Identify and instruct patient/patient retail service representative in use of appropriate isolation precautionsfor identified infection/symptoms. 8. Provide and discuss with patient/patient retail service representative on educational MDRO sheet. 9. Encourage and monitor nutritional status daily and consult cake inspector if indicated. 10. Implement neutropenic guidelines as needed. Outcome: Progressing Note: Evaluation of progress towards goal: Pt. Is afebrile and showing no signs of infection. Plan of care is ongoing. No further concerns as of present, pt. expresses no other needs at this time andhas call light within reach if needed. Problem: Knowledge Deficit Goal: Patient/patient retail service representative demonstrates understanding of disease process, treatment plan,medications, and discharge instructions Description: INTERVENTIONS 1. Complete learning assessment and assess knowledge base 2. Provide teaching at level of understanding 3. Provide teaching via preferred learning method(s) Outcome: Progressing Note: Evaluation of progress towards goal: Pt/retail service representative shows understanding of disease process, medication list, and discharge plan. Problem: Discharge Planning Goal: Discharge to post-acute care, other facility, or home with appropriate resources Description: Patient's goal is: INTERVENTIONS 1. Conduct assessment to determine patient/family and health care team treatment goals, and need for post-acute services based on payer coverage, community resources, and patient preferences, and barriers to discharge 2. Coordinate with Social work, Care Navigation, and Utilization Review to arrange appropriate level of services according to patient's needs based on patient preference and payer coverage in collaboration with the physician and health care team 3. Address psychosocial, clinical, and financial barriers to discharge as identified in assessment in conjunction with the patient/family and health care team 4. Consult appropriate ancillary services (i.e.. PT/OT/ST, etc) as needed 5. Communicate with and update the patient/family, physician, and health care team regarding progress on the discharge plan 6. Identify discharge learning needs (meds, wound care, etc). 7. Arrange for needed discharge transportation as appropriate Outcome: Progressing Note: Evaluation of progress towards goal: Pt. Verbalizes an understanding towards discharge goals,Plan of care is ongoing. No further concerns as of present, pt. expresses no other needs at this time and has call light within reach if needed. Problem: Glucose Imbalance Goal: Clinical indication of glucose balance is achieved Description: Patient's goal is: INTERVENTIONS 1. Monitor blood glucose levels as ordered 2. Administer medications as ordered 3. Notify physician of ineffective treatment plan Outcome: Progressing Note: Evaluation of progress towards goal: Pt. Sugar are checked three times with meals and nightlyat bedside, with insulin is ordered as needed. Problem: Potential for Compromised Skin Integrity Goal: Skin integrity is maintained or improved Description: Patient's goal is: INTERVENTIONS 1. Perform initial skin assessment on admission and as needed 2. Turn patient every 2 hours and PRN 3. Relieve pressure to bony prominences 4. Avoid shearing 5. Keep skin clean and dry 6. Alternate a full bath with partial baths for elderly 7. Apply lotion/moisturizer on skin 8. Monitor patient's hygiene practices 9. Float heels 10. Collaborate with interdisciplinary team and initiate plans and interventions as needed Outcome: Progressing Note: Evaluation of progress towards goal: Pt. Turns self. Patient has barriers in place with creambeing added to compromised areas. Pt. Educated on importance of getting out of bed, and moving. Problem: Moderate - High Risk Fall Score Description: Zhen Cole Score of =/> 25 or indicated by [facility] Assessment Goal: Patient should be free from fall Description: Interventions: 1. [place] to environment 2. Hourly rounds addressing the 4 P's (Pain, Positioning, Possessions, Potty) 3. Clear area of hazards (spills, clutter, electrical cords, unnecessary equipment) 4. Place equipment (bed & TV controls, call light, phone, urinal) within reach 5. Encourage patient to wear glasses and hearing aides as appropriate 6. Maintain bed in lowest position 7. Lock wheels on bed/wheelchair 8. Provide adequate lighting, including night light 9. Assess need for additional bedding, food/fluids, pain med's prior to sleep/routinely 10. Provide gripper slippers or personal non-skid footwear 11. Teach patient and patient retail service representative to maintain environment for safety and engage in all aspects of fall prevention program 12. Remind patient to call for help before getting out of bed 13. Initiate bed/chair/exit alarms supportive devices as appropriate, (chair wedge, no-skid floor mat, raised edge mattress, hip protectors) 14. Locate patient bed assignment for optimal visualization 15. Evaluate and identify Safe Patient Handling Equipment needs 16. Provide supervision when out of bed or chair 17. Utilize gait belt as needed to assist with ambulation 18. Place adaptive equipment (cane, walker) within reach 19. Request patient retail service representative bring adaptive equipment/mobility aids from home or obtain and provide as needed 20. Consult pharmacy regarding effects of med's affecting mobility, cognition, and alternatives 21. Obtain physician order for PT if risk factors associated with mobility are present 22. Obtain physician order for OT as appropriate 23. Utilize diversional activities 24. Educate patient and patient retail service representative how to maintain a safe environment during visitationtimes (notify nurse prior to leaving bedside) 25. Consider appropriateness of medical or non-medical device 26. Set up voiding schedule as appropriate (every 2 hours) Outcome: Progressing Note: Evaluation of progress towards goal: Side rails up X2, pt. Belongings and call light in reach, pts. Needs accessed during hourly rounds, Plan of care is ongoing. No further concerns as of present, pt. expresses no other needs at this time and has call light within reach if needed. * Plan of Care - Areyl Spann RN - 07/02/2025 11:53 AM EST Problem: Pain Goal: Patient goal is pain score less than 4, able to rest, and participant in treatment plan as appropriate Description: INTERVENTIONS: 1. Encourage patient or legal retail service representative to report early pain and ask for pain medicine when needed 2. Assess pain using appropriate pain scale and include the scale used when documenting 3. Administer analgesics based on type and severity of pain and evaluate response within appropriate time frame 4. Implement non-pharmacological measures as appropriate and evaluate response 5. Consider cultural and social influences on pain and pain management 6. Notify LIP if interventions ineffective or patient reports new pain 7. Monitor vital signs including pulse ox, end-tidal CO2 based on pain intervention 8. Reassess pain per policy 9. Teach patient or legal retail service representative interventions for comforting Outcome: Progressing Note: Evaluation of progress towards goal: Pt encouraged to report pain early. VS monitored. PRN pain meds given per order. * PT/OT/CARGO AND CONTAINER INSPECTOR - Erika Macias PT - 07/02/2025 7:11 AM EST Physical Therapy PT Type of Visit: Medical deferral Reason For Medical Deferral: Activity limitations Pt will go for T12 laminectomy on Friday with Dr. Spain. Must get at Minimum Lumbar MRI completedprior to Friday. * PT/OT/CARGO AND CONTAINER INSPECTOR - Denise Padgett OT/L - 07/02/2025 7:00 AM EST Occupational Therapy OT Type of Visit: (P) Medical deferral Reason For Medical Deferral: (P) Activity limitations, Provider input needed, Imaging results pending (Patient will go for T12 laminectomy on Friday with Dr. Spain. MUST GET AT MINIMUM LUMBAR MRI COMPLETED PRIOR TO FRIDAY) * Plan of Care - Alen Diggs RN - 07/01/2025 7:54 PM EST Problem: Pain Goal: Patient goal is pain score less than 4, able to rest, and participant in treatment plan as appropriate Description: INTERVENTIONS: 1. Encourage patient or legal retail service representative to report early pain and ask for pain medicine when needed 2. Assess pain using appropriate pain scale and include the scale used when documenting 3. Administer analgesics based on type and severity of pain and evaluate response within appropriate time frame 4. Implement non-pharmacological measures as appropriate and evaluate response 5. Consider cultural and social influences on pain and pain management 6. Notify LIP if interventions ineffective or patient reports new pain 7. Monitor vital signs including pulse ox, end-tidal CO2 based on pain intervention 8. Reassess pain per policy 9. Teach patient or legal retail service representative interventions for comforting Outcome: Progressing Note: Evaluation of progress towards goal: Pt. Is able to rate pain on a scale of 1-10. PRN meds are available. Plan of care is ongoing. No further concerns as of present, pt. expresses no other needs at this time and has call light within reach if needed. Problem: Safety Goal: Patient will be injury free during hospitalization Description: INTERVENTIONS: 1. Assess patient's risk for falls and implement fall prevention plan of care per policy 2. Provide and maintain a safe environment 3. Proper use of double Identifiers 4. Medication administration using the 5 rights 5. Hand hygiene 6. Specimens are labeled at the bedside 7. Instruct patient/ patient retail service representative about use of safety devices 8. Include patient/ patient retail service representative in decisions related to safety Outcome: Progressing Note: Evaluation of progress towards goal: Patient is in red with side rails up X2, personal belongings and call light within reach. Plan of care is ongoing. No further concerns as of present, pt. expresses no other needs at this time. Problem: Infection Goal: Absence of infection during hospitalization Description: INTERVENTIONS 1. Assess and monitor for signs and symptoms of infection. 2. Monitor lab/diagnostic results. 3. Monitor all insertion sites i.e., indwelling lines, tubes and drains. 4. Monitor endotracheal (as able) and nasal secretions for changes in amount and color. 5. Administer medications as ordered. 6. Instruct and encourage patient and family to use good hand hygiene technique. 7. Identify and instruct patient/patient retail service representative in use of appropriate isolation precautionsfor identified infection/symptoms. 8. Provide and discuss with patient/patient retail service representative on educational MDRO sheet. 9. Encourage and monitor nutritional status daily and consult cake inspector if indicated. 10. Implement neutropenic guidelines as needed. Outcome: Progressing Note: Evaluation of progress towards goal: Pt. Is afebrile and showing no signs of infection. Plan of care is ongoing. No further concerns as of present, pt. expresses no other needs at this time andhas call light within reach if needed. Problem: Knowledge Deficit Goal: Patient/patient retail service representative demonstrates understanding of disease process, treatment plan,medications, and discharge instructions Description: INTERVENTIONS 1. Complete learning assessment and assess knowledge base 2. Provide teaching at level of understanding 3. Provide teaching via preferred learning method(s) Outcome: Progressing Note: Evaluation of progress towards goal: Pt/retail service representative shows understanding of disease process, medication list, and discharge plan. Problem: Discharge Planning Goal: Discharge to post-acute care, other facility, or home with appropriate resources Description: Patient's goal is: INTERVENTIONS 1. Conduct assessment to determine patient/family and health care team treatment goals, and need for post-acute services based on payer coverage, community resources, and patient preferences, and barriers to discharge 2. Coordinate with Social work, Care Navigation, and Utilization Review to arrange appropriate level of services according to patient's needs based on patient preference and payer coverage in collaboration with the physician and health care team 3. Address psychosocial, clinical, and financial barriers to discharge as identified in assessment in conjunction with the patient/family and health care team 4. Consult appropriate ancillary services (i.e.. PT/OT/ST, etc) as needed 5. Communicate with and update the patient/family, physician, and health care team regarding progress on the discharge plan 6. Identify discharge learning needs (meds, wound care, etc). 7. Arrange for needed discharge transportation as appropriate Outcome: Progressing Note: Evaluation of progress towards goal: Pt. Verbalizes an understanding towards discharge goals,Plan of care is ongoing. No further concerns as of present, pt. expresses no other needs at this time and has call light within reach if needed. Problem: Glucose Imbalance Goal: Clinical indication of glucose balance is achieved Description: Patient's goal is: INTERVENTIONS 1. Monitor blood glucose levels as ordered 2. Administer medications as ordered 3. Notify physician of ineffective treatment plan Outcome: Progressing Note: Evaluation of progress towards goal: Pt. Sugar are checked three times with meals and nightlyat bedside, with insulin is ordered as needed. Goal: Patient's discharge needs are met Description: Patient's goal is: INTERVENTIONS 1. Assess patient for self-management skills 2. Encourage participation in diabetes management 3. Identify potential discharge barriers on admission and throughout hospital stay 4. Involve patient/S.O. in discharge planning process 5. Communicate referral to diabetic educator as appropriate 6. Communicate referral to cake inspector as appropriate 7. Collaborate with case management/pediatric social worker for discharge needs Outcome: Progressing Note: Evaluation of progress towards goal: Pt. Verbalizes an understanding towards discharge goals,Plan of care is ongoing. No further concerns as of present, pt. expresses no other needs at this time and has call light within reach if needed. Problem: Potential for Compromised Skin Integrity Goal: Skin integrity is maintained or improved Description: Patient's goal is: INTERVENTIONS 1. Perform initial skin assessment on admission and as needed 2. Turn patient every 2 hours and PRN 3. Relieve pressure to bony prominences 4. Avoid shearing 5. Keep skin clean and dry 6. Alternate a full bath with partial baths for elderly 7. Apply lotion/moisturizer on skin 8. Monitor patient's hygiene practices 9. Float heels 10. Collaborate with interdisciplinary team and initiate plans and interventions as needed Outcome: Progressing Note: Evaluation of progress towards goal: Pt. Turns self. Patient has barriers in place with creambeing added to compromised areas. Pt. Educated on importance of getting out of bed, and moving. Goal: Patient's nutritional intake is adequate Description: Patient's goal is: INTERVENTIONS 1. Assess and monitor food intake and supplements, patient food preferences, nausea, vomiting, labs, oral cavity (gums, teeth, tongue, mucosa), proper denture fit, and cultural beliefs 2. Monitor for signs of hypoglycemia and hyperglycemia 3. Collaborate with interdisciplinary team and initiate plan and interventions as ordered 4. Monitor patient's weight 5. Assist patient with meals/food selection 6. Assist patient with eating 7. Allow adequate time for meals 8. Provide pleasant environment during mealtime 9. Increase social contact during mealtimes 10. Plan activities to conserve energy 11. Encourage/perform oral hygiene as appropriate 12. Encourage patient to take dietary supplement as ordered 13. Collaborate with clinical cake inspector 14. Include patient/ patient's retail service representative in decisions related to nutrition Outcome: Progressing Note: Evaluation of progress towards goal: adequate Problem: Urinary Incontinence Goal: Perineal skin integrity is maintained or improved Description: INTERVENTIONS 1. Assess genitourinary system, perineal skin, labs (urinalysis), and history of incontinence to include past management, aggravating, and alleviating factors 2. Keep skin clean and dry 3. Apply skin protectant 4. Develop skin care regimen 5. Provide privacy when changing patients incontinence device to maintain their dignity 6. Consider placing an indwelling catheter 7. Collaborate with interdisciplinary team and initiate plans and interventions as needed Outcome: Progressing Note: Evaluation of progress towards goal: skin maintained Problem: Moderate - High Risk Fall Score Description: Zhen Cole Score of =/> 25 or indicated by [facility] Assessment Goal: Patient should be free from fall Description: Interventions: 1. [place] to environment 2. Hourly rounds addressing the 4 P's (Pain, Positioning, Possessions, Potty) 3. Clear area of hazards (spills, clutter, electrical cords, unnecessary equipment) 4. Place equipment (bed & TV controls, call light, phone, urinal) within reach 5. Encourage patient to wear glasses and hearing aides as appropriate 6. Maintain bed in lowest position 7. Lock wheels on bed/wheelchair 8. Provide adequate lighting, including night light 9. Assess need for additional bedding, food/fluids, pain med's prior to sleep/routinely 10. Provide gripper slippers or personal non-skid footwear 11. Teach patient and patient retail service representative to maintain environment for safety and engage in all aspects of fall prevention program 12. Remind patient to call for help before getting out of bed 13. Initiate bed/chair/exit alarms supportive devices as appropriate, (chair wedge, no-skid floor mat, raised edge mattress, hip protectors) 14. Locate patient bed assignment for optimal visualization 15. Evaluate and identify Safe Patient Handling Equipment needs 16. Provide supervision when out of bed or chair 17. Utilize gait belt as needed to assist with ambulation 18. Place adaptive equipment (cane, walker) within reach 19. Request patient retail service representative bring adaptive equipment/mobility aids from home or obtain and provide as needed 20. Consult pharmacy regarding effects of med's affecting mobility, cognition, and alternatives 21. Obtain physician order for PT if risk factors associated with mobility are present 22. Obtain physician order for OT as appropriate 23. Utilize diversional activities 24. Educate patient and patient retail service representative how to maintain a safe environment during visitationtimes (notify nurse prior to leaving bedside) 25. Consider appropriateness of medical or non-medical device 26. Set up voiding schedule as appropriate (every 2 hours) Outcome: Progressing Note: Evaluation of progress towards goal: Side rails up X2, pt. Belongings and call light in reach, pts. Needs accessed during hourly rounds, Plan of care is ongoing. No further concerns as of present, pt. expresses no other needs at this time and has call light within reach if needed. * Plan of Care - Kamala Berrios RN - 07/01/2025 5:42 PM EST Problem: Pain Goal: Patient goal is pain score less than 4, able to rest, and participant in treatment plan as appropriate Description: INTERVENTIONS: 1. Encourage patient or legal retail service representative to report early pain and ask for pain medicine when needed 2. Assess pain using appropriate pain scale and include the scale used when documenting 3. Administer analgesics based on type and severity of pain and evaluate response within appropriate time frame 4. Implement non-pharmacological measures as appropriate and evaluate response 5. Consider cultural and social influences on pain and pain management 6. Notify LIP if interventions ineffective or patient reports new pain 7. Monitor vital signs including pulse ox, end-tidal CO2 based on pain intervention 8. Reassess pain per policy 9. Teach patient or legal retail service representative interventions for comforting Outcome: Progressing Note: Evaluation of progress towards goal: Patient states pain controlled with prn pain medication. * PT/OT/CARGO AND CONTAINER INSPECTOR - NKECHI Deal - 07/01/2025 12:17 PM EST Occupational Therapy OT Type of Visit: (P) Medical deferral Reason For Medical Deferral: (P) Activity limitations (awaiting further imaging and neurosurg plan prior to further activity) * Discharge Planning Note - Melissa Ash RN - 07/01/2025 10:21 AM EST Ongoing Assessment for Discharge Needs Reviewed discharge milestones and patient needs related to discharge plan. Current estimated discharge date of Jul 04, 2025 has been reviewed by treatment team. Case discussed in daily transition rounds and chart reviewed by CN. Barriers to discharge include needs MRI and neurosurgery plan, pain control, PT/OT evaluations following MRI results Discharge Plan remains: home with resumption of home care CN will continue to follow and is available should any further needs arise. Ongoing Assessment for Discharge Needs Flowsheet Row Most Recent Value Referral To Community Referrals / Resources Provided Denies needs Services Requested Patient expects to be discharged to: home w/HC Does the patient wish to have family/friend/caregiver involved in their discharge planning? No, thepatient does not wish to have family/friend/caregiver involved in their discharge planning Discharge Disposition Home with home health services Facility/Service Name [facility] Facility/Service Fax number [phone] Facility/Service Does the patient need discharge transportation arranged? No Patient choice offered Patient declined List Provided Patient declined Patient Declined Active with Provider DC Planning Complete Discharge Milestones Yes - Melissa Ash RN 07/01/25 10:24 AM * PT/OT/CARGO AND CONTAINER INSPECTOR - Erika Macias PT - 07/01/2025 8:32 AM EST Physical Therapy PT Type of Visit: Medical deferral Pt has pending MRIs and pending neuro surg consult. Will hold eval at this time. * Plan of Care - Isaac Monterroso RN - 06/30/2025 10:14 PM EST Problem: Pain Goal: Patient goal is pain score less than 4, able to rest, and participant in treatment plan as appropriate Description: INTERVENTIONS: 1. Encourage patient or legal retail service representative to report early pain and ask for pain medicine when needed 2. Assess pain using appropriate pain scale and include the scale used when documenting 3. Administer analgesics based on type and severity of pain and evaluate response within appropriate time frame 4. Implement non-pharmacological measures as appropriate and evaluate response 5. Consider cultural and social influences on pain and pain management 6. Notify LIP if interventions ineffective or patient reports new pain 7. Monitor vital signs including pulse ox, end-tidal CO2 based on pain intervention 8. Reassess pain per policy 9. Teach patient or legal retail service representative interventions for comforting Outcome: Progressing Note: Evaluation of progress towards goal: Pt educated on pain medication. Pt able to verbalize pain based on numeric pain scale. PRN medications available on pt request. Problem: Safety Goal: Patient will be injury free during hospitalization Description: INTERVENTIONS: 1. Assess patient's risk for falls and implement fall prevention plan of care per policy 2. Provide and maintain a safe environment 3. Proper use of double Identifiers 4. Medication administration using the 5 rights 5. Hand hygiene 6. Specimens are labeled at the bedside 7. Instruct patient/ patient retail service representative about use of safety devices 8. Include patient/ patient retail service representative in decisions related to safety Outcome: Progressing Note: Evaluation of progress towards goal: Pt remains free of falls this shift, appropriate precautions remain in place based on the mata fall risk scale. Problem: Infection Goal: Absence of infection during hospitalization Description: INTERVENTIONS 1. Assess and monitor for signs and symptoms of infection. 2. Monitor lab/diagnostic results. 3. Monitor all insertion sites i.e., indwelling lines, tubes and drains. 4. Monitor endotracheal (as able) and nasal secretions for changes in amount and color. 5. Administer medications as ordered. 6. Instruct and encourage patient and family to use good hand hygiene technique. 7. Identify and instruct patient/patient retail service representative in use of appropriate isolation precautionsfor identified infection/symptoms. 8. Provide and discuss with patient/patient retail service representative on educational MDRO sheet. 9. Encourage and monitor nutritional status daily and consult cake inspector if indicated. 10. Implement neutropenic guidelines as needed. Outcome: Progressing Note: Evaluation of progress towards goal: Pt educated on appropriate hand hygiene. Pts vital signsremain stable this shift. Monitoring for signs and symptoms of infection this shift. Problem: Knowledge Deficit Goal: Patient/patient retail service representative demonstrates understanding of disease process, treatment plan,medications, and discharge instructions Description: INTERVENTIONS 1. Complete learning assessment and assess knowledge base 2. Provide teaching at level of understanding 3. Provide teaching via preferred learning method(s) Outcome: Progressing Note: Evaluation of progress towards goal: Pt educated on plan of care and pt verbalizes understanding. Problem: Discharge Planning Goal: Discharge to post-acute care, other facility, or home with appropriate resources Description: Patient's goal is: INTERVENTIONS 1. Conduct assessment to determine patient/family and health care team treatment goals, and need for post-acute services based on payer coverage, community resources, and patient preferences, and barriers to discharge 2. Coordinate with Social work, Care Navigation, and Utilization Review to arrange appropriate level of services according to patient's needs based on patient preference and payer coverage in collaboration with the physician and health care team 3. Address psychosocial, clinical, and financial barriers to discharge as identified in assessment in conjunction with the patient/family and health care team 4. Consult appropriate ancillary services (i.e.. PT/OT/ST, etc) as needed 5. Communicate with and update the patient/family, physician, and health care team regarding progress on the discharge plan 6. Identify discharge learning needs (meds, wound care, etc). 7. Arrange for needed discharge transportation as appropriate Outcome: Progressing Note: Evaluation of progress towards goal: Discharge planning assisted by home care aide upon admission. Problem: Glucose Imbalance Goal: Clinical indication of glucose balance is achieved Description: Patient's goal is: INTERVENTIONS 1. Monitor blood glucose levels as ordered 2. Administer medications as ordered 3. Notify physician of ineffective treatment plan Outcome: Progressing Note: Evaluation of progress towards goal: Blood glucose checked ACHS, insulin coverage per order. Goal: Patient's discharge needs are met Description: Patient's goal is: INTERVENTIONS 1. Assess patient for self-management skills 2. Encourage participation in diabetes management 3. Identify potential discharge barriers on admission and throughout hospital stay 4. Involve patient/S.O. in discharge planning process 5. Communicate referral to diabetic educator as appropriate 6. Communicate referral to cake inspector as appropriate 7. Collaborate with case management/pediatric social worker for discharge needs Outcome: Progressing Note: Evaluation of progress towards goal: Maintained this shift. Problem: Potential for Compromised Skin Integrity Goal: Skin integrity is maintained or improved Description: Patient's goal is: INTERVENTIONS 1. Perform initial skin assessment on admission and as needed 2. Turn patient every 2 hours and PRN 3. Relieve pressure to bony prominences 4. Avoid shearing 5. Keep skin clean and dry 6. Alternate a full bath with partial baths for elderly 7. Apply lotion/moisturizer on skin 8. Monitor patient's hygiene practices 9. Float heels 10. Collaborate with interdisciplinary team and initiate plans and interventions as needed Outcome: Progressing Note: Evaluation of progress towards goal: Maintained this shift. Goal: Patient's nutritional intake is adequate Description: Patient's goal is: INTERVENTIONS 1. Assess and monitor food intake and supplements, patient food preferences, nausea, vomiting, labs, oral cavity (gums, teeth, tongue, mucosa), proper denture fit, and cultural beliefs 2. Monitor for signs of hypoglycemia and hyperglycemia 3. Collaborate with interdisciplinary team and initiate plan and interventions as ordered 4. Monitor patient's weight 5. Assist patient with meals/food selection 6. Assist patient with eating 7. Allow adequate time for meals 8. Provide pleasant environment during mealtime 9. Increase social contact during mealtimes 10. Plan activities to conserve energy 11. Encourage/perform oral hygiene as appropriate 12. Encourage patient to take dietary supplement as ordered 13. Collaborate with clinical cake inspector 14. Include patient/ patient's retail service representative in decisions related to nutrition Outcome: Progressing Note: Evaluation of progress towards goal: Pt on regular diet and eating entire meals without nausea, pain, or discomfort. Problem: Urinary Incontinence Goal: Perineal skin integrity is maintained or improved Description: INTERVENTIONS 1. Assess genitourinary system, perineal skin, labs (urinalysis), and history of incontinence to include past management, aggravating, and alleviating factors 2. Keep skin clean and dry 3. Apply skin protectant 4. Develop skin care regimen 5. Provide privacy when changing patients incontinence device to maintain their dignity 6. Consider placing an indwelling catheter 7. Collaborate with interdisciplinary team and initiate plans and interventions as needed Outcome: Progressing Note: Evaluation of progress towards goal: Maintained this shift. Problem: Moderate - High Risk Fall Score Description: Zhen Cole Score of =/> 25 or indicated by [facility] Assessment Goal: Patient should be free from fall Description: Interventions: 1. [place] to environment 2. Hourly rounds addressing the 4 P's (Pain, Positioning, Possessions, Potty) 3. Clear area of hazards (spills, clutter, electrical cords, unnecessary equipment) 4. Place equipment (bed & TV controls, call light, phone, urinal) within reach 5. Encourage patient to wear glasses and hearing aides as appropriate 6. Maintain bed in lowest position 7. Lock wheels on bed/wheelchair 8. Provide adequate lighting, including night light 9. Assess need for additional bedding, food/fluids, pain med's prior to sleep/routinely 10. Provide gripper slippers or personal non-skid footwear 11. Teach patient and patient retail service representative to maintain environment for safety and engage in all aspects of fall prevention program 12. Remind patient to call for help before getting out of bed 13. Initiate bed/chair/exit alarms supportive devices as appropriate, (chair wedge, no-skid floor mat, raised edge mattress, hip protectors) 14. Locate patient bed assignment for optimal visualization 15. Evaluate and identify Safe Patient Handling Equipment needs 16. Provide supervision when out of bed or chair 17. Utilize gait belt as needed to assist with ambulation 18. Place adaptive equipment (cane, walker) within reach 19. Request patient retail service representative bring adaptive equipment/mobility aids from home or obtain and provide as needed 20. Consult pharmacy regarding effects of med's affecting mobility, cognition, and alternatives 21. Obtain physician order for PT if risk factors associated with mobility are present 22. Obtain physician order for OT as appropriate 23. Utilize diversional activities 24. Educate patient and patient retail service representative how to maintain a safe environment during visitationtimes (notify nurse prior to leaving bedside) 25. Consider appropriateness of medical or non-medical device 26. Set up voiding schedule as appropriate (every 2 hours) Outcome: Progressing Note: Evaluation of progress towards goal: Pt remains free of falls this shift, appropriate precautions remain in place based on the mata fall risk scale. * PT/OT/CARGO AND CONTAINER INSPECTOR - Tiarra Nino PT - 06/30/2025 1:14 PM EST Physical Therapy PT Type of Visit: (P) Medical deferral Reason For Medical Deferral: (P) Activity limitations (pending MRI of spine, working on pain management, pt has been up with staff as tolerated per DARY Rodriguez) * PT/OT/CARGO AND CONTAINER INSPECTOR - Denise Padgett OT/L - 06/30/2025 1:14 PM EST Occupational Therapy OT Type of Visit: (P) Medical deferral Reason For Medical Deferral: (P) Activity limitations (pending MRI of spine, working on pain management, pt has been up with staff as tolerated per DARY Rodriguez) * Discharge Planning Note - Baylee Ro RN - 06/30/2025 10:58 AM EST Ongoing Assessment for Discharge Needs Reviewed discharge milestones and patient needs related to discharge plan. Current estimated discharge date of Jul 02, 2025 has been reviewed by treatment team. Per RN during discharge rounds, barriers to discharge: need MRI spine, pain control Ongoing Assessment for Discharge Needs Flowsheet Row Most Recent Value Referral To Community Referrals / Resources Provided Denies needs Services Requested Patient expects to be discharged to: home w/HC Does the patient wish to have family/friend/caregiver involved in their discharge planning? No, thepatient does not wish to have family/friend/caregiver involved in their discharge planning Discharge Disposition Home with home health services Facility[facility]Service Name [facility]Service Fax number [phone] Facility/Service Does the patient need discharge transportation arranged? No Patient choice offered Patient declined List Provided Patient declined Patient Declined Active with Provider DC Planning Complete Discharge Milestones Yes - BAYLEE RO RN 06/30/25 10:59 AM * Plan of Care - Isaac Monterroso RN - 06/29/2025 10:17 PM EST Problem: Pain Goal: Patient goal is pain score less than 4, able to rest, and participant in treatment plan as appropriate Description: INTERVENTIONS: 1. Encourage patient or legal retail service representative to report early pain and ask for pain medicine when needed 2. Assess pain using appropriate pain scale and include the scale used when documenting 3. Administer analgesics based on type and severity of pain and evaluate response within appropriate time frame 4. Implement non-pharmacological measures as appropriate and evaluate response 5. Consider cultural and social influences on pain and pain management 6. Notify LIP if interventions ineffective or patient reports new pain 7. Monitor vital signs including pulse ox, end-tidal CO2 based on pain intervention 8. Reassess pain per policy 9. Teach patient or legal retail service representative interventions for comforting Outcome: Progressing Note: Evaluation of progress towards goal: Pt educated on pain medication. Pt able to verbalize pain based on numeric pain scale. PRN medications available on pt request. Problem: Safety Goal: Patient will be injury free during hospitalization Description: INTERVENTIONS: 1. Assess patient's risk for falls and implement fall prevention plan of care per policy 2. Provide and maintain a safe environment 3. Proper use of double Identifiers 4. Medication administration using the 5 rights 5. Hand hygiene 6. Specimens are labeled at the bedside 7. Instruct patient/ patient retail service representative about use of safety devices 8. Include patient/ patient retail service representative in decisions related to safety Outcome: Progressing Note: Evaluation of progress towards goal: Pt remains free of falls this shift, appropriate precautions remain in place based on the mata fall risk scale. Problem: Infection Goal: Absence of infection during hospitalization Description: INTERVENTIONS 1. Assess and monitor for signs and symptoms of infection. 2. Monitor lab/diagnostic results. 3. Monitor all insertion sites i.e., indwelling lines, tubes and drains. 4. Monitor endotracheal (as able) and nasal secretions for changes in amount and color. 5. Administer medications as ordered. 6. Instruct and encourage patient and family to use good hand hygiene technique. 7. Identify and instruct patient/patient retail service representative in use of appropriate isolation precautionsfor identified infection/symptoms. 8. Provide and discuss with patient/patient retail service representative on educational MDRO sheet. 9. Encourage and monitor nutritional status daily and consult cake inspector if indicated. 10. Implement neutropenic guidelines as needed. Outcome: Progressing Note: Evaluation of progress towards goal: Pt educated on appropriate hand hygiene. Pts vital signsremain stable this shift. Monitoring for signs and symptoms of infection this shift. Problem: Knowledge Deficit Goal: Patient/patient retail service representative demonstrates understanding of disease process, treatment plan,medications, and discharge instructions Description: INTERVENTIONS 1. Complete learning assessment and assess knowledge base 2. Provide teaching at level of understanding 3. Provide teaching via preferred learning method(s) Outcome: Progressing Note: Evaluation of progress towards goal: Pt educated on plan of care and pt verbalizes understanding. Problem: Discharge Planning Goal: Discharge to post-acute care, other facility, or home with appropriate resources Description: Patient's goal is: INTERVENTIONS 1. Conduct assessment to determine patient/family and health care team treatment goals, and need for post-acute services based on payer coverage, community resources, and patient preferences, and barriers to discharge 2. Coordinate with Social work, Care Navigation, and Utilization Review to arrange appropriate level of services according to patient's needs based on patient preference and payer coverage in collaboration with the physician and health care team 3. Address psychosocial, clinical, and financial barriers to discharge as identified in assessment in conjunction with the patient/family and health care team 4. Consult appropriate ancillary services (i.e.. PT/OT/ST, etc) as needed 5. Communicate with and update the patient/family, physician, and health care team regarding progress on the discharge plan 6. Identify discharge learning needs (meds, wound care, etc). 7. Arrange for needed discharge transportation as appropriate Outcome: Progressing Note: Evaluation of progress towards goal: Discharge planning assisted by home care aide upon admission. Problem: Glucose Imbalance Goal: Clinical indication of glucose balance is achieved Description: Patient's goal is: INTERVENTIONS 1. Monitor blood glucose levels as ordered 2. Administer medications as ordered 3. Notify physician of ineffective treatment plan Outcome: Progressing Note: Evaluation of progress towards goal: Glucose monitored and controled per orders this shift. Goal: Patient's discharge needs are met Description: Patient's goal is: INTERVENTIONS 1. Assess patient for self-management skills 2. Encourage participation in diabetes management 3. Identify potential discharge barriers on admission and throughout hospital stay 4. Involve patient/S.O. in discharge planning process 5. Communicate referral to diabetic educator as appropriate 6. Communicate referral to cake inspector as appropriate 7. Collaborate with case management/pediatric social worker for discharge needs Outcome: Progressing Note: Evaluation of progress towards goal: Maintained this shift. Problem: Potential for Compromised Skin Integrity Goal: Skin integrity is maintained or improved Description: Patient's goal is: INTERVENTIONS 1. Perform initial skin assessment on admission and as needed 2. Turn patient every 2 hours and PRN 3. Relieve pressure to bony prominences 4. Avoid shearing 5. Keep skin clean and dry 6. Alternate a full bath with partial baths for elderly 7. Apply lotion/moisturizer on skin 8. Monitor patient's hygiene practices 9. Float heels 10. Collaborate with interdisciplinary team and initiate plans and interventions as needed Outcome: Progressing Note: Evaluation of progress towards goal: Maintained this shift. Goal: Patient's nutritional intake is adequate Description: Patient's goal is: INTERVENTIONS 1. Assess and monitor food intake and supplements, patient food preferences, nausea, vomiting, labs, oral cavity (gums, teeth, tongue, mucosa), proper denture fit, and cultural beliefs 2. Monitor for signs of hypoglycemia and hyperglycemia 3. Collaborate with interdisciplinary team and initiate plan and interventions as ordered 4. Monitor patient's weight 5. Assist patient with meals/food selection 6. Assist patient with eating 7. Allow adequate time for meals 8. Provide pleasant environment during mealtime 9. Increase social contact during mealtimes 10. Plan activities to conserve energy 11. Encourage/perform oral hygiene as appropriate 12. Encourage patient to take dietary supplement as ordered 13. Collaborate with clinical cake inspector 14. Include patient/ patient's retail service representative in decisions related to nutrition Outcome: Progressing Note: Evaluation of progress towards goal: Maintained this shift. Problem: Urinary Incontinence Goal: Perineal skin integrity is maintained or improved Description: INTERVENTIONS 1. Assess genitourinary system, perineal skin, labs (urinalysis), and history of incontinence to include past management, aggravating, and alleviating factors 2. Keep skin clean and dry 3. Apply skin protectant 4. Develop skin care regimen 5. Provide privacy when changing patients incontinence device to maintain their dignity 6. Consider placing an indwelling catheter 7. Collaborate with interdisciplinary team and initiate plans and interventions as needed Outcome: Progressing Note: Evaluation of progress towards goal: Maintained this shift. Problem: Moderate - High Risk Fall Score Description: Zhen Cole Score of =/> 25 or indicated by [facility] Assessment Goal: Patient should be free from fall Description: Interventions: 1. [place] to environment 2. Hourly rounds addressing the 4 P's (Pain, Positioning, Possessions, Potty) 3. Clear area of hazards (spills, clutter, electrical cords, unnecessary equipment) 4. Place equipment (bed & TV controls, call light, phone, urinal) within reach 5. Encourage patient to wear glasses and hearing aides as appropriate 6. Maintain bed in lowest position 7. Lock wheels on bed/wheelchair 8. Provide adequate lighting, including night light 9. Assess need for additional bedding, food/fluids, pain med's prior to sleep/routinely 10. Provide gripper slippers or personal non-skid footwear 11. Teach patient and patient retail service representative to maintain environment for safety and engage in all aspects of fall prevention program 12. Remind patient to call for help before getting out of bed 13. Initiate bed/chair/exit alarms supportive devices as appropriate, (chair wedge, no-skid floor mat, raised edge mattress, hip protectors) 14. Locate patient bed assignment for optimal visualization 15. Evaluate and identify Safe Patient Handling Equipment needs 16. Provide supervision when out of bed or chair 17. Utilize gait belt as needed to assist with ambulation 18. Place adaptive equipment (cane, walker) within reach 19. Request patient retail service representative bring adaptive equipment/mobility aids from home or obtain and provide as needed 20. Consult pharmacy regarding effects of med's affecting mobility, cognition, and alternatives 21. Obtain physician order for PT if risk factors associated with mobility are present 22. Obtain physician order for OT as appropriate 23. Utilize diversional activities 24. Educate patient and patient retail service representative how to maintain a safe environment during visitationtimes (notify nurse prior to leaving bedside) 25. Consider appropriateness of medical or non-medical device 26. Set up voiding schedule as appropriate (every 2 hours) Outcome: Progressing Note: Evaluation of progress towards goal: Pt remains free of falls this shift, appropriate precautions remain in place based on the mata fall risk scale. * Discharge Planning Note - Baylee Ro RN - 06/29/2025 8:36 AM EST Initial Assessment Initial Assessment Flowsheet Row Most Recent Value Patient Information Initial Pre-Hospitalization Assessment Completed? Completed Primary Caregiver Self Accompanied by/Relationship spouse Laina Support System Spouse/Significant Other Discharge Planning Living Arrangements Spouse/significant other, Private Residence Assistance Needed ADL's Type of Residence Private residence, House Private Residence 1 story Can patient reside on one level? Yes Residence Accessibility Ramp, Bathroom location? Bathroom Location Main level Home Care Services Yes Type of Home Care Services Nurse visit Community Agencies Currently Utilized Established Home care Community Referrals / Resources Provided Denies needs Provider Name [facility] Service Provided Retirement Does The Patient Have Existing Home DME? Yes Existing Home DME Options Bedside Commode, Cane, Hospital Bed, Shower Chair, Walker, Wheelchair Will the patient need DME at discharge? No, the patient has no home DME needs currently Stressors Type of stressor Health issues Explain issues prostate cancer Income Information Income Information Disability IP Hunger/Food Insecurity Screening Hunger Screening Complete? Yes Pt. Eligible for Food / Voucher No If Eligible: Received Food Box Not Offered to Patient Caregiver/Family Member Caregiver/Family Member spouses Laina Caregiver/Family Member Involved with Current Plan of Care Yes Caregiver/Family Member in Agreement with Current Plan of Care Yes Caregiver/Support System Limitations Patient/Caregiver Goals Patient/Caregiver Goals Home with Home Snf with Home Care (Check ALL that Apply) Other [nursing] Community Provider Referral Community Provider Referral None Services Requested Patient expects to be discharged to: home w/HC Does the patient wish to have family/friend/caregiver involved in their discharge planning? No, thepatient does not wish to have family/friend/caregiver involved in their discharge planning Discharge Disposition Home with home health services Facility/Service Name [facility] Facility/Service Fax number [phone] Facility/Service Does the patient need discharge transportation arranged? No Patient choice offered Patient declined List Provided Patient declined Patient Declined Active with Provider DC Planning Complete Discharge Milestones Yes 3-Midnight Patient Goals: Patient/Caregiver Goals Patient/Caregiver Goals: Home with Home Snf with Home Care (Check ALL that Apply): Other (nursing) Goals: Goals home (pt-stated) Evaluation of progress towards goal: Patient plans to discharge home with [facility] and with assistance from family. Professional [employer] met with patient and spouse Caterina at bedside and introduced self and explained role. Patient had recent admission for [facility] with hematuria and discharged home with [facility] on 05/18. Patient would like to resume services at discharge, referral placed on [facility]. Patient's PCP and [facility] in [place] confirmed. Patient needs assistance with ADL's that Laina is able to provide and has a cane, walker, wheelchair, BSC and a hospital bed for DME. Per patient report: Smoking: denies ETOH: denies Drugs: denies Patient does not endorse issue obtaining food or medications and all utilities are working. Patientstated that they are getting by . Discharge disposition: home with [facility]. [employer] inquired if they had transportation home and patient stated that they are hoping that they will have a friend available to assist. Professional [employer] Player informed patient and spouse that Professional [employer] Player can not arrange cab service at discharge and that [facility] transport may not be able to transport spouse. Patient and spouse verbalized understanding. Professional [employer] Player will continue to follow for ongoing discharge transition needs. - BAYLEE RO RN 06/29/25 8:36 AM Additional Comments (If Applicable) * Plan of Care - Isaac Monterroso RN - 06/29/2025 1:32 AM EST Problem: Pain Goal: Patient goal is pain score less than 4, able to rest, and participant in treatment plan as appropriate Description: INTERVENTIONS: 1. Encourage patient or legal retail service representative to report early pain and ask for pain medicine when needed 2. Assess pain using appropriate pain scale and include the scale used when documenting 3. Administer analgesics based on type and severity of pain and evaluate response within appropriate time frame 4. Implement non-pharmacological measures as appropriate and evaluate response 5. Consider cultural and social influences on pain and pain management 6. Notify LIP if interventions ineffective or patient reports new pain 7. Monitor vital signs including pulse ox, end-tidal CO2 based on pain intervention 8. Reassess pain per policy 9. Teach patient or legal retail service representative interventions for comforting Outcome: Progressing Note: Evaluation of progress towards goal: Pt educated on pain medication. Pt able to verbalize pain based on numeric pain scale. PRN medications available on pt request. Problem: Safety Goal: Patient will be injury free during hospitalization Description: INTERVENTIONS: 1. Assess patient's risk for falls and implement fall prevention plan of care per policy 2. Provide and maintain a safe environment 3. Proper use of double Identifiers 4. Medication administration using the 5 rights 5. Hand hygiene 6. Specimens are labeled at the bedside 7. Instruct patient/ patient retail service representative about use of safety devices 8. Include patient/ patient retail service representative in decisions related to safety Outcome: Progressing Note: Evaluation of progress towards goal: Pt remains free of falls this shift, appropriate precautions remain in place based on the mata fall risk scale. Problem: Infection Goal: Absence of infection during hospitalization Description: INTERVENTIONS 1. Assess and monitor for signs and symptoms of infection. 2. Monitor lab/diagnostic results. 3. Monitor all insertion sites i.e., indwelling lines, tubes and drains. 4. Monitor endotracheal (as able) and nasal secretions for changes in amount and color. 5. Administer medications as ordered. 6. Instruct and encourage patient and family to use good hand hygiene technique. 7. Identify and instruct patient/patient retail service representative in use of appropriate isolation precautionsfor identified infection/symptoms. 8. Provide and discuss with patient/patient retail service representative on educational MDRO sheet. 9. Encourage and monitor nutritional status daily and consult cake inspector if indicated. 10. Implement neutropenic guidelines as needed. Outcome: Progressing Note: Evaluation of progress towards goal: Pt educated on appropriate hand hygiene. Pts vital signsremain stable this shift. Monitoring for signs and symptoms of infection this shift. Problem: Knowledge Deficit Goal: Patient/patient retail service representative demonstrates understanding of disease process, treatment plan,medications, and discharge instructions Description: INTERVENTIONS 1. Complete learning assessment and assess knowledge base 2. Provide teaching at level of understanding 3. Provide teaching via preferred learning method(s) Outcome: Progressing Note: Evaluation of progress towards goal: Pt educated on plan of care and pt verbalizes understanding. Problem: Discharge Planning Goal: Discharge to post-acute care, other facility, or home with appropriate resources Description: Patient's goal is: INTERVENTIONS 1. Conduct assessment to determine patient/family and health care team treatment goals, and need for post-acute services based on payer coverage, community resources, and patient preferences, and barriers to discharge 2. Coordinate with Social work, Care Navigation, and Utilization Review to arrange appropriate level of services according to patient's needs based on patient preference and payer coverage in collaboration with the physician and health care team 3. Address psychosocial, clinical, and financial barriers to discharge as identified in assessment in conjunction with the patient/family and health care team 4. Consult appropriate ancillary services (i.e.. PT/OT/ST, etc) as needed 5. Communicate with and update the patient/family, physician, and health care team regarding progress on the discharge plan 6. Identify discharge learning needs (meds, wound care, etc). 7. Arrange for needed discharge transportation as appropriate Outcome: Progressing Note: Evaluation of progress towards goal: Discharge planning assisted by home care aide upon admission. Problem: Glucose Imbalance Goal: Clinical indication of glucose balance is achieved Description: Patient's goal is: INTERVENTIONS 1. Monitor blood glucose levels as ordered 2. Administer medications as ordered 3. Notify physician of ineffective treatment plan Outcome: Progressing Note: Evaluation of progress towards goal: Pt glucose monitored and insulin given per orders this shift. Goal: Patient's discharge needs are met Description: Patient's goal is: INTERVENTIONS 1. Assess patient for self-management skills 2. Encourage participation in diabetes management 3. Identify potential discharge barriers on admission and throughout hospital stay 4. Involve patient/S.O. in discharge planning process 5. Communicate referral to diabetic educator as appropriate 6. Communicate referral to cake inspector as appropriate 7. Collaborate with case management/pediatric social worker for discharge needs Outcome: Progressing Note: Evaluation of progress towards goal: Maintained this shift. Problem: Potential for Compromised Skin Integrity Goal: Skin integrity is maintained or improved Description: Patient's goal is: INTERVENTIONS 1. Perform initial skin assessment on admission and as needed 2. Turn patient every 2 hours and PRN 3. Relieve pressure to bony prominences 4. Avoid shearing 5. Keep skin clean and dry 6. Alternate a full bath with partial baths for elderly 7. Apply lotion/moisturizer on skin 8. Monitor patient's hygiene practices 9. Float heels 10. Collaborate with interdisciplinary team and initiate plans and interventions as needed Outcome: Progressing Note: Evaluation of progress towards goal: Maintained this shift. Goal: Patient's nutritional intake is adequate Description: Patient's goal is: INTERVENTIONS 1. Assess and monitor food intake and supplements, patient food preferences, nausea, vomiting, labs, oral cavity (gums, teeth, tongue, mucosa), proper denture fit, and cultural beliefs 2. Monitor for signs of hypoglycemia and hyperglycemia 3. Collaborate with interdisciplinary team and initiate plan and interventions as ordered 4. Monitor patient's weight 5. Assist patient with meals/food selection 6. Assist patient with eating 7. Allow adequate time for meals 8. Provide pleasant environment during mealtime 9. Increase social contact during mealtimes 10. Plan activities to conserve energy 11. Encourage/perform oral hygiene as appropriate 12. Encourage patient to take dietary supplement as ordered 13. Collaborate with clinical cake inspector 14. Include patient/ patient's retail service representative in decisions related to nutrition Outcome: Progressing Note: Evaluation of progress towards goal: Maintained this shift. Problem: Urinary Incontinence Goal: Perineal skin integrity is maintained or improved Description: INTERVENTIONS 1. Assess genitourinary system, perineal skin, labs (urinalysis), and history of incontinence to include past management, aggravating, and alleviating factors 2. Keep skin clean and dry 3. Apply skin protectant 4. Develop skin care regimen 5. Provide privacy when changing patients incontinence device to maintain their dignity 6. Consider placing an indwelling catheter 7. Collaborate with interdisciplinary team and initiate plans and interventions as needed Outcome: Progressing Note: Evaluation of progress towards goal: Maintained this shift. Problem: Moderate - High Risk Fall Score Description: Hzen Cole Score of =/> 25 or indicated by [facility] Assessment Goal: Patient should be free from fall Description: Interventions: 1. [place] to environment 2. Hourly rounds addressing the 4 P's (Pain, Positioning, Possessions, Potty) 3. Clear area of hazards (spills, clutter, electrical cords, unnecessary equipment) 4. Place equipment (bed & TV controls, call light, phone, urinal) within reach 5. Encourage patient to wear glasses and hearing aides as appropriate 6. Maintain bed in lowest position 7. Lock wheels on bed/wheelchair 8. Provide adequate lighting, including night light 9. Assess need for additional bedding, food/fluids, pain med's prior to sleep/routinely 10. Provide gripper slippers or personal non-skid footwear 11. Teach patient and patient retail service representative to maintain environment for safety and engage in all aspects of fall prevention program 12. Remind patient to call for help before getting out of bed 13. Initiate bed/chair/exit alarms supportive devices as appropriate, (chair wedge, no-skid floor mat, raised edge mattress, hip protectors) 14. Locate patient bed assignment for optimal visualization 15. Evaluate and identify Safe Patient Handling Equipment needs 16. Provide supervision when out of bed or chair 17. Utilize gait belt as needed to assist with ambulation 18. Place adaptive equipment (cane, walker) within reach 19. Request patient retail service representative bring adaptive equipment/mobility aids from home or obtain and provide as needed 20. Consult pharmacy regarding effects of med's affecting mobility, cognition, and alternatives 21. Obtain physician order for PT if risk factors associated with mobility are present 22. Obtain physician order for OT as appropriate 23. Utilize diversional activities 24. Educate patient and patient retail service representative how to maintain a safe environment during visitationtimes (notify nurse prior to leaving bedside) 25. Consider appropriateness of medical or non-medical device 26. Set up voiding schedule as appropriate (every 2 hours) Outcome: Progressing Note: Evaluation of progress towards goal: Pt remains free of falls this shift, appropriate precautions remain in place based on the mata fall risk scale. documented in this encounter Plan of Treatment DateTypeDepartmentCare Team (Latest Contact Info)Niemhqkompa14/23/2025 10:30 AM ESTSupport Visit [facility] [address] [place] [phone] 08/04/2025 3:00 PM ESTInfusion [facility] [place] - Medical On[facility] [address] [place] [address] 08/15/2025 1:00 PM ESTAppointment [facility] - Inter[facility] [address] [place] [phone] Aristides Frost Jr., MD [address] [place] [address] 08/15/2025 3:45 PM ESTOffice Visit [facility] [address] [place] [phone] Denise Lawler, WARHEAD MAINTENANCE SPECIALIST-MANAGER [employer]AGE [address] [facility] [address] [place] [address] 08/19/2025 11:45 AM ESTOffice Visit [facility] [address] [place] [address] [place] [phone] Aristides Frost Jr., MD [address] [place] [address] 10/07/2025 11:15 AM EDTOffice Visit [facility] [address] [place] [address] [place] [phone] Aristides Frost Jr., MD [address] [place] [address] NameTypePriorityAssociated DiagnosesOrder ScheduleProMedica Physicians [facility] [place], [place]Outpatient ReferralRoutine Wound of left groin, initial encounter 1 Occurrences starting 06/30/2025 until 06/30/2026documented as of this encounter Goals GoalPatient Goal TypeAssociated ProblemsRecent ProgressPatient-Stated?Author home Baylee Almodovar RN Note: Evaluation of progress towards goal: Patient plans to discharge home with [facility] and with assistance from family. documented as of this encounter Procedures Procedure NamePriorityDate/TimeAssociated DiagnosisCommentsBEDSIDE GLUCOSE Twnphym9707/06/2025 4:06 PM EST BEDSIDE TAEHOVEYffpjqh41/10/2025 11:43 AM EST BEDSIDE HZPWEFZBnzzewc39/10/2025 8:07 AM EST CBC WITH AUTO VZLTHGJXZXVNPscehat89/10/2025 5:49 AM EST EYINJODQQQsdwilt83/10/2025 5:49 AM EST COMPREHENSIVE METABOLIC XUAFXLyqsgpy02/10/2025 5:49 AM EST BEDSIDE HUHVKIDZvalrld04/09/2025 8:54 PM EST BEDSIDE HOWEWHOVtyoufe93/09/2025 5:15 PM EST BEDSIDE TADVLDHFuiwwig47/09/2025 11:32 AM EST HEMOGLOBIN AND HEMATOCRIT, PLFWMClykhpx24/09/2025 11:28 AM EST BEDSIDE TSKZIGMStivrzh51/09/2025 7:28 AM EST CBC WITH AUTO WTFONYCOADPOIriisws50/09/2025 5:37 AM EST CSDINVDPLFillufq90/09/2025 5:37 AM EST COMPREHENSIVE METABOLIC DMMFPIkvbvad71/09/2025 5:37 AM EST ER EXTRA MJHGZIkppgnj35/09/2025 4:10 AM EST ZEUNARGZTSTovfwvp46/09/2025 4:10 AM EST URINE KNXEIANIjgfbfg55/09/2025 4:10 AM EST BEDSIDE YJHBWTMFqlrhyg23/08/2025 9:14 PM EST BEDSIDE PRZZXZCOyuulgn01/08/2025 5:20 PM EST BEDSIDE BSEJZWYJypbcbx89/08/2025 11:53 AM EST BEDSIDE RJOHBGVHhtcwns54/08/2025 7:45 AM EST CBC WITH AUTO HDQNZQMDKLQXDtvmpyi75/08/2025 5:37 AM EST JEISZEMKYFudigjz88/08/2025 5:37 AM EST COMPREHENSIVE METABOLIC BHVWNNwapijl28/08/2025 5:37 AM EST BEDSIDE XGSJRXXOklhycf58/07/2025 9:06 PM EST BEDSIDE TTWYHZVZfpwmxp64/07/2025 5:14 PM EST FL FLUORO GUIDANCE SPINAL PUNCTURE ASGFJNGPNGzcdaoh45/07/2025 12:52 PM EST SURGICAL OUHVQZGAJEwzexyd12/07/2025 12:40 PM EST RI LEE W/O FACETEC FORAMOT/DSKC 1/2 VRT SEG, VZORTHJT75/07/2025 11:49 AM EST METASTATIC MALINGNANCY BEDSIDE UMUWFESGgknhuj81/07/2025 8:45 AM EST CBC WITH AUTO HSJSNQQMITJEHcupcfj34/07/2025 3:18 AM EST VSCHFFXCBWewmxok93/07/2025 3:18 AM EST COMPREHENSIVE METABOLIC JHOIRPkfofah69/07/2025 3:18 AM EST BEDSIDE WSZNYVXVqzesou30/06/2025 9:34 PM EST BEDSIDE JPUIGFHMsdhmuu45/06/2025 3:44 PM EST MR PELVIS WO EHXTYrtoxbc49/06/2025 2:41 PM EST MR LUMBAR SPINE WO VCFGIhhsmok96/06/2025 2:41 PM EST BEDSIDE OMXZVBTTwvznga38/06/2025 11:14 AM EST BEDSIDE RXHTXHQIqgtpzy60/06/2025 8:20 AM EST CBC WITH AUTO GMNBGKUCHNBONepwqwo19/06/2025 3:58 AM EST NNWQSNFPTNpauoqt86/06/2025 3:58 AM EST COMPREHENSIVE METABOLIC TKCZVKrbdgkp78/06/2025 3:58 AM EST BEDSIDE GWSRMGTYuqsedu11/05/2025 9:18 PM EST BEDSIDE KOJCXAPPxuukgw62/05/2025 5:15 PM EST JFKAUMGRJGsspqez67/05/2025 3:56 PM EST BEDSIDE VQDVFQLJnwfwpa28/05/2025 11:48 AM EST BEDSIDE NCZEKLKTdkdsqb70/05/2025 9:16 AM EST CBC WITH AUTO UURDQCPZCNHAPeszvyq74/05/2025 5:41 AM EST TITHSBPKFLmwhctm92/05/2025 5:41 AM EST COMPREHENSIVE METABOLIC WYYGJEzcypjs18/05/2025 5:41 AM EST MR THORACIC SPINE WO QTNNMbdaymy01/05/2025 1:56 AM EST BEDSIDE ZQVHJDZTxmdbqh47/04/2025 9:03 PM EST BEDSIDE MGCZSVPCfuoyth72/04/2025 4:22 PM EST BEDSIDE ZCYGHOIEufjzbe06/04/2025 11:30 AM EST BEDSIDE EOCQXGLErfsbng30/04/2025 8:37 AM EST CBC WITH AUTO DTBZYUTJHFKUQonldoz82/04/2025 5:51 AM EST B-TYPE NATRIURETIC UAIFQFEQtheuji44/04/2025 5:51 AM EST BYVQQUVEWHlfvpjr88/04/2025 5:51 AM EST COMPREHENSIVE METABOLIC HMJNNUmuohia95/04/2025 5:51 AM EST BEDSIDE TIZTIUBSypgijb27/03/2025 8:54 PM EST BEDSIDE AOHIBJQJmwraxp06/03/2025 4:25 PM EST BEDSIDE DLOLZOQMhzreff43/03/2025 11:19 AM EST BEDSIDE CREVQIMSbujezz83/03/2025 8:13 AM EST CBC WITH AUTO LBSEJCNJEXRUSekzein86/03/2025 5:41 AM EST IRON AND TIBCAdd-On06/29/2025 5:41 AM EST GRXNDRSTTHwuoysx69/03/2025 5:41 AM EST HEMOGLOBIN J3NAxz-Xl34/03/2025 5:41 AM EST FOLATEAdd-On06/29/2025 5:41 AM EST FERRITINAdd-On06/29/2025 5:41 AM EST VITAMIN Z13Uag-Nz76/03/2025 5:41 AM EST COMPREHENSIVE METABOLIC YXWKCOqzyayy38/03/2025 5:41 AM EST BEDSIDE GBZLVQXSsdlfww82/02/2025 11:39 PM EST documented in this encounter Results * (ABNORMAL) Bedside Glucose *Place/Obtain serum glucose if >500 per glucometer. (07/06/2025 4:06 PM EST)ComponentValueRef RangeTest MethodAnalysis Time Performed AtPathologist SignatureBedside Glucose (POC)137(H)65 - 99 mg/dL 07/06/2025 4:13 PM [facility] LABORATORYSpecimen (Source)Anatomical Location / LateralityCollection Method / VolumeCollection TimeReceived Time arterial/xpuyahzyq59/10/2025 4:06 PM EST07/06/2025 4:13 PM EST Narrative Authorizing ProviderResult TypeResult StatusKaleem U [place] MDPOINT OF CARE TEST ORDERABLESFinal ResultPerforming OrganizationAddressty/State/ZIP CodePhone Number [facility] [address] [place] [address], [place] * (ABNORMAL) Bedside Glucose *Place/Obtain serum glucose if >500 per glucometer. (07/06/2025 11:43AM EST)ComponentValueRef RangeTest MethodAnalysis Time Performed AtPathologist SignatureBedside Glucose (POC)181(H)65 - 99 mg/dL 07/06/2025 11:48 AM [facility] LABORATORYSpecimen (Source)Anatomical Location / LateralityCollection Method / VolumeCollection TimeReceived Time arterial/kfwggtqze67/10/2025 11:43 AM EST07/06/2025 11:48 AM EST Narrative Authorizing ProviderResult TypeResult StatusKaleem [facility] MDPOINT OF CARE TEST ORDERABLESFinal ResultPerforming OrganizationAddressty/State/ZIP CodePhone Number [facility] [address] [place] [address], [place] * (ABNORMAL) Bedside Glucose *Place/Obtain serum glucose if >500 per glucometer. (07/06/2025 8:07 AM EST)ComponentValueRef RangeTest MethodAnalysis Time Performed AtPathologist SignatureBedside Glucose (POC)167(H)65 - 99 mg/dL 07/06/2025 8:14 AM [facility] LABORATORYSpecimen (Source)Anatomical Location / LateralityCollection Method / VolumeCollection TimeReceived Time arterial/poznkuyar84/10/2025 8:07 AM EST07/06/2025 8:14 AM EST Narrative Authorizing ProviderResult TypeResult StatusKaleem [facility] MDPOINT OF CARE TEST ORDERABLESFinal ResultPerforming OrganizationAddressty/State/ZIP CodePhone Number [facility] [address] [place] [address], [place] * (ABNORMAL) CBC auto differential (07/06/2025 5:49 AM EST)ComponentValueRef RangeTest MethodAnalysis TimePerformed AtPathologist SignatureWBC8.04 - 11 10^9/L109/06/2024 7:09 AM [facility] LABORATORYRBC Count2.70 (L)4.1 - 5.7 10^12/L109/06/2024 7:09 AM [facility] Hemoglobin8.6(L)13 - 17 g/dL07/06/2025 7:09 AM [facility] VCUEPKWSVVSijbycgbym76.1(L)39 - 50 %07/06/2025 7:09 AM [facility] MHJQWDAMIZCRL8990 - 100 fL07/06/2025 7:09 AM [facility] AJACTERPLFQDU21.727 - 34 pg07/06/2025 7:09 AM [facility] JTFIMEZMXOJRVS59.832 - 36 g/dL07/06/2025 7:09 AM [facility] VVSVYBCDOYXVS99.7(H)11.5 - 15 %07/06/2025 7:09 AM [facility] LABORATORYPlatelet Otnry804606 - 450 10^9L109/06/2024 7:09 AM [facility] LABORATORYMPV6.8(L)7 - 12 fL07/06/2025 7:09 AM [facility] LABORATORYNeutrophils %66.1%07/06/2025 7:09 AM [facility] LABORATORYComment:This is an appended report. These results have been appended to a previously preliminary verified report.Lymphocytes % 19.1%07/06/2025 7:09 AM [facility] LABORATORYComment:This is an appended report. These results have been appended to a previously preliminary verified report.Monocytes %12.3%07/06/2025 7:09 AM [facility] LABORATORYComment:This is an appended report. These results have been appended to a previously preliminary verified report.Eosinophils % 1.4%07/06/2025 7:09 AM [facility] LABORATORYComment:This is an appended report. These results have been appended to a previously preliminary verified report.Basophils %1.1%07/06/2025 7:09 AM [facility] LABORATORYComment:This is an appended report. These results have been appended to a previously preliminary verified report.Neutrophils Absolute (A)5.31.5 - 6.6 10^9/L109/06/2024 7:09 AM [facility] LABORATORYComment:This is an appended report. These results have been appended to a previously preliminary verified report.Lymphocytes Absolute1.51.0 - 3.5 10^9/L109/06/2024 7:09 AM [facility] LABORATORYComment:This is an appended report. These results have been appended to a previously preliminary verified report.Monocytes Absolute1.0(H)0.0 - 0.9 10^9/L109/06/2024 7:09 AM [facility] LABORATORYComment:This is an appended report. These results have been appended to a previously preliminary verified report.Eosinophils Absolute0.10.0 - 0.4 10^9/L109/06/2024 7:09 AM [facility] LABORATORYComment:This is an appended report. These results have been appended to a previously preliminary verified report.Basophils Absolute0.10.0 - 0.2 10^9/L109/06/2024 7:09 AM [facility] LABORATORYComment:This is an appended report. These results have been appended to a previously preliminary verified report.Polychromasia1+07/06/2025 7:09 AM [facility] LABORATORYComment:This is an appended report. These results have been appended to a previously preliminary verified report. RBC Fragments1+07/06/2025 7:09 AM [facility] Comment:This is an appended report. These results have been appended to a previously preliminary verified report.Differential TypeAUTOMATED DIFFERENTIAL 07/06/2025 7:09 AM [facility] LABORATORYComment:This is an appended report. These results have been appended to a previously preliminary verified report.Specimen (Source)Anatomical Location / LateralityCollection Method / VolumeCollection TimeReceived TimeBloodVenous blood / Unknown Venipuncture / Qflnrpl1807/06/2025 5:49 AM EST07/06/2025 6:12 AM EST Narrative Authorizing ProviderResult TypeResult StatusCherelle Cervantes WARHEAD MAINTENANCE SPECIALIST-CNPLAB BLOOD ORDERABLESFinal ResultPerforming OrganizationAddressCity/State/ZIP CodePhone Number [facility] [address] [place] [address], * (ABNORMAL) Magnesium (07/06/2025 5:49 AM EST)ComponentValueRef RangeTest MethodAnalysis TimePerformed AtPathologist SignatureMAGNESIUM1.7(L)1.8 - 2.6 mg/dL07/06/2025 6:45 AM [facility] LABORATORYSpecimen (Source)Anatomical Location / LateralityCollection Method / VolumeCollection TimeReceived TimeBloodVenous blood / UnknownVenipuncture / Bxkbwnx8407/06/2025 5:49 AM EST07/06/2025 6:12 AM EST Narrative Authorizing ProviderResult TypeResult StatusCherelle Cervantes WARHEAD MAINTENANCE SPECIALIST-CNPLAB BLOOD ORDERABLESFinal ResultPerforming OrganizationAddressCity/State/ZIP CodePhone Number [facility] [address] [place] [address], * (ABNORMAL) Comprehensive metabolic panel (07/06/2025 5:49 AM EST)Component ValueRef RangeTest MethodAnalysis TimePerformed AtPathologist SignatureSODIUM 972896 - 146 mmol/L109/06/2024 6:45 AM [facility] POTASSIUM3.93.5 - 5.0 mmol/L109/06/2024 6:45 AM [facility] IEWNPGPUZIDTWIFXQH1562 - 109 mmol/L109/06/2024 6:45 AM [facility] LABORATORYCARBON GWSUSFP3123 - 32 mmol/L109/06/2024 6:45 AM [facility] LABORATORYANION GAP95 - 15 mmol/L109/06/2024 6:45 AM EST [facility] LABORATORYBLOOD UREA DGEQBZJN484 - 27 mg/dL07/06/2025 6:45 AM [facility] LABORATORYCREATININE0.800.60 - 1.30 mg/dL 07/06/2025 6:45 AM [facility] LABORATORYComment:METHOD TRACEABLE TO IDTN AHZROFDATOWXAVN288(H)65 - 99 mg/dL07/06/2025 6:45 AM [facility] LABORATORYCALCIUM8.98.5 - 10.5 mg/dL07/06/2025 6:45 AM [facility] LABORATORYTOTAL PROTEIN6.56.0 - 8.0 g/dL 07/06/2025 6:45 AM [facility] LABORATORYALBUMIN3.23.2 - 5.3 g/dL07/06/2025 6:45 AM [facility] LABORATORYALKALINE ARMEZUOFLIR428(H)39 - 130 U/L109/06/2024 6:45 AM [facility] BYVCUUMKTSFHA19<=41 U/L109/06/2024 6:45 AM [facility] LABORATORYALT9<=40 U/L109/06/2024 6:45 AM [facility] LABORATORYBILIRUBIN,TOTAL0.2(L)0.3 - 1.2 mg/dL07/06/2025 6:45 AM [facility] LABORATORYEGFR Non-Race Dependent>90>=60 ml/min/1.73sq.m 07/06/2025 6:45 AM [facility] LABORATORYComment: Reported eGFR is based on the CKD-EPI 2020 equation that does not use a race coefficient. Specimen (Source)Anatomical Location / LateralityCollection Method / Volume Collection TimeReceived TimeBloodVenous blood / UnknownVenipuncture / Unknown 07/06/2025 5:49 AM EST07/06/2025 6:12 AM EST Narrative Authorizing ProviderResult TypeResult StatusAngeandi Cervantes WARHEAD MAINTENANCE SPECIALIST-CNPLAB BLOOD ORDERABLESFinal ResultPerforming OrganizationAddressCity/State/ZIP CodePhone Number [facility] [address] [place] [address], * (ABNORMAL) Bedside Glucose *Place/Obtain serum glucose if >500 per glucometer. (07/05/2025 8:54 PM EST)ComponentValueRef RangeTest MethodAnalysis Time Performed AtPathologist SignatureBedside Glucose (POC)248(H)65 - 99 mg/dL 07/05/2025 8:56 PM [facility] LABORATORYSpecimen (Source)Anatomical Location / LateralityCollection Method / VolumeCollection TimeReceived Time arterial/ccxysvvue29/09/2025 8:54 PM EST07/05/2025 8:56 PM EST Narrative Authorizing ProviderResult TypeResult StatusCHRISTUS Spohn Hospital [facility]i – SouthOINT OF CARE TEST ORDERABLESFinal ResultPerforming OrganizationAddressty/State/ZIP CodePhone [facility] [address] [place] [address], * (ABNORMAL) Bedside Glucose *Place/Obtain serum glucose if >500 per glucometer. (07/05/2025 5:15 PM EST)ComponentValueRef RangeTest MethodAnalysis Time Performed AtPathologist SignatureBedside Glucose (POC)160(H)65 - 99 mg/dL 07/05/2025 5:20 PM [facility] LABORATORYSpecimen (Source)Anatomical Location / LateralityCollection Method / VolumeCollection TimeReceived Time arterial/ykraqrinw37/09/2025 5:15 PM EST07/05/2025 5:20 PM EST Narrative Authorizing ProviderResult TypeResult StatusKaSt. [facility] MDPOINT OF CARE TEST ORDERABLESFinal ResultPerforming OrganizationAddressty/State/ZIP CodePhone [facility] LABORATORY [address] [place] [address], [place] * (ABNORMAL) Bedside Glucose *Place/Obtain serum glucose if >500 per glucometer. (07/05/2025 11:32AM EST)ComponentValueRef RangeTest MethodAnalysis Time Performed AtPathologist SignatureBedside Glucose (POC)206(H)65 - 99 mg/dL 07/05/2025 11:37 AM [facility] LABORATORYSpecimen (Source)Anatomical Location / LateralityCollection Method / VolumeCollection TimeReceived Time arterial/qimclscvq30/09/2025 11:32 AM EST07/05/2025 11:37 AM EST Narrative Authorizing ProviderResult TypeResult StatusKaleem U Allen MDPOINT OF CARE TEST ORDERABLESFinal ResultPerforming OrganizationAddressCity/State/ZIP CodePhone Number [facility] LABORATORY [address] [place] [address], [place] * (ABNORMAL) Hemoglobin and hematocrit, blood (07/05/2025 11:28 AM EST)Component ValueRef RangeTest MethodAnalysis TimePerformed AtPathologist Signature Hemoglobin8.7(L)13 - 17 g/dL07/05/2025 11:56 AM [facility] PLNVTGSIKASmxvjyxwco68.9(L)39 - 50 %07/05/2025 11:56 AM [facility] LABORATORYSpecimen (Source)Anatomical Location / LateralityCollection Method / VolumeCollection TimeReceived TimeBloodVenous blood / Unknown Venipuncture / Ycksxax7307/05/2025 11:28 AM EST07/05/2025 11:42 AM EST Narrative Authorizing ProviderResult TypeResult StatusAngeandi Cervantes WARHEAD MAINTENANCE SPECIALIST-CNPLAB BLOOD ORDERABLESFinal ResultPerforming OrganizationAddressCity/State/ZIP CodePhone Number [facility] [address] [place] [address], [place] [phone] * (ABNORMAL) Bedside Glucose *Place/Obtain serum glucose if >500 per glucometer. (07/05/2025 7:28 AM EST)ComponentValueRef RangeTest MethodAnalysis Time Performed AtPathologist SignatureBedside Glucose (POC)223(H)65 - 99 mg/dL 07/05/2025 7:33 AM [facility] LABORATORYSpecimen (Source)Anatomical Location / LateralityCollection Method / VolumeCollection TimeReceived Time arterial/zeakpswjt30/09/2025 7:28 AM EST07/05/2025 7:33 AM EST Narrative Authorizing ProviderResult TypeResult StatusKaleem U Allen MDPOINT OF CARE TEST ORDERABLESFinal ResultPerforming OrganizationAddressCity/State/ZIP CodePhone Number [facility]ORATORY [address] [place] [address], [place] * (ABNORMAL) CBC auto differential (07/05/2025 5:37 AM EST)ComponentValueRef RangeTest MethodAnalysis TimePerformed AtPathologist SignatureWBC9.24 - 11 10^9/L109/05/2024 6:59 AM [facility] LABORATORYRBC Count2.47 (L)4.1 - 5.7 10^12/L109/05/2024 6:59 AM [facility] LABORATORY Hemoglobin7.8(L)13 - 17 g/dL07/05/2025 6:59 AM [facility] GJNSBWXSZIEbpwkomkxo61.8(L)39 - 50 %07/05/2025 6:59 AM [facility] BKNJLXTEDLOTF8998 - 100 fL07/05/2025 6:59 AM [facility] MALTYHCEIAWZI20.427 - 34 pg07/05/2025 6:59 AM [facility] BJPRLOOANBMWLK32.632 - 36 g/dL07/05/2025 6:59 AM [facility] ZTDDUNJJPXGLF39.6(H)11.5 - 15 %07/05/2025 6:59 AM [facility] LABORATORYPlatelet Kvblv312965 - 450 10^9L109/05/2024 6:59 AM [facility] LABORATORYMPV6.9(L)7 - 12 fL07/05/2025 6:59 AM [facility] LABORATORYNeutrophils %79.6%07/05/2025 6:59 AM [facility] LABORATORYComment:This is an appended report. These results have been appended to a previously preliminary verified report.Lymphocytes % 13.0%07/05/2025 6:59 AM [facility] LABORATORYComment:This is an appended report. These results have been appended to a previously preliminary verified report.Monocytes %5.8%07/05/2025 6:59 AM [facility] LABORATORYComment:This is an appended report. These results have been appended to a previously preliminary verified report.Eosinophils % 0.5%07/05/2025 6:59 AM [facility] LABORATORYComment:This is an appended report. These results have been appended to a previously preliminary verified report.Basophils %1.1%07/05/2025 6:59 AM [facility] LABORATORYComment:This is an appended report. These results have been appended to a previously preliminary verified report.Neutrophils Absolute (A)7.3(H)1.5 - 6.6 10^9/L109/05/2024 6:59 AM [facility] LABORATORYComment:This is an appended report. These results have been appended to a previously preliminary verified report.Lymphocytes Absolute1.2 1.0 - 3.5 10^9/L109/05/2024 6:59 AM [facility] LABOR[facility] Comment:This is an appended report. These results have been appended to a previously preliminary verified report.Monocytes Absolute0.50.0 - 0.9 10^9/L 07/05/2025 6:59 AM [facility] LABORATORYComment:This is an appended report. These results have been appended to a previously preliminary verified report.Eosinophils Absolute0.10.0 - 0.4 10^9/L109/05/2024 6:59 AM [facility] LABORATORYComment:This is an appended report. These results have been appended to a previously preliminary verified report. Basophils Absolute0.10.0 - 0.2 10^9/L109/05/2024 6:59 AM [facility] LABORATORYComment:This is an appended report. These results have been appended to a previously preliminary verified report.Polychromasia1+07/05/2025 6:59 AM [facility] LABORATORYComment:This is an appended report. These results have been appended to a previously preliminary verified report.Dacryocytes1+07/05/2025 6:59 AM [facility] LABORAT[facility] Comment:This is an appended report. These results have been appended to a previously preliminary verified report.Differential TypeAUTOMATED DIFFERENTIAL 07/05/2025 6:59 AM [facility] LABORATORYComment:This is an appended report. These results have been appended to a previously preliminary verified report.Specimen (Source)Anatomical Location / LateralityCollection Method / VolumeCollection TimeReceived TimeBloodVenous blood / Unknown Venipuncture / Lateofi5107/05/2025 5:37 AM EST07/05/2025 6:09 AM EST Narrative Authorizing ProviderResult TypeResult StatusCherelle Cervantes WARHEAD MAINTENANCE SPECIALIST-CNPLAB BLOOD ORDERABLESFinal ResultPerforming OrganizationAddressty/State/ZIP CodePhone Number [facility] [address] [place] [address] [address] [place] [address], * Magnesium (07/05/2025 5:37 AM EST)ComponentValueRef RangeTest MethodAnalysis TimePerformed AtPathologist SignatureMAGNESIUM2.01.8 - 2.6 mg/dL07/05/2025 6:41 AM [facility] LABORATORYSpecimen (Source)Anatomical Location / LateralityCollection Method / VolumeCollection TimeReceived Time BloodVenous blood / UnknownVenipuncture / Hkduaqw3707/05/2025 5:37 AM EST 07/05/2025 6:09 AM EST Narrative Authorizing ProviderResult TypeResult StatusMarciaandi Cervantes WARHEAD MAINTENANCE SPECIALIST-CNPLAB BLOOD ORDERABLESFinal ResultPerforming OrganizationAddressCity/State/ZIP CodePhone Number [facility] [address] [place] [address] [address] [place] [address], * (ABNORMAL) Comprehensive metabolic panel (07/05/2025 5:37 AM EST)Component ValueRef RangeTest MethodAnalysis TimePerformed AtPathologist SignatureSODIUM 376823 - 146 mmol/L109/05/2024 6:41 AM [facility] LABORATORY POTASSIUM4.23.5 - 5.0 mmol/L109/05/2024 6:41 AM [facility] DXTSRKCVNAYOBKTDCE8323 - 109 mmol/L109/05/2024 6:41 AM [facility] LABORATORYCARBON DPBFRJY0846 - 32 mmol/L109/05/2024 6:41 AM [facility] LABORATORYANION SLO294 - 15 mmol/L109/05/2024 6:41 AM EST [facility] LABORATORYBLOOD UREA BUQHLGTG263 - 27 mg/dL07/05/2025 6:41 AM [facility] LABORATORYCREATININE0.800.60 - 1.30 mg/dL 07/05/2025 6:41 AM [facility] LABORATORYComment:METHOD TRACEABLE TO IDTN VEJPDLLZQYBRGFZ551(H)65 - 99 mg/dL07/05/2025 6:41 AM EST [facility] LABORATORYCALCIUM8.98.5 - 10.5 mg/dL07/05/2025 6:41 AM [facility] LABORATORYTOTAL PROTEIN6.26.0 - 8.0 g/dL 07/05/2025 6:41 AM [facility] LABORATORYALBUMIN3.1(L)3.2 - 5.3 g/dL07/05/2025 6:41 AM [facility] LABORATORYALKALINE SDECMKOCMOR825(H)39 - 130 U/L109/05/2024 6:41 AM [facility] EBQYFVOGSRLSU55<=41 U/L109/05/2024 6:41 AM [facility] LABORATORYALT8<=40 U/L109/05/2024 6:41 AM [facility] LABORATORYBILIRUBIN,TOTAL0.2(L)0.3 - 1.2 mg/dL07/05/2025 6:41 AM [facility] LABORATORYEGFR Non-Race Dependent>90>=60 ml/min/1.73sq.m 07/05/2025 6:41 AM [facility] LABORATORYComment: Reported eGFR is based on the CKD-EPI 2020 equation that does not use a race coefficient. Specimen (Source)Anatomical Location / LateralityCollection Method / Volume Collection TimeReceived TimeBloodVenous blood / UnknownVenipuncture / Unknown 07/05/2025 5:37 AM EST07/05/2025 6:09 AM EST Narrative Authorizing ProviderResult TypeResult StatusAngela Helen WARHEAD MAINTENANCE SPECIALIST-CNPLAB BLOOD ORDERABLESFinal ResultPerforming OrganizationAddressCity/State/ZIP CodePhone Number [facility] [address] [place] [address], * Er Extra Urine (07/05/2025 4:10 AM EST)ComponentValueRef RangeTest Method Analysis TimePerformed AtPathologist SignatureExtra TubeAuto Resulted 07/05/2025 6:03 AM [facility] LABORATORYSpecimen (Source) Anatomical Location / LateralityCollection Method / VolumeCollection Time Received TimeUrineUrine / Fpjbvbm4307/05/2025 4:10 AM EST07/05/2025 4:27 AM EST Narrative Authorizing ProviderResult TypeResult StatusKalefrantz HERRMANN ORDERABLES Final ResultPerforming OrganizationAddressCity/State/ZIP CodePhone Number [facility] [address] [place] [address], * (ABNORMAL) Urinalysis (07/05/2025 4:10 AM EST)ComponentValueRef RangeTest MethodAnalysis TimePerformed AtPathologist SignatureCOLORColorless(A)Yellow 07/05/2025 4:53 AM [facility] LABORATORYTURBIDITYClearClear 07/05/2025 4:53 AM [facility] LABORATORYSPECIFIC GRAVITY1.010 1.003 - 1.5408807/05/2025 4:53 AM [facility] LABORATORYNITRITE DhsnnbwmKzbsqqlr96/09/2025 4:53 AM [facility] PH,URINE6.55.0 - 8.512 4:53 AM [facility] LABOR[facility]ORY LEUKOCYTE ESTERASELarge(A)Ztyybdzf98/09/2025 4:53 AM [facility] LABORATORYComment:High Concentrations of Glucose May Decrease the Reactivity of the Dipstick Leukocyte Test Pad.PROTEINTrace(A)Negative 07/05/2025 4:53 AM [facility] LABORATORYKETONES (URINE) NorgiatnLqoskufg28/09/2025 4:53 AM [facility]OR[facility] UROBILINOGEN<1.1 eu/dL<1.1 eu/dL07/05/2025 4:53 AM [facility] LABORATORYBILIRUBIN (URINE)ZwubqsfvXswvgmub06/09/2025 4:53 AM [facility] LABORATORYBLOOD/HGBTrace(A)Jbnbepkq01/09/2025 4:53 AM EST [facility] LABORATORYMUCOUSPresent(A)None07/05/2025 4:53 AM EST [facility] LABORATORYR.B.CELLS20 - 512 4:53 AM [facility] LABORATORYW.B.CELLS33(H)0 - 4:53 AM [facility] LABORATORYGLUCOSE (URINE)>1000 mg/dL(A)Ogzlkdfz01/09/2025 4:53 AM [facility] LABORATORYSpecimen (Source)Anatomical Location / LateralityCollection Method / VolumeCollection TimeReceived Time UrineUrine / Mzvfelt1307/05/2025 4:10 AM EST07/05/2025 4:27 AM EST Narrative Authorizing ProviderResult TypeResult StatusCherelle Cervantes WARHEAD MAINTENANCE SPECIALIST-CNPURINE ORDERABLESFinal ResultPerforming OrganizationAddressCity/State/ZIP CodePhone Number [facility] [address] [place] [address], * (ABNORMAL) Urine Culture Urine, Clean Catch Midstream (07/05/2025 4:10 AM EST) ComponentValueRef RangeTest MethodAnalysis TimePerformed AtPathologist SignatureCULTURE OOOIMPZ37,000-100,000 CFU/mL Leatha albicans(A)07/06/2025 8:34 AM [facility] LABORATORYSpecimen (Source)Anatomical Location / LateralityCollection Method / VolumeCollection TimeReceived Time UrineUrine specimen collection, clean catch / Ddovhjk3807/05/2025 4:10 AM EST 07/05/2025 4:27 AM EST Narrative [facility] - 07/06/2025 8:34 AM EST Along with <10,000 CFU/mL Normal Urogenital Maria Luisa. Authorizing ProviderResult TypeResult StatusCherelle Cervantes WARHEAD MAINTENANCE SPECIALIST-CNPMICROBIOLOGY - GENERAL ORDERABLESFinal ResultPerforming OrganizationAddressCity/State/ZIP Code Phone Number [facility] [address] [place] [address], * (ABNORMAL) Bedside Glucose *Place/Obtain serum glucose if >500 per glucometer. (07/04/2025 9:14 PM EST)ComponentValueRef RangeTest MethodAnalysis Time Performed AtPathologist SignatureBedside Glucose (POC)186(H)65 - 99 mg/dL 07/04/2025 9:20 PM [facility] LABORATORYSpecimen (Source)Anatomical Location / LateralityCollection Method / VolumeCollection TimeReceived Time arterial/doduwupja53/08/2025 9:14 PM EST07/04/2025 9:20 PM EST Narrative Authorizing ProviderResult TypeResult StatusValeriefrantz [facility] OF CARE TEST ORDERABLESFinal ResultPerforming OrganizationAddressty/State/[facility] CodePhone Number [address] [address], [place] * (ABNORMAL) Bedside Glucose *Place/Obtain serum glucose if >500 per glucometer. (07/04/2025 5:20 PM EST)ComponentValueRef RangeTest MethodAnalysis Time Performed AtPathologist SignatureBedside Glucose (POC)187(H)65 - 99 mg/dL 07/04/2025 5:25 PM [facility] LABORATORYSpecimen (Source)Anatomical Location / LateralityCollection Method / VolumeCollection TimeReceived Time arterial/jttqujuzb50/08/2025 5:20 PM EST07/04/2025 5:25 PM EST Narrative Authorizing ProviderResult TypeResult StatusCH[facility] TEST ORDERABLESFinal ResultPerforming OrganizationAddressL[facility]/State/ZIP CodePhone [facility] LABORATORY [address] [place] [address], [place] * (ABNORMAL) Bedside Glucose *Place/Obtain serum glucose if >500 per glucometer. (07/04/2025 11:53AM EST)ComponentValueRef RangeTest MethodAnalysis Time Performed AtPathologist SignatureBedside Glucose (POC)321(H)65 - 99 mg/dL 07/04/2025 11:58 AM [facility] LABORATORYSpecimen (Source)Anatomical Location / LateralityCollection Method / VolumeCollection TimeReceived Time arterial/ffttnublt85/08/2025 11:53 AM EST07/04/2025 11:58 AM EST Narrative Authorizing ProviderResult TypeResult StatusCHRIST[facility] SouthOINT OF CARE TEST ORDERABLESFinal ResultPerforming OrganizationAddressty/State/ZIP CodePhone Number [place] [address] [place] [address], * (ABNORMAL) Bedside Glucose *Place/Obtain serum glucose if >500 per glucometer. (07/04/2025 7:45 AM EST)ComponentValueRef RangeTest MethodAnalysis Time Performed AtPathologist SignatureBedside Glucose (POC)227(H)65 - 99 mg/dL 07/04/2025 7:50 AM [facility] LABORATORYSpecimen (Source)Anatomical Location / LateralityCollection Method / VolumeCollection TimeReceived Time arterial/kmpeajtqp20/08/2025 7:45 AM EST07/04/2025 7:50 AM EST Narrative Authorizing ProviderResult TypeResult StatusCHRIST[facility] SouthOINT OF CARE TEST ORDERABLESFinal ResultPerforming OrganizationAddressty/State/ZIP CodePhone Number [facility] [place] [address], [place] * (ABNORMAL) CBC auto differential (07/04/2025 5:37 AM EST)ComponentValueRef RangeTest MethodAnalysis TimePerformed AtPathologist SignatureWBC9.24 - 11 10^9/L109/04/2024 7:35 AM [facility] LABORATORYRBC Count2.91 (L)4.1 - 5.7 10^12/L109/04/2024 7:35 AM [facility]ORY Hemoglobin9.3(L)13 - 17 g/dL07/04/2025 7:35 AM [facility] HPBIPWWOUBBeonmrceqr99.0(L)39 - 50 %07/04/2025 7:35 AM [facility] UGREDZHDPVBCR7649 - 100 fL07/04/2025 7:35 AM [facility] LQXQUEEOJLSUM63.827 - 34 pg07/04/2025 7:35 AM [facility] RMOBCCINTAZEWI18.032 - 36 g/dL07/04/2025 7:35 AM [facility] LQMGLUACYQHHY19.5(H)11.5 - 15 %07/04/2025 7:35 AM [facility] LABORATORYPlatelet Weaia172384 - 450 10^9/L109/04/2024 7:35 AM [facility] LABORATORYMPV6.6(L)7 - 12 fL07/04/2025 7:35 AM [facility] LABORATORYNeutrophils %91.2%07/04/2025 7:35 AM [facility] LABORATORYComment:This is an appended report. These results have been appended to a previously preliminary verified report.Lymphocytes % 6.4%07/04/2025 7:35 AM [facility] LABORATORYComment:This is an appended report. These results have been appended to a previously preliminary verified report.Monocytes %1.8%07/04/2025 7:35 AM [facility] LABORATORYComment:This is an appended report. These results have been appended to a previously preliminary verified report.Eosinophils % 0.0%07/04/2025 7:35 AM [facility] LABORATORYComment:This is an appended report. These results have been appended to a previously preliminary verified report.Basophils %0.6%07/04/2025 7:35 AM [facility] LABORATORYComment:This is an appended report. These results have been appended to a previously preliminary verified report.Neutrophils Absolute (A)8.4(H)1.5 - 6.6 10^9/L109/04/2024 7:35 AM [facility] LABORATORYComment:This is an appended report. These results have been appended to a previously preliminary verified report.Lymphocytes Absolute0.6 (L)1.0 - 3.5 10^9/L109/04/2024 7:35 AM [facility] Comment:This is an appended report. These results have been appended to a previously preliminary verified report.Monocytes Absolute0.20.0 - 0.9 10^9/L 07/04/2025 7:35 AM [facility] LABORATORYComment:This is an appended report. These results have been appended to a previously preliminary verified report.Eosinophils Absolute0.00.0 - 0.4 10^9/L109/04/2024 7:35 AM EST [facility] LABORATORYComment:This is an appended report. These results have been appended to a previously preliminary verified report. Basophils Absolute0.10.0 - 0.2 10^9/L109/04/2024 7:35 AM [facility] LABORATORYComment:This is an appended report. These results have been appended to a previously preliminary verified report.Differential Type AUTOMATED YTEWWJKIGNUV49/08/2025 7:35 AM [facility] LABORATORYComment:This is an appended report. These results have been appended to a previously preliminary verified report.Specimen (Source)Anatomical Location / LateralityCollection Method / VolumeCollection TimeReceived Time BloodVenous blood / UnknownVenipuncture / Cjwktse1607/04/2025 5:37 AM EST 07/04/2025 6:12 AM EST Narrative Authorizing ProviderResult TypeResult StatusAngeandi Cervantes WARHEAD MAINTENANCE SPECIALIST-ClueyLAB BLOOD ORDERABLESFinal ResultPerforming OrganizationAddressCity/State/ZIP CodePhone Number [facility] [address] [place] [address], * Magnesium (07/04/2025 5:37 AM EST)ComponentValueRef RangeTest MethodAnalysis TimePerformed AtPathologist SignatureMAGNESIUM2.11.8 - 2.6 mg/dL07/04/2025 6:46 AM [facility] LABORATORYSpecimen (Source)Anatomical Location / LateralityCollection Method / VolumeCollection TimeReceived Time BloodVenous blood / UnknownVenipuncture / Oxzgoqr0107/04/2025 5:37 AM EST 07/04/2025 6:12 AM EST Narrative Authorizing ProviderResult TypeResult StatusAngeandi Cervantes WARHEAD MAINTENANCE SPECIALIST-CNPLAB BLOOD ORDERABLESFinal ResultPerforming OrganizationAddressCity/State/ZIP CodePhone Number [facility] [address] [place] [address], * (ABNORMAL) Comprehensive metabolic panel (07/04/2025 5:37 AM EST)Component ValueRef RangeTest MethodAnalysis TimePerformed AtPathologist SignatureSODIUM 727560 - 146 mmol/L109/04/2024 6:46 AM [facility]ORY POTASSIUM4.43.5 - 5.0 mmol/L109/04/2024 6:46 AM [facility] JMKDUWEVAMXHXFMTIX93(L)98 - 109 mmol/L109/04/2024 6:46 AM [facility] LABORATORYCARBON ZKRIQWU5087 - 32 mmol/L109/04/2024 6:46 AM [facility] LABORATORYANION ITK594 - 15 mmol/L109/04/2024 6:46 AM [facility] LABORATORYBLOOD UREA XROIMISR103 - 27 mg/dL07/04/2025 6:46 AM [facility] LABORATORYCREATININE0.860.60 - 1.30 mg/dL 07/04/2025 6:46 AM [facility] LABORATORYComment:METHOD TRACEABLE TO IDMS FIMTANGQQHZYZXB319(H)65 - 99 mg/dL07/04/2025 6:46 AM [facility] LABORATORYCALCIUM9.68.5 - 10.5 mg/dL07/04/2025 6:46 AM [facility] LABORATORYTOTAL PROTEIN7.56.0 - 8.0 g/dL 07/04/2025 6:46 AM [facility] LABORATORYALBUMIN3.53.2 - 5.3 g/dL07/04/2025 6:46 AM [facility] LABORATORYALKALINE TBGCPSCKBAV892(H)39 - 130 U/L109/04/2024 6:46 AM [facility] YMZOICCBOSDKX15<=41 U/L109/04/2024 6:46 AM [facility] WAZGQGHJOWNZY41<=40 U/L109/04/2024 6:46 AM [facility] LABORATORYBILIRUBIN,TOTAL0.40.3 - 1.2 mg/dL07/04/2025 6:46 AM [facility] LABORATORYEGFR Non-Race Dependent>90>=60 ml/min/1.73sq.m 07/04/2025 6:46 AM [facility] LABORATORYComment: Reported eGFR is based on the CKD-EPI 2020 equation that does not use a race coefficient. Specimen (Source)Anatomical Location / LateralityCollection Method / Volume Collection TimeReceived TimeBloodVenous blood / UnknownVenipuncture / Unknown 07/04/2025 5:37 AM EST07/04/2025 6:12 AM EST Narrative Authorizing ProviderResult TypeResult StatusMarciaandi Cervantes WARHEAD MAINTENANCE SPECIALIST-CNPLAB BLOOD ORDERABLESFinal ResultPerforming OrganizationAddressCity/State/ZIP CodePhone Number [facility] [address] [place] [address], [place] [phone] * (ABNORMAL) Bedside Glucose *Place/Obtain serum glucose if >500 per glucometer. (07/03/2025 9:06 PM EST)ComponentValueRef RangeTest MethodAnalysis Time Performed AtPathologist SignatureBedside Glucose (POC)249(H)65 - 99 mg/dL 07/03/2025 9:07 PM [facility] LABORATORYSpecimen (Source)Anatomical Location / LateralityCollection Method / VolumeCollection TimeReceived Time arterial/wnlmqkjwo04/07/2025 9:06 PM EST07/03/2025 9:07 PM EST Narrative Authorizing ProviderResult TypeResult StatusKameronu Cari Singleton MDPOINT OF CARE TEST ORDERABLESFinal ResultPerforming OrganizationAddressCity/State/ZIP CodePhone Number [facility] [address] [place] [address], [place] * (ABNORMAL) Bedside Glucose *Place/Obtain serum glucose if >500 per glucometer. (07/03/2025 5:14 PM EST)ComponentValueRef RangeTest MethodAnalysis Time Performed AtPathologist SignatureBedside Glucose (POC)318(H)65 - 99 mg/dL 07/03/2025 5:36 PM [facility] LABORATORYSpecimen (Source)Anatomical Location / LateralityCollection Method / VolumeCollection TimeReceived Time arterial/kyhpgwyol05/07/2025 5:14 PM EST07/03/2025 5:36 PM EST Narrative Authorizing ProviderResult TypeResult StatusKameronu Cari Singleton MDPOINT OF CARE TEST ORDERABLESFinal ResultPerforming OrganizationAddressCity/State/ZIP CodePhone Number [facility] [address] [place] [address], * Fluoroscopy guidance spine puncture operative (07/03/2025 12:52 PM EST) Anatomical RegionLateralityModalityRadio FluoroscopySpecimen (Source) Anatomical Location / LateralityCollection Method / VolumeCollection Time Received Time07/03/2025 1:04 PM EST Narrative 07/03/2025 1:04 PM EST [place] FLUORO GUIDANCE SPINAL PUNCTURE OPERATIVE: 07/03/2025 12:51 PM Clinical: Back pain. Laminectomy. Reference air kerma: 1.05 mGY. IMPRESSION: * ??Fluoroscopic guidance provided to clinical service for spinal level localization for surgery. * ??See separate clinical report for procedural details. Finalized by Denys Holt MD on 07/03/2025 1:04 PM Procedure Note Denys Holt MD - 07/03/2025 [place] FLUORO GUIDANCE SPINAL PUNCTURE OPERATIVE: 07/03/2025 12:51 PM Clinical: Back pain. Laminectomy. Reference air kerma: 1.05 mGY. IMPRESSION: * Fluoroscopic guidance provided to clinical service for spinal level localization for surgery. * See separate clinical report for procedural details. Finalized by Denys Holt MD on 07/03/2025 1:04 PM Authorizing ProviderResult TypeResult StatusMilton Spain MDIMAdrian FLUOROSCOPY ORDERABLESFinal Result * Surgical Pathology (07/03/2025 12:40 PM EST)ComponentValueRef RangeTest Method Analysis TimePerformed AtPathologist SignatureCase ReportSurgical Pathology Report ? Case: [id number] ? Authorizing Provider: ??Milton Spain MD ?Collected: ? 07/03/2025 1240 ? Ordering Location: ? [facility] ??Received: ?07/04/2025 0724 ? - Surgery ? Pathologist: ? Eric Reddy MD ? Specimen: ?Back, Epidural tumor ? 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 The neoplastic cells are positive for NKX3.1 and PSA supporting the diagnosis.07/06/2025 11:13 AM [facility] LABORATORYGross DescriptionReceived in formalin labeled BEST, epidural tumor are ballard-brown delicate to friable rubbery softtissue fragments, 1.6 x 1.3 x 0.3 cm in aggregate. The specimens are sectioned to reveal rubbery ballard to slightly firm, crest cut surfaces. The specimens are submitted entirely in a single cassette. (1,ns,[id number], m2) TB07/06/2025 11:13 AM [facility] LABORATORYEmbedded Tlpfgr5107/06/2025 11:13 AM [facility] LABORATORYSpecimen (Source)Anatomical Location / LateralityCollection Method / VolumeCollection TimeReceived TimeTissue (Back)07/03/2025 12:40 PM EST07/04/2025 7:24 AM ESTComment:Pre-op diagnosis: METASTATIC MALINGNANCY Narrative Authorizing ProviderResult TypeResult StatusMilton Spain MDPATHOLOGY/CYTOLOGY ORDERABLESFinal ResultPerforming OrganizationAddressCity/State/ZIP CodePhone Number [facility] [address] [place] [address], [place] [phone] * (ABNORMAL) Bedside Glucose *Place/Obtain serum glucose if >500 per glucometer. (07/03/2025 8:45 AM EST)ComponentValueRef RangeTest MethodAnalysis Time Performed AtPathologist SignatureBedside Glucose (POC)126(H)65 - 99 mg/dL 07/03/2025 8:46 AM [facility] LABORATORYSpecimen (Source)Anatomical Location / LateralityCollection Method / VolumeCollection TimeReceived Time arterial/poajrwukk71/07/2025 8:45 AM EST07/03/2025 8:46 AM EST Narrative Authorizing ProviderResult TypeResult StatusCorbin Singleton MDPOINT OF CARE TEST ORDERABLESFinal ResultPerforming OrganizationAddressCity/State/ZIP CodePhone Number [facility] [address] [place] [address], [place] * (ABNORMAL) CBC auto differential (07/03/2025 3:18 AM EST)ComponentValueRef RangeTest MethodAnalysis TimePerformed AtPathologist SignatureWBC7.34 - 11 10^9/L109/03/2024 5:14 AM [facility] LABORATORYRBC Count2.58 (L)4.1 - 5.7 10^12/L109/03/2024 5:14 AM [facility] Hemoglobin8.2(L)13 - 17 g/dL07/03/2025 5:14 AM [facility] GRGFZOTVFTUnnpmsmhvx92.7(L)39 - 50 %07/03/2025 5:14 AM [facility] WRTNWMIGTGXBN9053 - 100 fL07/03/2025 5:14 AM [facility] TDIZQQFHDVZMK36.927 - 34 pg07/03/2025 5:14 AM [facility] ZHGKATRJAPMBOB83.232 - 36 g/dL07/03/2025 5:14 AM [facility] YHFKRKPEVLFRX51.7(H)11.5 - 15 %07/03/2025 5:14 AM [facility] LABORATORYPlatelet Titgq433266 - 450 10^9/L109/03/2024 5:14 AM [facility] LABORATORYMPV6.8(L)7 - 12 fL07/03/2025 5:14 AM [facility] LABORATORYNeutrophils %75%07/03/2025 5:14 AM [facility] LABORATORYComment:This is an appended report. These results have been appended to a previously preliminary verified report.Lymphocytes %10 %07/03/2025 5:14 AM [facility] LABORATORYComment:This is an appended report. These results have been appended to a previously preliminary verified report.Monocytes %13%07/03/2025 5:14 AM [facility] LABORATORYComment:This is an appended report. These results have been appended to a previously preliminary verified report.Eosinophils %1%07/03/2025 5:14 AM [facility] LABORATORYComment:This is an appended report. These results have been appended to a previously preliminary verified report. Atypical Lymphs %1%07/03/2025 5:14 AM [facility] Comment:This is an appended report. These results have been appended to a previously preliminary verified report.Neutrophils Absolute (M)5.51.5 - 6.6 10^9/L109/03/2024 5:14 AM [facility] LABORATORYComment:This is an appended report. These results have been appended to a previously preliminary verified report.Lymphocytes Absolute0.8(L)1.0 - 3.5 10^9/L 07/03/2025 5:14 AM [facility] LABORATORYComment:This is an appended report. These results have been appended to a previously preliminary verified report.Monocytes Absolute0.90.0 - 0.9 10^9/L109/03/2024 5:14 AM EST [facility]ORYComment:This is an appended report. These results have been appended to a previously preliminary verified report. Eosinophils Absolute0.10.0 - 0.4 10^9/L109/03/2024 5:14 AM [facility] LABORATORYComment:This is an appended report. These results have been appended to a previously preliminary verified report.Polychromasia1+07/03/2025 5:14 AM [facility] LABORATORYComment:This is an appended report. These results have been appended to a previously preliminary verified report.Differential TypeMANUAL HCYLXXEOJYNJ67/07/2025 5:14 AM [facility] LABORATORYComment:This is an appended report. These results have been appended to a previously preliminary verified report.Specimen (Source)Anatomical Location / LateralityCollection Method / VolumeCollection TimeReceived TimeBloodVenous blood / UnknownVenipuncture / Yxcuiey1907/03/2025 3:18 AM EST07/03/2025 4:01 AM EST Narrative Authorizing ProviderResult TypeResult StatusAngela Tenstrike WARHEAD MAINTENANCE SPECIALIST-CNPLAB BLOOD ORDERABLESFinal ResultPerforming OrganizationAddressCity/State/ZIP CodePhone Number [facility] [address] [place] [address], * Magnesium (07/03/2025 3:18 AM EST)ComponentValueRef RangeTest MethodAnalysis TimePerformed AtPathologist SignatureMAGNESIUM2.01.8 - 2.6 mg/dL07/03/2025 5:04 AM [facility] LABORATORYSpecimen (Source)Anatomical Location / LateralityCollection Method / VolumeCollection TimeReceived Time BloodVenous blood / UnknownVenipuncture / Mnznyub7107/03/2025 3:18 AM EST 07/03/2025 4:01 AM EST Narrative Authorizing ProviderResult TypeResult StatusCherelle Cervantes WARHEAD MAINTENANCE SPECIALIST-CNPLAB BLOOD ORDERABLESFinal ResultPerforming OrganizationAddressCity/State/ZIP CodePhone Number [facility] [address] [place] [phone], * (ABNORMAL) Comprehensive metabolic panel (07/03/2025 3:18 AM EST)Component ValueRef RangeTest MethodAnalysis TimePerformed AtPathologist SignatureSODIUM 907753 - 146 mmol/L109/03/2024 5:04 AM [facility] POTASSIUM3.93.5 - 5.0 mmol/L109/03/2024 5:04 AM [facility] WZWTEOEDAIACIZNFTI42(L)98 - 109 mmol/L109/03/2024 5:04 AM [facility] LABORATORYCARBON KLMLTVQ8323 - 32 mmol/L109/03/2024 5:04 AM [facility] LABORATORYANION GAP85 - 15 mmol/L109/03/2024 5:04 AM [facility] LABORATORYBLOOD UREA QUBQWSZU481 - 27 mg/dL07/03/2025 5:04 AM [facility] LABORATORYCREATININE0.830.60 - 1.30 mg/dL 07/03/2025 5:04 AM [facility] LABORATORYComment:METHOD TRACEABLE TO IDTN XQKDJUHYYQYWCKW222(H)65 - 99 mg/dL07/03/2025 5:04 AM EST [facility]ORYCALCIUM9.28.5 - 10.5 mg/dL07/03/2025 5:04 AM [facility] LABORATORYTOTAL PROTEIN6.46.0 - 8.0 g/dL 07/03/2025 5:04 AM [facility] LABORATORYALBUMIN3.1(L)3.2 - 5.3 g/dL07/03/2025 5:04 AM [facility] LABORATORYALKALINE QSMNLRAVSMW651(H)39 - 130 U/L109/03/2024 5:04 AM [facility] ECATFWCCYNGIH79<=41 U/L109/03/2024 5:04 AM [facility] BNMPSKSJFKFIO66<=40 U/L109/03/2024 5:04 AM [facility] LABORATORYBILIRUBIN,TOTAL0.40.3 - 1.2 mg/dL07/03/2025 5:04 AM [facility] LABORATORYEGFR Non-Race Dependent>90>=60 ml/min/1.73sq.m 07/03/2025 5:04 AM [facility] LABORATORYComment: Reported eGFR is based on the CKD-EPI 2020 equation that does not use a race coefficient. Specimen (Source)Anatomical Location / LateralityCollection Method / Volume Collection TimeReceived TimeBloodVenous blood / UnknownVenipuncture / Unknown 07/03/2025 3:18 AM EST07/03/2025 4:01 AM EST Narrative Authorizing ProviderResult TypeResult StatusCherelle Cervantes WARHEAD MAINTENANCE SPECIALIST-CNPLAB BLOOD ORDERABLESFinal ResultPerforming OrganizationAddressCity/State/ZIP CodePhone Number [facility] [address] [place] [address], [place] [phone] * (ABNORMAL) Bedside Glucose *Place/Obtain serum glucose if >500 per glucometer. (07/02/2025 9:34 PM EST)ComponentValueRef RangeTest MethodAnalysis Time Performed AtPathologist SignatureBedside Glucose (POC)156(H)65 - 99 mg/dL 07/02/2025 9:35 PM [facility] LABORATORYSpecimen (Source)Anatomical Location / LateralityCollection Method / VolumeCollection TimeReceived Time arterial/jlbrqiogc70/06/2025 9:34 PM EST07/02/2025 9:35 PM EST Narrative Authorizing ProviderResult TypeResult StatusVenu Cari Singleton MDPOINT OF CARE TEST ORDERABLESFinal ResultPerforming OrganizationAddressCity/State/ZIP CodePhone Number [facility] [address] [place] [address], [place] * (ABNORMAL) Bedside Glucose *Place/Obtain serum glucose if >500 per glucometer. (07/02/2025 3:44 PM EST)ComponentValueRef RangeTest MethodAnalysis Time Performed AtPathologist SignatureBedside Glucose (POC)147(H)65 - 99 mg/dL 07/02/2025 3:49 PM [facility] LABORATORYSpecimen (Source)Anatomical Location / LateralityCollection Method / VolumeCollection TimeReceived Time arterial/hxvzzfwlu99/06/2025 3:44 PM EST07/02/2025 3:49 PM EST Narrative Authorizing ProviderResult TypeResult StatusVenu Cari Vega Stewartjcarlos MDPOINT OF CARE TEST ORDERABLESFinal ResultPerforming OrganizationAddressCity/State/ZIP CodePhone Number [facility] [address] [place] [address], [place] * MR pelvis without contrast (07/02/2025 2:41 PM EST)Anatomical RegionLaterality ModalityBody, Body Covera, MSK Covera, PelvisN/AMagnetic ResonanceSpecimen (Source)Anatomical Location / LateralityCollection Method / VolumeCollection TimeReceived Time07/02/2025 2:54 PM EST Narrative 07/02/2025 3:17 PM EST MR PELVIS WO CONT HISTORY: bone mets. Osseous metastatic disease, progressive back pain. TECHNIQUE: Multiplanar [including lieutenant ballistics] multisequence MR of the pelvis was performed prior withoutintravenous contrast. ?? COMPARISON: None. IMPRESSION: Delay in interpretation for technical reasons. Extensive osseous metastatic disease, subtle asymmetric edema within the right sacral ala with suggestion of pathologic fracture/impending pathologic fracture [series 10 image #13, annotated]. No acute transcortical fracture. Areas of muscular edema, notable asymmetric involvement left greater than right gluteus medius and gluteus elfego, asymmetric edema involving left adductor musculature. Substantial extraosseous softtissue extension about left greater than right pubic bones [some of which may account for asymmetric left adductor muscular edema due to origin disruption]. Bilateral intertrochanteric and subtrochanteric femurs are involved. Small bilateral hip effusions. TURP.. Grossly unremarkable. Renal soft tissues, scrotum. Finalized by Reynaldo Flores MD on 07/02/2025 3:17 PM Procedure Note Reynaldo Flores MD - 07/02/2025 MR PELVIS WO CONT HISTORY: bone mets. Osseous metastatic disease, progressive back pain. TECHNIQUE: Multiplanar [including lieutenant ballistics] multisequence MR of the pelviswas performed prior without intravenous contrast. COMPARISON: None. IMPRESSION: Delay in interpretation for technical reasons. Extensive osseous metastatic disease, subtle asymmetric edema within theright sacral ala with suggestion of pathologic fracture/impendingpathologic fracture [series 10 image #13, annotated]. No acutetranscortical fracture. Areas of muscular edema, notable asymmetric involvement left greater thanright gluteus medius and gluteus elfego, asymmetric edema involving leftadductor musculature. Substantial extraosseous soft tissue extension aboutleft greater than right pubic bones [some of which may account forasymmetric left adductor muscular edema due to origin disruption]. Bilateral intertrochanteric and subtrochanteric femurs are involved. Small bilateral hip effusions. TURP.. Grossly unremarkable. Renal soft tissues, scrotum. Finalized by Reynaldo Flores MD on 07/02/2025 3:17 PM Authorizing ProviderResult TypeResult StatusElizabeth S [facility] MRI ORDERABLESFinal Result * MR lumbar spine without contrast (07/02/2025 2:41 PM EST)Anatomical Region LateralityModalityMSK, Neuro, Spine, L-spine, Spine CoveraN/AMagnetic ResonanceSpecimen (Source)Anatomical Location / LateralityCollection Method / VolumeCollection TimeReceived Time07/02/2025 2:52 PM EST Narrative 07/02/2025 3:13 PM EST LUMBAR SPINE MRI WITHOUT CONTRAST History: Back pain, progressive. Metastatic disease assessment. Comparison: 01/17/2025. Technique: Multiplanar multisequence MR imaging of the lumbar spine was performed without contrast. Findings: Delay in interpretation due to technical reasons. Preserved lumbar vertebral body heights. No substantial listhesis. Extensive osseous metastatic disease, overall extent of osseous involvement is grossly similar to prior. However, there is progressive extraosseous soft tissue dorsal to L5 vertebral body as well as effacing sacral cistern [notable progressive anterior epidural tumor at the S1 and S2 levels [0.8 cm in thickness, in December 2024 thismeasured approximately 0.3 cm in thickness. Similarly there is progressive extraosseous soft tissueabout the right L1 pedicle with progressive effacement of the right L1-2 neural foramina [series 8 image #5]. Subtle nondisplaced pathologic fracture/impending pathologic fracture right sacral ala [series 6 image #10-11], asymmetric subareolar edema right sacral ala [as reported on separate pelvic MRI]. Multilevel degenerative changes which are not significantly changed since prior. Sequelae prior posterior decompression at the L1 level with evolving changes, irregular T2 hyperintense collection throughout this region is similar to prior, possible pseudomeningocele versus seroma. Impression: 1. 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 Moderate to severe thecal sac stenosis at the S1-S2 level. 2. Subtle pathologic nondisplaced pathologic fracture versus impending pathologic fracture right sacral ala. Finalized by Reynaldo Flores MD on 07/02/2025 3:13 PM Procedure Note Reynaldo Flores MD - 07/02/2025 LUMBAR SPINE MRI WITHOUT CONTRAST History: Back pain, progressive. Metastatic disease assessment. Comparison: 01/17/2025. Technique: Multiplanar multisequence MR imaging of the lumbar spine wasperformed without contrast. Findings: Delay in interpretation due to technical reasons. Preserved lumbar vertebral body heights. No substantial listhesis.Extensive osseous metastatic disease, overall extent of osseousinvolvement is grossly similar to prior. However, there is progressiveextraosseous soft tissue dorsal to L5 vertebral body as well as effacingsacral cistern [notable progressive anterior epidural tumor at the S1 and S2 levels [0.8 cm inthickness, in December 2024 this measured approximately 0.3 cm in thickness.Similarly there is progressive extraosseous soft tissue about the right L4yjywifx with progressive effacement of the right L1-2 neural foramina[series 8 image #5]. Subtle nondisplaced pathologic fracture/impending pathologic fractureright sacral ala [series 6 image #10-11], asymmetric subareolar edemaright sacral ala [as reported on separate pelvic MRI]. Multilevel degenerative changes which are not significantly changed sinceprior. Sequelae prior posterior decompression at the L1 level withevolving changes, irregular T2 hyperintense collection throughout thisregion is similar to prior, possible pseudomeningocele versus seroma. Impression: 1. Subtle progression with respect to December 2024, notable progressiveposterior epidural tumor dorsal to S1 and S2 vertebral bodies as well asat L5, progressive extraosseous soft tissue effacing T12-L1 and L1-H2fbxzfa foramina. Moderate to severe thecal sac stenosis at the S1-W6cykef. 2. Subtle pathologic nondisplaced pathologic fracture versus impendingpathologic fracture right sacral ala. Finalized by Reynaldo Flores MD on 07/02/2025 3:13 PM Authorizing ProviderResult TypeResult Kaila Cervantes WARHEAD MAINTENANCE SPECIALIST-CNPIMG MRI ORDERABLESFinal Result * (ABNORMAL) Bedside Glucose *Place/Obtain serum glucose if >500 per glucometer. (07/02/2025 11:14AM EST)ComponentValueRef RangeTest MethodAnalysis Time Performed AtPathologist SignatureBedside Glucose (POC)213(H)65 - 99 mg/dL 07/02/2025 11:19 AM [facility] LABORATORYSpecimen (Source)Anatomical Location / LateralityCollection Method / VolumeCollection TimeReceived Time arterial/urpibuxwu41/06/2025 11:14 AM EST07/02/2025 11:19 AM EST Narrative Authorizing ProviderResult TypeResult oSlo Singleton MDPOINT OF CARE TEST ORDERABLESFinal ResultPerforming OrganizationAddressCity/State/ZIP CodePhone Number [facility] [address] [place] [address], * (ABNORMAL) Bedside Glucose *Place/Obtain serum glucose if >500 per glucometer. (07/02/2025 8:20 AM EST)ComponentValueRef RangeTest MethodAnalysis Time Performed AtPathologist SignatureBedside Glucose (POC)138(H)65 - 99 mg/dL 07/02/2025 8:25 AM [facility] LABORATORYSpecimen (Source)Anatomical Location / LateralityCollection Method / VolumeCollection TimeReceived Time arterial/gchatzvya95/06/2025 8:20 AM EST07/02/2025 8:25 AM EST Narrative Authorizing ProviderResult TypeResult StatusVenu Cari Singleton MDPOINT OF CARE TEST ORDERABLESFinal ResultPerforming OrganizationAddressCity/State/ZIP CodePhone Number [facility] [address] [place] [address], [place] * (ABNORMAL) CBC auto differential (07/02/2025 3:58 AM EST)ComponentValueRef RangeTest MethodAnalysis TimePerformed AtPathologist SignatureWBC9.04 - 11 10^9/L109/02/2024 6:22 AM [facility] LABORATORYRBC Count2.61 (L)4.1 - 5.7 10^12/L109/02/2024 6:22 AM [facility] Hemoglobin8.3(L)13 - 17 g/dL07/02/2025 6:22 AM [facility] CEIFBMXFQHLmfbtryphi69.0(L)39 - 50 %07/02/2025 6:22 AM [facility] WAOSMWOWYFDRL2268 - 100 fL07/02/2025 6:22 AM [facility] SYVUGFRYWGJDJ32.027 - 34 pg07/02/2025 6:22 AM [facility] VWPVLHIJWWPOAY78.332 - 36 g/dL07/02/2025 6:22 AM [facility] TDAGIYGGQXNQI56.8(H)11.5 - 15 %07/02/2025 6:22 AM [facility] LABORATORYPlatelet Xylsf228971 - 450 10^9/L109/02/2024 6:22 AM [facility] LABORATORYMPV6.8(L)7 - 12 fL07/02/2025 6:22 AM [facility] LABORATORYMyelocyte %1%07/02/2025 6:22 AM [facility] LABORATORYComment:This is an appended report. These results have been appended to a previously preliminary verified report.Bands %2%07/02/2025 6:22 AM [facility] LABORATORYComment:This is an appended report. These results have been appended to a previously preliminary verified report. Neutrophils %80%07/02/2025 6:22 AM [facility] Comment:This is an appended report. These results have been appended to a previously preliminary verified report.Lymphocytes %12%07/02/2025 6:22 AM [facility] LABORATORYComment:This is an appended report. These results have been appended to a previously preliminary verified report. Monocytes %3%07/02/2025 6:22 AM [facility] LABORATORYComment: This is an appended report. These results have been appended to a previously preliminary verified report.Eosinophils %2%07/02/2025 6:22 AM [facility] LABORATORYComment:This is an appended report. These results have been appended to a previously preliminary verified report.yJKV549 6:22 AM [facility] LABORATORYComment:This is an appended report. These results have been appended to a previously preliminary verified report.Neutrophils Absolute (M)7.3(H)1.5 - 6.6 10^9/L109/02/2024 6:22 AM [facility] LABORATORYComment:This is an appended report. These results have been appended to a previously preliminary verified report. Lymphocytes Absolute1.11.0 - 3.5 10^9/L109/02/2024 6:22 AM [facility] LABORATORYComment:This is an appended report. These results have been appended to a previously preliminary verified report.Monocytes Absolute0.30.0 - 0.9 10^9/L109/02/2024 6:22 AM [facility] LABORATORYComment: This is an appended report. These results have been appended to a previously preliminary verified report.Eosinophils Absolute0.20.0 - 0.4 10^9/L109/02/2024 6:22 AM [facility] LABORATORYComment:This is an appended report. These results have been appended to a previously preliminary verified report.Polychromasia1+07/02/2025 6:22 AM [facility] LABORATORYComment:This is an appended report. These results have been appended to a previously preliminary verified report.Differential TypeMANUAL YWKQTZFKSLOQ37/06/2025 6:22 AM [facility] LABORATORYComment: This is an appended report. These results have been appended to a previously preliminary verified report.Specimen (Source)Anatomical Location / Laterality Collection Method / VolumeCollection TimeReceived TimeBloodVenous blood / UnknownVenipuncture / Aattgrr8007/02/2025 3:58 AM EST07/02/2025 4:47 AM EST Narrative Authorizing ProviderResult TypeResult StatusCherelle Cervantes [facility] BLOOD ORDERABLESFinal ResultPerforming OrganizationAddressCity/State/ZIP CodePhone Number [facility] [address] [place] [address], * Magnesium (07/02/2025 3:58 AM EST)ComponentValueRef RangeTest MethodAnalysis TimePerformed AtPathologist SignatureMAGNESIUM2.31.8 - 2.6 mg/dL07/02/2025 5:23 AM [facility] LABORATORYSpecimen (Source)Anatomical Location / LateralityCollection Method / VolumeCollection TimeReceived Time BloodVenous blood / UnknownVenipuncture / Gcowdjv3707/02/2025 3:58 AM EST 07/02/2025 4:47 AM EST Narrative Authorizing ProviderResult TypeResult StatusCherelle Cervantes [facility] BLOOD ORDERABLESFinal ResultPerforming OrganizationAddressty/State/ZIP CodePhone Number [facility] [address] [place] [address], * (ABNORMAL) Comprehensive metabolic panel (07/02/2025 3:58 AM EST)Component ValueRef RangeTest MethodAnalysis TimePerformed AtPathologist SignatureSODIUM 856414 - 146 mmol/L109/02/2024 5:23 AM [facility] POTASSIUM4.63.5 - 5.0 mmol/L109/02/2024 5:23 AM [facility] EGZDZUUBSOSTMJEWTE80(L)98 - 109 mmol/L109/02/2024 5:23 AM [facility] LABORATORYCARBON CSJDEYC2855 - 32 mmol/L109/02/2024 5:23 AM [facility] LABORATORYANION GAP75 - 15 mmol/L109/02/2024 5:23 AM [facility]ORYBLOOD UREA [id number] - 27 mg/dL07/02/2025 5:23 AM [facility] LABORATORYCREATININE1.110.60 - 1.30 mg/dL 07/02/2025 5:23 AM [facility] LABORATORYComment:METHOD TRACEABLE TO IDMS LBMACTZYYJPNJMT024(H)65 - 99 mg/dL07/02/2025 5:23 AM [facility] LABORATORYCALCIUM9.38.5 - 10.5 mg/dL07/02/2025 5:23 AM [facility] LABORATORYTOTAL PROTEIN6.46.0 - 8.0 g/dL 07/02/2025 5:23 AM [facility] LABORATORYALBUMIN3.23.2 - 5.3 g/dL07/02/2025 5:23 AM [facility] LABORATORYALKALINE JGWQLQFOGAC467(H)39 - 130 U/L109/02/2024 5:23 AM [facility] TWMOJNIWVVUKH62<=41 U/L109/02/2024 5:23 AM [facility] IDXZHIOYWPYEP12<=40 U/L109/02/2024 5:23 AM [facility] LABORATORYBILIRUBIN,TOTAL0.40.3 - 1.2 mg/dL07/02/2025 5:23 AM [facility] LABORATORYEGFR Non-Race Sifivowwj36>=60 ml/min/1.73sq.m 07/02/2025 5:23 AM [facility] LABORATORYComment: Reported eGFR is based on the CKD-EPI 2020 equation that does not use a race coefficient. Specimen (Source)Anatomical Location / LateralityCollection Method / Volume Collection TimeReceived TimeBloodVenous blood / UnknownVenipuncture / Unknown 07/02/2025 3:58 AM EST07/02/2025 4:47 AM EST Narrative Authorizing ProviderResult TypeResult StatusAngela Helen WARHEAD MAINTENANCE SPECIALIST-[facility]PL[facility] BLOOD ORDERABLESFinal ResultPerforming OrganizationAddressCity/State/ZIP CodePhone Number [facility] [address] [place] [address], [place] [phone] * (ABNORMAL) Bedside Glucose *Place/Obtain serum glucose if >500 per glucometer. (07/01/2025 9:18 PM EST)ComponentValueRef RangeTest MethodAnalysis Time Performed AtPathologist SignatureBedside Glucose (POC)235(H)65 - 99 mg/dL 07/01/2025 9:23 PM [facility] LABORATORYSpecimen (Source)Anatomical Location / LateralityCollection Method / VolumeCollection TimeReceived Time arterial/slcerjpzp94/05/2025 9:18 PM EST07/01/2025 9:23 PM EST Narrative Authorizing ProviderResult TypeResult StatusVenu Cari Singleton MDPOINT OF CARE TEST ORDERABLESFinal ResultPerforming OrganizationAddressCity/State/ZIP CodePhone Number [facility] [address] [facility] [place] [address], [place] * (ABNORMAL) Bedside Glucose *Place/Obtain serum glucose if >500 per glucometer. (07/01/2025 5:15 PM EST)ComponentValueRef RangeTest MethodAnalysis Time Performed AtPathologist SignatureBedside Glucose (POC)177(H)65 - 99 mg/dL 07/01/2025 5:20 PM [facility] LABORATORYSpecimen (Source)Anatomical Location / LateralityCollection Method / VolumeCollection TimeReceived Time arterial/vjqbzwixd83/05/2025 5:15 PM EST07/01/2025 5:20 PM EST Narrative Authorizing ProviderResult TypeResult StatusVenu Cari Singleton MDPOINT OF CARE TEST ORDERABLESFinal ResultPerforming OrganizationAddressCity/State/ZIP CodePhone Number [facility] [address] [place] [address], [place] * Magnesium (07/01/2025 3:56 PM EST)ComponentValueRef RangeTest MethodAnalysis TimePerformed AtPathologist SignatureMAGNESIUM2.31.8 - 2.6 mg/dL07/01/2025 4:46 PM [facility] LABORATORYSpecimen (Source)Anatomical Location / LateralityCollection Method / VolumeCollection TimeReceived Time BloodVenous blood / UnknownVenipuncture / Vkrseye1107/01/2025 3:56 PM EST 07/01/2025 4:17 PM EST Narrative Authorizing ProviderResult TypeResult Solo BORJAS BLOOD ORDERABLESFinal ResultPerforming OrganizationAddressCity/State/ZIP CodePhone Number [facility] [address] [place] [address], [place] [phone] * (ABNORMAL) Bedside Glucose *Place/Obtain serum glucose if >500 per glucometer. (07/01/2025 11:48AM EST)ComponentValueRef RangeTest MethodAnalysis Time Performed AtPathologist SignatureBedside Glucose (POC)158(H)65 - 99 mg/dL 07/01/2025 11:54 AM [facility] LABORATORYSpecimen (Source)Anatomical Location / LateralityCollection Method / VolumeCollection TimeReceived Time arterial/gqwlkcjak67/05/2025 11:48 AM EST07/01/2025 11:54 AM EST Narrative Authorizing ProviderResult TypeResult Solo Singleton MDPOINT OF CARE TEST ORDERABLESFinal ResultPerforming OrganizationAddressty/State/ZIP CodePhone Number [facility] [address] [place] [address], [place] * (ABNORMAL) Bedside Glucose *Place/Obtain serum glucose if >500 per glucometer. (07/01/2025 9:16 AM EST)ComponentValueRef RangeTest MethodAnalysis Time Performed AtPathologist SignatureBedside Glucose (POC)118(H)65 - 99 mg/dL 07/01/2025 10:30 AM [facility] LABORATORYSpecimen (Source)Anatomical Location / LateralityCollection Method / VolumeCollection TimeReceived Time arterial/wqctaqzmq49/05/2025 9:16 AM EST07/01/2025 10:30 AM EST Narrative Authorizing ProviderResult TypeResult Solo Singleton MDPOINT OF CARE TEST ORDERABLESFinal ResultPerforming OrganizationAddressCity/State/ZIP CodePhone Number [facility] [address] [place] [address], [place] * (ABNORMAL) CBC auto differential (07/01/2025 5:41 AM EST)ComponentValueRef RangeTest MethodAnalysis TimePerformed AtPathologist SignatureWBC8.94 - 11 10^9/L109/01/2024 7:00 AM [facility] LABORATORYRBC Count2.68 (L)4.1 - 5.7 10^12/L109/01/2024 7:00 AM [facility] Hemoglobin8.6(L)13 - 17 g/dL07/01/2025 7:00 AM [facility] QQZJDDJVNGScgrbzfepg28.8(L)39 - 50 %07/01/2025 7:00 AM [facility] YXBRPVLCEBOGA3284 - 100 fL07/01/2025 7:00 AM [facility] RRBUCLDMHZSER75.027 - 34 pg07/01/2025 7:00 AM [facility] SABCNSCQUCPCLH57.432 - 36 g/dL07/01/2025 7:00 AM [facility] HUHYRXHEPYWAC86.7(H)11.5 - 15 %07/01/2025 7:00 AM [facility] LABORATORYPlatelet Folqg381690 - 450 10^9/L109/01/2024 7:00 AM [facility] LABORATORYMPV6.4(L)7 - 12 fL07/01/2025 7:00 AM [facility] LABORATORYBands %2%07/01/2025 7:00 AM [facility] LABORATORYComment:This is an appended report. These results have been appended to a previously preliminary verified report.Neutrophils %68% 07/01/2025 7:00 AM [facility] LABORATORYComment:This is an appended report. These results have been appended to a previously preliminary verified report.Lymphocytes %16%07/01/2025 7:00 AM [facility] LABORATORYComment:This is an appended report. These results have been appended to a previously preliminary verified report.Monocytes %11%07/01/2025 7:00 AM [facility] LABORATORYComment:This is an appended report. These results have been appended to a previously preliminary verified report. Eosinophils %3%07/01/2025 7:00 AM [facility] Comment:This is an appended report. These results have been appended to a previously preliminary verified report.Neutrophils Absolute (M)6.21.5 - 6.6 10^9/L109/01/2024 7:00 AM [facility] LABORATORYComment:This is an appended report. These results have been appended to a previously preliminary verified report.Lymphocytes Absolute1.41.0 - 3.5 10^9/L109/01/2024 7:00 AM [facility] LABORATORYComment:This is an appended report. These results have been appended to a previously preliminary verified report.Monocytes Absolute1.0(H)0.0 - 0.9 10^9/L109/01/2024 7:00 AM [facility] LABORATORYComment:This is an appended report. These results have been appended to a previously preliminary verified report.Eosinophils Absolute0.30.0 - 0.4 10^9/L109/01/2024 7:00 AM [facility] LABORATORYComment:This is an appended report. These results have been appended to a previously preliminary verified report.RBC Fragments1+07/01/2025 7:00 AM [facility] LABORATORYComment:This is an appended report. These results have been appended to a previously preliminary verified report. Dacryocytes1+07/01/2025 7:00 AM [facility] LABORATORYComment: This is an appended report. These results have been appended to a previously preliminary verified report.Differential TypeMANUAL MLWNOTAZGKPA62/05/2025 7:00 AM [facility] LABORATORYComment:This is an appended report. These results have been appended to a previously preliminary verified report.Specimen (Source)Anatomical Location / LateralityCollection Method / VolumeCollection TimeReceived TimeBloodVenous blood / UnknownVenipuncture / Lyomzti5207/01/2025 5:41 AM EST07/01/2025 5:52 AM EST Narrative Authorizing ProviderResult TypeResult StatusAngela Helen WARHEAD MAINTENANCE SPECIALIST-CNPLAB BLOOD ORDERABLESFinal ResultPerforming OrganizationAddressCity/State/ZIP CodePhone Number [facility] [address] [place] [address], * Magnesium (07/01/2025 5:41 AM EST)ComponentValueRef RangeTest MethodAnalysis TimePerformed AtPathologist SignatureMAGNESIUM1.91.8 - 2.6 mg/dL07/01/2025 6:35 AM [facility] LABORATORYSpecimen (Source)Anatomical Location / LateralityCollection Method / VolumeCollection TimeReceived Time BloodVenous blood / UnknownVenipuncture / Aiklehs2307/01/2025 5:41 AM EST 07/01/2025 5:52 AM EST Narrative Authorizing ProviderResult TypeResult StatusAngela Tenstrike WARHEAD MAINTENANCE SPECIALIST-CNPLAB BLOOD ORDERABLESFinal ResultPerforming OrganizationAddressty/State/ZIP CodePhone Number [facility] [address] [place] [address], * (ABNORMAL) Comprehensive metabolic panel (07/01/2025 5:41 AM EST)Component ValueRef RangeTest MethodAnalysis TimePerformed AtPathologist SignatureSODIUM 717889 - 146 mmol/L109/01/2024 6:35 AM [facility] POTASSIUM4.43.5 - 5.0 mmol/L109/01/2024 6:35 AM [facility] JHXFCOSPTFDMJEEDXB94(L)98 - 109 mmol/L109/01/2024 6:35 AM [facility] LABORATORYCARBON JNTHVVD7956 - 32 mmol/L109/01/2024 6:35 AM [facility] LABORATORYANION GAP75 - 15 mmol/L109/01/2024 6:35 AM EST [facility]ATORYBLOOD UREA ZUVVSWQL432 - 27 mg/dL07/01/2025 6:35 AM [facility] LABORATORYCREATININE1.020.60 - 1.30 mg/dL 07/01/2025 6:35 AM [facility] LABORATORYComment:METHOD TRACEABLE TO IDMS MMCJWYFCXVGKUVG842(H)65 - 99 mg/dL07/01/2025 6:35 AM EST [facility]ATORYCALCIUM9.18.5 - 10.5 mg/dL07/01/2025 6:35 AM [facility] LABORATORYTOTAL PROTEIN6.26.0 - 8.0 g/dL 07/01/2025 6:35 AM [facility] LABORATORYALBUMIN3.23.2 - 5.3 g/dL07/01/2025 6:35 AM [facility] LABORATORYALKALINE TSRTNLHWKNV885(H)39 - 130 U/L109/01/2024 6:35 AM [facility] ATQQTBYNXBZYW16<=41 U/L109/01/2024 6:35 AM [facility] ITEODPSVFBAJH57<=40 U/L109/01/2024 6:35 AM [facility] LABORATORYBILIRUBIN,TOTAL0.40.3 - 1.2 mg/dL07/01/2025 6:35 AM [facility] LABORATORYEGFR Non-Race Iactqfkmn45>=60 ml/min/1.73sq.m 07/01/2025 6:35 AM [facility] LABORATORYComment: Reported eGFR is based on the CKD-EPI 2020 equation that does not use a race coefficient. Specimen (Source)Anatomical Location / LateralityCollection Method / Volume Collection TimeReceived TimeBloodVenous blood / UnknownVenipuncture / Unknown 07/01/2025 5:41 AM EST07/01/2025 5:52 AM EST Narrative Authorizing ProviderResult TypeResult StatusAngela Helen WARHEAD MAINTENANCE SPECIALIST-CNPLAB BLOOD ORDERABLESFinal ResultPerforming OrganizationAddressCity/State/ZIP CodePhone Number [facility] [address] [place] [address], [place] [phone] * MR thoracic spine without contrast (07/01/2025 1:56 AM EST)Anatomical Region LateralityModalityMSK, Neuro, Spine, T-spine, Spine CoveraN/AMagnetic ResonanceSpecimen (Source)Anatomical Location / LateralityCollection Method / VolumeCollection TimeReceived Time07/01/2025 5:03 AM EST Narrative 07/01/2025 5:09 AM EST MR THORACIC SPINE WO CONT HISTORY: pain/mets. TECHNIQUE: Multiplanar multisequence MR of the thoracic spine was performed prior to and following the uncomplicated administration of ProHance intravenous contrast. ?? COMPARISON: 01/17/2025 thoracic spine MRI, 06/28/[address] FINDINGS: Diffuse osseous metastatic disease with numerous sclerotic lesions, given extensive involvement, comparison with prior us challenging. No interval pathologic fracture or substantial thoracic vertebral body height loss seen. Progressive posterior epidural tumor at the T9 level, 1.1 x 0.7 cm, previously 2 to 3 mm in thickness. Additional right lateral epidural tumor at the T8 level [series 21 image #3-4], ESCC grade. Partially visualized epidural tumor at the T12-L1 level, status post posterior decompression, despite this there is ESCC grade 3 tumor at the T12-L1 disc space [series 21 image #20], subtle suggestion of cord signal change, annotated. Informed thecal sac narrowing related to epidural lipomatosis. Small left pleural effusion. No significant findings. Spinal soft tissues elsewhere. IMPRESSION: 1. Diffuse osseous metastatic disease, given extensive involvement comparison with prior is somewhat challenging, no interval pathologic fracture seen. Partially visualized apparent disease progression at the L1 level, severe thecal sac stenosis at T12-L1 with ESCC grade 3 tumor. Recommend lumbar spine MRI. 2. Additional progressive posterior epidural tumor at the T9 level, mild to moderate thecal sac stenosis at this level. 3. Superimposed uniform thecal sac stenosis throughout the thoracic spine related to epidural lipomatosis. THIS REPORT CONTAINS A SIGNIFICANT RESULT AND/OR RECOMMENDATION, WHICH REQUIRES THE ATTENTION OF THE LICENSED CAREGIVER RESPONSIBLE FOR THIS PATIENT. THEREFORE, I SPECIFICALLY DESIGNATED THIS REPORT TO BE TELEPHONED BY THE RADIOLOGY DEPARTMENT. FINDINGS WERE INSTRUCTED TO BE CALLED TO THE CLINICAL SERVICE ON 07/01/2025 5:09 AM Finalized by Reynaldo Flores MD on 07/01/2025 5:09 AM Procedure Note Reynaldo Flores MD - 07/01/2025 MR THORACIC SPINE WO CONT HISTORY: pain/mets. TECHNIQUE: Multiplanar multisequence MR of the thoracic spine wasperformed prior to and following the uncomplicated administration ofProHance intravenous contrast. COMPARISON: 01/17/2025 thoracic spine MRI, 06/28/[address] FINDINGS: Diffuse osseous metastatic disease with numerous sclerotic lesions, given extensive involvement, comparison with prior us challenging. No interval pathologic fracture or substantial thoracic vertebral body height lossseen. Progressive posterior epidural tumor at the T9 level, 1.1 x 0.7 cm,previously 2 to 3 mm in thickness. Additional right lateral epidural tumor at the T8 level [series 21 image#3-4], ESCC grade. Partially visualized epidural tumor at the T12-L1 level, status postposterior decompression, despite this there is ESCC grade 3 tumor at qsjJ70-C4 disc space [series 21 image #20], subtle suggestion of cord signalchange, annotated. Informed thecal sac narrowing related to epidurallipomatosis. Small left pleural effusion. No significant findings. Spinal soft tissues elsewhere. IMPRESSION: 1. Diffuse osseous metastatic disease, given extensive involvementcomparison with prior is somewhat challenging, no interval pathologicfracture seen. Partially visualized apparent disease progression at the M3kfrts, severe thecal sac stenosis at T12-L1 with ESCC grade 3 tumor.Recommend lumbar spine MRI. 2. Additional progressive posterior epidural tumor at the T9 level, mildto moderate thecal sac stenosis at this level. 3. Superimposed uniform thecal sac stenosis throughout the thoracic spinerelated to epidural lipomatosis. THIS REPORT CONTAINS A SIGNIFICANT RESULT AND/OR RECOMMENDATION, WHICHREQUIRES THE ATTENTION OF THE LICENSED CAREGIVER RESPONSIBLE FOR THISPATIENT. THEREFORE, I SPECIFICALLY DESIGNATED THIS REPORT TO BE TELEPHONED BY THE RADIOLOGY DEPARTMENT. FINDINGS WERE INSTRUCTED TO BE CALLED TO THE CLINICAL SERVICE ON 55:09 AM Finalized by Reynaldo Flores MD on 07/01/2025 5:09 AM Authorizing ProviderResult TypeResult StatusAngela Tenstrike WARHEAD MAINTENANCE SPECIALIST-[facility] MRI ORDERABLESFinal Result * (ABNORMAL) Bedside Glucose *Place/Obtain serum glucose if >500 per glucometer. (06/30/2025 9:03 PM EST)ComponentValueRef RangeTest MethodAnalysis Time Performed AtPathologist SignatureBedside Glucose (POC)195(H)65 - 99 mg/dL 06/30/2025 9:06 PM [facility] LABORATORYSpecimen (Source)Anatomical Location / LateralityCollection Method / VolumeCollection TimeReceived Time arterial/lvrqenbmd15/04/2025 9:03 PM EST06/30/2025 9:06 PM EST Narrative Authorizing ProviderResult TypeResult StatusKameron Cari Vega Mani MDPOINT OF CARE TEST ORDERABLESFinal ResultPerforming OrganizationAddressty/State/ZIP CodePhone Number [facility] [address] [place] [address], [place] * (ABNORMAL) Bedside Glucose *Place/Obtain serum glucose if >500 per glucometer. (06/30/2025 4:22 PM EST)ComponentValueRef RangeTest MethodAnalysis Time Performed AtPathologist SignatureBedside Glucose (POC)144(H)65 - 99 mg/dL 06/30/2025 4:27 PM [facility] LABORATORYSpecimen (Source)Anatomical Location / LateralityCollection Method / VolumeCollection TimeReceived Time arterial/twuphkqya08/04/2025 4:22 PM EST06/30/2025 4:27 PM EST Narrative Authorizing ProviderResult TypeResult [facility] Gary Singleton MDPOINT OF CARE TEST ORDERABLESFinal ResultPerforming OrganizationAddressCity/State/ZIP CodePhone Number [facility] [address] [place] [address], [place] * (ABNORMAL) Bedside Glucose *Place/Obtain serum glucose if >500 per glucometer. (06/30/2025 11:30AM EST)ComponentValueRef RangeTest MethodAnalysis Time Performed AtPathologist SignatureBedside Glucose (POC)146(H)65 - 99 mg/dL 06/30/2025 11:55 AM [facility] LABORATORYSpecimen (Source)Anatomical Location / LateralityCollection Method / VolumeCollection TimeReceived Time arterial//04/2025 11:30 AM EST06/30/2025 11:55 AM EST Narrative Authorizing ProviderResult TypeResult Status[facility] Augustcedar city hospitaldejuan Vega Mani MDPOINT OF CARE TEST ORDERABLESFinal ResultPerforming OrganizationAddCommunity Health Systems/State/ZIP CodePhone Number [facility] [address] [place] [address], [place] * (ABNORMAL) Bedside Glucose *Place/Obtain serum glucose if >500 per glucometer. (06/30/2025 8:37 AM EST)ComponentValueRef RangeTest MethodAnalysis Time Performed AtPathologist SignatureBedside Glucose (POC)122(H)65 - 99 mg/dL 06/30/2025 8:43 AM [facility] LABORATORYSpecimen (Source)Anatomical Location / LateralityCollection Method / VolumeCollection TimeReceived Time arterial//04/2025 8:37 AM EST06/30/2025 8:43 AM EST Narrative Authorizing ProviderResult TypeResult StatusCorbin Singleton MDPOINT OF CARE TEST ORDERABLESFinal ResultPerforming OrganizationAddressCity/State/ZIP CodePhone Number [facility] [address] [place] [address], [place] * (ABNORMAL) B-type natriuretic peptide (06/30/2025 5:51 AM EST)ComponentValue Ref RangeTest MethodAnalysis TimePerformed AtPathologist XmmgmlcvlCDX661(H) <=100 pg/mL06/30/2025 9:22 AM [facility] LABORATORYSpecimen (Source)Anatomical Location / LateralityCollection Method / VolumeCollection TimeReceived TimeBloodVenous blood / UnknownVenipuncture / Avliqqu8206/30/2025 5:51 AM EST06/30/2025 6:16 AM EST Narrative Authorizing ProviderResult TypeResult StatusAranza Wang WARHEAD MAINTENANCE SPECIALIST-CNPLAB BLOOD ORDERABLESFinal ResultPerforming OrganizationAddressCity/State/ZIP CodePhone Number [facility] [address] [place] [address], [place] [phone] * (ABNORMAL) CBC auto differential (06/30/2025 5:51 AM EST)ComponentValueRef RangeTest MethodAnalysis TimePerformed AtPathologist SignatureWBC8.04 - 11 10^9/L108/31/2024 7:25 AM [facility] LABORATORYRBC Count2.73 (L)4.1 - 5.7 10^12/L108/31/2024 7:25 AM [facility] Hemoglobin8.7(L)13 - 17 g/dL06/30/2025 7:25 AM [facility] CAIIQBMDZKPdctcfbqrj65.1(L)39 - 50 %06/30/2025 7:25 AM [facility] EPVTTYAEGMCZN3796 - 100 fL06/30/2025 7:25 AM [facility] LFPDGRTLPRITE06.827 - 34 pg06/30/2025 7:25 AM [facility] CFQLTXKVMYMRYW04.332 - 36 g/dL06/30/2025 7:25 AM [facility] OZGFPHIRQKMAY73.6(H)11.5 - 15 %06/30/2025 7:25 AM [facility] LABORATORYPlatelet Csgcd121359 - 450 10^9/L108/31/2024 7:25 AM [facility] LABORATORYMPV7.07 - 12 fL06/30/2025 7:25 AM [facility] LABORATORYNeutrophils %74%06/30/2025 7:25 AM [facility] LABORATORYComment:This is an appended report. These results have been appended to a previously preliminary verified report.Lymphocytes %22 %06/30/2025 7:25 AM [facility] LABORATORYComment:This is an appended report. These results have been appended to a previously preliminary verified report.Monocytes %4%06/30/2025 7:25 AM [facility] LABORATORYComment:This is an appended report. These results have been appended to a previously preliminary verified report.Neutrophils Absolute (M)5.91.5 - 6.6 10^9/L108/31/2024 7:25 AM [facility] LABORATORYComment: This is an appended report. These results have been appended to a previously preliminary verified report.Lymphocytes Absolute1.81.0 - 3.5 10^9/L108/31/2024 7:25 AM [facility] LABORATORYComment:This is an appended report. These results have been appended to a previously preliminary verified report.Monocytes Absolute0.30.0 - 0.9 10^9/L108/31/2024 7:25 AM [facility] LABORATORYComment:This is an appended report. These results have been appended to a previously preliminary verified report.Polychromasia1+ 06/30/2025 7:25 AM [facility] LABORATORYComment:This is an appended report. These results have been appended to a previously preliminary verified report.Differential TypeMANUAL DWDTFFALBNEL44/04/2025 7:25 AM EST [facility]ORYComment:This is an appended report. These results have been appended to a previously preliminary verified report. Specimen (Source)Anatomical Location / LateralityCollection Method / Volume Collection TimeReceived TimeBloodVenous blood / UnknownVenipuncture / Unknown 06/30/2025 5:51 AM EST06/30/2025 6:16 AM EST Narrative Authorizing ProviderResult TypeResult StatusAngeandi Cervantes WARHEAD MAINTENANCE SPECIALIST-[facility] BLOOD ORDERABLESFinal ResultPerforming OrganizationAddressCity/State/ZIP CodePhone Number [facility] [address] [place] [address], * Magnesium (06/30/2025 5:51 AM EST)ComponentValueRef RangeTest MethodAnalysis TimePerformed AtPathologist SignatureMAGNESIUM1.91.8 - 2.6 mg/dL06/30/2025 7:05 AM [facility] LABORATORYSpecimen (Source)Anatomical Location / LateralityCollection Method / VolumeCollection TimeReceived Time BloodVenous blood / UnknownVenipuncture / Xhivihz1006/30/2025 5:51 AM EST 06/30/2025 6:16 AM EST Narrative Authorizing ProviderResult TypeResult StatusCherelle Cervantes WARHEAD MAINTENANCE SPECIALIST-[facility] BLOOD ORDERABLESFinal ResultPerforming OrganizationAddressCity/State/ZIP CodePhone Number [facility] [address] [place] [address], * (ABNORMAL) Comprehensive metabolic panel (06/30/2025 5:51 AM EST)Component ValueRef RangeTest MethodAnalysis TimePerformed AtPathologist SignatureSODIUM 498767 - 146 mmol/L108/31/2024 7:05 AM [facility] POTASSIUM4.23.5 - 5.0 mmol/L108/31/2024 7:05 AM [facility] VOLIEKXNGDRGILWAHU51(L)98 - 109 mmol/L12/10/2024 7:05 AM [facility] LABORATORYCARBON GROFJWG2053 - 32 mmol/L108/31/2024 7:05 AM [facility] LABORATORYANION REG386 - 15 mmol/L108/31/2024 7:05 AM [facility] [facility] UREA [id number] - 27 mg/dL06/30/2025 7:05 AM [facility] LABORATORYCREATININE0.660.60 - 1.30 mg/dL 06/30/2025 7:05 AM [facility] LABORATORYComment:METHOD TRACEABLE TO IDMS [id number](H)65 - 99 mg/dL06/30/2025 7:05 AM [facility] LABORATORYCALCIUM8.78.5 - 10.5 mg/dL06/30/2025 7:05 AM [facility] LABORATORYTOTAL PROTEIN6.56.0 - 8.0 g/dL 06/30/2025 7:05 AM [facility] LABORATORYALBUMIN3.33.2 - 5.3 g/dL06/30/2025 7:05 AM [facility] LABORATORYALKALINE HGBXDZYGASZ731(H)39 - 130 U/L108/31/2024 7:05 AM [facility] GRXFGUBUJAGKW83<=41 U/L108/31/2024 7:05 AM [facility] EPYLJBVJMNPSQ18<=40 U/L108/31/2024 7:05 AM [facility] LABORATORYBILIRUBIN,TOTAL0.30.3 - 1.2 mg/dL06/30/2025 7:05 AM [facility] LABORATORYEGFR Non-Race Dependent>90>=60 ml/min/1.73sq.m 06/30/2025 7:05 AM [facility] LABORATORYComment: Reported eGFR is based on the CKD-EPI 2020 equation that does not use a race coefficient. Specimen (Source)Anatomical Location / LateralityCollection Method / Volume Collection TimeReceived TimeBloodVenous blood / UnknownVenipuncture / Unknown 06/30/2025 5:51 AM EST06/30/2025 6:16 AM EST Narrative Authorizing ProviderResult TypeResult StatusCherelle Cervantes WARHEAD MAINTENANCE SPECIALIST-CNPLAB BLOOD ORDERABLESFinal ResultPerforming OrganizationAddressty/State/ZIP CodePhone Number [facility] [address] [place] [address], [place] [phone] * (ABNORMAL) Bedside Glucose *Place/Obtain serum glucose if >500 per glucometer. (06/29/2025 8:54 PM EST)ComponentValueRef RangeTest MethodAnalysis Time Performed AtPathologist SignatureBedside Glucose (POC)147(H)65 - 99 mg/dL 06/29/2025 8:55 PM [facility] LABORATORYSpecimen (Source)Anatomical Location / LateralityCollection Method / VolumeCollection TimeReceived Time arterial/fnnrdzzuz62/03/2025 8:54 PM EST06/29/2025 8:55 PM EST Narrative Authorizing ProviderResult TypeResult StatusCorbin Singleton MDPOINT OF CARE TEST ORDERABLESFinal ResultPerforming OrganizationAddressCity/State/ZIP CodePhone Number [facility] [address] [place] [address], [place] * (ABNORMAL) Bedside Glucose *Place/Obtain serum glucose if >500 per glucometer. (06/29/2025 4:25 PM EST)ComponentValueRef RangeTest MethodAnalysis Time Performed AtPathologist SignatureBedside Glucose (POC)176(H)65 - 99 mg/dL 06/29/2025 4:26 PM [facility] LABORATORYSpecimen (Source)Anatomical Location / LateralityCollection Method / VolumeCollection TimeReceived Time arterial/mguhfxeab59/03/2025 4:25 PM EST06/29/2025 4:26 PM EST Narrative Authorizing ProviderResult TypeResult StatusCorbin Singleton MDPOINT OF CARE TEST ORDERABLESFinal ResultPerforming OrganizationAddressL[facility]/State/ZIP CodePhone Number [facility] [address] [place] [address], [place] * (ABNORMAL) Bedside Glucose *Place/Obtain serum glucose if >500 per glucometer. (06/29/2025 11:19AM EST)ComponentValueRef RangeTest MethodAnalysis Time Performed AtPathologist SignatureBedside Glucose (POC)177(H)65 - 99 mg/dL 06/29/2025 11:22 AM [facility] LABORATORYSpecimen (Source)Anatomical Location / LateralityCollection Method / VolumeCollection TimeReceived Time arterial//03/2025 11:19 AM EST06/29/2025 11:22 AM EST Narrative Authorizing ProviderResult TypeResult [facility] Augustharlandejuan Gary Singleton MDPOINT OF CARE TEST ORDERABLESFinal ResultPerforming OrganizationAddressty/State/ZIP CodePhone Number [facility] [address] [place] [address], [place] * (ABNORMAL) Bedside Glucose *Place/Obtain serum glucose if >500 per glucometer. (06/29/2025 8:13 AM EST)ComponentValueRef RangeTest MethodAnalysis Time Performed AtPathologist SignatureBedside Glucose (POC)226(H)65 - 99 mg/dL 06/29/2025 8:14 AM [facility] LABORATORYSpecimen (Source)Anatomical Location / LateralityCollection Method / VolumeCollection TimeReceived Time arterial/xmaioehlf93/03/2025 8:13 AM EST06/29/2025 8:14 AM EST Narrative Authorizing ProviderResult TypeResult [facility] Augustcedar city hospitaldejuan Singleton MDPOINT OF CARE TEST ORDERABLESFinal ResultPerforming OrganizationAddressty/State/ZIP CodePhone Number [facility] [address] [place] [address], [place] * (ABNORMAL) Iron and TIBC (06/29/2025 5:41 AM EST)ComponentValueRef RangeTest MethodAnalysis TimePerformed AtPathologist WyaadarumDIKC8411 - 212 ug/dL 06/30/2025 9:00 AM [facility] LABORATORYIRON KUUUXTX211(L)250 - 425 ug/dL06/30/2025 9:00 AM [facility] LABORATORYIRON JGNDILYQLS0888 - 50 % CFYBDWSJKO22/04/2025 9:00 AM [facility] LABORATORYSpecimen (Source)Anatomical Location / LateralityCollection Method / VolumeCollection TimeReceived TimeBloodVenous blood / UnknownVenipuncture / Vrydymt4206/29/2025 5:41 AM EST06/29/2025 6:10 AM EST Narrative Authorizing ProviderResult TypeResult StatusAranza Wang WARHEAD MAINTENANCE SPECIALIST-CNPLAB BLOOD ORDERABLESFinal ResultPerforming OrganizationAddressCity/State/ZIP CodePhone Number [facility] [address] [place] [address], * (ABNORMAL) Ferritin (06/29/2025 5:41 AM EST)ComponentValueRef RangeTest Method Analysis TimePerformed AtPathologist SignatureFERRITIN1,160(H)24 - 336 ng/mL 06/30/2025 9:14 AM [facility] LABORATORYSpecimen (Source) Anatomical Location / LateralityCollection Method / VolumeCollection Time Received TimeBloodVenous blood / UnknownVenipuncture / Gtwutam4106/29/2025 5:41 AM EST06/29/2025 6:10 AM EST Narrative Authorizing ProviderResult TypeResult StatusAranza Wang WARHEAD MAINTENANCE SPECIALIST-CNPLAB BLOOD ORDERABLESFinal ResultPerforming OrganizationAddressCity/State/ZIP CodePhone Number [facility] [address] [place] [address], * Vitamin B12 (06/29/2025 5:41 AM EST)ComponentValueRef RangeTest MethodAnalysis TimePerformed AtPathologist SignatureVITAMIN [id number] - 914 pg/mL06/30/2025 9:18 AM [facility] LABORATORYSpecimen (Source)Anatomical Location / LateralityCollection Method / VolumeCollection TimeReceived Time BloodVenous blood / UnknownVenipuncture / Mspwvyk7706/29/2025 5:41 AM EST 06/29/2025 6:10 AM EST Narrative Authorizing ProviderResult TypeResult StatusAranza Wang WARHEAD MAINTENANCE SPECIALIST-CNPLAB BLOOD ORDERABLESFinal ResultPerforming OrganizationAddressCity/State/ZIP CodePhone Number [facility] [address] [place] [address], * Folate (06/29/2025 5:41 AM EST)ComponentValueRef RangeTest MethodAnalysis Time Performed AtPathologist SignatureFOLIC ACID9.4>5.8 ng/mL06/30/2025 9:17 AM EST [facility] (Source)Anatomical Location / LateralityCollection Method / VolumeCollection TimeReceived TimeBloodVenous blood / UnknownVenipuncture / Fpvkutd4206/29/2025 5:41 AM EST06/29/2025 6:10 AM EST Narrative Authorizing ProviderResult TypeResult StatusAranza Wang WARHEAD MAINTENANCE SPECIALIST-CNPLAB BLOOD ORDERABLESFinal ResultPerforming OrganizationAddressCity/State/ZIP CodePhone Number [facility] [address] [place] [address], * Hemoglobin A1c (06/29/2025 5:41 AM EST)ComponentValueRef RangeTest Method Analysis TimePerformed AtPathologist SignatureHEMOGLOBIN A1C5.54.4 - 5.6 % 06/29/2025 8:33 PM [facility] LABORATORYComment: ?ADA Guidelines ?Result ?HgbA1c ? Normal : ? less than 5.7 % ? Prediabetes : ?5.7 % ??to 6.4 % Diabetes : > 6.4 % ?Use with caution in patients with abnormal hemoglobin variants as ??the half-life of red blood cells and in vivo glycation rates are ??affected. EST. AVERAGE QCKYNGU378dn/dL06/29/2025 8:33 PM [facility] LABORATORYSpecimen (Source)Anatomical Location / LateralityCollection Method / VolumeCollection TimeReceived TimeBloodVenous blood / UnknownVenipuncture / Hbajqrm96/09/2024 5:41 AM EST06/29/2025 6:10 AM EST Narrative Authorizing ProviderResult TypeResult StatusAranza Wang WARHEAD MAINTENANCE SPECIALIST-CNPLAB BLOOD ORDERABLESFinal ResultPerforming OrganizationAddressCity/State/ZIP CodePhone Number [facility] [address] [place] [address], * (ABNORMAL) CBC auto differential (06/29/2025 5:41 AM EST)ComponentValueRef RangeTest MethodAnalysis TimePerformed AtPathologist SignatureWBC9.14 - 11 10^9/L108/30/2024 7:12 AM [facility] LABORATORYRBC Count2.87 (L)4.1 - 5.7 10^12/L108/30/2024 7:12 AM [facility] Hemoglobin9.3(L)13 - 17 g/dL06/29/2025 7:12 AM [facility] GMOLNZAPUTJvmfsnrhwj68.6(L)39 - 50 %06/29/2025 7:12 AM [facility] SVUZYYPREIEUB3424 - 100 fL06/29/2025 7:12 AM [facility] NMHNWLMYWGAIY12.427 - 34 pg06/29/2025 7:12 AM [facility] QDXKKOXSGMYEHJ35.832 - 36 g/dL06/29/2025 7:12 AM [facility] LAPTRULACCPFH92.4(H)11.5 - 15 %06/29/2025 7:12 AM [facility] LABORATORYPlatelet Zvfnr897021 - 450 10^9/L108/30/2024 7:12 AM [facility] LABORATORYMPV6.8(L)7 - 12 fL06/29/2025 7:12 AM [facility] LABORATORYNeutrophils %86%06/29/2025 7:12 AM [facility] LABORATORYComment:This is an appended report. These results have been appended to a previously preliminary verified report.Lymphocytes %10 %06/29/2025 7:12 AM [facility] LABORATORYComment:This is an appended report. These results have been appended to a previously preliminary verified report.Monocytes %4%06/29/2025 7:12 AM [facility] LABORATORYComment:This is an appended report. These results have been appended to a previously preliminary verified report.Neutrophils Absolute (M)7.8(H)1.5 - 6.6 10^9/L108/30/2024 7:12 AM [facility] LABORATORYComment: This is an appended report. These results have been appended to a previously preliminary verified report.Lymphocytes Absolute0.9(L)1.0 - 3.5 10^9/L 06/29/2025 7:12 AM [facility] LABORATORYComment:This is an appended report. These results have been appended to a previously preliminary verified report.Monocytes Absolute0.40.0 - 0.9 10^9/L108/30/2024 7:12 AM EST [facility]:This is an appended report. These results have been appended to a previously preliminary verified report. Polychromasia1+06/29/2025 7:12 AM [facility] Comment:This is an appended report. These results have been appended to a previously preliminary verified report.Differential TypeMANUAL DIFFERENTIAL 06/29/2025 7:12 AM [facility] LABORATORYComment:This is an appended report. These results have been appended to a previously preliminary verified report.Specimen (Source)Anatomical Location / LateralityCollection Method / VolumeCollection TimeReceived TimeBloodVenous blood / Unknown Venipuncture / Uyfyktz2306/29/2025 5:41 AM EST06/29/2025 6:10 AM EST Narrative Authorizing ProviderResult TypeResult StatusAngela Helen WARHEAD MAINTENANCE SPECIALIST-CNPLAB BLOOD ORDERABLESFinal ResultPerforming OrganizationAddressCity/State/ZIP CodePhone Number [facility] [address] [place] [address], * Magnesium (06/29/2025 5:41 AM EST)ComponentValueRef RangeTest MethodAnalysis TimePerformed AtPathologist SignatureMAGNESIUM1.81.8 - 2.6 mg/dL06/29/2025 6:42 AM [facility] LABORATORYSpecimen (Source)Anatomical Location / LateralityCollection Method / VolumeCollection TimeReceived Time BloodVenous blood / UnknownVenipuncture / Udonghs8906/29/2025 5:41 AM EST 06/29/2025 6:10 AM EST Narrative Authorizing ProviderResult TypeResult StatusAngela Tenstrike WARHEAD MAINTENANCE SPECIALIST-CNPLAB BLOOD ORDERABLESFinal ResultPerforming OrganizationAddressCity/State/ZIP CodePhone Number [facility] [address] [place] [id number], * (ABNORMAL) Comprehensive metabolic panel (06/29/2025 5:41 AM EST)Component ValueRef RangeTest MethodAnalysis TimePerformed AtPathologist SignatureSODIUM 104504 - 146 mmol/L108/30/2024 6:42 AM [facility] POTASSIUM4.73.5 - 5.0 mmol/L108/30/2024 6:42 AM [facility] OVJQHYGRIKDGABGOLT70(L)98 - 109 mmol/L108/30/2024 6:42 AM [facility] LABORATORYCARBON QQMZMGG9956 - 32 mmol/L108/30/2024 6:42 AM [facility] LABORATORYANION BTT395 - 15 mmol/L108/30/2024 6:42 AM [facility] LABORATORYBLOOD UREA ORQJHLNP460 - 27 mg/dL06/29/2025 6:42 AM [facility] LABORATORYCREATININE0.700.60 - 1.30 mg/dL 06/29/2025 6:42 AM [facility] LABORATORYComment:METHOD TRACEABLE TO IDMS VDDUTMVVGMSCMDD066(H)65 - 99 mg/dL06/29/2025 6:42 AM [facility] LABORATORYCALCIUM8.98.5 - 10.5 mg/dL06/29/2025 6:42 AM [facility] LABORATORYTOTAL PROTEIN6.96.0 - 8.0 g/dL 06/29/2025 6:42 AM [facility] LABORATORYALBUMIN3.53.2 - 5.3 g/dL06/29/2025 6:42 AM [facility] LABORATORYALKALINE RVLNETLLMVB962(H)39 - 130 U/L108/30/2024 6:42 AM [facility] GFAZTIKYZAELF23<=41 U/L108/30/2024 6:42 AM [facility] AYEFBHGJMYKDM02<=40 U/L108/30/2024 6:42 AM [facility] LABORATORYBILIRUBIN,TOTAL0.30.3 - 1.2 mg/dL06/29/2025 6:42 AM [facility] LABORATORYEGFR Non-Race Dependent>90>=60 ml/min/1.73sq.m 06/29/2025 6:42 AM [facility] LABORATORYComment: Reported eGFR is based on the CKD-EPI 2020 equation that does not use a race coefficient. Specimen (Source)Anatomical Location / LateralityCollection Method / Volume Collection TimeReceived TimeBloodVenous blood / UnknownVenipuncture / Unknown 06/29/2025 5:41 AM EST06/29/2025 6:10 AM EST Narrative Authorizing ProviderResult TypeResult StatusAngeandi Cervantes WARHEAD MAINTENANCE SPECIALIST-CNPLAB BLOOD ORDERABLESFinal ResultPerforming OrganizationAddressCity/State/ZIP CodePhone Number [facility] [address] [place] [address], * (ABNORMAL) Bedside Glucose *Place/Obtain serum glucose if >500 per glucometer. (06/28/2025 11:39PM EST)ComponentValueRef RangeTest MethodAnalysis Time Performed AtPathologist SignatureBedside Glucose (POC)247(H)65 - 99 mg/dL 06/28/2025 11:40 PM [facility] LABORATORYSpecimen (Source)Anatomical Location / LateralityCollection Method / VolumeCollection TimeReceived Time arterial/dlaffoats21/02/2025 11:39 PM EST06/28/2025 11:40 PM EST Narrative Authorizing ProviderResult TypeResult StatusVenu Cari Singleton MDPOINT OF CARE TEST ORDERABLESFinal ResultPerforming OrganizationAddressCity/State/ZIP CodePhone Number [facility] [address] [place] [address], [place] documented in this encounter Visit Diagnoses Diagnosis 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)- Primary Wound of left groin, initial encounter Spinal cord compression due to neoplasm ([facility]-HCC) Essential hypertension Unspecified essential hypertension Spinal cord compression due to neoplasm ([facility]-HCC) Type 2 diabetes mellitus without complication, without long-term current use of insulin ([facility]) Wound of left groin documented in this encounter Admitting Diagnoses Diagnosis 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) documented in this encounter Administered Medications Medication OrderMAR ActionAction DateDoseRateSite acetaminophen (TYLENOL) tablet 650 mg 650 mg, oral, Every 6 hours scheduled, First dose (after last modification) on Fri06/29/25 at 1200,[Warning: Total Acetaminophen not to exceed more than 4 grams (4000 mg) in 24 hours] Given07/06/2025 5:33 PM LJI970 mhAazgo4807/06/2025 12:13 PM QIS505 mgGiven 07/06/2025 4:04 AM QKW953 mg alum-mag hydroxide-simeth (MAALOX) 200-200-20 mg/5 mL suspension 30 mL 30 mL, oral, 4 times daily after meals and at bedtime as needed, dyspepsia, Starting on Fri06/28/25at 2312, Look-alike/sound-alike medication - verify indication for use. Shake well., Indications: dyspepsia Indications:dyspepsia cefTRIAXone (ROCEPHIN) 1,000 mg in sodium chloride 0.9 % 50 mL IVPB W/ADAPTER 1,000 mg, intravenous, at 100 mL/hr, Administer over 30 Minutes, Every 24 hours, First dose on Fri07/05/25 at 0800, For Vial-2-Bag: Attach bag and vial to adapter - Use immediately after activating; dissolve drug prior to administration., Indication: UTI New Bag07/06/2025 8:14 AM EST1,000 mg100 mL/hrNew Bag07/05/2025 8:25 AM EST1,000 mg100 mL/hr dextrose (GLUTOSE) 40 % gel 15 g 15 g, oral, As needed, low blood sugar, blood glucose less than 70 mg/dL, Starting on Fri06/28/25 at 2318, If patient conscious and taking PO. If blood glucose is not greater than 70 mg/dL after initial treatment, repeat treatment. dextrose 5 % (D5W) infusion 100 mL/hr, intravenous, Continuous PRN, blood glucose less than 70 mg/dL, Starting on Fri06/28/25 at 2318, For 365 days, Use immediately following dextrose 50% or glucagon treatment for patients who are unconscious or NPO. Contact prescriber for additional orders. If blood glucose is not greater than 70 mg/dL after initial treatment, repeat treatment. dextrose 50 % in water (D50W) 50% solution 25 mL 25 mL, intravenous, As needed, low blood sugar, blood glucose less than 70 mg/dL and unconscious orNPO with IV access, Starting on Fri06/28/25 at 2318, Push over 1-3 minutes STAT. If conscious and not NPO, immediately follow with meal tray or high protein (7 grams) snack if tray not available. If NPO, initiate 5% dextrose in water at 100 mL/hr and contact prescriber for additional orders. If blood glucose is not greater than 70 mg/dL after initial treatment, repeat treatment. VESICANT (RED) Warning: HYPERTONIC solution. diazePAM (VALIUM) injection 2 mg 2 mg, intravenous, Every 4 hours PRN, muscle spasms, do not give for sbp less than 100, Starting onSun 07/03/25 at 0502, Look-alike/sound-alike medication - verify indication for use. Given07/03/2025 5:17 AM EST2 mg diazePAM (VALIUM) tablet 5 mg 5 mg, oral, Once as needed, pre mri, Starting on 07/02/25 at 1310, For 1 dose, Look-alike/sound-alike medication - verify indication for use. Do not use solution in feeding tubes (due to absorption to plastic tubing). Tablets may be crushed and administered in tubes (except j-tube) Given07/02/2025 1:23 PM EST5 mg fentaNYL (SUBLIMAZE) injection 50 mcg 50 mcg, intravenous, Every 5 min PRN, agitation, severe pain - pain scale 7-10, Pain Scale 6-10, Starting on 07/03/25 at 1301, PACU (only), Up to a maximum dose of 200 mcg. Look-alike/sound-alike medication - verify indication for use. Given07/03/2025 1:44 PM EST50 eiwHotdo04/07/2025 1:34 PM EST50 mcg gadoteridoL (PROHANCE) injection 8.87 mmol 17.74 mL 8.87 mmol (0.1 mmol/kg ?? 88.7 kg), intravenous, Once in imaging, contrast, MRI, Starting on 07/02/25 at 1402, For 1 dose, VESICANT (RED), Indications: magnetic resonance imaging Indications:magnetic resonance imaging glucagon HCL injection 1 mg 1 mg, intramuscular, As needed, low blood sugar, blood glucose less than 70 mg/dL and unconscious or NPO without IV access., Starting on Tu06/28/25 at 2318, If conscious and not NPO, immediately follow with meal tray or high protein (7Grams) snack if tray not available. If NPO, initiate IV 5% Dextr ose/Water at 100 mL/hr and contact prescriber for additional orders. If blood glucose is not greater than 70 mg/dL after initial treatment, repeat treatment. heparin (porcine) injection 5,000 Units 5,000 Units, subcutaneous, Every 8 hours scheduled, First dose on Fri06/29/25 at 2200, For 10 doses, Look-alike/sound-alike medication - verify indication for use. Observe for bleeding. Given07/02/2025 4:23 AM EST5,000 UnitsAbdominal HkpmllNkhtu03/05/2025 2:20 PM EST5,000 UnitsAbdominal BzytlhMyitu97/05/2025 5:27 AM EST5,000 UnitsRight Arm heparin (porcine) injection 5,000 Units 5,000 Units, subcutaneous, Every 8 hours scheduled, First dose on Fri07/04/25 at 0945, Look-alike/sound-alike medication - verify indication for use. Observe for bleeding. Given07/06/2025 1:59 PM EST5,000 UnitsAbdominal JznrmcTocnw57/10/2025 4:04 AM EST5,000 UnitsAbdominal BhhlriUlhmq77/09/2025 8:26 PM EST5,000 UnitsAbdominal Tissue HYDROmorphone (PF) (DILAUDID) injection 1 mg 1 mg, intravenous, Every 3 hours PRN, Breakthrough pain, or if oral pain medication ineffective or not tolerated. Or if patient NPO, Starting on Fri06/29/25 at 1146, If IV push, administer over over 2 to 3 minutes. Look-alike/sound-alike medication - verify indication for use. Given07/04/2025 2:05 PM EST1 mfNrzja1807/03/2025 11:00 AM EST1 kzDojae8107/03/2025 8:03 AM EST1 mg hydrOXYzine (ATARAX) tablet 50 mg 50 mg, oral, 3 times daily PRN, anxiety, Starting on Fri06/29/25 at 2205, Look-alike/sound-alike medication - verify indication for use. Given07/01/2025 12:20 AM EST50 xlUxfnc4306/30/2025 5:46 PM EST50 mg insulin lispro (HumaLOG) injection 2-10 Units 2-10 Units, subcutaneous, 3 times daily with meals, First dose on Fri06/29/25 at 0800, Daytime hyperglycemia dosing. For blood glucose 151-200 mg/dL, give 2 units. For blood glucose 201-250 mg/dL, give 4 units. For blood glucose 251-300 mg/dL, give 6 units. For blood glucose 301-350 mg/dL, give 8 units. For blood glucose 351-400 mg/dL, give 10 units. Give even if NPO or meals skipped. Do NOT givemore often then every 4 hours when NPO. Notify prescriber if blood glucose greater than 400 mg/dL. Look-alike/sound-alike medication - verify indication for use. Prime with 2 units of insulin prior to administration. Prandial/supplemental Insulin. Pre-filled pens stable 28 days at room temperature.Insulin lispro should be administered within 15 minutes before or immediately after a meal. Given06/29/2025 4:26 PM EST2 UnitsLeft WteCbrwm24/03/2025 11:28 AM EST2 Units Right SsiUjngu13/03/2025 8:29 AM EST4 UnitsAbdominal Tissue insulin lispro (HumaLOG) injection 2-10 Units 2-10 Units, subcutaneous, 4 times daily with meals and nightly, First dose (after last modification) on Fri06/29/25 at 2200, Daytime hyperglycemia dosing. For blood glucose 151-200 mg/dL, give 2 units. For blood glucose 201-250 mg/dL, give 4 units. For blood glucose 251-300 mg/dL, give 6 units. Forblood glucose 301-350 mg/dL, give 8 units. For blood glucose 351-400 mg/dL, give 10 units. Give even if NPO or meals skipped. Do NOT give more often then every 4 hours when NPO. Notify prescriber if blood glucose greater than 400 mg/dL. Look-alike/sound-alike medication - verify indication for use.Prime with 2 units of insulin prior to administration. Prandial/supplemental Insulin. Pre-filled pens stable 28 days at room temperature. Insulin lispro should be administered within 15 minutes before or immediately after a meal. Given07/06/2025 12:14 PM EST2 UnitsAbdominal LnhfyqXcryv53/10/2025 8:15 AM EST2 UnitsAbdominal LalsapQkvol57/09/2025 10:08 PM EST4 UnitsRight Arm insulin lispro (HumaLOG) injection 2-8 Units 2-8 Units, subcutaneous, Nightly, First dose on Fri06/28/25 at 2315, Bedtime hyperglycemia dosing. For blood glucose 201-250 mg/dL, give 2 units. For blood glucose 251-300 mg/dL, give 4 units. For blood glucose 301-350 mg/dL, give 6 units. For blood glucose 351-400 mg/dL, give 8 units. Give even ifNPO or meals skipped. Do NOT give more often then every 4 hours when NPO. Notify prescriber if blood glucose greater than 400 mg/dL. Look-alike/sound-alike medication - verify indication for use. Prime with 2 units of insulin prior to administration. Prandial/supplemental Insulin. Pre-filled pens stable 28 days at room temperature. Insulin lispro should be administered within 15 minutes before orimmediately after a meal. Given06/28/2025 11:57 PM EST2 UnitsRight Arm magnesium oxide (MAGOX) tablet 400 mg 400 mg, oral, 2 times daily, First dose on Fri06/28/25 at 2345 Given07/06/2025 8:10 AM AXJ475 bpSwolb3307/05/2025 8:26 PM EJE261 mgGiven 07/05/2025 8:19 AM SJW316 mg magnesium sulfate IVPB 2000 mg/50 mL in iso-osmotic water (40 mg/mL premix) 2,000 mg, intravenous, at 25 mL/hr, Administer over 120 Minutes, As needed, Magnesium level 1.7 to 1.9 mg/dL, or Ionized Magnesium level 0.45 to 0.5 mmol/L., Starting on Fri06/28/25 at 2312, Recheck magnesium level 4 hours after infusion complete. With each magnesium result continue the replacementorders as needed. New Bag07/01/2025 9:14 AM EST2,000 mg25 mL/hr magnesium sulfate IVPB 4000 mg/100 mL in iso-osmotic water (40 mg/mL premix) 4,000 mg, intravenous, at 25 mL/hr, Administer over 240 Minutes, As needed, Magnesium level 1.6 mg/dL or less, or Ionized Magnesium level 0.44 mmol/L or less, Starting on Fri06/28/25 at 2312, Recheckmagnesium level 4 hours after infusion complete. With each magnesium result continue the replacement orders as needed. midodrine (PROAMATINE) tablet 5 mg 5 mg, oral, 3 times daily PRN, SBP less than 90, Starting on Fri06/28/25 at 2338, Look-alike/sound-alike medication - verify indication for use. ondansetron (PF) (ZOFRAN) injection 4 mg 4 mg, intravenous, Every 4 hours PRN, nausea, vomiting, Starting on Fri06/28/25 at 2312, Intravenous administration preferred to be given over 2-5 minutes. oxyCODONE (OxyCONTIN) 12 hr tablet 20 mg 20 mg, oral, Every 12 hours, First dose on Fri06/28/25 at 2345, Look-alike/sound-alike medication -verify indication for use. Do not crush, chew, or dissolve. Given06/29/2025 11:26 AM EST20 [id number]/29/2025 12:00 AM EST20 mg oxyCODONE (OxyCONTIN) 12 hr tablet 30 mg 30 mg, oral, Every 12 hours, First dose (after last modification) on Fri06/29/25 at 2330, Look-alike/sound-alike medication - verify indication for use. Do not crush, chew, or dissolve. Given07/06/2025 12:13 PM EST30 [id number]/05/2025 11:24 PM EST30 mgGiven 07/05/2025 11:54 AM EST30 mg oxyCODONE (ROXICODONE) immediate release tablet 10 mg 10 mg, oral, Every 4 hours PRN, severe pain - pain scale 7-10, Starting on Fri07/03/25 at 1301, PACU (only), Look-alike/sound-alike medication - verify indication for use. Immediate release. Given07/03/2025 1:33 PM EST10 mg oxyCODONE (ROXICODONE) immediate release tablet 20 mg 20 mg, oral, Every 3 hours PRN, moderate pain - pain scale 4-6, severe pain - pain scale 7-10, Starting on Fri06/29/25 at 1146, Look-alike/sound-alike medication - verify indication for use. Immediate release. Given07/06/2025 4:04 AM EST20 ciVhsoh6607/05/2025 11:24 PM EST20 ydVytko7907/05/2025 8:26 PM EST20 mg oxyCODONE-acetaminophen (PERCOCET) 10-325 mg per tablet 1 tablet 1 tablet, oral, Every 4 hours PRN, severe pain - pain scale 7-10, moderate pain - pain scale 4-6, Starting on Fri06/28/25 at 2337, Look-alike/sound-alike medication - verify indication for use. Given06/29/2025 8:23 AM EST1 slauvaChfsw35/03/2025 4:00 AM EST1 tablet polyethylene glycol (GLYCOLAX) packet 17 g 17 g, oral, 2 times daily, First dose on Fri06/28/25 at 2345, Lookf-alike/sound-alike medication - verify indication of use. Dissolve 1 capful in 8 ounces of water, juice, soda, coffee or tea. Look-alike/sound-alike medication - verify indication for use. Dissolve 1 packet (17 gm) in 8 ounces of water, juice, soda, coffee or tea. Given07/06/2025 8:10 AM EST17 aRqbvo2407/05/2025 8:25 PM EST17 [id number]/05/2025 8:19 AM EST17 g potassium chloride (K-TAB,KLOR-CON) CR tablet 30-50 mEq 30-50 mEq, oral, As needed, Potassium Supplementation, Starting on Fri06/28/25 at 2312, Progress tooral potassium replacement when patient tolerating oral intake. If dose administered, recheck potassium level 4 hours after last dose. For potassium level 3.4 to 3.8 mmol/L and GFR 30 mL/min or greater=30 mEq. For potassium level 3.1 to 3.3 mmol/L and GFR 30 mL/min or greater=40 mEq. For potassium level 3 mmol/L or less and GFR 30 mL/min or greater=50 mEq. Do not crush or chew. potassium chloride (KAYCIEL) 20 mEq/15 mL solution 30-50 mEq 30-50 mEq, oral, As needed, Potassium Supplementation, Starting on Fri06/28/25 at 2312, Progress tooral potassium replacement when patient tolerating oral intake. If dose administered, recheck potassium level 4 hours after last dose. For potassium level 3.4 to 3.8 mmol/L and GFR 30 mL/min or greater=30 mEq. For potassium level 3.1 to 3.3 mmol/L and GFR 30 mL/min or greater=40 mEq. For potassium level 3 mmol/L or less and GFR 30 mL/min or greater=50 mEq. Must dilute before use - Mix in 3-8 ounces of water or juice before administration When administering in feeding tube, flush before and after per policy and monitor potassium levels potassium chloride IVPB 10 mEq/100 mL in water (0.1 mEq/mL premix) 10 mEq, intravenous, at 100 mL/hr, Administer over 60 Minutes, As needed, POTASSIUM REPLACEMENT, Starting on Fri06/28/25 at 2312, IV if unable to use oral/enteral with the current dosing strategies Potassium level 3 mmol/L or less administer Potassium Chloride 50 mEq Potassium level 3.1 to 3.3 mmol/L administer Potassium Chloride 40 mEq Potassium level 3.4 to 3.8 mmol/L administer Potassium Chloride 30 mEq Use central line when applicable. Recheck potassium level 1 hour after total IVPB infusion complete, With each potassium result continue the replacement orders as needed VESICANT (YELLOW) Infuse each 10 mEq over a minimum of 1 hour. pregabalin (LYRICA) capsule 25 mg 25 mg, oral, 2 times daily, First dose on Fri06/29/25 at 1200, Look-alike/sound-alike medication. Verify indication for use Given07/06/2025 8:10 AM EST25 [id number]/05/2025 8:26 PM EST25 zyCppmd2107/05/2025 8:20 AM EST25 mg sennosides-docusate sodium (SENOKOT-S) 8.6-50 mg 1 tablet 1 tablet, oral, Every 12 hours PRN, constipation, Starting on Fri06/28/25 at 2312 sennosides-docusate sodium (SENOKOT-S) 8.6-50 mg 2 tablet 2 tablet, oral, 2 times daily, First dose on Fri06/28/25 at 2345 Given07/06/2025 8:10 AM EST2 [id number]/09/2025 8:26 PM EST2 tabletsGiven 07/05/2025 8:19 AM EST2 tablets sodium chloride 0.9 % flush 10 mL 10 mL, intravenous, Once in imaging, line care, MRI, Starting on Fri07/02/25 at 1402, For 1 dose sodium chloride 0.9 % flush 3 mL 3 mL, intravenous, As needed, line care, before and after each intermittent use, Starting on Fri06/28/25 at 2312 sodium chloride 0.9 % flush 3 mL 3 mL, intravenous, Every 12 hours scheduled, First dose on Fri06/28/25 at 2315 Given07/06/2025 8:14 AM EST3 mBLrfiu3807/05/2025 8:30 PM EST3 [id number]/05/2025 8:21 AM EST3 mL tamsulosin (FLOMAX) 24 hr capsule 0.4 mg 0.4 mg, oral, Nightly, First dose on Fri06/28/25 at 2345, Do not crush or chew. Given07/05/2025 8:26 PM EST0.4 twEwsfm2407/04/2025 9:25 PM EST0.4 mgGiven 07/03/2025 9:33 PM EST0.4 mgdocumented in this encounter Active and Recently Administered Medications Times are shown in EST.Medication Order acetaminophen (TYLENOL) tablet 650 mg 650 mg, oral, Every 6 hours scheduled, First dose (after last modification) on Fri06/29/25 at 1200,[Warning: Total Acetaminophen not to exceed more than 4 grams (4000 mg) in 24 hours] * 0442 (Given - Provider: Nataly Parker RN) * 1147 (Given - Provider: Estrella Hui CNA) * 1750 (Given - Provider: Estrella Hui CNA) * 0018 (Given - Provider: Alen Diggs, DARY) * 0419 (Given - Provider: Alen Diggs RN) * 1154 (Given - Provider: Estrella Hui CNA) * 1714 (Given - Provider: Estrella Hui CNA) * 2324 (Given - Provider: Alen Diggs RN) * 0404 (Given - Provider: Alen Diggs RN) * 1213 (Given - Provider: Estrella Hui CNA) * 1733 (Given - Provider: Estrella Hui CNA) cefTRIAXone (ROCEPHIN) 1,000 mg in sodium chloride 0.9 % 50 mL IVPB W/ADAPTER 1,000 mg, intravenous, at 100 mL/hr, Administer over 30 Minutes, Every 24 hours, First dose on Fri07/05/25 at 0800, For Vial-2-Bag: Attach bag and vial to adapter - Use immediately after activating; dissolve drug prior to administration., Indication: UTI * 0825 (New Bag - Provider: Estrella Hui CNA) * 0855 (Stop Bag - Provider: Estrella Hui CNA) * 0814 (New Bag - Provider: Estrella Hui CNA) * 0844 (Stop Bag - Provider: Estrella Hui CNA) heparin (porcine) injection 5,000 Units 5,000 Units, subcutaneous, Every 8 hours scheduled, First dose on Fri07/04/25 at 0945, Look-alike/sound-alike medication - verify indication for use. Observe for bleeding. * 1148 (Given - Provider: Estrella Hui CNA) * 2000 (Canceled Entry - Provider: Alen Diggs RN - Comment: retimed close to night dose) * 2124 (Given - Provider: Alen Diggs RN) * 0419 (Given - Provider: Alen Diggs RN) * 1330 (Given - Provider: Estrella Hui CNA) * 2025 (Given - Provider: Alen Diggs RN) * 220 (Canceled Entry - Provider: Alen Diggs RN) * 0404 (Given - Provider: Alen Diggs RN) * 1359 (Given - Provider: Estrella Hui CNA) insulin lispro (HumaLOG) injection 2-10 Units 2-10 Units, subcutaneous, 4 times daily with meals and nightly, First dose (after last modification) on Fri06/29/25 at 2200, Daytime hyperglycemia dosing. For blood glucose 151-200 mg/dL, give 2 units. For blood glucose 201-250 mg/dL, give 4 units. For blood glucose 251-300 mg/dL, give 6 units. Forblood glucose 301-350 mg/dL, give 8 units. For blood glucose 351-400 mg/dL, give 10 units. Give even if NPO or meals skipped. Do NOT give more often then every 4 hours when NPO. Notify prescriber if blood glucose greater than 400 mg/dL. Look-alike/sound-alike medication - verify indication for use.Prime with 2 units of insulin prior to administration. Prandial/supplemental Insulin. Pre-filled pens stable 28 days at room temperature. Insulin lispro should be administered within 15 minutes before or immediately after a meal. * 0820 (Given - Provider: Estrella Hui CNA) * 1153 (Given - Provider: Estrella Hui CNA) * 175 (Given - Provider: Estrella Hui CNA) * 2127 (Given - Provider: Alen Diggs RN - Comment: bs [id number]) * 0826 (Given - Provider: Estrella Hui CNA) * 1154 (Given - Provider: Estrella Hui CNA) * 1715 (Given - Provider: Estrella Hui CNA) * 220 (Given - Provider: Alen Diggs RN - Comment: [id number]) * 0815 (Given - Provider: Estrella Hui CNA) * 1214 (Given - Provider: Estrella Hui CNA) * 1700 (Not Given - Provider: Estrella Hui CNA - Reason: Order parameters not met) magnesium oxide (MAGOX) tablet 400 mg 400 mg, oral, 2 times daily, First dose on Fri06/28/25 at 2345 * 0817 (Given - Provider: Estrella Hui CNA) * 2124 (Given - Provider: Alen Diggs RN) * 0819 (Given - Provider: Estrella Hui CNA) * 2025 (Given - Provider: Alen Diggs RN) * 0810 (Given - Provider: Estrella Hui CNA) oxyCODONE (OxyCONTIN) 12 hr tablet 30 mg 30 mg, oral, Every 12 hours, First dose (after last modification) on Fri06/29/25 at 2330, Look-alike/sound-alike medication - verify indication for use. Do not crush, chew, or dissolve. * 1148 (Given - Provider: Estrella Hui CNA) * 0018 (Given - Provider: Alen Diggs RN) * 1154 (Given - Provider: Estrella Hui CNA) * 2324 (Given - Provider: Alen Diggs RN) * 1213 (Given - Provider: Estrella Hui CNA) polyethylene glycol (GLYCOLAX) packet 17 g 17 g, oral, 2 times daily, First dose on Fri06/28/25 at 2345, Lookf-alike/sound-alike medication - verify indication of use. Dissolve 1 capful in 8 ounces of water, juice, soda, coffee or tea. Look-alike/sound-alike medication - verify indication for use. Dissolve 1 packet (17 gm) in 8 ounces of water, juice, soda, coffee or tea. * 0817 (Given - Provider: Estrella Hui CNA) * 2124 (Given - Provider: Alen Diggs RN) * 0819 (Given - Provider: Estrella Hui CNA) * 2024 (Given - Provider: Alen Diggs RN) * 0810 (Given - Provider: Estrella Hui CNA) pregabalin (LYRICA) capsule 25 mg 25 mg, oral, 2 times daily, First dose on Fri06/29/25 at 1200, Look-alike/sound-alike medication. Verify indication for use * 0817 (Given - Provider: Estrella Hui CNA) * 2124 (Given - Provider: Alen Diggs RN) * 08 (Given - Provider: Estrella Hui CNA) * 2025 (Given - Provider: Alen Diggs RN) * 0810 (Given - Provider: Estrella Hui CNA) sennosides-docusate sodium (SENOKOT-S) 8.6-50 mg 2 tablet 2 tablet, oral, 2 times daily, First dose on Fri06/28/25 at 2345 * 0817 (Given - Provider: Estrella Hui CNA) * 2124 (Given - Provider: Alne Diggs RN) * 0819 (Given - Provider: Estrella Hui CNA) * 2025 (Given - Provider: Alen Diggs RN) * 0810 (Given - Provider: Estrella Hui CNA) sodium chloride 0.9 % flush 3 mL 3 mL, intravenous, Every 12 hours scheduled, First dose on Fri06/28/25 at 2315 * 0820 (Given - Provider: Estrella Hui CNA) * 214 (Given - Provider: Alen Diggs RN) * 0821 (Given - Provider: Estrella Hui CNA) * 2030 (Given - Provider: Alen Diggs RN) * 0814 (Given - Provider: Estrella Hui CNA) tamsulosin (FLOMAX) 24 hr capsule 0.4 mg 0.4 mg, oral, Nightly, First dose on Fri06/28/25 at 2345, Do not crush or chew. * 2124 (Given - Provider: Alen Diggs RN) * 2025 (Given - Provider: Alen Diggs RN) * 220 (Canceled Entry - Provider: Alen Diggs RN) Medication Order//04/2025 alum-mag hydroxide-simeth (MAALOX) 200-200-20 mg/5 mL suspension 30 mL 30 mL, oral, 4 times daily after meals and at bedtime as needed, dyspepsia, Starting on Fri06/28/25at 2312, Look-alike/sound-alike medication - verify indication for use. Froilan corral., Indications: dyspepsia dextrose (GLUTOSE) 40 % gel 15 g 15 g, oral, As needed, low blood sugar, blood glucose less than 70 mg/dL, Starting on Fri06/28/25 at 2318, If patient conscious and taking PO. If blood glucose is not greater than 70 mg/dL after initial treatment, repeat treatment. dextrose 5 % (D5W) infusion 100 mL/hr, intravenous, Continuous PRN, blood glucose less than 70 mg/dL, Starting on Fri06/28/25 at 2318, For 365 days, Use immediately following dextrose 50% or glucagon treatment for patients who are unconscious or NPO. Contact prescriber for additional orders. If blood glucose is not greater than 70 mg/dL after initial treatment, repeat treatment. dextrose 50 % in water (D50W) 50% solution 25 mL 25 mL, intravenous, As needed, low blood sugar, blood glucose less than 70 mg/dL and unconscious orNPO with IV access, Starting on Fri06/28/25 at 2318, Push over 1-3 minutes STAT. If conscious and not NPO, immediately follow with meal tray or high protein (7 grams) snack if tray not available. If NPO, initiate 5% dextrose in water at 100 mL/hr and contact prescriber for additional orders. If blood glucose is not greater than 70 mg/dL after initial treatment, repeat treatment. VESICANT (RED) Warning: HYPERTONIC solution. diazePAM (VALIUM) injection 2 mg 2 mg, intravenous, Every 4 hours PRN, muscle spasms, do not give for sbp less than 100, Starting onSun 07/03/25 at 0502, Look-alike/sound-alike medication - verify indication for use. gadoteridoL (PROHANCE) injection 8.87 mmol 17.74 mL 8.87 mmol (0.1 mmol/kg ?? 88.7 kg), intravenous, Once in imaging, contrast, MRI, Starting on 07/02/25 at 1402, For 1 dose, VESICANT (RED), Indications: magnetic resonance imaging glucagon HCL injection 1 mg 1 mg, intramuscular, As needed, low blood sugar, blood glucose less than 70 mg/dL and unconscious or NPO without IV access., Starting on Fri06/28/25 at 2318, If conscious and not NPO, immediately follow with meal tray or high protein (7Grams) snack if tray not available. If NPO, initiate IV 5% Dextr ose/Water at 100 mL/hr and contact prescriber for additional orders. If blood glucose is not greater than 70 mg/dL after initial treatment, repeat treatment. HYDROmorphone (PF) (DILAUDID) injection 1 mg 1 mg, intravenous, Every 3 hours PRN, Breakthrough pain, or if oral pain medication ineffective or not tolerated. Or if patient NPO, Starting on Fri06/29/25 at 1146, If IV push, administer over over 2 to 3 minutes. Look-alike/sound-alike medication - verify indication for use. * 1405 (Given - Provider: Estrella Hui CNA) hydrOXYzine (ATARAX) tablet 50 mg 50 mg, oral, 3 times daily PRN, anxiety, Starting on Fri06/29/25 at 2205, Look-alike/sound-alike medication - verify indication for use. magnesium sulfate IVPB 2000 mg/50 mL in iso-osmotic water (40 mg/mL premix) 2,000 mg, intravenous, at 25 mL/hr, Administer over 120 Minutes, As needed, Magnesium level 1.7 to 1.9 mg/dL, or Ionized Magnesium level 0.45 to 0.5 mmol/L., Starting on Fri06/28/25 at 2312, Recheck magnesium level 4 hours after infusion complete. With each magnesium result continue the replacementorders as needed. magnesium sulfate IVPB 4000 mg/100 mL in iso-osmotic water (40 mg/mL premix) 4,000 mg, intravenous, at 25 mL/hr, Administer over 240 Minutes, As needed, Magnesium level 1.6 mg/dL or less, or Ionized Magnesium level 0.44 mmol/L or less, Starting on Fri06/28/25 at 2312, Recheckmagnesium level 4 hours after infusion complete. With each magnesium result continue the replacement orders as needed. midodrine (PROAMATINE) tablet 5 mg 5 mg, oral, 3 times daily PRN, SBP less than 90, Starting on Fri06/28/25 at 2338, Look-alike/sound-alike medication - verify indication for use. ondansetron (PF) (ZOFRAN) injection 4 mg 4 mg, intravenous, Every 4 hours PRN, nausea, vomiting, Starting on Fri06/28/25 at 2312, Intravenous administration preferred to be given over 2-5 minutes. oxyCODONE (ROXICODONE) immediate release tablet 20 mg 20 mg, oral, Every 3 hours PRN, moderate pain - pain scale 4-6, severe pain - pain scale 7-10, Starting on Fri06/29/25 at 1146, Look-alike/sound-alike medication - verify indication for use. Immediate release. * 0446 (Given - Provider: Nataly Parker RN) * 0816 (Given - Provider: Estrella Hui CNA) * 1546 (Given - Provider: Estrella Hui CNA) * 1928 (Given - Provider: Alen Diggs RN) * 0018 (Given - Provider: Alen Diggs RN) * 0419 (Given - Provider: Alen Diggs RN) * 0819 (Given - Provider: Estrella Hui CNA) * 1713 (Given - Provider: Estrella Hui CNA) * 2026 (Given - Provider: Alen Diggs RN) * 2324 (Given - Provider: Alen Diggs RN) * 0404 (Given - Provider: Alen Diggs RN) potassium chloride (K-TAB,KLOR-CON) CR tablet 30-50 mEq(Linked Group 1) 30-50 mEq, oral, As needed, Potassium Supplementation, Starting on Fri06/28/25 at 2312, Progress tooral potassium replacement when patient tolerating oral intake. If dose administered, recheck potassium level 4 hours after last dose. For potassium level 3.4 to 3.8 mmol/L and GFR 30 mL/min or greater=30 mEq. For potassium level 3.1 to 3.3 mmol/L and GFR 30 mL/min or greater=40 mEq. For potassium level 3 mmol/L or less and GFR 30 mL/min or greater=50 mEq. Do not crush or chew. potassium chloride (KAYCIEL) 20 mEq/15 mL solution 30-50 mEq(Linked Group 1) 30-50 mEq, oral, As needed, Potassium Supplementation, Starting on Fri06/28/25 at 2312, Progress tooral potassium replacement when patient tolerating oral intake. If dose administered, recheck potassium level 4 hours after last dose. For potassium level 3.4 to 3.8 mmol/L and GFR 30 mL/min or greater=30 mEq. For potassium level 3.1 to 3.3 mmol/L and GFR 30 mL/min or greater=40 mEq. For potassium level 3 mmol/L or less and GFR 30 mL/min or greater=50 mEq. Must dilute before use - Mix in 3-8 ounces of water or juice before administration When administering in feeding tube, flush before and after per policy and monitor potassium levels potassium chloride IVPB 10 mEq/100 mL in water (0.1 mEq/mL premix)(Linked Group 1) 10 mEq, intravenous, at 100 mL/hr, Administer over 60 Minutes, As needed, POTASSIUM REPLACEMENT, Starting on Fri06/28/25 at 2312, IV if unable to use oral/enteral with the current dosing strategies Potassium level 3 mmol/L or less administer Potassium Chloride 50 mEq Potassium level 3.1 to 3.3 mmol/L administer Potassium Chloride 40 mEq Potassium level 3.4 to 3.8 mmol/L administer Potassium Chloride 30 mEq Use central line when applicable. Recheck potassium level 1 hour after total IVPB infusion complete, With each potassium result continue the replacement orders as needed VESICANT (YELLOW) Infuse each 10 mEq over a minimum of 1 hour. prochlorperazine (COMPAZINE) tablet 10 mg 10 mg, oral, Every 6 hours PRN, nausea, vomiting, Starting on Fri06/28/25 at 2338 sennosides-docusate sodium (SENOKOT-S) 8.6-50 mg 1 tablet 1 tablet, oral, Every 12 hours PRN, constipation, Starting on Fri06/28/25 at 2312 sodium chloride 0.9 % flush 10 mL 10 mL, intravenous, Once in imaging, line care, MRI, Starting on 07/02/25 at 1402, For 1 dose sodium chloride 0.9 % flush 3 mL 3 mL, intravenous, As needed, line care, before and after each intermittent use, Starting on Fri06/28/25 at 2312 Order Group 1: potassium chloride (K-TAB,KLOR-CON) CR tablet 30-50 mEqJump to med 30-50 mEq, oral, As needed, Potassium Supplementation, Starting on Fri06/28/25 at 2312, Progress tooral potassium replacement when patient tolerating oral intake. If dose administered, recheck potassium level 4 hours after last dose. For potassium level 3.4 to 3.8 mmol/L and GFR 30 mL/min or greater=30 mEq. For potassium level 3.1 to 3.3 mmol/L and GFR 30 mL/min or greater=40 mEq. For potassium level 3 mmol/L or less and GFR 30 mL/min or greater=50 mEq. Do not crush or chew. Or potassium chloride (KAYCIEL) 20 mEq/15 mL solution 30-50 mEqJump to med 30-50 mEq, oral, As needed, Potassium Supplementation, Starting on Fri06/28/25 at 2, Progress tooral potassium replacement when patient tolerating oral intake. If dose administered, recheck potassium level 4 hours after last dose. For potassium level 3.4 to 3.8 mmol/L and GFR 30 mL/min or greater=30 mEq. For potassium level 3.1 to 3.3 mmol/L and GFR 30 mL/min or greater=40 mEq. For potassium level 3 mmol/L or less and GFR 30 mL/min or greater=50 mEq. Must dilute before use - Mix in 3-8 ounces of water or juice before administration When administering in feeding tube, flush before and after per policy and monitor potassium levels Or potassium chloride IVPB 10 mEq/100 mL in water (0.1 mEq/mL premix)Jump to med 10 mEq, intravenous, at 100 mL/hr, Administer over 60 Minutes, As needed, POTASSIUM REPLACEMENT, Starting on Fri06/28/25 at 2312, IV if unable to use oral/enteral with the current dosing strategies Potassium level 3 mmol/L or less administer Potassium Chloride 50 mEq Potassium level 3.1 to 3.3 mmol/L administer Potassium Chloride 40 mEq Potassium level 3.4 to 3.8 mmol/L administer Potassium Chloride 30 mEq Use central line when applicable. Recheck potassium level 1 hour after total IVPB infusion complete, With each potassium result continue the replacement orders as needed VESICANT (YELLOW) Infuse each 10 mEq over a minimum of 1 hour. documented in this encounter Additional Health Concerns AssessmentNoted TimePHQ-9 Depression Total Score: 10:03 AM EST documented as of this encounter Care Teams Team MemberRelationshipSpecialtyStart DateEnd Date Yadira Jose MD [address] [place] [address] PCP - GeneralInternal Medicine10/20/24documented as of this encounter
--- OUTSIDE RECORDS SUMMARY | 2025-07-08 12:00 | XMS_ITS | Encounter Summary ---
Author Organization [employer] tem Address [id number] [address] [place] [address] Care Team Providers Care Felt Coverer Name Role Phone Yadira Jose MD Primary Care Provider [phone] Reason for Visit * ReasonCommentsLabs Only * Auth/Cert (Routine)SpecialtyDiagnoses / ProceduresReferred By ContactReferred To Contact Referral IDStatusReasonStart DateExpiration DateVisits RequestedVisits [id number] Encounter Details DateTypeDepartmentCare Team (Latest Contact Info)Aeisitzopwe88/12/2025 12:00 PM ESTSupport Visit [facility] - Medical Oncology [address] [place] [address] Social History Tobacco UseTypesPacks/DayYears UsedDateSmoking Tobacco: FormerCigarsSmokeless [...] times a week06/16/2024How often do you attend catholic or orthodoxy services?More than 4 times per year4Do you belong to any clubs or organizations such as catholic groups, unions, fraternal or athletic groups, or school groups?Yes06/16/2024How often do you attend meetings of the clubs or organizations you belong to?More than 4 times per year06/16/2024 Are you , , , , never , or living with a partner?Nverpph9006/16/2024Overall Financial Resource Strain (CARDIA)AnswerDate RecordedHow hard is it for you to pay for the very basics like food, housing, medical care, and heating?Not hard at all06/16/2024HQ-2AnswerDate RecordedTotal Xlpyx61708/30/2024[facility] [place] [facility] - Occupational Stress QuestionnaireAnswerDate RecordedDo you feel stress - tense, restless, nervous, or anxious, or unable to sleep at night because yourmind is troubled all the time - these days?To some qysaxz3406/16/2024Exercise Vital SignAnswerDate Recorded On average, how many [...] RecordedIn the past 12 months has the electric, gas, oil, or water company threatened to shut off services in your home?No06/29/2025Housing InstabilityAnswerDate RecordedAre you worried or concerned that in the next two months you may not have stable housing that you own, rent or stay in as a part of a household?No06/29/2025hildcareAnswerDate 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 [...] InformationValueDate RecordedSex Assigned at BirthNot on fileLegal QbeQowi0203/02/2015 11:37 AM EDTGender Identity Not on fileSexual OrientationNot on filedocumented as of this encounter Plan of Treatment DateTypeDepartmentCare Team (Latest Contact Info)Xprvdgktipw37/23/2025 10:30 AM ESTSupport Visit [facility] [address] [place] [phone] 08/04/2025 3:00 PM ESTInfusion [facility] - Medical On[facility] [address] [place] [phone] 08/15/2025 1:00 PM ESTAppointment [facility] - [facility] [address] [facility] [place] [phone] Aristides Frost Jr., MD [address] [place] [address] 08/15/2025 3:45 PM ESTOffice Visit [facility] [address] [place] [phone] Denise Lawler APRN-GALI [address] [place] [phone] 08/19/2025 11:45 AM ESTOffice Visit [facility] [address] [place] [place] [address] Aristides Frost Jr., MD [address] [place] [phone] 10/07/2025 11:15 AM EDTOffice Visit [facility] [address] [place] [address] [address] [facility] [place] [place] [phone] Aristides Frost Jr., MD [address] [place] [phone] documented as of this encounter Goals GoalPatient Goal TypeAssociated ProblemsRecent ProgressPatient-Stated?Author home Baylee Almodovar RN Note: Evaluation of progress towards goal: Patient plans to discharge home with [facility] and with assistance from family. documented as of this encounter Visit Diagnoses Not on filedocumented in this encounter Additional Health Concerns AssessmentNoted TimePHQ-9 Depression Total Score: 412 10:03 AM EST documented as of this encounter Care Teams Team MemberRelationshipSpecialtyStart DateEnd Date Yadira Jose MD [address] [place] [address] PCP - GeneralInternal Medicine10/20/24documented as of this encounter
--- OUTSIDE RECORDS SUMMARY | 2025-07-13 09:00 | XMS_ITS | Encounter Summary ---
Author Organization [employer] [facility] tem Address [id number] [address] [place] [address] Care Team Providers Care Elevator Runner Name Role Phone Yadira Aguilar MD Primary Care Provider [phone] Reason for Visit * ReasonCommentsWound Check * Consultation (Routine) - Pending ReviewSpecialtyDiagnoses / ProceduresReferred By ContactReferred To ContactWound Care Diagnoses Wound of left groin, initial encounter Amy Lentz, SLAG EXPANDER-MARINE PIPEFITTER HELPER [address] [place] [address] Phone: tel: fax: [facility] [address] [place] [address] Phone: tel: fax: Referral IDStatusReasonStart DateExpiration DateVisits RequestedVisits [id number] Review Specialty Services Required Encounter Details DateTypeDepartmentCare Team (Latest Contact Info)Owwwtfqpydb48/17/2025 9:00 AM ESTOffice Visit [facility] [address] [place] [phone] Rolanda Albarran, SLAG EXPANDER-MARINE PIPEFITTER HELPER [address] [place] [address] Wound of left groin, initial encounter (Primary Dx) Social History Tobacco UseTypesPacks/DayYears UsedDateSmoking Tobacco: FormerCigarsSmokeless Tobacco: Never Tobacco Cessation:Counseling Given: Not Answered Comments:Quit 6 years ago 2017 Alcohol UseStandard Drinks/WeekCommentsNo0 (1 standard drink = 0.6 oz pure alcohol)Social Connection and Isolation PanelAnswerDate RecordedIn a typical week, how many times do you talk on the phone with family, friends, or neighbors?More than three times a week06/16/2024How often do you get together with friends or relatives?More than three times a week06/16/2024How often do you attend scientology or restorationism services?More than 4 times per year06/16/2024o you belong to any clubs or organizations such as scientology groups, unions, fraternal or athletic groups, or school groups?Yes06/16/2024How often do you attend meetings of the clubs or organizations you belong to?More than 4 times per year06/16/2024 Are you , , , , never , or living with a partner?Lzvegsx6406/16/2024Overall Financial Resource Strain (CARDIA)AnswerDate RecordedHow hard is it for you to pay for the very basics like food, housing, medical care, and heating?Not hard at all06/16/2024HQ-2AnswerDate RecordedTotal Ktfwy93608/30/2024Fin[facility] - Occupational Stress QuestionnaireAnswerDate RecordedDo you feel stress - tense, restless, nervous, or anxious, or unable to sleep at night because yourmind is troubled all the time - these days?To some itewvk0006/16/2024Exercise Vital SignAnswerDate Recorded On average, how many [...] RecordedIn the past 12 months has the Purplu, gas, oil, or water Wevebob threatened to shut off services in your home?No06/29/2025Housing InstabilityAnswerDate RecordedAre you worried or concerned that in the next two months you may not have stable housing that you own, rent or stay in as a part of a household?No06/29/2025hildcareAnswerDate RecordedDo problems getting child care associate 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 work or study?No06/16/2024EmploymentAnswerDate RecordedDo you need help finding a local career center and/or a training program?No06/16/2024Hunger ScreeningAnswerDate RecordedWithin the past 12 months we worried whether our food would run out before we got money to buy more.Never True07/13/2025Within the past 12 months the food we bought just didn't last and we didn't have money to get more.Never True07/13/2025Purpose - LifeAnswerDate RecordedI have a purpose and direction in my life.Strongly Agree06/16/2024Sex and Gender InformationValueDate RecordedSex Assigned at BirthNot on fileLegal YwpPzxn6203/02/2015 11:37 AM EDTGender Identity Not on fileSexual OrientationNot on filedocumented as of this encounter Last Filed Vital Signs Vital SignReadingTime TakenCommentsBlood Chjioibn268/6907/13/2025 9:00 AM EST Bagwi068207/13/2025 9:00 AM UGGMvpdfivyhke77.1 ??C (97 ??F)07/13/2025 9:00 AM EST Respiratory Jbkn331109/13/2024 9:00 AM ESTOxygen Saturation--Inhaled Oxygen Concentration--Jercrl24.7 kg (200 lb)07/13/2025 9:00 AM ESTHeight--Body Mass Index28.712 10:31 PM ESTdocumented in this encounter Functional Status * BPAnswerDate of KxlejianwnFwylmr286/6907/13/2025 9:00 AM Layne Cornelius RN * PulseAnswerDate of LsxkdopkbfRpoccs5285/17/2025 9:00 AM Layne Cornelius RN * WeightAnswerDate of MvxanohkhoWvaktn136033/17/2025 9:00 AM Layne Cornelius RN * Food InsecurityQuestionAnswerDate of AssessmentAutrWithin the past 12 months the food we bought just didn't last and we didn't have money to get more.Never True07/13/2025 9:02 AM Layne Cornelius RNWithin the past 12 months we worried whether our food would run out before we got money to buy more.Never True07/13/2025 9:02 AM Layne Cornelius RN * Nutritional ScreeningQuestionAnswerDate of AssessmentAutNew Mil[facility] Hospital you have an illness or condition that made you change the kind and/or amount of food you eat? 9:20 AM Layne Cornelius RNDo you eat less than 3 servings of meat/protein a day? 9:20 AM Layne Cornelius RNDo you eat less than 5 servings of fruits and vegetables each day? 9:20 AM Layne Yeboah RNDo you have tooth or mouth problems that make it hard for you to eat? 9:20 AM Layne Cornelius RNAre there times when you don't always have enough money to buy the food you need? 9:20 AM Layne Cornelius RNDo you eat alone most of the time? 9:20 AM Layne Cornelius RNDo you take 3 or more different prescribed or over the counter medicines per day? 9:20 AM Layne Cornelius RNWithout meaning to have you lost or gained 10lbs in the last 6 months? 9:20 AM Layne Cornelius RNAre there times when you are not always physically able to shop, cook, and/or feed yourself? 9:20 AM Layne Cornelius RNDo you have any of the following medical conditions?wounds/sores not olcugi4207/13/2025 9:20 AM Layne Cornelius RNNutritional screening total8 07/13/2025 9:20 AM Layne Cornelius RN * Education assessment and planQuestionAnswerDate of AssessmentAuthor Comprehensive ability and motivation levelAsks questions;Voices understanding 07/13/2025 9:20 AM Layne Cornelius RNKnowledge levelDemonstrates some knowledge, needs clarification and/or reinforcement regarding health/wound /17/2025 9:20 AM Layne Cornelius RNFactors affecting teaching/learningPhysical iyvbsqrlhmg52/17/2025 9:20 AM Layne Cornelius RNEducational goalsPatient able to be taught regarding care but may be unable to participate completely;Caregiver willbe taught care07/13/2025 9:20 AM Layne Yeboah RN * Wound Pain ScaleQuestionAnswerDate of AssessmentAuthorPain Scale 0/100 07/13/2025 9:00 AM Layne Cornelius RN * Vital SignsQuestionAnswerDate of UvgajqhatxIjdivlOyzr2576/17/2025 9:00 AM Dora Owens RNTemp kzeInqejryk49/17/2025 9:00 AM Dora Roger RNResp18 07/13/2025 9:00 AM Dora Roger RN * Harm Risk AssessmentQuestionAnswerDate of AssessmentAuthorAre you having thoughts of homicide or causing harm to others?No07/13/2025 9:23 AM Layne Yeboah RN * [place] Suicide BehaviorQuestionAnswerDate of AssessmentAuthor6. Have you ever done anything, started to do anything, or prepared to do anything to end your life?No07/13/2025 9:23 AM Layne Cornelius RN * Suicidal Ideation (Last Month)QuestionAnswerDate of AssessmentAuthor1. In the last month have you wished you were or wished you could go to sleep and not wake up?No07/13/2025 9:23 AM Layne Cornelius, RN2. In the last month have you actually had any thoughts of killing yourself?No07/13/2025 9:23 AM Layne Cornelius RNAble to assess?Yes07/13/2025 9:23 AM Layne Cornelius RN * Can you or do youQuestionAnswerDate of AssessmentAuthorWalk without helpN 07/13/2025 9:22 AM Layne Cornelius RNConfined to bedN109/13/2024 9:22 AM Layne Cornelius RNWalk with ysjbatieafG16/17/2025 9:22 AM Layne Cornelius RNUse Cane/TikllnT90/17/2025 9:22 AM Layne Cornelius RNUse VzctgmmvjgG62/17/2025 9:22 AM Layne Cornelius RNConfined to WheelchairN 07/13/2025 9:22 AM Layne Cornelius RN * Self CareQuestionAnswerDate of AssessmentAuthorLives pxaxZdlpdn95/17/2025 9:22 AM Layne Cornelius RNNeeds help with personal careN109/13/2024 9:22 AM Layne Yeboah RNNeeds help with dressing zycvdlxJ81/17/2025 9:22 AM Layne Yeboah, DARY * Services usedQuestionAnswerDate of AssessmentAuthorUsed the following services in the last 6 monthsHome care07/13/2025 9:22 AM Layne Cornelius, DARY * Assistance at homeQuestionAnswerDate of AssessmentAuthorDo you have a home health earynlA87/17/2025 9:22 AM Layne Cornelius RNAgency's nameohioans 07/13/2025 9:22 AM Layne Cornelius RN * Language/Culture needsQuestionAnswerDate of AssessmentAuthorDo you need a mfjjslzbwyS67/17/2025 9:22 AM Layne Cornelius RN * [place] Suicide Risk LevelAnswerDate of AssessmentAuthorNot at Suicide Risk 07/13/2025 9:23 AM Layne Cornelius RN * BPAnswerDate of WupykfcewsPiqzyl101/6907/13/2025 9:00 AM Layne Cornelius RN * PulseAnswerDate of VxmoblapcmBtsbek5973/17/2025 9:00 AM Layne Cornelius RN * WeightAnswerDate of SrvlwkcpceFjtjzd130608/17/2025 9:00 AM Layne Cornelius RN * Vital SignsQuestionAnswerDate of NgpfqkgbmcVimuikAqzy5959/17/2025 9:00 AM Dora Owens RNTemp jyvRbwugdmd44/17/2025 9:00 AM Dora Roger RNResp18 07/13/2025 9:00 AM Dora Roger RN documented as of this encounter Mental Status * BPAnswerEntry KcuiYifcym149 9:00 AM Layne Cornelius RN * PulseAnswerEntry LcdwJiifbu5015/17/2025 9:00 AM Layne Cornelius RN * Vital SignsQuestionAnswerEntry DdvnJlivdeSqfe4351/17/2025 9:00 AM Dora Roger RNTe pqnAldpcmcs21/17/2025 9:00 AM Dora Roger RNResp18109/13/2024 9:00 AM Dora Roger RN documented in this encounter Patient Instructions * Patient Instructions* Dora Morris RN - 07/13/2025 9:00 AM EST DELMY Wound Management Treatment Plan Wound Location(s): left anterior groin HOW TO CARE FOR YOUR WOUND The following should be performed mc 1-2 dasy and as needed. STEP 1: Cleanse wound with Soap and water, rinse well, and pat dry. Irrigate or rinse wound with NO IRRIGATION REQUIRED. STEP 2: Soak wound with NO SOAK REQUIRED. STEP 3: Pack with NO PACKING REQUIRED STEP 4: Apply antibacterial ointment to wound bed. STEP 5: Cover wound with Band-aid or dry dressing of choice ACTIVITY: Avoid direct pressure to wound(s) at all times and Reposition at least every 2 hours NUTRITION: High protein diet SKIN CARE: keep wounds covered at all times SWELLING CONTROL: Avoid standing for prolonged periods of time. Elevate legs whenever sitting to level of heart/hips or higher. SUPPLIES: band aide, antibacterial ointment Current Date - 07/13/25 ITEMS TO FOLLOW UP ON: None Length Width Depth 1.3 cm 2.5 cm 0.1 cm Wound drainage Type Description scant serosanguinous serosanguinous documented in this encounter Progress Notes * Rolanda Albarran, SLAG EXPANDER-MARINE PIPEFITTER HELPER - 07/13/2025 9:00 AM EST Images from the original note were not included. Wound Care Progress Note Patient: Sunil Best Date of : 1960 Chief Complaint:: new patient evaluation Chief Complaint Patient presents with Wound Check PCP: YADIRA AGUILAR MD Last PCP visit: 05/14/2025 SUBJECTIVE/HPI: Sunil is a 64 y.o. male who presents to [facility] for evaluation of 1 ulcer(s) on the left groin crease. The wound was first assessed in wound clinic on 07/13/2025. Patient was seen by the wound care teamwhile hospitalized. Current daily wound care includes: patient is cleaning the wound with alcohol and covering with drygauze. Patient recently hospitalized 06/28/2025 through 07/06/2025 for severe pain in the hips radiating to buttocks. 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 Patient is status post L1 decompression and tumor excision. Patient states while hospitalized he noticed blood from the left groin. He reports he had a small cyst in the area that must have opened. Wound was treated with calcium alginate while hospitalized. Patient is status post laminectomy thoracic single level T12 by . Patient accompanied by: Spouse, patient arrives in wheelchair Patient was offered a medical stamps or coins salesperson, and all sensitive body parts/areas of the examination wereperformed with DARY John present. Nutritional screen shows patient does not take increased amounts of protein in the diet. Patient denies deny fever, chills, sweats, or other signs of infection. No current antibiotic use Diabetic Blood Sugar: Patient is not checking blood sugar. Lab Results Component Value Date HGBA1C 5.5 06/29/2025 HGBA1C 8.2 (H) 06/16/2024 Significant Findings or Change in Condition: New wound evaluation Contributing comorbid conditions: Diabetes and Cancer Patient Active Problem List Diagnosis Complicated UTI [...] complication, without long-term current use of insulin ([facility]) Essential hypertension Weakness Acute cystitis without hematuria Former smoker Spinal cord compression due to neoplasm ([facility]) Chemotherapy-induced thrombocytopenia Urinary tract infection with hematuria, site unspecified Hypomagnesemia Dysuria Wound of left groin Past Medical History: Diagnosis Date Arthritis Benign prostatic hyperplasia Benign prostatic hyperplasia with urinary retention 04/2023 Cancer ([facility]) prostate, uterer , bladder, bone Cholelithiasis Dental disease no teeth Diabetes mellitus type 2, controlled ([facility]) Difficult intravenous access GERD (gastroesophageal reflux disease) Hydronephrosis with renal and ureteral calculous obstruction 02/12/2023 Intractable back pain 06/17/2024 Left inguinal hernia Peptic ulceration 2002 Ulcer Umbilical hernia Urinary tract infection Past Surgical History: Procedure Laterality Date CYSTOSCOPY N/A 03/26/2023 Performed by Aristides Frost Jr., MD at [facility] CYSTOSCOPY BIPOLAR TRANSURETHRAL RESECTION PROSTATE N/A 06/04/2023 Performed by Aristides Frost Jr., MD at [facility] CYSTOSCOPY LITHOCLAST N/A 03/26/2023 Performed by Aristides Frost Jr., MD at [facility] LAMINECTOMY LUMBAR SINGLE LEVEL L1 N/A 06/17/2024 Performed by David Castañeda MD at [facility] LAMINECTOMY THORACIC SINGLE LEVEL T12 N/A 07/03/2025 Performed by Milton Spain MD at [facility] LASER CYSTOSCOPY RESECTION PROSTATE N/A 06/04/2023 Performed by Aristides Frost Jr., MD at [facility] LEG SURGERY Left Circumferential 1987 2nd surgery in 1996 NEPHROSTOGRAM ANTEGRADE Left 03/26/2023 Performed by Aristdies Frost Jr., MD at [facility] Current Outpatient Medications Medication Sig Dispense Refill magnesium hydroxide 400 mg/5 mL suspension Take 5 mL by mouth daily as needed (as needed for constipation). 473 mL 3 magnesium oxide (MAGOX) 400 mg tablet Take 1 tablet (400 mg total) by mouth in the morning and 1 tablet (400 mg total) before bedtime. 60 tablet 0 metFORMIN (FORTAMET) 1000 MG (OSM) 24 hr [...] mg. oxyCODONE-acetaminophen (PERCOCET) 10-325 mg per tablet Take 1 tablet by mouth every 4 (four) hoursas needed for pain. Max Daily Amount: 6 tablets 180 tablet 0 polyethylene glycol (GLYCOLAX) 17 gram/dose powder Take 17 g by mouth in the morning and 17 g before bedtime. 1700 g 6 pregabalin (LYRICA) 25 mg capsule Take 1 capsule (25 mg total) by mouth in the morning and 1 capsule (25 mg total) before bedtime. Do all this for 30 days. 60 capsule 0 sennosides-docusate sodium (SENNA WITH DOCUSATE SODIUM) 8.6-50 mg Take 2 tablets by mouth in the morning and 2 tablets before bedtime. 360 tablet 3 tamsulosin (FLOMAX) 0.4 mg capsule Take 1 capsule (0.4 mg total) by mouth nightly. 90 capsule 3 No current facility-administered medications for this visit. Allergies Allergen Reactions Pentazocine-Acetaminophen Other Reaction(s): Visual Hallucinations Penicillins Rash Social History Tobacco Use Smoking status: Former Types: Cigars Smokeless tobacco: Never Tobacco comments: Quit 6 years ago 2017 Substance Use Topics Alcohol use: No Recent imaging: Fluoroscopy guidance spine puncture operative [...] metastatic disease, progressive back pain.TECHNIQUE: Multiplanar [including occupational therapy co director] multisequence MR of the pelvis was performed [...] 05/14/2025 TECHNIQUE: Procedure performed by Interventional Radiologist ZacharyRost, M.D. Fluoroscopic time: 1.7 minutes Reference Air Kerma: [...] existing catheter was removed. A new 10.2 Emirati Reyes-Holder drain was advanced over the wire [...] of left-sided nephrostomy tube. A new 10.2 Emirati Reyes-Holder pigtail drain was placed. The pigtail was formed and locked within the left renal pelvis. Drain connected to gravity bag drainage. IMPRESSION: Successful fluoroscopic guided exchange of left-sided percutaneous nephrostomy tube. Finalized by Avelino Paz MD on 06/20/2025 11:45 PM Laboratory Results Lab Results Component Value Date WBC 8.0 07/06/2025 HGB 8.6 (L) 07/06/2025 HCT 26.1 (L) 07/06/2025 MCV 97 07/06/2025 PLT 293 07/06/2025 Lab Results Component Value Date ALBUMIN 3.2 07/06/2025 The following portions of the patient's history were reviewed and updated as appropriate: allergies, current medications, past family history, past medical history, past social history, past surgicalhistory, problem list, and medication reconciliation was completed including current medication andpost discharge medication. Review of Systems Constitutional: Negative for fever. HENT: Positive for dental problem. Respiratory: Negative for shortness of breath. Cardiovascular: Negative for chest pain. Gastrointestinal: Negative for abdominal pain. Genitourinary: Negative for difficulty urinating. Musculoskeletal: Positive for arthralgias, back pain and gait problem. Skin: Positive for color change and wound. Neurological: Positive for weakness. Psychiatric/Behavioral: Negative for confusion. OBJECTIVE: Vitals: 07/13/25 0900 BP: 108/69 Pulse: 93 Resp: 18 Temp: 36.1 ??C (97 ??F) BMI: Estimated body mass index is 28.7 kg/m?? as calculated from the following: Height as of 06/28/25: 177.8 cm (5' 10 ). Weight as of this encounter: 90.7 kg (200 lb). Overweight (25 - 29.9) Pain: Pain Scale 0/10: 0 Wound Focused Physical Assessment: Physical Exam Vitals and nursing note reviewed. Constitutional: Appearance: He is well-developed. HENT: Head: Normocephalic and atraumatic. Cardiovascular: Rate and Rhythm: Normal rate and regular rhythm. Pulses: Dorsalis pedis pulses are 2+ on the left side. Posterior tibial pulses are 2+ on the left side. Heart sounds: Normal heart sounds. No murmur heard. No gallop. Pulmonary: Effort: Pulmonary effort is normal. Breath sounds: Normal breath sounds. No wheezing or rales. Musculoskeletal: General: Normal range of motion. Cervical back: Normal range of motion. Comments: Sutures intact, lumbar spine, post laminectomy 07/03/2025 Feet: Comments: No edema of left leg Skin: General: Skin is warm and dry. Neurological: Mental Status: He is alert and oriented to person, place, and time. Wound Assessment: Wound 07/13/25 1 Groin Anterior;Left (Active) Wound Image 07/13/25 0914 Site Assessment Red 07/13/25 0914 Lucille-wound Assessment Blanchable erythema;Dry 07/13/25913 Wound Length (cm) 1.3 cm 07/13/25913 Wound Width (cm) 2.5 cm 07/13/25913 Wound Surface Area (cm^2) 2.55 cm^2 07/13/25913 Wound Depth (cm) 0.1 cm 07/13/25913 Wound Volume (cm^3) 0.17 cm^3 07/13/25913 Drainage Description Sanguineous 07/13/25913 Drainage Amount Scant 07/13/25913 Treatments Cleansed with;Wound cleanser;Soak with;Vashe/Hypochlorous Acid 07/13/25913 Debridement Performed? N 07/13/25913 Dressing Type Other (Comment) 07/13/25913 Dressing Changed New 07/13/25913 Dressing Status Clean;Dry;Intact 07/13/25913 Wound Bed Granulation (%) 100% 07/13/25913 Healing Status: Wound stable Procedures none Dressing: The wound was cleansed with Soap and water, rinse well, and pat dry and a triple antibiotic ointment covered with Band-Aid dressing was placed in wound clinic. Offloading: Continue offloading with: Avoid direct pressure to areas ASSESSMENT/PLAN/EDUCATION: 1. Wound of left groin, initial encounter (Primary) Stopped the use of alcohol for cleansing Wash wound mild soap and water Apply OTC antibiotic ointment Cover with dry dressing of comfort Change every 1-2 days Patient instructed in wound care to current wounds present as above. Follow up: Provider: Return to the wound clinic in p.r.n. for your provider to evaluate the need for further skilled services and consider additional treatment(s). Patient will contact our wound clinic should wound deterioration. At this time it is difficult for him to manage multiple physician appointments. Continue to monitor closely for wound healing and to avoid any complications or infection. Nurse Visit: Not needed Communication sent to Home Health Agency/Skilled Care Facility: NA Treatment Goals Short Term: Engagement in therapy and care. Claims Examiner: Wound closure Education: -The patient/family/caregiver was taught to watch for S/S of infection (redness, pus, pain, increased swelling, chills or fever) and to call the wound care clinic or PCP if such occurs. -The patient/family/caregiver was educated on offloading the area by avoiding direct pressure to the wound bed. -The patient/family/caregiver was advised to eat a high protein diet. -Education, as well as the pathophysiology of the disease process, was provided on infection, edema, necrotic tissue and its relationship to nonhealing wounds. -Education was provided on treatment plan. -Patient/family/caregiver verbalized understanding. Instructed to RETURN SOONER OR PROCEED TO EMERGENCY ROOM if there are any concerns or symptoms worsen. Total time spent was 10-19 minutes: Preparing to see the patient (e.g., review of tests) Obtaining and/or reviewing separately obtained history Performing a medically appropriate examination and/or evaluation Counseling and educating the patient/family/caregiver Ordering medications, tests, or procedures Documenting clinical information in the electronic or other health record ALYSSIA CULP 07/13/2025 9:35 AM [facility] ALYSSIA Culp 07/13/25 0949 documented in this encounter Plan of Treatment DateTypeDepartmentCare Team (Latest Contact Info)Fsaddmgpscj36/23/2025 10:30 AM ESTSupport Visit [facility] [address] [place] [phone] 08/04/2025 3:00 PM ESTInfusion [facility] [address] [place] [phone] 08/15/2025 1:00 PM ESTAppointment [facility] [address] [place] [phone] Aristides Frost Jr., MD [address] [place] [phone] 08/15/2025 3:45 PM ESTOffice Visit [facility] [address] [place] [phone] Denise Lwaler APRN-CNP [address] [place] [phone] 08/19/2025 11:45 AM ESTOffice Visit [facility] [address] [place] [address] A [facility] [place] [phone] Aristides Frost Jr., MD [address] [place] [place] [phone] 10/07/2025 11:15 AM EDTOffice Visit [facility] [address] [place] [address] [place] [phone] Aristides Frost Jr., MD [address] [place] [phone] documented as of this encounter Goals GoalPatient Goal TypeAssociated ProblemsRecent ProgressPatient-Stated?Author home Baylee Almodovar RN Note: Evaluation of progress towards goal: Patient plans to discharge home with [facility] and with assistance from family. documented as of this encounter Visit Diagnoses Diagnosis Wound of left groin, initial encounter- Primary documented in this encounter Additional Health Concerns AssessmentNoted TimePHQ-9 Depression Total Score: 10:03 AM EST documented as of this encounter Care Teams Team MemberRelationshipSpecialtyStart DateEnd Date Yadira Aguilar MD [address] [place] [address] PCP - GeneralInternal Medicine10/20/24documented as of this encounter
[2025-07-18] VITALS (90 sets, daily range): BP systolic 85–129; BP diastolic 45–79; PULSE 95–124; TEMP 37; O2SAT 87–100; BMI 28.7
--- NOTE | 2025-07-18 04:01 | ED.MALEGU1 ---
HPI - Male Genitourinary General Chief complaint: Urogenital-Male Time Seen by Provider: 07/18/25 03:52 Source: family Mode of arrival: ambulance Limitations: no limitations History of Present Illness HPI Narrative: history of cancer. States tumor was obstructing left ureter and so it was bypassed with a nephrostomy tube 2.5 years ago. Recent bone biopsy of his spine. States tube is changed q 2 months. Patient arrives from home via squad because he feels the nephrostomy site is leaking. The tube was placed by Urology in [place]. No fever. Complains of pain related to his cancer Related Data Home Medications ?Medication ?Instructions ?Recorded ?Confirmed magnesium oxide 400 mg PO BID 07/18/25 07/18/25 metformin 1,000 mg tablet mg 07/18/25 oxycodone-acetaminophen 10 mg-325 1 tab PO Q4H 07/18/25 07/18/25 mg tablet (Percocet) polyethylene glycol 3350 17 17 g PO BID 07/18/25 07/18/25 gram/dose oral powder pregabalin 25 mg capsule (Lyrica) 25 mg PO BID 07/18/25 07/18/25 sennosides 8.6 mg-docusate sodium 1 tab-cap PO BID 07/18/25 07/18/25 50 mg tablet (Senna with Docusate Sodium) tamsulosin 0.4 mg capsule 0.4 mg PO DAILY 07/18/25 07/18/25 Allergies Allergy/AdvReac Type Severity Reaction Status Date / Time pentazocine Allergy Mild Hallucinati Verified 07/18/25 04:41 ng pcn AdvReac Intermediate Rash Uncoded 07/18/25 03:43 Review of Systems ROS Status of ROS 10 or more systems reviewed and unremarkable except as noted in history and below [facility] Medical History (Updated 07/18/25 @ 06:36 by Saleem Rainey MD) Diabetes ?E11.9 - Type 2 diabetes mellitus without complications (ICD-10) Hypertension ?I10 - Essential (primary) hypertension (ICD-10) Prostate cancer ?C61 - Malignant neoplasm of prostate (ICD-10) Exam Constitutional Vital Signs, click to edit/add: Last Vital Signs Temp 98.6 F 07/18/25 03:43 Pulse 95 H 07/18/25 04:58 Resp 19 07/18/25 04:58 BP 100/57 07/18/25 06:00 Pulse Ox 100 07/18/25 06:00 O2 Del Method Room Air 07/18/25 03:43 Common normals: no apparent distress, average body habitus, oriented x3, no limitations, healthy appearing, alert and well nourished [facility] Common normals: normocephalic and head/scalp atraumatic Eye Common normals: EOMs intact bilaterally and conjunctivae normal Chest Common normals: inspection of chest normal Respiratory Common normals: normal respiratory effort, no retractions and no use of accessory muscles Cardio Common normals: regular rate, regular rhythm, S1 normal heart sound and S2 normal heart sound GI Common normals: Normal to inspection, nondistended, normoactive bowel sounds present and soft to palpation Back & Pelvis Other: nephrostomy tube left CVA. dressing at tube site is dry. There is clear yellow urine in the nephrostomy bag Neuro Common normals: oriented x3, CN's II-XII intact bilaterally and moves all extremities Psych Mood and affect: depressed mood Course Vital Signs Vital signs: Vital Signs Temperature 98.6 F 07/18/25 03:43 Pulse Rate 124 H 07/18/25 03:43 Respiratory Rate 20 07/18/25 03:43 Blood Pressure 101/55 07/18/25 03:43 Pulse Oximetry 98 07/18/25 03:43 Oxygen Delivery Method Room Air 07/18/25 03:43 Temperature 98.6 F 07/18/25 03:43 Pulse Rate 95 H 07/18/25 04:58 Respiratory Rate 19 07/18/25 04:58 Blood Pressure 100/57 07/18/25 06:00 Pulse Oximetry 100 07/18/25 06:00 Oxygen Delivery Method Room Air 07/18/25 03:43 MDM - Male Genitourinary MDM Narrative Medical decision making narrative: patient presents with complaint that he has noticed leakage about his nephrostomy tube site. He also has gen. Pain related to his of metastatic CA. Patient still urinates also. On exam the dressing at the tube site appears dry and there is urine in the nephrostomy bag. CT ordered to evaluate the tube placement. also labs ordered including CBC, BMP and UA. CT pending at change of shift patient also treated for pain with 0.5mg dilaudid and zofran. UA via nephrostomy tube is infected. Patient also provided a clean cath urine and this was sent to the lab also Lab Data Labs: Lab Results 07/18/25 07/18/25 07/18/25 Range/Units 03:15 06:01 06:34 WBC 10.4 (4.0-11.0) 10^3/uL RBC 3.09 L (4.70-6.10) 10^6/uL Hgb 9.6 L (14.0-18.0) g/dL Hct 31.0 L (42.0-54.0) % MCV 100.3 H (80.0-94.0) fL MCH 31.1 (25.9-34.0) pg MCHC 31.0 (29.9-35.2) g/dL RDW 16.2 H (11.0-15.0) % Plt Count 281 (150-450) 10^3/uL MPV 8.6 L (9.5-13.5) fL Neut % (Auto) 80.2 H (43.0-75.0) % Lymph % (Auto) 9.8 L (20.5-60.0) % [place] % (Auto) 7.2 (1.7-12.0) % Eos % (Auto) 1.8 (0.9-7.0) % Baso % (Auto) 0.5 (0.2-2.0) % Neut # (Auto) 8.3 H (1.4-6.5) 10^3/uL Lymph # (Auto) 1.0 L (1.2-3.8) 10^3/uL [place] # (Auto) 0.8 (0.3-0.8) 10^3/uL Eos # (Auto) 0.2 (0.0-0.7) 10^3/uL Baso # (Auto) 0.1 (0.0-0.1) 10^3/uL Abs Immat Gran (auto) 0.05 H (0.00-0.03) 10^3/uL Imm/Tot Granulo (auto) 0.5 (0.0-0.5) % Sodium 139 (136-145) mmol/L Potassium 3.6 (3.5-5.1) mmol/L Chloride 99 (98-107) mmol/L Carbon Dioxide 30.3 (21.0-32.0) mmol/L Anion Gap 13.3 BUN 18.0 (7.0-18.0) mg/dL Creatinine 1.38 H (0.70-1.30) mg/dL Est GFR ( Amer) >60 (>=60 mL/min/1.73m^2) Est GFR (Non-Af Amer) 52 L (>=60 mL/min/1.73m^2) BUN/Creatinine Ratio 13.0 Glucose 152 H (74-106) mg/dL Lactate 1.4 (0.4-2.0) mmol/L Calcium 8.5 (8.5-10.1) mg/dL Urine Color Yellow Lt. yellow (YELLOW) Urine Clarity Cloudy A Clear (CLEAR) Urine pH 6.0 5.5 (5.0-9.0) Ur Specific [place] <=1.005 A <=1.005 A (1.005-1.025) Urine Protein 30 A Trace (NEG/TRACE) mg/dL Urine Glucose (UA) 500 A >=1000 A (NEGATIVE) mg/dL Urine Ketones Negative Negative (NEGATIVE) mg/dL Urine Occult Blood Large A Large A (NEGATIVE) Urine Nitrite Negative Negative (NEGATIVE) Urine Bilirubin Negative Negative (NEGATIVE) Urine Urobilinogen 0.2 0.2 (0.2-1.0) EU/dL Ur Leukocyte Esterase Moderate A Small A (NEGATIVE) Urine RBC 10-20 A (0-2) #/HPF Urine WBC 50-75 A (NONE SEEN) #/HPF Ur Squamous Epith Cells Rare (NONE/RARE) #/LPF Urine Crystals None seen (None Seen) #/HPF Urine Bacteria Small A (NONE SEEN) #/HPF Urine Casts Seen A (NONE SEEN) #/LPF Hyaline Casts Rare Urine Mucus None seen (NONE SEEN) Urine Yeast Seen A (NONE SEEN) Ur Culture Indicated? Yes-[facility] Discharge Plan Discharge Patient Disposition: Still a Patient
--- NOTE | 2025-07-18 04:03 | CT_ITS ---
The [address] [address] Patient Name: MAJOR JACINTO MRN: [id number] date: 1960 Sex: M Assigned Patient Location: ED.MAIN Current Patient Location: ED.MAIN Accession/Order Number: [id number] Exam Date: 07/18/2025 04:45 Report Date: 07/18/2025 08:36 At the request of: OLIVIA GARCIA MD Procedure: CT abdomen pelvis w con CT ABDOMEN AND PELVIS WITH INTRAVENOUS CONTRAST: CLINICAL HISTORY: left flank pain COMPARISON: None TECHNIQUE: Spiral images were obtained through the abdomen and pelvis following the administration of intravenous contrast. This CT exam was performed using one or more following dose reduction techniques: Automated exposure control, adjustment of the mA and/or kV according to patient size, or use of iterative reconstruction technique. FINDINGS: Lung Bases: [Bibasilar atelectasis/scarring.] Organs:Cholelithiasis. No CBD dilatation. Liver portal vein spleen pancreas and adrenal glands appear unremarkable. Right kidney appears unremarkable. Left-sided nephrostomy tube is in place with air seen within the collecting system. There appears to be moderate hydronephrosis and hydroureter which tapers to the level of the distal left ureter. Aorta appears normal in caliber.[ GI: Stomach is grossly unremarkable. Small bowel appears nondilated. Appendix is normal. Moderate stool burden.[ Pelvis:[Urinary bladder and prostate gland appear unremarkable.] Peritoneum/Retroperitoneum:No free air, free fluid or lymphadenopathy.[ Abd wall/Bones:Abdominal wall demonstrates no acute findings. Osseous structures demonstrate diffuse sclerotic bony metastatic disease with loss of the posterior elements of T12 and L1. CT/CT abdomen pelvis w con IMPRESSION: Moderate left-sided hydronephrosis and hydroureter with tapers to the level of the distal left ureter. There appears be a nephrostomy tube in place with air seen within the collecting system. The nephrostomy tube tip appears to be curled within the left renal parenchyma. Correlation with nephrostomy tube patency is recommended. Diffuse sclerotic bony metastatic disease with loss of the posterior elements of T12 and L1. Correlation with surgical history is suggested. Cholelithiasis. Impression dictated by: Tristan Granados Jr., D.OMart 07/18/2025 8:36 AM Dictation Location: [place] [address] Electronically authenticated by: [id number] Y Date: 07/18/2025 08:36
[2025-07-18] MEDS: 0.9 % SODIUM CHLORIDE 1,000 ML 999 ML IV (04:24)
[2025-07-18 04:30] LABS: Hematocrit 31.0 % (42.0-54.0); Hemoglobin 9.6 g/dL (14.0-18.0); Immature Granulocytes Abs Auto 0.05 10^3/uL (0.00-0.03); Immature Granulocytes Pct Auto 0.5 % (0.0-0.5); Lymphocytes Absolute Auto 1.0 10^3/uL (1.2-3.8); Mean Corpuscular HGB Conc 31.0 g/dL (29.9-35.2); Mean Corpuscular Hemoglobin 31.1 pg (25.9-34.0); Mean Corpuscular Volume 100.3 fL (80.0-94.0); Platelet Count 281 10^3/uL (150-450); Red Blood Count 3.09 10^6/uL (4.70-6.10); White Blood Count 10.4 10^3/uL (4.0-11.0)
--- OUTSIDE RECORDS SUMMARY | 2025-07-18 04:30 | XMS_ITS | Encounter Summary ---
Author Organization [employer] tem Address [facility]-[id number] [address] [place] [address] Care Team Providers Care Template Worker Name Role Phone Yadira Jose MD Primary Care Provider [phone] Encounter Details DateTypeDepartmentCare Team (Latest Contact Info)Ykonqftftux36/11/2025 Documentation Judith Yan [facility] - Medical Oncology [address] [place] [phone] Cherelle Garcia, RN Social History Tobacco UseTypesPacks/DayYears UsedDateSmoking Tobacco: FormerCigarsSmokeless [...] times a week06/16/2024How often do you attend jewish or zoroastrianism services?More than 4 times per year06/16/2024o you belong to any clubs or organizations such as jewish groups, unions, fraternal or athletic groups, or school groups?Yes06/16/2024How often do you attend meetings of the clubs or organizations you belong to?More than 4 times per year06/16/2024 Are you , , , , never , or living with a partner?Zvpfvid5706/16/2024Overall Financial Resource Strain (CARDIA)AnswerDate RecordedHow hard is it for you to pay for the very basics like food, housing, medical care, and heating?Not hard at all06/16/2024HQ-2AnswerDate RecordedTotal Xjunb77908/30/2024[facility] of Occupational Health - Occupational Stress QuestionnaireAnswerDate RecordedDo you feel stress - tense, restless, nervous, or anxious, or unable to sleep at night because yourmind is troubled all the time - these days?To some urvjpd0406/16/2024Exercise Vital SignAnswerDate Recorded On average, how many [...] RecordedIn the past 12 months has the [employer], gas, oil, or water [employer] threatened to shut off services in your home?06/29/2025Housing InstabilityAnswerDate RecordedAre you worried or concerned that in the next two months you may not have stable housing that you own, rent or stay in as a part of a household?No06/29/2025hildcareAnswerDate RecordedDo problems getting childhood development teacher 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 work [...] InformationValueDate RecordedSex Assigned at BirthNot on fileLegal TudRcox1003/02/2015 11:37 AM EDTGender Identity Not on fileSexual OrientationNot on filedocumented as of this encounter Progress Notes * Cherelle Garcia RN - 07/07/2025 4:20 PM EST Images from the original note were not included. Kenney Jasmine MD [facility] Onc Nurses Once pt is discharged from hospital, let's get Guardant 360 test. If he has no targetable mutation, I don't have any other good options. Previous Messages ----- Message ----- From: Chase Borrego MD Sent: 06/29/2025 6:43 PM EST To: Kenney Jasmine MD documented in this encounter Plan of Treatment DateTypeDepartmentCare Team (Latest Contact Info)Yargjttzlhf26/23/2025 10:30 AM ESTSupport Visit [facility] [address] [place] [phone] 08/04/2025 3:00 PM ESTInfusion [facility] - Medical Oncology [address] [place] [address] 08/15/2025 1:[address] - Interventional Radiology [address] [place] [phone] Aristides Frost Jr., MD [address] [place] [address] 08/15/2025 3:45 PM ESTOffice Visit [facility] [address] [place] [address] Denise Lawler, OPERATOR ENGINEER-SWITCHBOARD CLERK [address] [address] 08/19/2025 11:45 AM ESTOffice Visit [facility] [address] [place] [address] [address] [facility] [place] [phone] Aristides Frost Jr., MD [address] [place] [address] 10/07/2025 11:15 AM EDTOffice Visit [facility] [address] [place] [address] [place] [phone] Aristides Frost Jr., MD [address] [place] [address] documented as of this encounter Goals GoalPatient Goal TypeAssociated ProblemsRecent ProgressPatient-Stated?Author home Baylee Almodovar RN Note: Evaluation of progress towards goal: Patient plans to discharge home with [facility] and with assistance from family. documented as of this encounter Visit Diagnoses Not on filedocumented in this encounter Additional Health Concerns AssessmentNoted TimePHQ-9 Depression Total Score: 10:03 AM EST documented as of this encounter Care Teams Team MemberRelationshipSpecialtyStart DateEnd Date Yadira Jose MD [address] [place] [address] PCP - GeneralInternal Medicine10/20/24documented as of this encounter
--- OUTSIDE RECORDS SUMMARY | 2025-07-18 04:30 | XMS_ITS | Encounter Summary ---
Author Organization [employer] [facility] tem Address [id number] [address] [place] [address] Care Team Providers Care Console Operator Name Role Phone Yadira Jose MD Primary Care Provider [phone] Encounter Details DateTypeDepartmentCare Team (Latest Contact Info)Epijeytcolw57/11/2025Travel Social History Tobacco UseTypesPacks/DayYears UsedDateSmoking Tobacco: FormerCigarsSmokeless [...] week06/16/2024How often do you attend scientology or buddhism services?More than 4 times per year4Do you belong to any clubs or organizations such as scientology groups, unions, fraternal or athletic groups, or school groups?Yes06/16/2024How often do you attend meetings of the clubs or organizations you belong to?More than 4 times per year06/16/2024 Are you , , , , never , or living with a partner?Txqllfy5106/16/2024Overall Financial Resource Strain (CARDIA)AnswerDate RecordedHow hard is it for you to pay for the very basics like food, housing, medical care, and heating?Not hard at all06/16/2024HQ-2AnswerDate RecordedTotal Iucmn110[facility] [place] of Occupational Health - Occupational Stress QuestionnaireAnswerDate RecordedDo you feel stress - tense, restless, nervous, or anxious, or unable to sleep at night because yourmind is troubled all the time - these days?To some wqzqao4206/16/2024Exercise Vital SignAnswerDate Recorded On average, how many [...] of a household?No06/29/2025hildcareAnswerDate RecordedDo problems getting child study team director 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 work [...] InformationValueDate RecordedSex Assigned at BirthNot on fileLegal CqqMwos0603/02/2015 11:37 AM EDTGender Identity Not on fileSexual OrientationNot on filedocumented as of this encounter Plan of Treatment DateTypeDepartmentCare Team (Latest Contact Info)Qzmkvofgnfl65/23/2025 10:30 AM ESTSupport Visit [facility] [address] [place] [phone] 08/04/2025 3:00 PM ESTInfusion [facility] - [facility] Oncology [address] [place] [phone] 08/15/2025 1:00 PM ESTAppointment [facility] - Interventional Radiology [address] [place] [phone] Aristides Frost Jr., MD [address] [place] [address] 08/15/2025 3:45 PM ESTOffice Visit [facility] [address] [place] [phone] Denise Lawler, SUPERVISOR ABATTOIR-COIL TIER [address] [place] [address] 08/19/2025 11:45 AM ESTOffice Visit [facility] [address] [place] [address] A [facility] [place] [address] Aristides Frost Jr., MD [address] [place] [address] 10/07/2025 11:15 AM EDTOffice Visit [facility] [address] [place] [address] [place] [phone] Aristides Frost Jr., MD [address] [place] [address] documented as of this encounter Goals GoalPatient Goal TypeAssociated ProblemsRecent ProgressPatient-Stated?Author home Baylee Almodoavr RN Note: Evaluation of progress towards goal: Patient [facility] and with assistance from family. documented as of this encounter Visit Diagnoses Not on filedocumented in this encounter Additional Health Concerns AssessmentNoted TimePHQ-9 Depression Total Score: 10:03 AM EST documented as of this encounter Care Teams Team MemberRelationshipSpecialtyStart DateEnd Date Yadira Jose MD [address] [place], [place] [phone] PCP - GeneralInternal Medicine10/20/24documented as of this encounter
--- OUTSIDE RECORDS SUMMARY | 2025-07-18 04:31 | XMS_ITS | Encounter Summary ---
Author Organization [employer] [facility] tem Address [id number] [address] [place] [address] Care Team Providers Care Remote Broadcast Technician Name Role Phone Yadira Jose MD Primary Care Provider [phone] Encounter Details DateTypeDepartmentCare Team (Latest Contact Info)Rqoqxijhnvs97/17/2025Travel Social History Tobacco UseTypesPacks/DayYears UsedDateSmoking Tobacco: FormerCigarsSmokeless [...] times a week06/16/2024How often do you attend rastafarian or jainism services?More than 4 times per year4Do you belong to any clubs or organizations such as rastafarian groups, unions, fraternal or athletic groups, or school groups?Yes06/16/2024How often do you attend meetings of the clubs or organizations you belong to?More than 4 times per year06/16/2024 Are you , , , , never , or living with a partner?Najfzyy6306/16/2024Overall Financial Resource Strain (CARDIA)AnswerDate RecordedHow hard is it for you to pay for the very basics like food, housing, medical care, and heating?Not hard at all06/16/2024HQ-2AnswerDate RecordedTotal Pcqeo110Finsteward health care system [place] of Occupational Health - Occupational Stress QuestionnaireAnswerDate RecordedDo you feel stress - tense, restless, nervous, or anxious, or unable to sleep at night because yourmind is troubled all the time - these days?To some mlylzh1906/16/2024Exercise Vital SignAnswerDate Recorded On average, how many [...] part of a household?No06/29/2025hildcareAnswerDate RecordedDo problems getting director child development center 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 work [...] InformationValueDate RecordedSex Assigned at BirthNot on fileLegal KydOfsa8603/02/2015 11:37 AM EDTGender Identity Not on fileSexual OrientationNot on filedocumented as of this encounter Plan of Treatment DateTypeDepartmentCare Team (Latest Contact Info)Vndjjdagngc72/23/2025 10:30 AM ESTSupport Visit [facility] [address] [place] [phone] 08/04/2025 3:00 PM ESTInfusion [facility] - Medical Oncology [address] [place] [phone] 08/15/2025 1:00 PM ESTAppointment [facility] - Interventional Radiology [address] [place] [phone] Aristides Frost Jr., MD [address] [place] [address] 08/15/2025 3:45 PM ESTOffice Visit [facility] [address] [place] [phone] Denise Lawler, OPERATIONS TRAINER-IDENTIFICATION TECHNICIAN [address] [place] [address] 08/19/2025 11:45 AM ESTOffice Visit [facility] [address] [place] [address] A [facility] [place] [address] Aristides Frost Jr., MD [address] [place] [address] 10/07/2025 11:15 AM EDTOffice Visit [facility] [address] [place] [address] [place] [phone] Airstides Frost Jr., MD [address] [place] [address] documented as of this encounter Goals GoalPatient Goal TypeAssociated ProblemsRecent ProgressPatient-Stated?Author home Baylee Almodovar RN Note: Evaluation of progress towards goal: Patient plans to discharge home with [facility] and with assistance from family. documented as of this encounter Visit Diagnoses Not on filedocumented in this encounter Additional Health Concerns AssessmentNoted TimePHQ-9 Depression Total Score: 10:03 AM EST documented as of this encounter Care Teams Team MemberRelationshipSpecialtyStart DateEnd Date Yadira Jose MD [address] [place], [place] [phone] PCP - GeneralInternal Medicine10/20/24documented as of this encounter
--- OUTSIDE RECORDS SUMMARY | 2025-07-18 04:31 | XMS_ITS | Clinical Summary ---
Author Organization [employer] tem Address [facility] [id number] [address] [place] [address] Care Team Providers Care Coach Builder Name Role Phone Yadira Jose MD Primary Care Provider [phone] Allergies Active AllergyReactionsCriticalityNoted DateCommentsPenicillinsRashMedium 04/19/2017Pentazocine-XibjxbofgfrarYxvo51/23/2007 Other Reaction(s): Visual Hallucinations Medications MedicationSigDispense QuantityRefillsLast FilledStart DateEnd DateStatus metFORMIN (FORTAMET) 1000 MG (OSM) 24 hr tablet Indications:type 2 diabetes mellitusTake 1 tablet (1,000 mg total) by mouth in the morning and 1 tablet (1,000 mg total) in the evening. Take with meals. Indications: type 2 diabetes mellitus.Active magnesium oxide (MAGOX) 400 mg tablet Take 1 tablet (400 mg total) by mouth in the morning and 1 tablet (400 mg total) before bedtime. 60 tablet 5Active tamsulosin (FLOMAX) 0.4 mg capsule Take 1 capsule (0.4 mg total) by mouth nightly. 90 capsule 5Active oxyCODONE-acetaminophen (PERCOCET) 10-325 mg per tablet Indications:Pain of metastatic malignancy,Pain from bone metastases (CMS-HCC), Cancer associated painTake 1 tablet by mouth every 4 (four) hours as needed for pain. Max Daily Amount: 6 tablets 180 tablet 5Active polyethylene glycol (GLYCOLAX) 17 gram/dose powder Take 17 g by mouth in the morning and 17 g before bedtime. 1700 g 615Active sennosides-docusate sodium (SENNA WITH DOCUSATE SODIUM) 8.6-50 mg Take 2 tablets by mouth in the morning and 2 tablets before bedtime. 360 tablet 5Active magnesium hydroxide 400 mg/5 mL suspension Take 5 mL by mouth daily as needed (as needed for constipation). 473 mL tive morphine (MS CONTIN) 15 mg 12 hr tablet Take 1 tablet (15 mg total) by mouth in the morning and 1 tablet (15 mg total) before bedtime. Max Daily Amount: 30 mg.Active pregabalin (LYRICA) 25 mg capsule Indications: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)Take 1 capsule (25 mg total) by mouth in the morning and 1 capsule (25 mg total) before bedtime. Do all this for 30 days. 60 capsule ctive prochlorperazine (COMPAZINE) 10 mg tablet Indications: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)Take 1 tablet by mouth every 6 hours as needed for mild nausea or vomiting. 60 tablet Discontinued(Stop Taking at Discharge) JARDIANCE 25 mg tablet tablet Take 1 tablet (25 mg total) by mouth in the morning. Discontinued(Stop Taking at Discharge) morphine (MS CONTIN) 15 mg 12 hr tablet Indications: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)Take 2 tablets (30 mg total) by mouth in the morning and 2 tablets (30 mg total) before bedtime. Max Daily Amount: 60 mg. 120 tablet Discontinued oxyCODONE-acetaminophen (PERCOCET) 5-325 mg per tablet Indications: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)Take 2 tablets by mouth every 8 (eight) hours as needed for pain. As need for pain 1-5 until 07/23/2024 Max Daily Amount: 6 tablets 180 tablet Discontinued oxyCODONE (OxyCONTIN) 20 mg 12 hr tablet Indications:Pain of metastatic malignancy,Pain from bone metastases (CMS-HCC), Cancer associated painTake 1 tablet (20 mg total) by mouth every 12 (twelve) hours. Max Daily Amount: 40 mg 60 tablet 5109/06/2024Discontinued(Stop Taking at Discharge) sulfamethoxazole-trimethoprim (BACTRIM DS) 800-160 mg per tablet Take 1 tablet by mouth in the morning and 1 tablet before bedtime. Do all this for 5 days. 10 tablet Expired Active Problems ProblemNoted DateDiagnosed DateWound of left groin108/31/20242504Nfvffgn93/11/2025 Qndjtpnwzpyjjw23/21/2025Urinary tract infection with hematuria, site unspecified 05/14/2025hemotherapy-induced pjvxawuyojqpbckh61/28/2025Spinal cord compression due to ejgmaezy70/09/2024Type 2 diabetes mellitus without complication, without long-term current use of lhsvngf6406/16/2024Essential cqxozzojdncp52/20/2024 Haupvvbx43/20/2024cute cystitis without sbuwknphc19/20/2024Former smoker 06/16/2024Intractable back pain06/15/2024ain of metastatic tordbeealp62/08/2024 Urologic bfvoxexyn10/25/2024 Overview (06/07/2025): 1. Diabetic with benign prostatic hyperplasia with urinary retention and recurrent Enterobacter UTIrequiring catheter placement emergency department 12/20/2022 by history greater than 1 L with dysuria, frequency, and cloudy urine; creatinine 0.91; 06/04/2023 thulium laser prostatectomy; Laina 2. Benign prostatic hyperplasia with difficulty voiding 3. Asymmetric prostate prominent right mid lobe exam 12/24/2022; benign prostatic hyperplasia with diffuse osseous sclerotic lesions including spine, ribs, pelvis, and proximal femurs CT 02/03/2023 concerning for metastatic prostate cancer along with prominent retroperitoneal lymphadenopathy with do minant para-aortic node 1.5 cm posteriorly on the right; widespread bony metastases bone scan 02/14/2023 4. Urology evaluation estimated 1992 elsewhere for gross hematuria following knee surgery 5. Left mild hydronephrosis ultrasound 12/26/2022; left hydroureteronephrosis to the bladder CT 02/03/2023 with obstruction with 2 cm bladder stone at the left UVJ and diffuse bladder wall thickening; Enterobacter urosepsis hospitalization late January 2023 (cefepime 2 g IV q.8 hours times 12 days completed after hospitalization) with 02/12/2023 left percutaneous nephrostomy tube placed with distal left ureteral obstruction; nephrostogram 03/26/2023 confirming left distal ureteral obstruction secondary to cancer 6. Left simple renal cyst ultrasound 12/26/2022 7. Gross hematuria 01/13/2023 likely benign prostatic hyperplasia and catheter related 8. Metastatic prostate cancer bone biopsy with Oncology 03/13/2023 with widespread metastases bone scan treated with hormonal ablation and other pharmacotherapy by Oncology for Elevated PSA 29.13 on 02/04/2023 subsequently 12.34 on 02/13/2023, each possibly affected by infection/urolithiasis/indwelling catheter; 06/17/2024 T11-L1 laminectomy for L1 compression with adjuvant 10 treatments radiation therapy completed 07/22/2024 and Xtandi change to docetaxel 9. Acute kidney injury creatinine 1.52 on 02/12/2023 resolved 10. Nonspecific slightly heterogeneous/hypodense left upper pole renal parenchyma chest CT 02/16/[address] 02/11/2023 11. Urolithiasis; 03/26/2023 cystoscopy, cystolitholapaxy multiple bladder stones including larger 2 cm stone 80% calcium phosphate, 30% calcium oxalate monohydrate, 10% calcium dihydrate, 10% calcium carbonate; CT 05/14/2025 no stones 12. Urodynamics 03/18/2023 low capacity 271 mL with end fill uninhibited contraction, very elevatedvoiding pressures peak and mean flows 1 point 4 and 1.6 mL/sec, residual 234 mL; 06/10/2023 post thulium prostatectomy PVR 0 voiding 300 mL at voiding trial; flow 08/19/2023 low voided volume, peak and mean 14.8 and 7.7, PVR 6 ; PVR 0 mL 06/07/2025 13. with ED secondary to Lupron pharmacotherapy for prostate cancer identified 06/27/2023,,complicated by failure Cialis up to 40 mg confirmed 11/21/2023 14. Failed left nephrostomy tube clamping trial August 2023 15. Urinary tract infections Including Klebsiella and Enterobacter April 2025 treated with [facility] 16. Difficulty voiding, urgency, and dysuria confirmed 06/07/2025 17[address] April 2025 Benign prostatic hyperplasia with urinary eggobdygs66/09/2024Erectile dysfunction due to diseases classified vgtpnzzwi24/01/8642Gujnxjkwdsmb18/30/2023 Bone iukmsk3003/14/2023Ureteral stone03/06/2023Hydronephrosis with renal and ureteral calculous dzjoeudanwh85/19/2023rostate cancer metastatic to bone 02/04/2023ladder stone02/04/2023rimary akuuxivqwgroxg23/23/2023ross hematuria 01/17/2023omplicated UTI (urinary tract infection)12/24/2022 Overview (11/21/2023): 1. Diabetic with benign prostatic hyperplasia with urinary retention and recurrent Enterobacter UTIrequiring catheter placement emergency department 12/20/2022 by history greater than 1 L with dysuria, frequency, and cloudy urine; creatinine 0.91; 06/04/2023 thulium laser prostatectomy; Laina 2. Benign prostatic hyperplasia with difficulty voiding 3. Asymmetric prostate prominent right mid lobe exam 12/24/2022; benign prostatic hyperplasia with diffuse osseous sclerotic lesions including spine, ribs, pelvis, and proximal femurs CT 02/03/2023 concerning for metastatic prostate cancer along with prominent retroperitoneal lymphadenopathy with do minant para-aortic node 1.5 cm posteriorly on the right; widespread bony metastases bone scan 02/14/2023 4. Urology evaluation estimated 1992 elsewhere for gross hematuria following knee surgery 5. Left mild hydronephrosis ultrasound 12/26/2022; left hydroureteronephrosis to the bladder CT 02/03/2023 with obstruction with 2 cm bladder stone at the left UVJ and diffuse bladder wall thickening; Enterobacter urosepsis hospitalization late January 2023 (cefepime 2 g IV q.8 hours times 12 days completed after hospitalization) with 02/12/2023 left percutaneous nephrostomy tube placed with distal left ureteral obstruction; nephrostogram 03/26/2023 confirming left distal ureteral obstruction secondary to cancer 6. Left simple renal cyst ultrasound 12/26/2022 7. Gross hematuria 01/13/2023 likely benign prostatic hyperplasia and catheter related 8. Metastatic prostate cancer bone biopsy with Oncology 03/13/2023 with widespread metastases bone scan treated with hormonal ablation and other pharmacotherapy by Oncology for Elevated PSA 29.13 on 02/04/2023 subsequently 12.34 on 02/13/2023, each possibly affected by infection/urolithiasis/indwelling catheter 9. Acute kidney injury creatinine 1.52 on 02/12/2023 resolved 10. Nonspecific slightly heterogeneous/hypodense left upper pole renal parenchyma chest CT 02/16/[address] 02/11/2023 11. Urolithiasis; 03/26/2023 cystoscopy, cystolitholapaxy multiple bladder stones including larger 2 cm stone 80% calcium phosphate, 30% calcium oxalate monohydrate, 10% calcium dihydrate, 10% calcium carbonate 12. Urodynamics 03/18/2023 low capacity 271 mL with end fill uninhibited contraction, very elevatedvoiding pressures peak and mean flows 1 point 4 and 1.6 mL/sec, residual 234 mL; 06/10/2023 post thulium prostatectomy PVR 0 voiding 300 mL at voiding trial; flow 08/19/2023 low voided volume, peak and mean 14.8 and 7.7, PVR 6 13. with ED secondary to Lupron pharmacotherapy for prostate cancer identified 06/27/2023,,complicated by failure Cialis up to 40 mg confirmed 11/21/2023 14. Failed left nephrostomy tube clamping trial August 2023 Acute urinary tkqizggsq50/30/2023 Resolved Problems ProblemNoted DateDiagnosed DateResolved DateHyperglycemia due to type 2 diabetes jfcedzky00Severe protein-calorie stqzyfojxphw08/25/2025 03/21/2025 Overview (03/21/2025): Acute disease or injury related malnutrition (NI 5.2.3) related to decreased oral intake as evidenced by intake less than 50% of estimated nutrition needs for greater than 5 days (at least 2 weeks) and weight loss greater than 10% (18%) in less than 6 months. Neutropenic fever/enign prostatic hyperplasia with lower urinary tract lzcizkzn67Prostate Malfunction of nephrostomy tube/ Encounters DateTypeDepartmentCare PmbrWvblpmiqyas98/17/2025 9:00 AM ESTOffice Visit [facility] [address] [place] [phone] Rolanda Albarran, NEGRITA-CENTER MAKER HAND Wound of left groin, initial encounter (Primary Dx)07/13/20253062Mbfkcy41/12/2025 12:00 PM ESTSupport Visit Judith Adorno [facility] - Medical Oncology [address] [place] [address] 07/07/2025Documentation Judith Adorno [facility] - Medical Oncology [address] [place] [address] Cherelle Garcia RN 07/07/20251444Cdngyd83/07/2025 11:52 AM ESTAnesthesia Event [facility] - Surgery [address] [facility] [place] [phone] Ney June MD 07/03/2025 10:53 AM EST - 07/03/2025 1:02 PM ESTSurgery [facility] - Surgery [address] [facility] [place] [phone] Milton Spain MD LAMINECTOMY THORACIC SINGLE LEVEL T12 [14774 (CPT??)]07/03/2025Telephone [facility] Call Center [address] [place] [address] Padmini Garcia CNA Post-op Qkndore0806/30/2025Telephone [facility] [address] [place] [address] Aristides Frost Jr., MD 06/28/2025 10:26 PM EST - 07/06/2025 6:22 PM ESTHospital Encounter [facility] - GEN 6 Acute [address] [place] [phone] Corbin Singleton MD Gill, Kaleem U, MD Wound of left groin, initial encounter (Primary Dx); Spinal cord compression due to neoplasm ([facility]-HCC) Discharge Disposition: Home Plnhav9906/28/2025 3:37 PM EST - 06/28/2025 9:43 PM [facility] - Emergency [address] [place] [address] Jj Hawkins MD 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); Prostate cancer metastatic to bone ([facility]-HCC) Discharge Disposition: [facility] Kupyniam26/02/2025Telephone [facility] Hematology Oncology, A Department of [facility] [address] [facility] [address] [place] [address] Chase Borrego MD 06/28/2025Telephone [facility] Call Center [address] [place] [address] Tayler Storey WORKUP COMPRESSION FOR WJKNVX2306/28/20256799Qpufnb54/02/2025Documentation Judithanshu Adorno [facility] - Medical Oncology [address] [place] [phone] Samuel Chávez, RN 06/28/2025Orders Only [facility] - Medical Oncology [address] [place] [phone] Su Torres, SURGERY SPECIALIST-CENTER MAKER HAND 06/27/2025Telephone [facility] - Medical Oncology [address] [place] [phone] Su Torres, SURGERY SPECIALIST-CENTER MAKER HAND 06/27/2025Orders Only Judith Ad[facility] - Medical Oncology [address] [place] [address] Su Torres, SURGERY SPECIALIST-CENTER MAKER HAND Pain of metastatic malignancy (Primary Dx); Pain from bone metastases ([facility]-HCC); Cancer associated pain06/24/20256173Ytrcdn28/25/2025Orders Only [facility] - Interventional Radiology [address] [facility] [place] [address] Aristides Frost Jr., MD Hydronephrosis, unspecified hydronephrosis type (Primary Dx)06/20/2025 12:35 PM EST - 06/20/2025 4:36 PM ESTHospital Encounter [facility] - Interventional Radiology [address] [place] [address] Aristides Frost Jr., MD Getzen, Todd Michael, MD Hydronephrosis, unspecified hydronephrosis type Discharge Disposition: Home06/20/20254493Ksluvv67/17/2025Telephone [facility] [address] [place] [address] Claudio Joiner [facility] 06/13/2025Telephone [facility] [address] [place] [address] Aristides Frost Jr., MD 06/13/2025Orders Only [facility] [address] [place] [address] Aristides Frost Jr., MD 06/07/2025 1:30 PM ESTOffice Visit [facility] [address] [place] [address] Aristides Frost Jr., MD Prostate cancer metastatic to bone ([facility]CC) (Primary Dx); Urologic disorders; Calculus of kidney; Hydronephrosis with renal and ureteral calculous obstruction; Complicated UTI (urinary tract infection); Dysuria; Benign prostatic hyperplasia with urinary /05/2025 3:00 PM EST Infusion Judith [facility] - Medical Oncology [address] [place] [phone] Prostate cancer metastatic to bone ([facility]CC) (Primary Dx)05/31/2025 11:00 AM EST Infusion Judith Adorno [facility] - Medical Oncology [address] [place] [phone] 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) (Primary Dx)05/31/2025Results Follow-Up Judith L Kyree [facility] - Medical Oncology [address] [place] [phone] Kenney Jasmine MD CBC auto differential, Comprehensive metabolic panel, Prostatic spec ant 05/31/2025Orders Only [facility] Hematology Oncology, A Department of [address] [place] [phone] Kenney Jasmine MD 05/30/20259579Edgqlr01/30/2025 3:00 PM EDTOffice Visit Judith Yan Kyree [facility] - Medical Oncology [address] [place] [phone] Kenney Jasmine MD 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)05/26/2025Orders Only [facility] Medical Oncology [address] [place] [phone] Cherelle Garcia, RN 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) (Primary Dx); Pain of metastatic malignancy; Pain from bone metastases ([facility]-HCC); Prostate cancer (CMS-HCC); Difficulty in walking; Acute bilateral low back pain with bilateral upfnbzmz53/30/2025Orders Only Judith Adorno [facility] - Medical Oncology [address] [place] [phone] Kenney Jasmine MD 05/26/20253173Ujnpdw30/18/2025 7:31 AM EDT - 05/18/2025 3:08 PM EDTHospital Encounter [facility] - Acute Care [address] [place] [phone] Devante Holguin, Mouna Kim MD Muhammad, Ruqiyya T, MD Urinary tract infection with hematuria, site unspecified (Primary Dx); History of prostate cancer; H/O insertion of nephrostomy tube Discharge Disposition: Home Bhtxmu9205/14/2025Telephone [facility] Call Center [address] [facility] [place] [place] [address] Lashonda Adorno RN 05/14/20256886Zfewob62/08/2025 3:15 PM EDTInfusion Judith [facility] Medical Oncology [address] [place] [phone] Chemotherapy-induced thrombocytopenia (Primary Dx); 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)05/03/2025 11:00 AM EDTInfusion Judith [facility] Medical Oncology [address] [place] [phone] 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) (Primary Dx)05/03/2025Orders Only [facility], A Department of [place] [address] [place] [address] Kenney Jasmine MD Prostate cancer metastatic to bone ([facility]CC) (Primary Dx)05/03/2025Social Work Judith [facility] Medical Oncology [address] [place] [phone] Patricia Watkins LSW 05/03/2025Orders Only [facility], A Department of [place] [address] [place] [address] Kenney Jasmine MD 05/03/2025Orders Only [facility] Hematology Oncology, A Department of [place] [address] [place] [address] Kenney Jasmine MD 05/02/20254913Ulprls55/02/2025Orders Only [facility] - Interventional Radiology [address] [facility] [place] [phone] Aristides Frost Jr., MD Hydronephrosis, unspecified hydronephrosis type (Primary Dx)04/26/2025Orders Only [facility] Hematology Oncology, A Department of [place] [address] [place] [address] Kenney Jasmine MD 04/25/2025 10:00 AM EDT - 04/25/2025 12:19 PM EDTHospital Encounter [facility] - Interventional Radiology [address] [place] [address] Aristides Frost Jr., MD Begeman, Garett A, MD Hydronephrosis, unspecified hydronephrosis type Discharge Disposition: Home04/25/20254210Jbpjkw46/23/2025Orders Only [facility] [address] [place] [address] Aristides Frost Jr., MD Hydronephrosis, unspecified hydronephrosis type (Primary Dx)04/19/2025Orders Only [facility] [address] [place] [address] Kang Cox MD from Last 3 Months Immunizations No known immunizations Family History Medical HistoryRelationNameCommentsHeart diseaseMotherHydrocephalusSister 1 Anesthesia problemsNeg HxBleeding DisorderNeg HxClotting disorderNeg HxColon cancerNeg HxDiabetesNeg HxProstate cancerNeg HxStrokeNeg HxRelationNameStatus CommentsBrotherAliveFatherOtherMaternal GrandfatherDeceasedMaternal Grandmother DeceasedMotherAliveSister 1AliveSister 2Alive Social History Tobacco UseTypesPacks/DayYears UsedDateSmoking Tobacco: FormerCigarsSmokeless [...] times a week06/16/2024How often do you attend roman catholic or mu-ism services?More than 4 times per year06/16/2024o you belong to any clubs or organizations such as roman catholic groups, unions, fraAmerican Giant or athletic groups, or school groups?Yes06/16/2024How often do you attend meetings of the clubs or organizations you belong to?More than 4 times per year06/16/2024 Are you , , , , never , or living with a partner?Rgwvepe4306/16/2024Overall Financial Resource Strain (CARDIA)AnswerDate RecordedHow hard is it for you to pay for the very basics like food, housing, medical care, and heating?Not hard at all06/16/2024HQ-2AnswerDate RecordedTotal Djjkt39908/30/2024[facility] [place] of Occupational Health - Occupational Stress QuestionnaireAnswerDate RecordedDo you feel stress - tense, restless, nervous, or anxious, or unable to sleep at night because yourmind is troubled all the time - these days?To some gadchq7106/16/2024Exercise Vital SignAnswerDate Recorded On average, how many [...] a household?No06/29/2025hildcareAnswerDate RecordedDo problems getting child care provider 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 work [...] InformationValueDate RecordedSex Assigned at BirthNot on fileLegal WvzYepj2303/02/2015 11:37 AM EDTGender Identity Not on fileSexual OrientationNot on file Last Filed Vital Signs Vital SignReadingTime TakenCommentsBlood Maphiuif555/6907/13/2025 9:00 AM EST Tufcn209607/13/2025 9:00 AM YULOtmtsicctpk25.1 ??C (97 ??F)07/13/2025 9:00 AM EST Respiratory Muyr998709/13/2024 9:00 AM ESTOxygen Kkmkiroidc15%07/06/2025 3:00 PM ESTInhaled Oxygen Concentration--Kvnpqf17.7 kg (200 lb)07/13/2025 9:00 AM EST Ukgvre541.8 cm (5' 10 )06/28/2025 10:31 PM ESTBody Mass Index28.7108/29/2024 10:31 PM EST Plan of Treatment DateTypeDepartmentCare Team (Latest Contact Info)Deyxhbdtkzq38/23/2025 10:30 AM ESTSupport Visit [facility] [address] [place] [address] 08/04/2025 3:00 PM ESTInfusion Judith Ad[facility] - Medical Oncology [address] [place] [address] 08/15/2025 1:00 PM ESTAppointment [facility] - Interventional Radiology [address] [place] [address] Aristides Frost Jr., MD [address] [place] [address] 08/15/2025 3:45 PM ESTOffice Visit [facility] [address] [place] [phone] Denise Lawler, SURGERY SPECIALIST-CENTER MAKER HAND [address] [place] [address] 08/19/2025 11:45 AM ESTOffice Visit [facility] [address] [place] [address] [place] [address] [phone] Aristides Frost Jr., MD [address] [place] [address] 10/07/2025 11:15 AM EDTOffice Visit [facility] [address] [place] [address] [place] [phone] Aristides Frost Jr., MD [address] [place] [address] Health MaintenanceDue DateLast DoneCommentsDiabetic Ophthalmology Exam1962 Statin Use: Qmlcstlm23/08/1963Adult BMI Follow Up Plan1980Diabetic Foot Exam1980DTaP,Tdap and Td Vaccines (1 - Tdap)1981Zoster (Shingles) Vaccine (1 of 2)1981RSV ( or age 60+ yrs) (1 - Risk 50-74 years 1- dose series)2012Influenza Amwdlkg0303/28/2025Depression Gjeeiwalq74/03/2026 06/29/2025dult BMI Thecfhysu01Tobacco Cahsnkmqy78/17/2026 07/13/2025 Goals GoalPatient Goal TypeAssociated ProblemsRecent ProgressPatient-Stated?Author Baylee Ferrera RN Note: Evaluation of progress towards goal: Patient plans to discharge home with [facility] and with assistance from family. Medical Devices Not on file Procedures Procedure NamePriorityDate/TimeAssociated DiagnosisCommentsBEDSIDE GLUCOSE Hauvglg6007/06/2025 4:06 PM EST BEDSIDE LUKOFHXSzandit06/10/2025 11:43 AM EST BEDSIDE HZGCWSDDbsvmsk12/10/2025 8:07 AM EST CBC WITH AUTO MYMRCKIZYDHMJbdjsrp21/10/2025 5:49 AM EST UGICFNBXPUkkeeyx87/10/2025 5:49 AM EST COMPREHENSIVE METABOLIC HDZGXQmbcrbb32/10/2025 5:49 AM EST BEDSIDE IRHQNOKOevmmxc32/09/2025 8:54 PM EST BEDSIDE SHHZPUVJfjcyih26/09/2025 5:15 PM EST BEDSIDE YRNPLVOYlwcwgd57/09/2025 11:32 AM EST HEMOGLOBIN AND HEMATOCRIT, DSFBHGmntehy40/09/2025 11:28 AM EST BEDSIDE DWOATWKSdpzvus20/09/2025 7:28 AM EST CBC WITH AUTO REUTZUDIAPBCLusptmw48/09/2025 5:37 AM EST NUSSSAAEIGsbobee15/09/2025 5:37 AM EST COMPREHENSIVE METABOLIC XQWCYHnyhavy85/09/2025 5:37 AM EST ER EXTRA VQLWJXockflk81/09/2025 4:10 AM EST CZBBVWOYTKNicegfa78/09/2025 4:10 AM EST URINE BVGEAKMDcmkckh49/09/2025 4:10 AM EST BEDSIDE FYCEKCWRzserxj96/08/2025 9:14 PM EST BEDSIDE BJBKLBNUrjyfgh63/08/2025 5:20 PM EST BEDSIDE HRPCWOXXayizat80/08/2025 11:53 AM EST BEDSIDE MIEPVUDDhallfa99/08/2025 7:45 AM EST CBC WITH AUTO RIWRGLGPBBBUZgocffc97/08/2025 5:37 AM EST VWXMWKJJKTkykotv99/08/2025 5:37 AM EST COMPREHENSIVE METABOLIC EGVBHVhupnuo79/08/2025 5:37 AM EST BEDSIDE KDJHHHZXhecdwj09/07/2025 9:06 PM EST BEDSIDE YKWDGCNClgjvyo54/07/2025 5:14 PM EST FL FLUORO GUIDANCE SPINAL PUNCTURE TLUTENCXDPmwabbx99/07/2025 12:52 PM EST SURGICAL FXHHAHAGXQrofzpx68/07/2025 12:40 PM EST IL AN ELECTIVE ENDOTRACHEAL AMCIKGPhbbtbo61/07/2025 12:01 PM EST IL LEE W/O FACETEC FORAMOT/DSKC 1/2 VRT SEG, MZPZUGNG12/07/2025 11:49 AM EST METASTATIC MALINGNANCY BEDSIDE XQCMOEHHqhrewd32/07/2025 8:45 AM EST CBC WITH AUTO WGHUTLBXPEUWLfhnpli11/07/2025 3:18 AM EST LCSWVEKGYFquyvjw52/07/2025 3:18 AM EST COMPREHENSIVE METABOLIC NRRMPNfnbyrt14/07/2025 3:18 AM EST BEDSIDE QJHISNLQltrstk88/06/2025 9:34 PM EST BEDSIDE YOLQDDSFncjbvn22/06/2025 3:44 PM EST MR PELVIS WO VKYVLdzintf96/06/2025 2:41 PM EST MR LUMBAR SPINE WO HCIKNxyraxj83/06/2025 2:41 PM EST BEDSIDE ESEMGBCTbxgskg40/06/2025 11:14 AM EST BEDSIDE CTGNBUNFoimlnl18/06/2025 8:20 AM EST CBC WITH AUTO MTJTVZVYIARLZytzmso66/06/2025 3:58 AM EST TLBUPDKOFRqfvzyx53/06/2025 3:58 AM EST COMPREHENSIVE METABOLIC TSDQDWaepulm92/06/2025 3:58 AM EST BEDSIDE FLTFJXVCusejqt09/05/2025 9:18 PM EST BEDSIDE LRXGXERFmvpfyr72/05/2025 5:15 PM EST CFOGLHRRCIrmitzv46/05/2025 3:56 PM EST BEDSIDE QXVOXLXAguwzij80/05/2025 11:48 AM EST BEDSIDE ZQVNXRGBxnednd86/05/2025 9:16 AM EST CBC WITH AUTO ZZVXOCIGQMAHYblylwq27/05/2025 5:41 AM EST QMPRDAJYWCalkygj96/05/2025 5:41 AM EST COMPREHENSIVE METABOLIC MAXDZKsciewj04/05/2025 5:41 AM EST MR THORACIC SPINE WO VBXGYzfpxtp84/05/2025 1:56 AM EST BEDSIDE IUSODNFRozquch12/04/2025 9:03 PM EST BEDSIDE SIDARXLNulhcgj13/04/2025 4:22 PM EST BEDSIDE UZWYWQEBwjlpta24/04/2025 11:30 AM EST BEDSIDE DCLJFGWAwfbhzj63/04/2025 8:37 AM EST B-TYPE NATRIURETIC DHKYROXAszqorl96/04/2025 5:51 AM EST CBC WITH AUTO RHYQHBPRPFJFKxjhtue44/04/2025 5:51 AM EST CBRXCENDCAjqknke53/04/2025 5:51 AM EST COMPREHENSIVE METABOLIC TUXTPPopugjo55/04/2025 5:51 AM EST BEDSIDE YBLSBZWCsevoxi16/03/2025 8:54 PM EST BEDSIDE XLHQRRZQgfrsqe86/03/2025 4:25 PM EST BEDSIDE KTRKIUZRtsbtze76/03/2025 11:19 AM EST BEDSIDE EMSEYCFVysrkbh13/03/2025 8:13 AM EST IRON AND TIBCAdd-On06/29/2025 5:41 AM EST FERRITINAdd-On06/29/2025 5:41 AM EST VITAMIN N98Rwg-Zn92/03/2025 5:41 AM EST FOLATEAdd-On06/29/2025 5:41 AM EST HEMOGLOBIN L3TLjb-Ri73/03/2025 5:41 AM EST CBC WITH AUTO UXOCGIEVPDGGHclqmhx80/03/2025 5:41 AM EST HKSPUZJBXZtxyxfe86/03/2025 5:41 AM EST COMPREHENSIVE METABOLIC DLUUTEekowgj89/03/2025 5:41 AM EST BEDSIDE UIABVORKvmyobg37/02/2025 11:[address] LUMBAR SPINE WO FEFLCCUJ10/02/2025 6:20 PM EST PROSTATIC SPECIFIC ANTIGEN, PVYBYFSJYKETMZ19/01/2025 2:07 PM EST 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) COMPREHENSIVE METABOLIC SUSJDMPZE50/01/2025 2:07 PM EST 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) CBC WITH AUTO MGGJVSBPVEXQZSJA47/01/2025 2:07 PM EST 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) IR NEPH TUBE EXCHANGE LT + DJATWFrdtvtw47/24/2025 2:23 PM EST Hydronephrosis, unspecified hydronephrosis type MICROSCOPIC YTZECQqfvyyh48/11/2025 2:41 PM EST 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) Dysuria Benign prostatic hyperplasia with urinary retention URINE PDAMCHAQvbjjfe16/11/2025 2:41 PM EST 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) Dysuria Benign prostatic hyperplasia with urinary retention PROSTATIC SPECIFIC ANTIGEN, JSIGHUBEQBZSYJ16/03/2025 12:32 PM EST 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) COMPREHENSIVE METABOLIC GCOPFGAEE72/03/2025 12:32 PM EST 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) CBC WITH AUTO FTJQYBJNHZJASSGV57/03/2025 12:32 PM EST 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) BEDSIDE ZRZGAOTQlwfxmn85/22/2025 11:45 AM EDT CBC WITH AUTO TWCZQGLHTNWZQfmtgie22/22/2025 6:55 AM EDT EXTRA TUBES PST FADCfeusnk31/22/2025 6:54 AM EDT EXTRA TUBES BLUE HGZYvlfvke00/22/2025 6:54 AM EDT EXTRA HBLEDTyiaamt19/22/2025 6:54 AM EDT OCGPIDPHFMdblcrd46/22/2025 5:44 AM EDT COMPREHENSIVE METABOLIC QSMSJKhkkdkd67/22/2025 5:44 AM EDT BEDSIDE KGSGPBOTnsjash76/21/2025 9:07 PM EDT BEDSIDE WCWAONXNlhyvwt79/21/2025 4:43 PM EDT HEMOGLOBIN AND HEMATOCRIT, IEUBRUytwmha04/21/2025 1:11 PM EDT CBC WITH AUTO CVUMNCNDOWBIRaxwedj85/21/2025 4:54 AM EDT ISMBWAXIPScuvbbz52/21/2025 4:54 AM EDT COMPREHENSIVE METABOLIC SEWDKYrnykpw24/21/2025 4:54 AM EDT BEDSIDE SINHOTLTaselpw63/20/2025 10:56 PM EDT HEMOGLOBIN AND HEMATOCRIT, YQJFHAizoeys94/20/2025 9:22 PM EDT BEDSIDE XTQSUTOEtrlsfd48/20/2025 4:35 PM EDT OZWWCPXSYEmmvgjb66/20/2025 4:06 PM EDT EXTRA TUBES PST FZYHwbvdka08/20/2025 1:02 PM EDT EXTRA VPAJPIzhffqh71/20/2025 1:02 PM EDT LACTATE W/ STQACBQfxtmue47/20/2025 1:02 PM EDT HEMOGLOBIN AND HEMATOCRIT, NDMDWQikyhht61/20/2025 1:02 PM EDT BEDSIDE TGANZPVFxpkogx18/20/2025 11:29 AM EDT C-REACTIVE PROTEINAdd-On05/16/2025 4:52 AM EDT PROCALCITONINAdd-On05/16/2025 4:52 AM EDT CBC WITH AUTO GJUWYOOEVXECIifrpwp80/20/2025 4:52 AM EDT OQPBCIIACJalxafz78/20/2025 4:52 AM EDT COMPREHENSIVE METABOLIC RAVUGRldphwq83/20/2025 4:52 AM EDT BEDSIDE KTYQVVZHqtmpgp42/19/2025 7:21 PM EDT VITAMIN D 25 HYDROXYAdd-On05/15/2025 4:57 PM EDT FERRITINAdd-On05/15/2025 4:57 PM EDT VITAMIN J70Qjo-Ve95/19/2025 4:57 PM EDT IRON AND TIBCAdd-On05/15/2025 4:57 PM EDT FOLATEAdd-On05/15/2025 4:57 PM EDT DENSHWCKWNuojtuv30/19/2025 4:57 PM EDT HEMOGLOBIN AND HEMATOCRIT, AZJNGFmymtea91/19/2025 4:57 PM EDT BEDSIDE AJOFINTLdxtodg20/19/2025 4:55 PM EDT TRANSFUSE RED BLOOD BVUAIKzfmrxx69/19/2025 1:18 PM EDTHEMOGLOBIN AND HEMATOCRIT, JYAANPrbluds06/19/2025 1:06 PM EDT YFWHWOPQIBdkipfz00/19/2025 1:06 PM EDT BEDSIDE FAPHUEHPhnyjfd77/19/2025 11:54 AM EDT TYPE AND EXLMRUIgjgloq18/19/2025 11:15 AM EDT NDRIEBICZBnnwcta34/19/2025 11:15 AM EDT CROSSMATCH NYNAuqruun60/19/2025 11:00 AM EDT REPEATED HCHHKJacttit99/19/2025 4:50 AM EDT REPEATED GCEDDUetzaoh66/19/2025 4:50 AM EDT VITAMIN D 25 HYDROXYAdd-On05/15/2025 4:50 AM EDT FERRITINAdd-On05/15/2025 4:50 AM EDT VITAMIN Y19Lwt-Wk88/19/2025 4:50 AM EDT IRON AND TIBCAdd-On05/15/2025 4:50 AM EDT FOLATEAdd-On05/15/2025 4:50 AM EDT CBC WITH AUTO ZZLUZMZRCGNVOfcrcyt71/19/2025 4:50 AM EDT XHBORLIIHTisixux26/19/2025 4:50 AM EDT COMPREHENSIVE METABOLIC ADWUKHizqzjm07/19/2025 4:50 AM EDT EXTRA TUBES SST BTVVdbsxfv94/19/2025 4:49 AM EDT EXTRA TUBES BLUE UVOKuojmbz36/19/2025 4:49 AM EDT EXTRA RERUAIsoamsz92/19/2025 4:49 AM EDT BEDSIDE MZFMIONMqzelwl40/18/2025 8:43 PM EDT OCCULT BLOOD X 1, STOOLAdd-On05/14/2025 12:11 PM EDT GI PANEL STOOL PATHOGEN DYUXIZMVW99/18/2025 12:11 PM EDT C DIFFICILE BY TUAKQJU2205/14/2025 12:11 PM EDT EDJMZZUEOCE23/18/2025 11:46 AM EDT BLOOD FQQXSDDWUQF89/18/2025 9:03 AM EDT BLOOD VBIIXGQSZCE87/18/2025 8:[address] ABDOMEN AND PELVIS W XGMMXEIO90/18/2025 8:52 AM EDT URINE LLLUGDYUPKZ68/18/2025 8:01 AM EDT POCT NURSING URINE MACROSCOPIC JCFnkufxr39/18/2025 7:58 AM EDT ER EXTRA JOKCPUNGK24/18/2025 7:54 AM EDT ECG 12-QTXQZIDW06/18/2025 7:51 AM EDT NLLRZFRYRN81/18/2025 7:41 AM EDT LACTATE W/ IQCUCELKAW05/18/2025 7:41 AM EDT COMPREHENSIVE METABOLIC CZTNXWWTQ73/18/2025 7:41 AM EDT CBC WITH AUTO KYVHKONSHTJBGMRO91/18/2025 7:41 AM EDT EXTRA TUBES BLUE QTGUvccmdm77/18/2025 7:40 AM EDT EXTRA KZGUMNqybdzt60/18/2025 7:40 AM EDT HC DIRECT TOMUnwqeta21/06/2025 12:25 PM EDT Type 2 diabetes mellitus without complications (CMS-HCC) LIPID DSFFTDNBeupzjw18/06/2025 12:25 PM EDT Type 2 diabetes mellitus without complications (CMS-HCC) PROSTATIC SPECIFIC ANTIGEN, KXJTFWOHRDGXST20/06/2025 12:16 PM EDT 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) COMPREHENSIVE METABOLIC LMWCNMCIE16/06/2025 12:16 PM EDT 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) CBC WITH AUTO MJVWHUYMAKJVUPUD91/06/2025 12:16 PM EDT 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) IR NEPH TUBE EXCHANGE LT + WFTJXKaqnxqr67/29/2025 11:41 AM EDT Hydronephrosis, unspecified hydronephrosis type from Last 3 Months Results * (ABNORMAL) Bedside Glucose *Place/Obtain serum glucose if >500 per glucometer. (07/06/2025 4:06 PM EST) Only the most recent of41 resultswithin the time period is included. ComponentValueRef RangeTest MethodAnalysis TimePerformed AtPathologist Signature Bedside Glucose (POC)137(H)65 - 99 mg/dL07/06/2025 4:13 PM [facility] LABORATORYSpecimen (Source)Anatomical Location / LateralityCollection Method / VolumeCollection TimeReceived Timearterial/cdmszhixi42/10/2025 4:06 PM EST 07/06/2025 4:13 PM EST Narrative Authorizing ProviderResult TypeResult StatusKaleem U Allen MDPOINT OF CARE TEST ORDERABLESFinal ResultPerforming OrganizationAddressCity/State/ZIP CodePhone Number [facility] [address] [place] [address], * (ABNORMAL) CBC auto differential (07/06/2025 5:49 AM EST) Only the most recent of16 resultswithin the time period is included. ComponentValueRef RangeTest MethodAnalysis TimePerformed AtPathologist Signature WBC8.04 - 11 10^07/06/2025 7:[address] [facility] LABORATORYRBC Count2.70(L)4.1 - 5.7 10^07/06/2025 7:[address] [facility] LABORATORYHemoglobin8.6(L)13 - 17 g/dL07/06/2025 7:[address] [facility] KNJSFOHHCFMxrqnlisac63.1(L)39 - 50 %07/06/2025 7:[address] [facility] AEIBPFAULKAMU8113 - 100 fL07/06/2025 7:[address] [facility] SSERXMTDHXWEV93.727 - 34 pg07/06/2025 7:[address] [facility] BQWRBAHAWRKYFX54.832 - 36 g/dL07/06/2025 7:[address] [facility] XZDOXVKLCHOUL46.7(H)11.5 - 15 %07/06/2025 7:[address] [facility] LABORATORYPlatelet Lehgn422497 - 450 10^9L109/06/2024 7:[address] [facility] LABORATORYMPV6.8(L)7 - 12 fL07/06/2025 7:[address] [facility] LABORATORYNeutrophils %66.1%07/06/2025 7:[address] [facility] LABORATORYComment:This is an appended report. These results have been appended to a previously preliminary verified report.Lymphocytes %19.1% 07/06/2025 7:[address] [facility] LABORATORYComment:This is an appended report. These results have been appended to a previously preliminary verified report.Monocytes %12.3%07/06/2025 7:[address] [facility] LABORATORYComment:This is an appended report. These results have been appended to a previously preliminary verified report.Eosinophils %1.4%07/06/2025 7:[address] [facility] LABORATORYComment:This is an appended report. These results have been appended to a previously preliminary verified report.Basophils %1.1%07/06/2025 7:[address] [facility] LABORATORYComment:This is an appended report. These results have been appended to a previously preliminary verified report.Neutrophils Absolute (A)5.31.5 - 6.6 10^9/L109/06/2024 7:[address] [facility] LABORATORYComment:This is an appended report. These results have been appended to a previously preliminary verified report. Lymphocytes Absolute1.51.0 - 3.5 10^9/L109/06/2024 7:[address] [facility] LABORATORYComment:This is an appended report. These results have been appended to a previously preliminary verified report.Monocytes Absolute1.0(H)0.0 - 0.9 10^9/L109/06/2024 7:[address] [facility]ORATORYComment: This is an appended report. These results have been appended to a previously preliminary verified report.Eosinophils Absolute0.10.0 - 0.4 10^9/L109/06/2024 7:[address] [facility]ORATORYComment:This is an appended report. These results have been appended to a previously preliminary verified re port.Basophils Absolute0.10.0 - 0.2 10^9/L109/06/2024 7:[address] [facility] LABORATORYComment:This is an appended report. These results have been appended to a previously preliminary verified report.Polychromasia1+07/06/2025 7:[address] [facility] LABORATORYComment:This is an appended report. These results have been appended to a previously preliminary verified re port.RBC Fragments1+07/06/2025 7:[address] [facility] Comment:This is an appended report. These results have been appended to a previously preliminary verified report.Differential TypeAUTOMATED DIFFERENTIAL 07/06/2025 7:[address] [facility] LABORATORYComment:This is an appended report. These results have been appended to a previously preliminary verified report.Specimen (Source)Anatomical Location / LateralityCollection Method / VolumeCollection TimeReceived TimeBloodVenous blood / Unknown Venipuncture / Lcunfib2507/06/2025 5:49 AM EST07/06/2025 6:12 AM EST Narrative Authorizing ProviderResult TypeResult StatusAngeandi Cervantes SURGERY SPECIALIST-CNPLAB BLOOD ORDERABLESFinal ResultPerforming OrganizationAddressCity/State/ZIP CodePhone Number [facility] [address] [place] [address], * (ABNORMAL) Magnesium (07/06/2025 5:49 AM EST) Only the most recent of15 resultswithin the time period is included. ComponentValueRef RangeTest MethodAnalysis TimePerformed AtPathologist Signature MAGNESIUM1.7(L)1.8 - 2.6 mg/dL07/06/2025 6:[address] [facility] LABORATORYSpecimen (Source)Anatomical Location / LateralityCollection Method / VolumeCollection TimeReceived TimeBloodVenous blood / UnknownVenipuncture / Tlogngo1607/06/2025 5:49 AM EST07/06/2025 6:12 AM EST Narrative Authorizing ProviderResult TypeResult StatusCherelle Cervantes SURGERY SPECIALIST-CNPLAB BLOOD ORDERABLESFinal ResultPerforming OrganizationAddressCity/State/ZIP CodePhone Number [facility] [address] [place] [address], * (ABNORMAL) Comprehensive metabolic panel (07/06/2025 5:49 AM EST) Only the most recent of16 resultswithin the time period is included. ComponentValueRef RangeTest MethodAnalysis TimePerformed AtPathologist Signature LDKIBL880893 - 146 mmol/L109/06/2024 6:[address] [facility] LABORATORYPOTASSIUM3.93.5 - 5.0 mmol/L109/06/2024 6:[address] [facility] SINPUDEESVZEGTUCTK8911 - 109 mmol/L109/06/2024 6:[address] [facility] LABORATORYCARBON UAQADRA0051 - 32 mmol/L109/06/2024 6:[address] [facility] LABORATORYANION GAP95 - 15 mmol/L109/06/2024 6:[address] [facility] LABORATORYBLOOD UREA LZTARFMB902 - 27 mg/dL07/06/2025 6:[address] [facility] LABORATORYCREATININE0.800.60 - 1.30 mg/dL07/06/2025 6:[address] [facility] LABORATORYComment:METHOD TRACEABLE TO IDNY UMIIOTLDMUIBOIJ740(H)65 - 99 mg/dL07/06/2025 6:[address] [facility] LABORATORYCALCIUM8.98.5 - 10.5 mg/dL07/06/2025 6:[address] [facility] LABORATORYTOTAL PROTEIN6.56.0 - 8.0 g/dL07/06/2025 6:[address] [facility] LABORATORYALBUMIN3.23.2 - 5.3 g/dL07/06/2025 6:[address] [facility] LABORATORYALKALINE YZRDSSTPCVS533(H)39 - 130 U/L109/06/2024 6:[address] [facility] SMDFZFWPAFNDJ49<=41 U/L109/06/2024 6:[address] [facility] LABORATORYALT9<=40 U/L109/06/2024 6:[address] [facility] LABORATORYBILIRUBIN,TOTAL0.2(L)0.3 - 1.2 mg/dL07/06/2025 6:[address] [facility] LABORATORYEGFR Non-Race Dependent>90>=60 ml/min/1.73sq.m109/06/2024 6:[address] [facility] LABORATORYComment: Reported eGFR is based on the CKD-EPI 2020 equation that does not use a race coefficient. Specimen (Source)Anatomical Location / LateralityCollection Method / Volume Collection TimeReceived TimeBloodVenous blood / UnknownVenipuncture / Unknown 07/06/2025 5:49 AM EST07/06/2025 6:12 AM EST Narrative Authorizing ProviderResult TypeResult StatusAngela Milford SURGERY SPECIALIST-CNPLAB BLOOD ORDERABLESFinal ResultPerforming OrganizationAddressCity/State/ZIP CodePhone Number [facility] [address] [place] [address], * (ABNORMAL) Hemoglobin and hematocrit, blood (07/05/2025 11:28 AM EST) Only the most recent of6 resultswithin the time period is included. ComponentValueRef RangeTest MethodAnalysis TimePerformed AtPathologist Signature Hemoglobin8.7(L)13 - 17 g/dL07/05/2025 11:[address] [facility] NTKCERUWFNUoltjmssis06.9(L)39 - 50 %07/05/2025 11:[address] [facility] LABORATORYSpecimen (Source)Anatomical Location / LateralityCollection Method / VolumeCollection TimeReceived TimeBloodVenous blood / Unknown Venipuncture / Hrvprfl3807/05/2025 11:28 AM EST07/05/2025 11:42 AM EST Narrative Authorizing ProviderResult TypeResult StatusAngela Milford SURGERY SPECIALIST-[facility] BLOOD ORDERABLESFinal ResultPerforming OrganizationAddressty/State/ZIP CodePhone Number [facility] [address] [place] [address], * Er Extra Urine (07/05/2025 4:10 AM EST) Only the most recent of2 resultswithin the time period is included. ComponentValueRef RangeTest MethodAnalysis TimePerformed AtPathologist Signature Extra TubeAuto Zrjlewol89/09/2025 6:[address] [facility] Specimen (Source)Anatomical Location / LateralityCollection Method / Volume Collection TimeReceived TimeUrineUrine / Uemlpsx6007/05/2025 4:10 AM EST07/05/2025 4:27 AM EST Narrative Authorizing ProviderResult TypeResult StatusKakatherine HERRMANN ORDERABLES Final ResultPerforming OrganizationAddressCity/State/ZIP CodePhone Number [facility] [address] [place] [address], [place] [phone] * (ABNORMAL) Urinalysis (07/05/2025 4:10 AM EST)ComponentValueRef RangeTest MethodAnalysis TimePerformed AtPathologist SignatureCOLORColorless(A)Yellow 07/05/2025 4:[address] [facility] LABORATORYTURBIDITYClearClear 07/05/2025 4:[address] [facility] LABORATORYSPECIFIC GRAVITY1.010 1.003 - 1.9891907/05/2025 4:[address] [facility] LABORATORYNITRITE MnghkloxXfgbwoqs45/09/2025 4:[address] [facility] PH,URINE6.55.0 - 8.512 4:[address] [facility] LEUKOCYTE ESTERASELarge(A)Khbswidx95/09/2025 4:[address] [facility] LABORATORYComment:High Concentrations of Glucose May Decrease the Reactivity of the Dipstick Leukocyte Test Pad.PROTEINTrace(A)Negative 07/05/2025 4:[address] [facility] LABORATORYKETONES (URINE) WlzantrtQgyqsbrq06/09/2025 4:[address] [facility] UROBILINOGEN<1.1 eu/dL<1.1 eu/dL07/05/2025 4:[address] [facility] LABORATORYBILIRUBIN (URINE)SpbpffwcBkhikrqg83/09/2025 4:[address] [facility] LABORATORYBLOOD/HGBTrace(A)Llajathg07/09/2025 4:53 AM [facility] LABORATORYMUCOUSPresent(A)None07/05/2025 4:53 AM [facility] LABORATORYR.B.CELLS20 - 512/03/2025 4:[address] [facility] LABORATORYW.B.CELLS33(H)0 - 512 4:[address] [facility] LABORATORYGLUCOSE (URINE)>1000 mg/dL(A)Qmgdbret20/09/2025 4:[address] [facility] LABORATORYSpecimen (Source)Anatomical Location / LateralityCollection Method / VolumeCollection TimeReceived Time UrineUrine / Kqgbhly3807/05/2025 4:10 AM EST07/05/2025 4:27 AM EST Narrative Authorizing ProviderResult TypeResult StatusGreene Milford SURGERY SPECIALIST-CNPURINE ORDERABLESFinal ResultPerforming OrganizationAddressCity/State/ZIP CodePhone Number [facility] [address] [place] [address], * (ABNORMAL) Urine Culture Urine, Clean Catch Midstream (07/05/2025 4:10 AM EST) Only the most recent of3 resultswithin the time period is included. ComponentValueRef RangeTest MethodAnalysis TimePerformed AtPathologist Signature CULTURE IPBRWMP60,000-100,000 CFU/mL Leatha albicans(A)07/06/2025 8:34 AM EST [facility]ATORYSpecimen (Source)Anatomical Location / LateralityCollection Method / VolumeCollection TimeReceived TimeUrineUrine specimen collection, clean catch / Aqakief1407/05/2025 4:10 AM EST07/05/2025 4:27 AM EST Narrative [facility] - 07/06/2025 8:34 AM EST Along with <10,000 CFU/mL Normal Urogenital Maria Luisa. Authorizing ProviderResult TypeResult StatusCherelle Cervantes SURGERY SPECIALIST-CNPMICROBIOLOGY - GENERAL ORDERABLESFinal ResultPerforming OrganizationAddressCity/State/ZIP Code Phone Number [facility] [address] [place] [address], * Fluoroscopy guidance spine puncture operative (07/03/2025 [...] AtPathologist SignatureCase ReportSurgical Pathology Report ? Case: [id number] ? Authorizing Provider: ??Milton Spain MD ?Collected: ? 07/03/2025 1240 ? Ordering Location: ? [facility] ??Received: ?07/04/2025723 ? - Surgery ? Pathologist: ? Eric Reddy MD ? Specimen: ?Back, Epidural tumor ? 07/06/2025 11:[address] [facility] Epidural tumor of back, biopsy: Portions of sclerotic bone with METASTATIC POORLY DIFFERENTIATED CARCINOMA consistent with prostatic origin.07/06/2025 11:[address] [facility] at 1113 ESTCommentImmunostains are performed with appropriate controls. The neoplastic cells are positive for NKX3.1 and PSA supporting the diagnosis.07/06/2025 11:[address]ORATORYGross DescriptionReceived in formalin labeled BEST, epidural tumor are ballard-brown delicate to friable rubbery softtissue fragments, 1.6 x 1.3 x 0.3 cm in aggregate. The specimens are sectioned to reveal rubbery ballard to slightly firm, crest cut surfaces. The specimens are submitted entirely in a single cassette. (1,ns,[id number], m2) TB07/06/2025 11:[address] LABORATORYEmbedded Spnieu6507/06/2025 11:[address] [facility]YSpecimen (Source)Anatomical Location / LateralityCollection Method / VolumeCollection TimeReceived TimeTissue (Back)07/03/2025 12:40 PM EST07/04/2025 7:24 AM ESTComment:Pre-op diagnosis: METASTATIC MALINGNANCY Narrative Authorizing ProviderResult TypeResult StatusMilton Shahab Blevinsdipak MDPATHOLOGY/CYTOLOGY ORDERABLESFinal ResultPerforming OrganizationAddressCity/State/ZIP CodePhone Number [facility] [address] [place] [address], * [place] AN ELECTIVE ENDOTRACHEAL AIRWAY (07/03/2025 12:01 PM EST) Narrative Jessica Hodges APRN-CRNA - 07/03/2025 12:01 PM EST ELIANE Aguilera 07/03/2025 12:20 PM Airway Urgency: Elective Date/Time: 07/03/2025 12:01 PM IV In Situ: Peripheral General Information and Staff Service Provider: Ney June MD APPLIANCE MECHANIC: ELIANE Aguilera Placed by: ??ELIANE Aguilera Patient Identified, IV Checked, Risks and Benefits Discussed, Surgical Consent, Monitors and Equipment Checked, Pre-op Evaluation and Timeout Performed Fire Risk Assessment Score: 0 Consent for Emergent Airway (if performed for an anesthetic, see related documentation for consents) Risks and benefits: risks, benefits and alternatives were discussed Indications and Patient Condition Sedation level: Deep Preoxygenated: yesPatient position: Supine Mask difficulty assessment: With Oral Airway Indications for airway management: Anesthesia and Airway Protection Final Airway Details Final airway type: ETT Endotracheal airway: Cuffed, ETT - Single Lumen and Inflated Techniques used for successful ETT Placement: With Stylet, Video Laryngoscopy and Solano Cormack-Lehane Classification: Grade I Endotracheal tube insertion site: Oral Visibility: ??Cords Clear Blade size: #3 Placement verified by: chest auscultation, capnography and symmetrical chest wall movement ETT size: 8.0 mm Measured from: Lips Secured at (cm): 24 Number of other approaches attempted: 0 Number of attempts at approach: 1 Authorizing ProviderResult TypeResult Isak June MDANESTHESIA ORDERABLESFinal Result * MR pelvis without contrast (07/02/2025 2:41 PM EST)Anatomical RegionLaterality ModalityBody, Body Covera, MSK Covera, PelvisN/AMagnetic ResonanceSpecimen (Source)Anatomical Location / LateralityCollection Method / VolumeCollection TimeReceived Time07/02/2025 2:54 PM EST Narrative 07/02/2025 3:17 PM EST MR PELVIS WO CONT HISTORY: bone mets. Osseous metastatic disease, progressive back pain. TECHNIQUE: Multiplanar [including neuroscience director na] multisequence MR of the pelvis was performed [...] disease, progressive back pain. TECHNIQUE: Multiplanar [including neuroscience director na] multisequence MR of the pelviswas performed prior [...] on 07/02/2025 3:17 PM Authorizing ProviderResult TypeResult StatusElizabereji Ramon Dung [facility] MRI ORDERABLESFinal Result * MR lumbar spine [...] progressive extraosseous soft tissue about the right G4fghagat with progressive effacement of the right L1-2 [...] progressive extraosseous soft tissue effacing T12-L1 and L1-R6oeipvf foramina. Moderate to severe thecal sac stenosis at the S1-P6ysick. 2. Subtle pathologic nondisplaced pathologic fracture versus impendingpathologic fracture right sacral ala. Finalized by Reynaldo Flores MD on 07/02/2025 3:13 PM Authorizing ProviderResult TypeResult StatusAngela Helen SURGERY SPECIALIST-[facility] MRI ORDERABLESFinal Result * MR thoracic spine without contrast (07/01/2025 [...] there is ESCC grade 3 tumor at zkzK76-G0 disc space [series 21 image #20], subtle suggestion of cord signalchange, annotated. Informed thecal sac narrowing related to epidurallipomatosis. Small left pleural effusion. No significant findings. Spinal soft tissues elsewhere. IMPRESSION: 1. Diffuse osseous metastatic disease, given extensive involvementcomparison with prior is somewhat challenging, no interval pathologicfracture seen. Partially visualized apparent disease progression at the J9mikid, severe thecal sac stenosis at T12-L1 with [...] 07/01/2025 5:09 AM Authorizing ProviderResult TypeResult StatusAngela Helen [facility] [place] ORDERABLESFinal Result * (ABNORMAL) B-type natriuretic peptide (06/30/2025 5:51 AM EST)ComponentValue Ref RangeTest MethodAnalysis TimePerformed AtPathologist QvcxjclhnXOG483(H) <=100 pg/mL06/30/2025 9:[address] [facility] (Source)Anatomical Location / LateralityCollection Method / VolumeCollection TimeReceived TimeBloodVenous blood / UnknownVenipuncture / Wcxovva2506/30/2025 5:51 AM EST06/30/2025 6:16 AM EST Narrative Authorizing ProviderResult TypeResult StatusAranza Wang SURGERY SPECIALIST-CNPLAB BLOOD ORDERABLESFinal ResultPerforming OrganizationAddressCity/State/ZIP CodePhone Number [facility] [address] [place] [address], * (ABNORMAL) Iron and TIBC (06/29/2025 5:41 AM EST) Only the most recent of3 resultswithin the time period is included. ComponentValueRef RangeTest MethodAnalysis TimePerformed AtPathologist Signature DJKZ2548 - 212 ug/dL06/30/2025 9:[address] [facility] IRON FHLMMHD160(L)250 - 425 ug/dL06/30/2025 9:[address] [facility]ORYIRON UXVBURWRDH1532 - 50 % XZZXKGBLZN42/04/2025 9:[address] [facility] (Source)Anatomical Location / Laterality Collection Method / VolumeCollection TimeReceived TimeBloodVenous blood / UnknownVenipuncture / Urxmesp6106/29/2025 5:41 AM EST06/29/2025 6:10 AM EST Narrative Authorizing ProviderResult TypeResult StatusAranza Wang SURGERY SPECIALIST-CNPLAB BLOOD ORDERABLESFinal ResultPerforming OrganizationAddressCity/State/ZIP CodePhone Number [facility] [address] [place] [address], * Hemoglobin A1c (06/29/2025 5:41 AM EST)ComponentValueRef RangeTest Method Analysis TimePerformed AtPathologist SignatureHEMOGLOBIN A1C5.54.4 - 5.6 % 06/29/2025 8:[address] [facility]Comment: ?ADA Guidelines ?Result ?HgbA1c ? Normal : ? less than 5.7 % ? Prediabetes : ?5.7 % ??to 6.4 % Diabetes : > 6.4 % ?Use with caution in patients with abnormal hemoglobin variants as ??the half-life of red blood cells and in vivo glycation rates are ??affected. EST. AVERAGE ZRTCTXB489ir/dL06/29/2025 8:[address] [facility]pecimen (Source)Anatomical Location / LateralityCollection Method / VolumeCollection TimeReceived TimeBloodVenous blood / UnknownVenipuncture / Exyfrgj6206/29/2025 5:41 AM EST06/29/2025 6:10 AM EST Narrative Authorizing ProviderResult TypeResult StatusAranza Wang SURGERY SPECIALIST-CNPLAB BLOOD ORDERABLESFinal ResultPerforming OrganizationAddressCity/State/ZIP CodePhone Number [facility] [address] [place] [address], * Folate (06/29/2025 5:41 AM EST) Only the most recent of3 resultswithin the time period is included. ComponentValueRef RangeTest MethodAnalysis TimePerformed AtPathologist Signature FOLIC ACID9.4>5.8 ng/mL06/30/2025 9:[address] [facility] Specimen (Source)Anatomical Location / LateralityCollection Method / Volume Collection TimeReceived TimeBloodVenous blood / UnknownVenipuncture / Unknown 06/29/2025 5:41 AM EST06/29/2025 6:10 AM EST Narrative Authorizing ProviderResult TypeResult StatusAranza Wang SURGERY SPECIALIST-CNPLAB BLOOD ORDERABLESFinal ResultPerforming OrganizationAddressCity/State/ZIP CodePhone Number [facility] [address] [place] [address], * (ABNORMAL) Ferritin (06/29/2025 5:41 AM EST) Only the most recent of3 resultswithin the time period is included. ComponentValueRef RangeTest MethodAnalysis TimePerformed AtPathologist Signature FERRITIN1,160(H)24 - 336 ng/mL06/30/2025 9:[address] [facility] (Source)Anatomical Location / LateralityCollection Method / VolumeCollection TimeReceived TimeBloodVenous blood / UnknownVenipuncture / Vitvina9706/29/2025 5:41 AM EST06/29/2025 6:10 AM EST Narrative Authorizing ProviderResult TypeResult StatusAlexandreshahab Yan Kathleen SURGERY SPECIALIST-[facility] BLOOD ORDERABLESFinal ResultPerforming OrganizationAddressCity/State/ZIP CodePhone Number [facility] [address] [place] [address], * Vitamin B12 (06/29/2025 5:41 AM EST) Only the most recent of3 resultswithin the time period is included. ComponentValueRef RangeTest MethodAnalysis TimePerformed AtPathologist Signature VITAMIN [id number] - 914 pg/mL06/30/2025 9:[address] [facility] (Source)Anatomical Location / LateralityCollection Method / VolumeCollection TimeReceived TimeBloodVenous blood / UnknownVenipuncture / Xhxkbiy3106/29/2025 5:41 AM EST06/29/2025 6:10 AM EST Narrative Authorizing ProviderResult TypeResult StatusAranza Ordoñezjeff SURGERY SPECIALIST-[facility] BLOOD ORDERABLESFinal ResultPerforming OrganizationAddressCity/State/ZIP CodePhone Number [facility] [address] [place] [address], * CT lumbar spine without contrast (06/28/2025 6:20 PM EST)Anatomical Region LateralityModalityMSK, Neuro, Spine, L-spine, Spine CoveraN/AComputed TomographySpecimen (Source)Anatomical Location / LateralityCollection Method / VolumeCollection TimeReceived Time06/28/2025 6:52 PM EST Narrative 06/28/2025 6:54 PM EST CLINICAL INFORMATION: Questionable bony Mets with cord compression TECHNIQUE: CT LUMBAR SPINE WO CONT CT images of the lumbar spine were obtained. Images reformatted in the sagittal and coronal planes.Widespread osseous metastasis is noted. Although mixed sclerotic [...] Girish Bhatt MD on 06/28/2025 6:54 PM Procedure Note Girish Bhatt MD - 06/28/2025 CLINICAL INFORMATION: Questionable bony Mets with cord compression TECHNIQUE: CT LUMBAR SPINE WO CONT CT images of the lumbar spine were obtained. Images reformatted in thesagittal and coronal planes. Widespread osseous metastasis is noted.Although mixed sclerotic and lytic, this is predominantly sclerotic.Endplates intact without acute compression. There is diffuse facetarthropathy. Disc bulge is present at multiple levels likely most significant at L4-5. Soft tissue encroachment noted at the T12-L1 level to the right of midline whichlikely produces severe canal stenosis. Incidental gallstone appreciated.No obvious acute fracture. Rib osseous sclerosis also noted. IMPRESSION: Widespread osseous metastasis, predominantly sclerotic. Although centralcanal and neural foramina not well evaluated with this exam. There isabnormal soft tissue within the right T12-L1 level likely producing severecanal stenosis and right neural foraminal encroachment. All CT scans at this facility use dose modulation, iterativereconstruction, and/or weight based dosing when appropriate to reduceradiation dose to as low as reasonably achievable. Finalized by Girish Bhatt MD on 06/28/2025 6:54 PM Authorizing ProviderResult TypeResult StatusJj Hawkins MDG CT ORDERABLES Final Result * (ABNORMAL) Prostatic spec ant (06/27/2025 2:07 PM EST) Only the most recent of3 resultswithin the time period is included. ComponentValueRef RangeTest MethodAnalysis TimePerformed AtPathologist Signature PROSTATIC SPEC ANT12.49(H)0.00 - 4.00 ng/mL06/27/2025 10:[address] [facility]Comment: The method used for this test is Tradyo DXI chemiluminescent immunoassay. Values obtained by different assay methods cannot be used interchangeably. Specimen (Source)Anatomical Location / LateralityCollection Method / Volume Collection TimeReceived TimeBloodVenous blood / UnknownVenipuncture / Unknown 06/27/2025 2:07 PM EST06/27/2025 2:07 PM EST Narrative Authorizing ProviderResult TypeResult StatusChacharlene Jasmine MDLAB BLOOD ORDERABLES Final ResultPerforming OrganizationAddressCity/State/ZIP CodePhone Number [facility] [address] [place] [address], * IR exchange nephrostomy tube and nephrostogram left (06/20/2025 2:23 PM EST) Only the most recent of2 resultswithin the time period is included. Anatomical RegionLateralityModalityIRLeftX-Ray AngiographySpecimen (Source) Anatomical Location / LateralityCollection Method / VolumeCollection Time Received Time06/20/2025 4:18 PM EST Narrative 06/20/2025 11:45 PM EST CLINICAL INDICATION: Routine exchange of left-sided nephrostomy tube. Left ureteral obstruction. COMPARISON: 05/14/2025 TECHNIQUE: Procedure performed by Interventional Radiologist Avelino Paz M.D. Fluoroscopic time: 1.7 minutes Reference Air Kerma: 17.9mGy Number of fluoroscopic images: 6 Medication: 15 mL Omnipaque 300. 500 mg Cipro EBL: None CONSENT: ??The reason for the procedure was discussed with the patient. The procedure, expectations, risks, benefits, options and alternatives were discussed. All of the patient?s questions were answered. ??The patient understands that the results cannot be guaranteed. The procedure is indicated and the risks are acceptable. Consent was obtained. PROCEDURE: 1. ??Fluoroscopic guided exchange of left-sided nephrostomy tube. 2. ??Fluoroscopic guided antegrade nephrostogram. Details of procedure: Patient placed in the prone position on the fluoroscopy table. The existing left nephrostomy tube was prepped and draped in usual sterile fashion. 1% lidocaine without epinephrine was used as a localanesthetic. A hand-injection of contrast through the existing tube was performed for nephrostogram. The hub of the catheter was cut and an 035 Amplatz wire was advanced through the existing catheter into the left renal collecting system. The existing catheter was removed. A new 10.2 [place] Reyes-Holder drain was advanced over the wire into position. The inner dilator and wire were removed and the pigtail was formed and locked. 2-0 Prolene suture was used to secure the drain. The drain was connected to gravity bag drainage. A sterile just was applied. The patient tolerated the procedure well and there are no immediate complications. FINDINGS: 1. ??Existing left nephrostomy tube had been retracted into a peripheral lower pole calyx. 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 2. ??Successful fluoroscopic guided exchange of left-sided nephrostomy tube. A new 10.2 [place] Reyes-Holder pigtail drain was placed. The pigtail was formed and locked within the left renal pelvis.Drain connected to gravity bag drainage. IMPRESSION: Successful fluoroscopic guided exchange of left-sided percutaneous nephrostomy tube. Finalized by Avelino Paz MD on 06/20/2025 11:45 PM Procedure Note Avelino Paz MD - 06/20/2025 CLINICAL INDICATION: Routine exchange of left-sided nephrostomy tube. Left ureteral obstruction. COMPARISON: 05/14/2025 TECHNIQUE: Procedure performed by Interventional Radiologist Avelino Paz M.D. Fluoroscopic time: 1.7 minutes Reference Air Kerma: 17.9mGy Number of fluoroscopic images: 6 Medication: 15 mL Omnipaque 300. 500 mg Cipro EBL: None CONSENT: The reason for the procedure was discussed with the patient. The procedure, expectations, risks, benefits, options and alternatives were discussed. All of the patient?s questions were answered. The patientunderstands that the results cannot be guaranteed. The procedure isindicated and the risks are acceptable. Consent was obtained. PROCEDURE: 1. Fluoroscopic guided exchange of left-sided nephrostomy tube. 2. Fluoroscopic guided antegrade nephrostogram. Details of procedure: Patient placed in the prone position on the fluoroscopy table. Theexisting left nephrostomy tube was prepped and draped in usual sterilefashion. 1% lidocaine without epinephrine was used as a local anesthetic.A hand-injection of contrast through the existing tube was performed fornephrostogram. The hub of the catheter was cut and an 035 Amplatz wire was advancedthrough the existing catheter into the left renal collecting system. Theexisting catheter was removed. A new 10.2 [place] Re[place]-Holder drain wasadvanced over the wire into position. The inner dilator and wire wereremoved and the pigtail was formed and locked. 2-0 Prolene suture was used to securethe drain. The drain was connected to gravity bag drainage. A sterile justwas applied. The patient tolerated the procedure well and there are noimmediate complications. FINDINGS: 1. Existing left nephrostomy tube had been retracted into a peripherallower pole calyx. 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 2. Successful fluoroscopic guided exchange of left-sided nephrostomytube. A new 10.2 [place] Reyes-Holder pigtail drain was placed. Thepigtail was formed and locked within the left renal pelvis. Drainconnected to gravity bag drainage. IMPRESSION: Successful fluoroscopic guided exchange of left-sided percutaneousnephrostomy tube. Finalized by Avelino Paz MD on 06/20/2025 11:45 PM Authorizing ProviderResult TypeResult StatusGregor Wyatt Frost Jr., MDSA[facility] ORDERABLESFinal Result * (ABNORMAL) Microscopic, urine (06/07/2025 2:41 PM EST)ComponentValueRef Range Test MethodAnalysis TimePerformed AtPathologist SignatureMUCOUSPresent(A)None 06/07/2025 7:[address] [facility]ORYR.B.CELLS16(H)0 - 5 06/07/2025 7:[address] [facility]ATORYW.B.LKXFF641(H)0 - 5 06/07/2025 7:[address] [facility]pec[facility] (Source) Anatomical Location / LateralityCollection Method / VolumeCollection Time Received TimeUrine / Bjbezgs0306/07/2025 2:41 PM EST06/07/2025 2:41 PM EST Narrative Authorizing ProviderResult TypeResult StatusAristides Frost Jr., MDURINE ORDERABLESFinal ResultPerforming OrganizationAddressCity/State/ZIP CodePhone Number [facility] [address] [place] [address], [place] [phone] * PST TOP (05/18/2025 6:54 AM EDT) Only the most recent of2 resultswithin the time period is included. ComponentValueRef RangeTest MethodAnalysis TimePerformed AtPathologist Signature Extra TubeAuto Btyhynnv32/22/2025 8:02 AM [facility] Specimen (Source)Anatomical Location / LateralityCollection Method / Volume Collection TimeReceived TimeBloodVenous blood / Zqxcphj5305/18/2025 6:54 AM EDT 05/18/2025 6:58 AM EDT Narrative Authorizing ProviderResult TypeResult StatusRugenia BORJAS BLOOD ORDERABLESFinal ResultPerforming OrganizationAddressCity/State/ZIP CodePhone Number [facility] [address] [place] [address], [place] * Light Blue Top (05/18/2025 6:54 AM EDT) Only the most recent of3 resultswithin the time period is included. ComponentValueRef RangeTest MethodAnalysis TimePerformed AtPathologist Signature Extra TubeAuto Vrmqkiln33/22/2025 8:02 AM [facility]COMM[facility] Specimen (Source)Anatomical Location / LateralityCollection Method / Volume Collection TimeReceived TimeBloodVenous blood / Nphhojh7005/18/2025 6:54 AM EDT 05/18/2025 6:58 AM EDT Narrative Authorizing ProviderResult TypeResult StatusBridgergenia Saunders Odette MDLAB BLOOD ORDERABLESFinal ResultPerforming OrganizationAddressCity/State/ZIP CodePhone Number [address] [place] [address], [place] * Transfuse RBC:1 Unit (05/16/2025 4:30 PM EDT) Narrative Authorizing ProviderResult TypeResult StatusTayasmine Escobedo SURGERY SPECIALIST-CNPBLOOD TRANSFUSION ORDERABLESFinal Result * Lactate w/ Reflex (05/16/2025 1:02 PM EDT) Only the most recent of2 resultswithin the time period is included. ComponentValueRef RangeTest MethodAnalysis TimePerformed AtPathologist Signature LACTATE W/REFLEX1.70.4 - 2.0 mmol/L1 1:38 PM EDThe [facility] (Source)Anatomical Location / LateralityCollection Method / VolumeCollection TimeReceived TimeBloodVenous blood / Unknown Venipuncture / Synajdi4805/16/2025 1:02 PM EDT1 1:06 PM EDT Narrative [facility] - 05/16/2025 1:38 PM EDT Result did not trigger repeat Lactate, re-order if needed. Authorizing ProviderResult TypeResult StatusCherelle Cervantes SURGERY SPECIALIST-CNPLAB BLOOD ORDERABLESFinal ResultPerforming OrganizationAddressCity/State/ZIP CodePhone Number [address] [place] [address], [place] * (ABNORMAL) Procalcitonin (05/16/2025 4:52 AM EDT)ComponentValueRef RangeTest MethodAnalysis TimePerformed AtPathologist SignaturePROCALCITONIN2.34(H)<0.05 ng/mL05/16/2025 11:38 AM EDThe [facility] (Source)Anatomical Location / LateralityCollection Method / VolumeCollection TimeReceived TimeBloodVenous blood / UnknownVenipuncture / Lcuykum6605/16/2025 4:52 AM EDT1 4:59 AM EDT Narrative [facility] - 05/16/2025 11:38 AM EDT <0.50 ng/mL - Low risk of severe sepsis and/or septic shock. <2.00 ng/mL - Recommend retesting within 6-24 hours. >2.00 ng/mL - High risk of sepsis and/or septic shock. Authorizing ProviderResult TypeResult StatusCar[facility] SURG[facility] SPECIALIST-CNPLAB BLOOD ORDERABLESFinal ResultPerforming OrganizationAddressCity/State/ZIP CodePhone Number [address] [place] [address], [place] * (ABNORMAL) C-reactive protein (05/16/2025 4:52 AM EDT)ComponentValueRef Range Test MethodAnalysis TimePerformed AtPathologist SignatureC REACTIVE PROTEIN 19.1(H)<=0.7 mg/dL05/16/2025 11:34 AM EDCOMM[facility] Specimen (Source)Anatomical Location / LateralityCollection Method / Volume Collection TimeReceived TimeBloodVenous blood / UnknownVenipuncture / Unknown 05/16/2025 4:52 AM EDT1 4:59 AM EDT Narrative Authorizing ProviderResult TypeResult [facility] SURGERY SPECIALIST-CNPLAB BLOOD ORDERABLESFinal ResultPerforming OrganizationAddressCity/State/ZIP CodePhone Number [address] [place] [address], [place] * (ABNORMAL) Vitamin D 25 hydroxy (05/15/2025 4:57 PM EDT) Only the most recent of2 resultswithin the time period is included. ComponentValueRef RangeTest MethodAnalysis TimePerformed AtPathologist Signature VITAMIN D 25 HYD TOT17.4(L)30.0 - 100.0 ng/mL05/16/2025 11:02 AM [facility] (Source)Anatomical Location / Laterality Collection Method / VolumeCollection TimeReceived TimeBloodVenous blood / UnknownVenipuncture / Fvdzkto0905/15/2025 4:57 PM EDT1 5:00 PM EDT Narrative [facility] - 05/16/2025 11:02 AM EDT Vitamin D status 25 [place] Vitamin D Deficiency <20 ng/mL Insufficiency ? 20-29 ng/mL Sufficiency ? 30-100 ng/mL Toxicity >100 ng/mL NOTE: A pediatric reference range has not been established by the [employer] of this kit. The [place] [employer] recommends a Vitamin D level of = or >20ng/mL in infants and children. Authorizing ProviderResult TypeResult StatusTaeler Gregg BUSTILLOSNova Medical Centers BLOOD ORDERABLESFinal ResultPerforming OrganizationAddressCity/State/ZIP CodePhone Number [facility] [address] [place] [address], [place] [phone] * Potassium (05/15/2025 4:57 PM EDT) Only the most recent of2 resultswithin the time period is included. ComponentValueRef RangeTest MethodAnalysis TimePerformed AtPathologist Signature POTASSIUM3.83.5 - 5.0 mmol/L1 5:13 PM EDTPROMEDICA MAMMOTH HOSPITALpecimen (Source)Anatomical Location / LateralityCollection Method / VolumeCollection TimeReceived TimeBloodVenous blood / UnknownVenipuncture / Olskgag5005/15/2025 4:57 PM EDT1 5:00 PM EDT Narrative Authorizing ProviderResult TypeResult StatusTaeler Gregg BUSTILLOSNSumoSkinny BLOOD ORDERABLESFinal ResultPerforming OrganizationAddressCity/State/ZIP CodePhone Number [facility] [address] [place] [address], * Type and screen(includes indirect baron) (05/15/2025 11:15 AM EDT)Component ValueRef RangeTest MethodAnalysis TimePerformed AtPathologist SignatureABOO 05/15/2025 12:24 PM EDTFRE BB - UMQXZWTKOWqqsjspo69/19/2025 12:24 PM EDTFRE BB - WELLSKYAntibody RtsxwfYjvpvfsk50/19/2025 12:24 PM EDTFRE BB - WELLSKY Specimen (Source)Anatomical Location / LateralityCollection Method / Volume Collection TimeReceived TimeBloodVenous blood / UnknownVenipuncture / Unknown 05/15/2025 11:15 AM EDT1 11:37 AM EDT Narrative Authorizing ProviderResult TypeResult StatusTaeler Gregg SURGERY SPECIALIST-CNPBLOOD BANK TEST ORDERABLESEdited Result - FinalPerforming OrganizationAddressCity/State/ZIP CodePhone Number BELINDA ANISA - RAD[facility] [address] [place] [address], [place] * Crossmatch RBC:Number of Units: 1 (05/15/2025 11:00 AM EDT)ComponentValueRef RangeTest MethodAnalysis TimePerformed AtPathologist SignatureBlood component [id number]'S HOSPITAL MONTCLAIR MEDICAL CENTERUnit [id number]-Y [facility]Unit ABOOPROMEDICA GOOD SAMARITAN HOSPITALUnit RHPOSPRODOCTOR'S HOSPITAL MONTCLAIR MEDICAL CENTERCrossmatchCompatible [facility]OSPITALtatus of unitTRANSFUSEDPROMEDICA GOOD SAMARITAN HOSPITALExpiration [id number] COUNTY HOSPITALBB Type Rmazfka5174EBGBAIQDKCHINO VALLEY MEDICAL CENTERpecimen (Source)Anatomical Location / LateralityCollection Method / VolumeCollection TimeReceived TimeBloodVenous blood / Tlqzlqe4605/15/2025 11:00 AM EDT1 11:39 AM EDT Narrative Authorizing ProviderResult TypeResult StatusTaeler Gregg SURGERY SPECIALIST-CNPBLOOD BANK PRODUCT ORDERABLESEdited Result - FinalPerforming OrganizationAddress City/State/ZIP CodePhone Number [facility] [address] [place] [address], [place] * ABO Rh Repeat (05/15/2025 4:50 AM EDT) Only the most recent of2 resultswithin the time period is included. ComponentValueRef RangeTest MethodAnalysis TimePerformed AtPathologist Signature ABOO1 12:38 PM EDTFRE BB - HOMIUTGDQFejfqftp80/19/2025 12:38 PM EDTFRE ANISA - REYNAKYSpecimen (Source)Anatomical Location / LateralityCollection Method / VolumeCollection TimeReceived TimeBloodVenous blood / UnknownVenipuncture / Ewiaqvd1605/15/2025 4:50 AM EDT1 5:25 AM EDT Narrative Authorizing ProviderResult TypeResult StatusTaeler Gregg SURGERY SPECIALIST-CNPBLOOD BANK TEST ORDERABLESFinal ResultPerforming OrganizationAddressCity/State/ZIP Code Phone Number BELINDA ORELLANAMS [address] [place] [address], [place] * SST TOP (05/15/2025 4:49 AM EDT)ComponentValueRef RangeTest MethodAnalysis TimePerformed AtPathologist SignatureExtra TubeAuto Zsurjfex87/19/2025 6:03 AM EDTPROMEDSANTA BARBARA COTTAGE HOSPITALpecimen (Source)Anatomical Location / LateralityCollection Method / VolumeCollection TimeReceived TimeBloodVenous blood / UnknownVenipuncture / Djqfwsh4905/15/2025 4:49 AM EDT1 5:28 AM EDT Narrative Authorizing ProviderResult TypeResult StatusMuhamid M Estiven MDLAB BLOOD ORDERABLESFinal ResultPerforming OrganizationAddressty/State/[facility] CodePhone Number [facility] [address] [place] [address], [place] * GI Panel(stool pathogen panel) (05/14/2025 12:11 PM EDT)ComponentValueRef RangeTest MethodAnalysis TimePerformed AtPathologist SignatureCAMPYLOBACTERNot DetectedNot Jhleupdc12/20/2025 1:33 AM [facility] PLESIOMONASNot DetectedNot Ffkcvwkw47/20/2025 1:33 AM [facility] LABORATORYSALMONELLANot DetectedNot Hufxeuyx41/20/2025 1:33 AM EDT [facility] LABORATORYVIBRIONot DetectedNot Onilzgai45/20/2025 1:33 AM [facility] LABORATORYVIBRIO CHOLERAENot DetectedNot Pontrjtq56/20/2025 1:33 AM [facility] LABORATORYY. ENTEROCOLITICANot DetectedNot Pqhzwpph84/20/2025 1:33 AM [facility] LABORATORYAGGREGATIVE E COLINot DetectedNot Zzulvgcy01/20/2025 1:33 AM [facility] LABORATORYPATHOGENIC E COLINot DetectedNot Wqlsejfc01/20/2025 1:33 AM [facility] LABORATORYTOXIGENIC E COLINot DetectedNot Ctqumggc22/20/2025 1:33 AM [facility] LABORATORYSHIGA TOXIN E COLINot DetectedNot Ueocopvb04/20/2025 1:33 AM EDT [facility] LABORATORYSHIGELLA-E COLINot DetectedNot Detected 05/16/2025 1:33 AM [facility]ORATORYCRYPTOSPORIDIUMNot DetectedNot Puemmknd40/20/2025 1:33 AM [facility] CYCLOSPORANot DetectedNot Ukbcimxt27/20/2025 1:33 AM [facility]ORYE HISTOLYTICANot DetectedNot Ykxqseom51/20/2025 1:33 AM [facility] LABORATORYGIARDIA LAMBLIANot DetectedNot Detected 05/16/2025 1:33 AM [facility] LABORATORYADENOVIRUSNot DetectedNot Xgesgbot27/20/2025 1:33 AM [facility] ASTROVIRUSNot DetectedNot Hdzfiagf03/20/2025 1:33 AM [facility]OR[facility]ORYNOROVIRUSNot DetectedNot Akvdlfoh50/20/2025 1:33 AM [facility] LABORATORYROTAVIRUS ANot DetectedNot Ctgnulhr53/20/2025 1:33 AM [facility] LABORATORYSAPOVIRUSNot DetectedNot Detected 05/16/2025 1:33 AM [facility] LABORATORYSpecimen (Source) Anatomical Location / LateralityCollection Method / VolumeCollection Time Received TimeStoolFeces / Rokiyst0105/14/2025 12:11 PM EDT1 12:41 PM EDT [facility] LABORATORY - 05/16/2025 1:33 AM EDT Delay in processing. INTERPRET RESULTS WITH CAUTION. Authorizing ProviderResult TypeResult StatusTaeler Escobedo SURGERY SPECIALIST-CNPBODY FLUIDS AND STOOLS ORDERABLESFinal ResultPerforming OrganizationAddressCity/State/ZIP CodePhone Number [facility] [address] [place] [address], * C difficile by PCR (05/14/2025 12:11 PM EDT)ComponentValueRef RangeTest Method Analysis TimePerformed AtPathologist SignatureTOXIGENIC C DIFFNegativeNegative 05/14/2025 5:13 PM [facility] GDAPHLGMAE619 JJF3Qbxbufhsvdq NegativePresumptive Ntemjiku14/18/2025 5:13 PM [facility] LABORATORYComment:Assay methodology is nucleic acid amplification by real-time PCR for detection of C. difficile toxin gene sequences performed on [employer] System.Specimen (Source)Anatomical Location / Laterality Collection Method / VolumeCollection TimeReceived TimeStoolFeces / Unknown 05/14/2025 12:11 PM EDT1 12:41 PM EDT Narrative Authorizing ProviderResult TypeResult StatusTaeler Gregg BUSTILLOSN-CNPBODY FLUIDS AND STOOLS ORDERABLESFinal ResultPerforming OrganizationAddressCity/State/ZIP CodePhone Number [facility] [address] [place] [address], * Occult blood x 1, stool (05/14/2025 12:11 PM EDT)ComponentValueRef RangeTest MethodAnalysis TimePerformed AtPathologist SignatureFECAL OCCULT BLOODNegative Rdyibtjo93/19/2025 11:48 PM [facility] LABORATORYSpecimen (Source)Anatomical Location / LateralityCollection Method / VolumeCollection TimeReceived TimeStoolFeces / Jyzeken2805/14/2025 12:11 PM EDT1 12:41 PM EDT Narrative Authorizing ProviderResult TypeResult StatusTaeler Gregg PANDACNPBODY FLUIDS AND STOOLS ORDERABLESFinal ResultPerforming OrganizationAddressCity/State/ZIP CodePhone Number [facility] [address] [place] [address], * (ABNORMAL) Lactate (05/14/2025 11:46 AM EDT)ComponentValueRef RangeTest Method Analysis TimePerformed AtPathologist SignatureLACTATE2.5(H)0.4 - 2.0 mmol/L 05/14/2025 12:42 PM EDTPROMEDSANTA BARBARA COTTAGE HOSPITALpecimen (Source) Anatomical Location / LateralityCollection Method / VolumeCollection Time Received TimeBloodVenous blood / UnknownVenipuncture / Ncszogz1405/14/2025 11:46 AM EDT1 12:23 PM EDT Narrative Authorizing ProviderResult TypeResult StatusMaxellis BELLA BLOOD ORDERABLESFinal ResultPerforming OrganizationAddressCity/State/ZIP CodePhone Number [facility] CENTERShahab [facility] [address] [place] [address], * Blood culture (05/14/2025 9:03 AM EDT) Only the most recent of2 resultswithin the time period is included. ComponentValueRef RangeTest MethodAnalysis TimePerformed AtPathologist Signature CULTURE RESULTSNO GROWTH 5 DAYS05/19/2025 5:01 PM [facility] LABORATORYSpecimen (Source)Anatomical Location / LateralityCollection Method / VolumeCollection TimeReceived TimeBloodVenous blood / UnknownVenipuncture / Bkkrvzs5205/14/2025 9:03 AM EDT1 9:05 AM EDT Narrative [facility] - 05/19/2025 5:01 PM EDT Suboptimal volume of blood collected, Results may be affected. Authorizing ProviderResult TypeResult StatusRobert W Shay GONZALEZICROBIOLOGY - GENERAL ORDERABLESFinal ResultPerforming OrganizationAddressCity/State/ZIP Code Phone Number [facility] [address] [place] [address], [place] [phone] * CT abdomen and pelvis with contrast (05/14/2025 8:52 AM EDT)Anatomical Region LateralityModalityBody, Abdomen, Body CoveraN/AComputed TomographySpecimen (Source)Anatomical Location / LateralityCollection Method / VolumeCollection TimeReceived Time05/14/2025 9:22 AM EDT Narrative 05/14/2025 9:36 AM EDT CLINICAL INFORMATION: left flank discomfort, felt pop has left nephrostomy in place. COMPARISON: 03/15/2025 TECHNIQUE: CT of the abdomen and pelvis with intravenous contrast.. All CT scans at this facility use dose modulation, iterative reconstruction, and/or weight based dosing when appropriate to reduce radiation dose to as low as reasonably achievable. FINDINGS: LOWER CHEST: Small left pleural effusion. LIVER AND BILIARY: Noncirrhotic liver morphology. The gallbladder is distended. Cholecystolithiasis. No suspicious enhancing liver lesion. No hepatobiliary ductal dilation. PANCREAS: No ductal dilation. No peripancreatic fluid collection. SPLEEN: Not enlarged. ADRENALS: Symmetric. KIDNEYS: Left percutaneous nephrostomy tube position is unchanged. Interval decrease in dilation ofthe left collecting system. A few locules of gas within the intrarenal collecting system. Asymmetric thickening of the left inferior aspect of the urinary bladder similar to prior. No calcified urolithiasis. GI TRACT AND PERITONEUM: Liquid stool within the right colon and transverse colon. Nondilated smallbowel. Terminal ileum is unremarkable. No free intraperitoneal gas. No significant pelvic free fluid. VASCULATURE: Right-sided IVC. Abdominal aorta is normal in caliber. LYMPH NODES: No enlarged mesenteric or retroperitoneal lymph nodes by CT size criteria. REPRODUCTIVE ORGANS: Nonspecific prostate calcifications. Correlate with PSA. MUSCULOSKELETAL: Lumbar subincisional collection measuring up to 3.1 x 1.9 cm in transaxial dimension as seen on prior. Diffuse osseous metastatic disease again seen. IMPRESSION: Liquid stool seen within the right and transverse colon. Correlate for diarrhea. Left percutaneous nephrostomy tube in similar position. Interval decrease in dilation of the left collecting system. A few persistent locules of gas within the left intrarenal collecting system whichmay be related to catheter manipulation or infection. Unchanged thickening of the left inferior aspect of the urinary bladder. Small left pleural effusion. Cholelithiasis. Gallbladder distention. If the patient is symptomatic, consider prompt further evaluation for acute obstruction. If there are no right upper quadrant symptoms, distention is most likely secondary to fasting. Diffuse osseous metastatic disease. Managing incidental findings on abdominal and pelvic CT and MRI, Part 4: white paper of the ACR Incidental Findings Committee II on gallbladder and biliary findings. J Am Ryder Radiol. 2013 Dec;10(12):953-6. Finalized by Gianluca Lin MD on 05/14/2025 9:36 AM Procedure Note Gianluca Lin MD - 05/14/2025 CLINICAL INFORMATION: left flank discomfort, felt pop has leftnephrostomy in place. COMPARISON: 03/15/2025 TECHNIQUE: CT of the abdomen and pelvis with intravenous contrast.. All CTscans at this facility use dose modulation, iterative reconstruction,and/or weight based dosing when appropriate to reduce radiation dose to aslow as reasonably achievable. FINDINGS: LOWER CHEST: Small left pleural effusion. LIVER AND BILIARY: Noncirrhotic liver morphology. The gallbladder isdistended. Cholecystolithiasis. No suspicious enhancing liver lesion. Nohepatobiliary ductal dilation. PANCREAS: No ductal dilation. No peripancreatic fluid collection. SPLEEN: Not enlarged. ADRENALS: Symmetric. KIDNEYS: Left percutaneous nephrostomy tube position is unchanged.Interval decrease in dilation of the left collecting system. A few loculesof gas within the intrarenal collecting system. Asymmetric thickening ofthe left inferior aspect of the urinary bladder similar to prior. Nocalcified urolithiasis. GI TRACT AND PERITONEUM: Liquid stool within the right colon andtransverse colon. Nondilated small bowel. Terminal ileum is unremarkable.No free intraperitoneal gas. No significant pelvic free fluid. VASCULATURE: Right-sided IVC. Abdominal aorta is normal in caliber. LYMPH NODES: No enlarged mesenteric or retroperitoneal lymph nodes by CTsize criteria. REPRODUCTIVE ORGANS: Nonspecific prostate calcifications. Correlate withPSA. MUSCULOSKELETAL: Lumbar subincisional collection measuring up to 3.1 x 1.9cm in transaxial dimension as seen on prior. Diffuse osseous metastaticdisease again seen. IMPRESSION: Liquid stool seen within the right and transverse colon. Correlate fordiarrhea. Left percutaneous nephrostomy tube in similar position. Interval decreasein dilation of the left collecting system. A few persistent locules of gaswithin the left intrarenal collecting system which may be related tocatheter manipulation or infection. Unchanged thickening of the left inferior aspect of the urinary bladder. Small left pleural effusion. Cholelithiasis. Gallbladder distention. If the patient is symptomatic,consider prompt further evaluation for acute obstruction. If there are noright upper quadrant symptoms, distention is most likely secondary tofasting. Diffuse osseous metastatic disease. Managing incidental findings on abdominal and pelvic CT and MRI, Part 4:white paper of the ACR Incidental Findings Committee II on gallbladder andbiliary findings. J Am Ryder Radiol. 2013 Jun;10(12):953-6. Finalized by Gianluca Lin MD on 05/14/2025 9:36 AM Authorizing ProviderResult TypeResult StatusDevante Holguin [facility] CT ORDERABLESFinal Result * (ABNORMAL) POCT Nursing Urine Macroscopic UA (05/14/2025 7:58 AM EDT)Component ValueRef RangeTest MethodAnalysis TimePerformed AtPathologist [facility] Urine Specific Gravity1.0151.010, 1.015, 1.020, 1.0947005/14/2025 7:59 AM EDT [facility] Urine Leukocyte EsteraseLarge(A) Halspgtn74/18/2025 7:59 [facility] Urine WoxguwtYncpnrxvFlffplri86/18/2025 7:59 AM [facility] Urine pH7.05.0, 6.0, 6.5, 7.0, 7.5, 8.0, 8.5, 5.510 7:59 AM [facility] Urine Ijrfxtg090 mg/dL(A)Negative 05/14/2025 7:59 AM [facility] Urine Jzncszs687 mg/dL(A)Ucceyuth40/18/2025 7:59 AM [facility] Urine SsenwyzDfqzczskGkonhmto28/18/2025 7:59 AM [facility] Urine Urobilinogen0.2 E.U./dL05/14/2025 7:59 AM [facility] Urine VifbixcveOvictgylVdngolak39/18/2025 7:59 AM [facility] Urine Blood/HGBSmall(A)Negative 05/14/2025 7:59 AM [facility] Anatomical Location / LateralityCollection Method / VolumeCollection Time Received ObwoBknlh03/18/2025 7:58 AM EDT1 7:59 AM EDT Narrative Authorizing ProviderResult TypeResult StatusMaxellis Holguin DOPOINT OF CARE TEST ORDERABLESFinal ResultPerforming OrganizationAddressCity/State/ZIP Code Phone Number [facility] [address] [place] [address], [place] * ECG 12 lead (05/14/2025 7:51 AM EDT)Specimen (Source)Anatomical Location / LateralityCollection Method / VolumeCollection TimeReceived Time05/14/2025 7:51 AM EDT Narrative [facility] - 05/25/2025 6:31 AM EDT Authorizing ProviderResult TypeResult StatusMaxellis Holguin DOECG ORDERABLESFinal ResultPerforming OrganizationAddressCity/State/ZIP CodePhone Number [facility] * Lipase (05/14/2025 7:41 AM EDT)ComponentValueRef RangeTest MethodAnalysis Time Performed AtPathologist KnsujavrpQROEVM8646 - 40 U/L1 7:58 AM EDT [facility])Anatomical Location / LateralityCollection Method / VolumeCollection TimeReceived TimeBloodVenous blood / UnknownVenipuncture / Itikumz3705/14/2025 7:41 AM EDT1 7:43 AM EDT Narrative Authorizing ProviderResult TypeResult StatusDevante Holguin DOLAB BLOOD ORDERABLESFinal ResultPerforming OrganizationAddressCity/State/ZIP CodePhone Number [address] [place] [address], [place] * Rdldl Direct Ldl (05/02/2025 12:25 PM EDT)ComponentValueRef RangeTest Method Analysis TimePerformed AtPathologist SignatureDIRECT LDL86<=130 mg/dL 05/02/2025 9:00 PM [facility]ORATORYComment: LDL <100 mg/dL - Desirable LDL 130-159 mg/dL - Borderline High Risk LDL >160 mg/dL - High Risk Specimen (Source)Anatomical Location / LateralityCollection Method / Volume Collection TimeReceived TimeBloodVenous blood / UnknownVenipuncture / Unknown 05/02/2025 12:25 PM EDT1 12:25 PM EDT Narrative Authorizing ProviderResult TypeResult StatusRambob BORJAS ORDERABLESFinal ResultPerforming OrganizationAddressCity/State/ZIP CodePhone Number [facility] [address] [place] [address], * (ABNORMAL) Lipid profile (05/02/2025 12:25 PM EDT)ComponentValueRef RangeTest MethodAnalysis TimePerformed AtPathologist QikrvtzxcQRCMXCUNMFY932403 - 200 mg/dL05/02/2025 7:38 PM [facility] IXFVSDGHRMBJXGSHDNSAUZ789 (H)27 - 150 mg/dL05/02/2025 7:38 PM [facility] LABORATORYHDL JUZYWTSARCW46(L)>39 mg/dL05/02/2025 7:38 PM [facility] LABORATORYComment: HDL <40 mg/dL - High Risk HDL > or = 40mg/dL- Desirable HDL >60 mg/dL - Negative Risk CHOLESTEROL:HDL5.6(H)1.0 - 5.010 7:38 PM [facility] LABORATORYVERY LOW QAIEKDDKASR58(H)0 - 30 mg/dL05/02/2025 7:38 PM [facility] LABORATORYSpecimen (Source)Anatomical Location / Laterality Collection Method / VolumeCollection TimeReceived TimeBloodVenipuncture / Ogovxrt3105/02/2025 12:25 PM EDT1 12:25 PM EDT Narrative [facility] - 05/02/2025 7:38 PM EDT LDL (CALC) Not reported due to high Triglyceride Authorizing ProviderResult TypeResult StatusRambob BORJAS BLOOD ORDERABLES Final ResultPerforming OrganizationAddressCity/State/ZIP CodePhone Number [facility] [address] [place] [address], [place] [phone] from Last 3 Months Insurance Advance Directives * Full Code (Latest Code Status on File) Date ActivatedDate NnyvkphpqvjLlbmaahf20/2/2025 11:13 PM07/06/2025 8:27 PM * Full Code Date ActivatedDate YxprxiyutxiXfgblnaa53/18/2025 12:55 PM10 5:14 PM * Full Code Date ActivatedDate InactivatedComments03/16/2025 3:00 AM03/21/2025 9:12 PM * Full Code Date ActivatedDate XbivmcqeevmRpbgzldz23/21/2024 8:53 PM06/22/2024 7:52 PM * Full Code Date ActivatedDate ZijyccvzaaqCrvrdwlw14/19/2024 8:22 PM06/17/2024 5:38 PM Care Teams Team MemberRelationshipSpecialtyStart DateEnd Date Yadira Jose MD [address] [place] [address] PCP - GeneralInternal Medicine10/20/24
--- OUTSIDE RECORDS SUMMARY | 2025-07-18 04:31 | XMS_ITS | Encounter Summary ---
Author Organization [id number] [address] [place] [address] Care Team Providers Care Instrument Mechanic Weapons System Name Role Phone Yadira Jose MD Primary Care Provider [phone] Encounter Details DateTypeDepartmentCare Team (Latest Contact Info)Ewvdrurzkpa34/04/2025Telephone [facility] [address] [place] [phone] Aristides Frost Jr., MD [address] [place] [address] [phone] Social History Tobacco UseTypesPacks/DayYears UsedDateSmoking Tobacco: FormerCigarsSmokeless [...] times a week06/16/2024How often do you attend restoration or latter-day services?More than 4 times per year06/16/2024o you belong to any clubs or organizations such as restoration groups, unions, fraternal or athletic groups, or school groups?Yes06/16/2024How often do you attend meetings of the clubs or organizations you belong to?More than 4 times per year06/16/2024 Are you , , , , never , or living with a partner?Upnrozb4606/16/2024Overall Financial Resource Strain (CARDIA)AnswerDate RecordedHow hard is it for you to pay for the very basics like food, housing, medical care, and heating?Not hard at all06/16/2024HQ-2AnswerDate RecordedTotal Kgrxz32508/30/2024[facility] Occupational Health - Occupational Stress QuestionnaireAnswerDate RecordedDo you feel stress - tense, restless, nervous, or anxious, or unable to sleep at night because yourmind is troubled all the time - these days?To some wtqsay6906/16/2024Exercise Vital SignAnswerDate Recorded On average, how many [...] RecordedIn the past 12 months has the g4interactive, gas, oil, or water company threatened to shut off services in your home?No06/29/2025Housing InstabilityAnswerDate RecordedAre you worried or concerned that in the next two months you may not have stable housing that you own, rent or stay in as a part of a household?No06/29/2025hildcareAnswerDate RecordedDo problems getting child adolescent psychiatrist 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 work [...] InformationValueDate RecordedSex Assigned at BirthNot on fileLegal XilIgqq3503/02/2015 11:37 AM EDTGender Identity Not on fileSexual OrientationNot on filedocumented as of this encounter Miscellaneous Notes * Telephone Encounter - Aristides Frost Jr., MD - 06/30/2025 5:36 PM EST Patient canceled today's appointment-hospitalized. Get him rescheduled within 6 weeks off day okay * Telephone Encounter - Dasia Myers - 06/30/2025 5:36 PM EST Called spoke with pt scheduled 6 week f/u with dr miranda aquino office sandor documented in this encounter Plan of Treatment DateTypeDepartmentCare Team (Latest Contact Info)Pdwnwaglepd00/23/2025 10:30 AM ESTSupport Visit [facility] [address] [place] [address] 08/04/2025 3:00 PM ESTInfusion [facility] [address] [place] [address] 08/15/2025 1:00 PM ESTAppointment [facility] - [facility] Radiology [address] [place] [address] Aristides Frost Jr., MD [facility] [place] [address] 08/15/2025 3:45 PM ESTOffice Visit [facility] [address] [place] [address] Bucky Denise, GOVERNMENT RELATIONS MANAGER-CLINICAL NUTRITIONIST [address] [place] [address] 08/19/2025 11:45 AM ESTOffice Visit [facility] [address] [place] [address] [address] [facility] [place] [phone] Aristides Frost Jr., MD [address] [place] [address] 10/07/2025 11:15 AM EDTOffice Visit [facility] [address] [place] [address] [place] [phone] Aristides Frost Jr., MD [address] [place] [phone] documented as of this encounter Goals GoalPatient Goal TypeAssociated ProblemsRecent ProgressPatient-Stated?Author home Baylee Almodovar RN Note: Evaluation of progress towards goal: Patient plans to discharge home with [facility] and with assistance from family. documented as of this encounter Visit Diagnoses Not on filedocumented in this encounter Additional Health Concerns AssessmentNoted TimePHQ-9 Depression Total Score: 10:03 AM EST documented as of this encounter Care Teams Team MemberRelationshipSpecialtyStart DateEnd Date Yadira Jose MD [address] [place], [place] [phone] PCP - GeneralInternal Medicine10/20/24documented as of this encounter
--- OUTSIDE RECORDS SUMMARY | 2025-07-18 04:31 | XMS_ITS ---
Author Organization [employer] tem Address [facility] [id number] [place] [address] Care Team Providers Care Imaging Assistant Name Role Phone Yadira Jose MD Primary Care Provider [phone] Active Problems ProblemNoted DateDiagnosed DateWound of left groin108/31/20243522Kdrfoux93/11/2025 Faqiypghsynchp06/21/2025Urinary tract infection with hematuria, site unspecified 05/14/2025hemotherapy-induced bxzrtgegwyeucasa05/28/2025Spinal cord compression due to pgxokzvl83/09/2024Type 2 diabetes mellitus without complication, without long-term current use of rzmnqye6806/16/2024Essential khyyzkvwaamt97/20/2024 Cxdqekze58/20/2024cute cystitis without qwlafuida76/20/2024Former smoker 06/16/2024Intractable back pain06/15/2024ain of metastatic ilhwsvxvzi52/08/2024 Urologic jschkulbc02/25/2024 Overview (06/07/2025): 1. Diabetic with benign prostatic [...] Klebsiella and Enterobacter April 2025 treated with [facility] 16. Difficulty voiding, urgency, and dysuria confirmed 06/07/2025 17.CT April 2025 Benign prostatic hyperplasia with urinary gnkbrvyyn98/09/2024Erectile dysfunction due to diseases classified yrznoablx76/01/2116Dxauhzzokobb71/30/2023 Bone qdgmhg2703/14/2023Ureteral stone03/06/2023Hydronephrosis with renal and ureteral calculous xjxeaiqbgfn74/19/2023rostate cancer metastatic to bone 02/04/2023ladder stone02/04/2023rimary ebguakdtiebbcx51/23/2023ross hematuria 01/17/2023omplicated UTI (urinary tract infection)12/24/2022 Overview [...] tube clamping trial August 2023 Acute urinary atblzwzme19/30/2023 Current Treatment and Therapy Plans Leuprolide 22.5 mg every 3 months (LUPRON DEPOT/ELIGARD)* Plan Start Date: 04/24/2023 Plan Provider:Kenney Jasmine MD Linked Problems Prostate cancer metastatic t o bone ([facility]) Treatment Medications leuprolide acetate (3 month) (ELIGARD) Oncology standing electrolyte replacement* Plan Start Date:02/15/2025 Plan Provider:Rachna Saba APRN-SENIOR MAINFRAME DEVELOPER Linked Problems Prostate cancer metastatic t o bone (CMS-HCC) Treatment Medications No medications scheduled. OP prostate cabazitaxel / predniSONE* Plan Start Date:02/02/2025 Plan Provider:Kenney Jasmine MD Linked Problems Prostate cancer metastatic t o bone ([facility]) Treatment MedicationsCurrent Day (Day 1, Cycle 6 - Planned for 06/28/2025)Next Day (Day 2, Cycle 6 - Planned for 06/29/2025)* * cabazitaxel (JEVTANA) chemo IVPB piggyback * CARBOplatin (PARAPLATIN) chemo IVPB (by AUC) piggyback * * cabazitaxeL (JEVTANA) 43.6 mg in sodium chloride 0.9 % (non-pvc) 250 mL chemo IVPB * CARBOplatin (PARAPLATIN) 450 mg in sodium chloride 0.9 % 250 mL chemo IVPB No medications scheduled. Zoledronic acid (ZOMETA) for multiple myeloma or bone metastases* Plan Start Date:04/29/2023 Plan Provider:Kenney Jasmine MD Linked Problems Prostate cancer metastatic t o bone ([facility]) Treatment Medications No medications scheduled. Past Treatment and Therapy Plans Plan NameStart DateDiscontinue DateTreatment MedicationsDiscontinue ReasonPlan ProviderCyclesOP prostate DOCEtaxel / icfwysSZAM10/15/20247/04/2025* DOCEtaxel (TAXOTERE) chemo IVPB * DOCEtaxel (TAXOTERE) chemo IVPB piggyback OtherKenney Jasmine MD6 of 12 cycles started Past Radiation Episodes * Radiation TherapyOverview* First Treatment DateLast Treatment DateTreatment SiteTechniqueGoalEpisode Ebeigqil84? * Linked Problems Prostate cancer metastatic t o bone ([facility])Spinal cord compression due to neoplasm ([facility]) Treatment Courses* Treatment PeriodFraction DoseFractionsTotal DosePlansPlanned TL Spine 3Fld07/08/2024 - 430010 / 103,000Reference PointsDeliveredRx TL Hjmyhr2407/08/2024 - 07/22/2024?3,000 Lifetime Dose Tracking * ChemicalLifetime DoseAutomatic EntryManual PnpbvQtizezyimun892.43 hBt905.43 mGy0 mGy Resolved Problems ProblemNoted DateDiagnosed DateResolved DateHyperglycemia due to type 2 diabetes nhskttjl43Severe protein-calorie eilrwabjnpad25/25/2025 03/21/2025 Overview (03/21/2025): Acute disease or injury related malnutrition (NI 5.2.3) related to decreased oral intake as evidenced by intake less than 50% of estimated nutrition needs for greater than 5 days (at least 2 weeks) and weight loss greater than 10% (18%) in less than 6 months. Neutropenic fever/enign prostatic hyperplasia with lower urinary tract aaqrxzvl35Prostate Malfunction of nephrostomy tube/
--- OUTSIDE RECORDS SUMMARY | 2025-07-18 04:31 | XMS_ITS | Patient Health Record ---
Author Organization [facility] Address [address] [place], [place] [address] Care Team Providers Care Boxer Operator Name Role Phone Yadira Jose Primary Care Provider [phone] Garces [phone] Allergies Allergen (clinical drug ingredient) Drug/Non Drug Allergy documented on EMR Reaction Allergy Type Onset Date Status TalacenUnknownDrug AllergyActivePenicillinUnknownDrug AllergyActive Results Component Value Reference Range Flag Notes POCT A1C Reviewed date:12/06/2024 02:00:55 PM Interpretation: Performing Lab: Notes/Report: POCT A1C Reviewed date:01/06/2025 02:11:41 PM Interpretation: Performing Lab: Notes/Report: POCT A1C Reviewed date:04/25/2025 05:14:31 PM Interpretation: Performing Lab: Notes/Report: DIRECT LDL Reviewed date:05/03/2025 09:52:46 AM Interpretation: Performing Lab: Notes/Report: DIRECT LDL 86 <=130 mg/dL LDL <100 mg/dL - Desirable LDL 130-159 mg/dL - Borderline High Risk LDL >160 mg/dL - High Risk PERFORMED AT [facility] [address],[place] [address] LIPID PROFILE Reviewed date:05/03/2025 09:55:41 AM Interpretation: Performing Lab: Notes/Report:BBKWZJGYRQB512231-579 mg/vOULDGXEWJBVTD59221-207 mg/dLHHDL WWHANFQGOTB82>39 mg/dLL HDL <40 mg/dL - High Risk HDL > or = 40mg/dL- Desirable HDL >60 mg/dL - Negative Risk CHOLESTEROL:HDL5.61.0-5.0 NAHVERY LOW ZSNWVSUMZGD303-26 mg/dLH LDL (CALC) Not reported due to high Triglyceride PERFORMED AT [facility] [address],[place] [address] Reason For Referral Reason recently admitted fo r UTI was suppose to follow with ID in 2 weeks. Abx switched to bactrim because of possible side effect to levaquin Diagnosis 1 UTI (lower urinary t ract infection) (N39.0) Referral Organization Main Referring Provider First Name Yadira Referring Provider Last Name Damon Referring Provider Speciality Internal M edicine Referred Provider Gabbie Carver Referred Provider Specialty Infectious D isease General Notes [facility] [place] 06/06 07:08:55 AM >referral fax sent, Leighann Guaman 06/10/2025 08:56:28 AM >referral called back. They state that they only sees kids, not adults Referral Priority Routine Medications Medication SIG (Take, Route, Frequency, Duration) Notes Start Date End Date Status metFORMIN HCl 1000 MG Tablet TAKE 1 TABL ET BY MOUTH 2 TIMES A DAY WITH A MEAL; Duration: 90 ActiveJardiance 25 MG TabletTAKE 1 TABLET BY MOUTH DAILY; Duration: 90Active Morphine Sulfate 15 MG Tablet1 tablet as needed Orally every 4 hrs05/23/2025 ActiveCetirizine HCl 10 MG Tablet1 tablet Orally Once a day; Duration: 30 day(s) 04/25/2025tiveCentrum MenNot-Taking/PRNTrulicity 0.75 MG/0.5ML Solution Auto-injector0.75 mg Subcutaneous weekly; Duration: 30 days12/06/2024 Not-Taking/PRNMens Multivitamin - Tabletas directed OrallyNot-Taking/PRNTylenol 325 MG Tablet1 tablet as needed Orally every 4 hrsNot-Taking/PRNEmpagliflozin 10 MG Tablet1 tablet Orally Once a day; Duration: 30 days05/19/2024Not-Taking/PRN predniSONE 5 MG Tablet1 tablet Orally twice dailyno end dateNot-Taking/PRNFish Oil 1000 MG Capsule1 capsule Orally Three times a dayActiveApple Cider Vinegar 600 MG Capsuleas directed Orally3 capsule once dailyNot-Taking/PRNTadalafil 10 MG Tablet1 tablet as needed Orally Once a dayNot-Taking/PRNOndansetron 8 MG Tablet Disintegrating1 tablet on the tongue and allow to dissolve as needed Orally Once a dayActiveLisinopril 2.5 MG Tablet1 tablet Orally Once a day; Duration: 90 days08/18/2023Not-Taking/PRNFamotidine 20 MG Tablet1 tablet at bedtime as needed Orally Once a dayActiveBicalutamide 50 MG Tablet1 tablet Orally Once a dayNot-Taking/PRNLidocaine 5 % Patch1 patch remove after 12 hours Externally Once a day; Duration: 30 povrhvd42ctiveMelatonin 10 MG Capsuleas directed OrallyprnActiveAbiraterone Acetate 500 MG Tablet2 tablets Orally Once a dayNot-Taking/PRNSulfamethoxazole-Trimethoprim 800-160 MG Tablet1 tablet Orally twice a day; Duration: 7 days05/23/2025tiveAdvil 200 MG Capsule1 capsule with food or milk as needed Orally Three times a dayActivepredniSONE 10 MG Tablet1 tablet with food or milk Orally Once a dayActiveoxyCODONE- Acetaminophen 5-325 MG Tablet1 tablet as needed Orally every 6 hrsActive Prochlorperazine Maleate 10 MG Tablet1 tablet as needed Orally Three times a day ActiveBumetanide 1 MG Tablet1 tablet Orally Once a dayprnActiveTurmeric 400 MG Capsuleas directed Orally2 chews once dailyNot-Taking/PRN Social History Tobacco Use: Social History Observation Description Date Details (start date - stop date) Former Smoker NA - NA Sex Assigned At : Social History Observation Description Sex Assigned At Male Social History Social DeterminantsSocial InfoQuestionAnswerNotesPRAPAREDate Completed/Updated: 1962patient entered dataWhat is your current housing situation?I have housingpatient entered dataAre you worried about losing your housing?No patient entered dataWhat is the highest level of school that you have finished?I choose not to answer this questionpatient entered dataWhat is your current work situation?Otherwise unemployed but not seeking work (ex. student, retired, disabled, unpaid primary wound care nurse)patient entered dataIn the past year, have you or any family members you live with been unable to get any of the following when it was really needed? Check all that applyI do not have problems meeting my needsHas lack of transportation kept you from medical appointments, meetings, work or from getting things needed for daily living?NoHow often do you see or talk to people that you care about and feel close to? (For example: talkingto friends on the phone, visiting friends or family, going to quaker or club meetings)More than 5 times a weekpatient entered dataHow stressed are you? Stress is when someone feels tense, nervous, anxious, or can't sleep at nightbecause their mind is troubledA little bitpatient entered dataIn the past year have you spent more than 2 nights in a row in a shelter, intermediate, senior living center, orjuvenile correctional facility?Nopatient entered dataAre you a refugee?Nopatient entered dataWhat country are you from?[place] patient entered dataDo you feel physically and emotionally safe where you currently live?Yespatient entered dataIn the past year, have you been afraid of your partner or ex-partner?Nopatient entered dataPRAPARE Score:5PCMH and UDS DemographicsSocial InfoQuestionAnswerNotesPriDeaconess Incarnate Word [facility] QuestionsDo you have any barriers to learning?Nonepatient entered dataWhat is your preferred method of learning?Doing or practicingpatient entered dataHow often do you need to have someone help you read instructions?Neverpatient entered dataDrugs/Alcohol/Caffeine:Social InfoQuestionAnswerNotesCAGE-AID Questionnaire (2018 Edition)Have you ever felt that you ought to cut down on your drinking or drug use?Nopatient entered dataHave people annoyed you by criticizing your drinking or drug use?Nopatient entered dataHave you ever felt bad or guilty about your drinking or drug use?Nopatient entered dataHave you ever had a drink or used drugs first thing in the morning to steady your nerves or to get rid of a hangover?Nopatient entered dataCAGE-AID Score0 InterpretationNegativeTobacco Use:Social InfoQuestionAnswerNotesTobacco Use/SmokingTobacco use:former smokerpatient entered data? How long has it been since you last smoked?> 10 yearspatient entered data Problems Problem Type SNOMED Code ICD Code Onset Dates Problem Status W/U Status Risk Notes Problem Essential hypertension (41271153) Essenti al hypertension (I10) ActiveconfirmedProblemType II diabetes mellitus without complication (360960043) Type 2 diabetes mellitus without complication, without long-term current use of insulin (E11.9)ActiveconfirmedProblemSacral back pain (86403954)Sacral back pain (M53.3)ActiveconfirmedProblemObesity (245494132)Obesity (BMI 30-39.9) (E66.9) ActiveconfirmedProblemHistory of anemia (104325734)History of anemia (Z86.2) ActiveconfirmedProblemPain in coccyx (finding) (68821575)Coccyx pain (M53.3) ActiveconfirmedProblemHyperglycemia due to type 2 diabetes mellitus (188923186923673)Uncontrolled type 2 diabetes mellitus with hyperglycemia (E11.65)Activeconfirmed Vital Signs Heart Rate 73 /min 05/23/2025 Liseth Galarza 05/23/2025 10:09:57 AM EDT > Temperature 97 degrees Fahrenheit 05/23/2025 Liseth Galarza 05/23/2025 10:09:57 AM EDT > Respiratory Rate 18 /min 05/23/2025 Jj Galarza 05/23/2025 10:09:57 AM EDT > Oximetry 100 % 05/23/2025 Liseth Galarza 05/23/2025 10:09:57 AM EDT > Height-cm 172.72 cm 05/23/2025 Liseth Galarza 05/23/2025 10:09:57 AM EDT > Blood pressure diastolic 76 mm Hg 05/23/2025 Liseth Rangel 05/23/2025 10:09:57 AM EDT > Weight-kg 93.49 kg 05/23/2025 Liseth Galarza 05/23/2025 10:09:57 AM EDT > Height 68.00 in 05/23/2025 Liseth Galarza 05/23/2025 10:09:57 AM EDT > Blood pressure systolic 120 mm Hg 05/23/2025 Liseth Watson 05/23/2025 10:09:57 AM EDT > Weight 206.1 lbs 05/23/2025 Liseth Galarza 05/23/2025 10:09:57 AM EDT > BMI 31.33 kg/m2 05/23/2025 Liseth Galarza 05/23/2025 10:09:57 AM EDT > Encounters Encounter Location Date Provider Diagnosis [facility] [address] [facility] [place] [id number] 12/06/2024 Yadira Damon Type 2 diabetes ranjeet itus without complication, without long-term current use of insulin E11.9 ; Essential hypertension I10 ; Sacral back pain M53.3 ; Obesity (BMI 30-39.9) E66.9 ; Dietary counseling Z71.3 and Exercise counseling Z71.82 Main [address] [facility] [place] [id number] 01/06/2025 Yadira Damon Type 2 diabetes ranjeet itus without complication, without long-term current use of insulin E11.9 Main [address] [facility] [facility], [place] [id number] 04/25/2025 Yadira Damon Uncontrolled type 2 diabetes mellitus with hyperglycemia E11.65 ; Essential hypertension I10 ; Pale complexion R23.1 and Fullness in right ear H93.8X1 [facility] [address] [facility] [place] [id number] 05/23/2025 Yadira Damon UTI (lower urinary t ract infection) N39.0 ; Sepsis A41.9 ; Hospital discharge follow-up Z09 and Rash R21 Main [address] [facility], [place] [id number] 12/02/2024 Yadira Damon Type 2 diabetes ranjeet itus without complication, without long-term current use of insulin E11.9 Main [address] [facility] [facility] [place] [id number] 01/04/2025 Yadira Damon [address] [place] [address]/11/2025Komal [address] [place] [address]/07/2025Ramsha [address] [place] [address]/22/2025Ramsha [address] [place], [place] [id number] 05/23/2025Ramsha [address] [place] [address]/03/2025Jamalshruthi Garces Assessments Encounter Date Diagnosis (ICD Code) Assessment Notes Treatment Notes Treatment Clinical Notes Section Notes 05/23/2025 UTI (lower urinary tract infecti on) (ICD-10 - N39.0) Pt likely has rash secondary to levofloxacin. Urine culture from hospital (05/14) reviewed showed Kelbsiella and enterobacter susceptable to Bactrim Will start bactrim. Advise to see his specialist Urologist and Infection disease. 04/25/2025Uncontrolled type 2 diabetes mellitus with hyperglycemia (ICD-10 - E11.65) A1c improved to 5.8. I will continue the same regimen I recommend home blood sugar readings to be monitored frequently (daily fasting along with random (2 hours after meals). Pt was advised to log the reading with timings and to bring it on the next visit so we can adjust the dose of medications as needed. Educated pt on monitoring low sugar, alarming signs/symptoms and how to manage it including when tocall the office or go to ER. Pt was advised to inspect the feet daily. Patient was reminded to have yearly eye exam to look for diabetic retinopathy and yearly podiatristvisit and PVU Pt will f/up with repeat labs in 3 months. 04/25/2025Essential hypertension (ICD-10 - I10)Bp well controlled. Continue current fsknltvqqzy32/12/2025Type 2 diabetes mellitus without complication, without long-term current use of insulin (ICD-10 - E11.9) A1c significantly worse 9.0 today. Pt was out of meds for a long time and recently restarted. I will continue Metformin, increasing Jardiance to 25 mg daily. Adding Trulicity, SI disucssed. f/u in 4 weeks. If A1c not improving and with pt being on steroid will consider insulin. I recommend home blood sugar readings to be monitored frequently (daily fasting along with random (2 hours after meals). Pt was advised to log the reading with timings and to bring it on the next visit so we can adjust the dose of medications as needed. Pt was advised to inspect the feet daily. Patient was reminded to have yearly eye exam to look for diabetic retinopathy and yearly podiatristvisit and PVU Pt had blood work done through his specialist will briong the record on next visit 05/23/2025Sepsis (ICD-10 - A41.9)01/06/2025Type 2 diabetes mellitus without complication, without long-term current use of insulin (ICD-10 - E11.9) A1c 6.8 today significant improvement in 4 weeks only. Will continue JArdiance and Metformin alone.Not starting Trulicity. Advised to keep checking sugars fasting daily and keep a records. Educated pt on monitoring low sugar, alarming signs/symptoms and how to manage it including when tocall the office or go to ER. will f/u in 3months Discussed about starting statin but pt wanted to wait until lipid levels are back. Will discuss during next appt Despite discussing statin benefits regardless of results pt decline at this point. 12/02/2024Type 2 diabetes mellitus without complication, without long-term current use of insulin (ICD-10 - E11.9)12/06/2024Sacral back pain (ICD-10 - M53.3)05/23/2025Hospital discharge follow-up (ICD-10 - Z09)Iuniddfck20/12/2025 Essential hypertension (ICD-10 - I10)BP well managed with diet alone.04/25/2025 Pale complexion (ICD-10 - R23.1)04/25/2025Fullness in right ear (ICD-10 - H93.8X1)Likely congestion related. No concern of infection on my exam. Advise to try cetrizine.05/23/2025Rash (ICD-10 - R21)Can be a reaction to antibiotic. Will stop levofloxacin. If not improving will refer to Shpiwwxdhun32/12/2025Obesity (BMI 30-39.9) (ICD-10 - E66.9)12/06/2024Dietary counseling (ICD-10 - Z71.3) 12/06/2024Exercise counseling (ICD-10 - Z71.82)12/06/2024Other Student Attestation Verbal Consent: Patient gives consent to be seen by a medical student. Student Name: Eunice Sky Attestation: As the teaching provider, I have personally performed or re-performed the history of presenting illness, physical exam and medical decision-making activities of the encounter and verified the Medical/ANTHROPOLOGICAL LINGUIST/PA student's documentation. I have made pertinent changes as necessary to ensure accurate documentation. Plan Of Treatment Pending Test Test Name Order Date MICROALBUMIN RANDOM SPEC 04/25/2025 COMPREHENSIVE METABOLIC PANEL WITH GFR 0 04/25/2025 CBC W/AUTO DIFF 04/25/2025 Next Appt Details Provider Name:Yadira Jose, 07/18/2025 01:30:00 PM, [address] [place], [place], [id number], Insurance Providers Payer Name Payer Address Payer Phone Subscriber Number Group Number Insured Name Patient Relationship to Insured Coverage Start Date Coverage End Date Medicare NGS PPS [address] [place], [place] [id number] Nasir Normaelf - patient is the [id number] 2017Medicaid [address] [place], [place] [id number], MarkSelf - patient is the insured 2019 Medical (General) History Medical History History ICD Code Prostate Cancer Stage 4 bone cancerBladder cancerDMHTNSurgical History Surgery Date(Month/Year) SURGICAL: Right knee arthroscopy, Proble mStatus: Active, 2007-06-17 prostate surgery cancerous tumors removed from spinal ofzqu6609-mzwbcek or november Hospitalization History Reason Date(Month/Year) [facility] ap[facility] 2025 white blood cells were high and hemoglobin was low. [facility] february 2025 cancer, tumors removed from spine 2023-o ct or november see above [facility] Ujzhil86/2023
[2025-07-18 04:37] LABS: Anion Gap 13.3; Blood Urea Nitrogen 18.0 mg/dL (7.0-18.0); Calcium 8.5 mg/dL (8.5-10.1); Carbon Dioxide 30.3 mmol/L (21.0-32.0); Chloride 99 mmol/L (98-107); Estimated GFR (African America >60 (>=60 mL/min/1.73m^2); Estimated GFR (Non-African Ame 52 (>=60 mL/min/1.73m^2); Glucose 152 mg/dL (74-106); Potassium 3.6 mmol/L (3.5-5.1); Sodium 139 mmol/L (136-145)
[2025-07-18 04:48] LABS: Lactate/Lactic Acid 1.4 mmol/L (0.4-2.0)
[2025-07-18] MEDS: HYDROMORPHONE HCL 0.5 MG/0.5 ML SYRINGE IV (05:11)
--- NOTE | 2025-07-18 05:35 | PC.NURSE ---
this patient arrives via ems from home with left lower back pain and nausea and drainage from nephrostomy tube onset tonight. also this patient had a recent tumor removed from his mid-spine and sutures to be removed 07/19/2025 @ 10:30([facility] [address], [place]
[2025-07-18 06:11] LABS: Glucose Urine UA 500 mg/dL (NEGATIVE)
[2025-07-18 06:19] LABS: Cast Seen? SEEN #/LPF (NONE SEEN); Crystals Seen? None Seen #/HPF (None Seen)
[2025-07-18 06:20] LABS: Urine Culture Indicated YES-FRMC
[2025-07-18 06:45] LABS: Glucose Urine UA >=1000 mg/dL (NEGATIVE)
[2025-07-18 06:57] LABS: Cast Seen? NONE SEEN #/LPF (NONE SEEN); Crystals Seen? None Seen #/HPF (None Seen); Urine Culture Indicated YES-FRMC
[2025-07-18] MEDS: HYDROMORPHONE HCL 1 MG/ML CARTRIDGE IV ×5 (07:18→18:54)
--- NOTE | 2025-07-18 12:26 | ED.GENADUL1 ---
HPI HPI - General Adult General Chief complaint: Urogenital-Male Time Seen by Provider: 07/18/25 03:52 Source: family Mode of arrival: ambulance Limitations: no limitations History of Present Illness HPI narrative: 64-year-old male presented to the emergency department and was initially seen by Dr. Rainey and signed out to me after discussing the case with him thoroughly. Related Data Home Medications ?Medication ?Instructions ?Recorded ?Confirmed magnesium oxide 400 mg PO BID 07/18/25 07/18/25 metformin 1,000 mg tablet mg 07/18/25 oxycodone-acetaminophen 10 mg-325 1 tab PO Q4H 07/18/25 07/18/25 mg tablet (Percocet) polyethylene glycol 3350 17 17 g PO BID 07/18/25 07/18/25 gram/dose oral powder pregabalin 25 mg capsule (Lyrica) 25 mg PO BID 07/18/25 07/18/25 sennosides 8.6 mg-docusate sodium 1 tab-cap PO BID 07/18/25 07/18/25 50 mg tablet (Senna with Docusate Sodium) tamsulosin 0.4 mg capsule 0.4 mg PO DAILY 07/18/25 07/18/25 Allergies Allergy/AdvReac Type Severity Reaction Status Date / Time Penicillins Allergy Mild RASH Verified 07/18/25 09:09 pentazocine Allergy Mild Hallucinati Verified 07/18/25 04:41 ng Opioid HPI Opioid Management Most Recent Opioid Data: Last Pain Scale 9 Today, 12:15 Last MAR Pain Assessment Today, 12:15 [facility] Medical History (Updated 07/18/25 @ 12:26 by Derrick Calloway MD) Diabetes ?E11.9 - Type 2 diabetes mellitus without complications (ICD-10) Hypertension ?I10 - Essential (primary) hypertension (ICD-10) Prostate cancer ?C61 - Malignant neoplasm of prostate (ICD-10) Exam Constitutional Vital Signs, click to edit/add: Last Vital Signs Temp 98.6 F 07/18/25 03:43 Pulse 95 H 07/18/25 04:58 Resp 19 07/18/25 04:58 BP 92/60 07/18/25 10:31 Pulse Ox 96 07/18/25 10:40 O2 Del Method Room Air 07/18/25 03:43 Course Vital Signs Vital signs: Vital Signs Temperature 98.6 F 07/18/25 03:43 Pulse Rate 124 H 07/18/25 03:43 Respiratory Rate 20 07/18/25 03:43 Blood Pressure 101/55 07/18/25 03:43 Pulse Oximetry 98 07/18/25 03:43 Oxygen Delivery Method Room Air 07/18/25 03:43 Temperature 98.6 F 07/18/25 03:43 Pulse Rate 95 H 07/18/25 04:58 Respiratory Rate 19 07/18/25 04:58 Blood Pressure 92/60 07/18/25 10:31 Pulse Oximetry 96 07/18/25 10:40 Oxygen Delivery Method Room Air 07/18/25 03:43 Medical Decision Making MDM Narrative Medical decision making narrative: T scan shows displacement of the nephrostomy tube. He also appears to have mild UTI and was given IV Rocephin. I have spoken to the hospitalist at [facility] and the patient will be transferred there. The patient is stable and agreeable for transfer. Lab Data Lab results reviewed: Yes I reviewed the patient's lab results Labs: Lab Results 07/18/25 07/18/25 07/18/25 Range/Units 03:15 06:01 06:34 WBC 10.4 (4.0-11.0) 10^3/uL RBC 3.09 L (4.70-6.10) 10^6/uL Hgb 9.6 L (14.0-18.0) g/dL Hct 31.0 L (42.0-54.0) % MCV 100.3 H (80.0-94.0) fL MCH 31.1 (25.9-34.0) pg MCHC 31.0 (29.9-35.2) g/dL RDW 16.2 H (11.0-15.0) % Plt Count 281 (150-450) 10^3/uL MPV 8.6 L (9.5-13.5) fL Neut % (Auto) 80.2 H (43.0-75.0) % Lymph % (Auto) 9.8 L (20.5-60.0) % [place] % (Auto) 7.2 (1.7-12.0) % Eos % (Auto) 1.8 (0.9-7.0) % Baso % (Auto) 0.5 (0.2-2.0) % Neut # (Auto) 8.3 H (1.4-6.5) 10^3/uL Lymph # (Auto) 1.0 L (1.2-3.8) 10^3/uL [place] # (Auto) 0.8 (0.3-0.8) 10^3/uL Eos # (Auto) 0.2 (0.0-0.7) 10^3/uL Baso # (Auto) 0.1 (0.0-0.1) 10^3/uL Abs Immat Gran (auto) 0.05 H (0.00-0.03) 10^3/uL Imm/Tot Granulo (auto) 0.5 (0.0-0.5) % Sodium 139 (136-145) mmol/L Potassium 3.6 (3.5-5.1) mmol/L Chloride 99 (98-107) mmol/L Carbon Dioxide 30.3 (21.0-32.0) mmol/L Anion Gap 13.3 BUN 18.0 (7.0-18.0) mg/dL Creatinine 1.38 H (0.70-1.30) mg/dL Est GFR ( Amer) >60 (>=60 mL/min/1.73m^2) Est GFR (Non-Af Amer) 52 L (>=60 mL/min/1.73m^2) BUN/Creatinine Ratio 13.0 Glucose 152 H (74-106) mg/dL Lactate 1.4 (0.4-2.0) mmol/L Calcium 8.5 (8.5-10.1) mg/dL Urine Color Yellow Lt. yellow (YELLOW) Urine Clarity Cloudy A Clear (CLEAR) Urine pH 6.0 5.5 (5.0-9.0) Ur Specific [place] <=1.005 A <=1.005 A (1.005-1.025) Urine Protein 30 A Trace (NEG/TRACE) mg/dL Urine Glucose (UA) 500 A >=1000 A (NEGATIVE) mg/dL Urine Ketones Negative Negative (NEGATIVE) mg/dL Urine Occult Blood Large A Large A (NEGATIVE) Urine Nitrite Negative Negative (NEGATIVE) Urine Bilirubin Negative Negative (NEGATIVE) Urine Urobilinogen 0.2 0.2 (0.2-1.0) EU/dL Ur Leukocyte Esterase Moderate A Small A (NEGATIVE) Urine RBC 10-20 A 10-20 A (0-2) #/HPF Urine WBC 50-75 A 5-10 A (NONE SEEN) #/HPF Ur Squamous Epith Cells Rare None seen (NONE/RARE) #/LPF Urine Crystals None seen None seen (None Seen) #/HPF Urine Bacteria Small A Small A (NONE SEEN) #/HPF Urine Casts Seen A None seen (NONE SEEN) #/LPF Hyaline Casts Rare Urine Mucus None seen None seen (NONE SEEN) Urine Yeast Seen A Seen A (NONE SEEN) Ur Culture Indicated? Yes-[place] [place] Data CT scan - abdomen: Radiologist's impression: ITS Impressions Abdomen/Pelvis CT 07/18/25 04:03 IMPRESSION: Moderate left-sided hydronephrosis and hydroureter with tapers to the level of the distal left ureter. There appears be a nephrostomy tube in place with air seen within the collecting system. The nephrostomy tube tip appears to be curled within the left renal parenchyma. Correlation with nephrostomy tube patency is recommended. Diffuse sclerotic bony metastatic disease with loss of the posterior elements of T12 and L1. Correlation with surgical history is suggested. Cholelithiasis. Impression dictated by: Tristan Granados Jr., D.O. 07/18/2025 8:36 AM Dictation Location: [place] [address] Electronically authenticated by: [id number] Y Date: 07/18/2025 08:36 Discharge Plan Discharge Chief Complaint: Urogenital-Male Clinical Impression: Displacement of nephrostomy tube Patient Disposition: [facility] Time of Disposition Decision: 12:26 Discharge Location: [facility] Condition: Fair Mode of Transportation: EMS
--- NOTE | 2025-07-18 19:17 | PC.NURSE ---
i called patient report to breonna nelson at [facility] [phone],
== END 2025-07-18 19:16 | disposition short-term general hospital (02) ==
PROVIDERS: Internal Medicine; Emergency Provider Emergency Medicine; PCP Family Medicine
DX: N99.522 Malfunction of incontinent external stoma of urinary tract (principal); N13.6 Pyonephrosis
CPT/HCPCS: 36415; 74177; 80048; 81001; 83605; 85025; 87086; 87106; 96365; 96375; 96376; 99285; J0696; J1171; J2405; Q9967